=== PATIENT | female | born 1990 | race Caucasian/White ===

== ENCOUNTER 2022-10-28 09:29 | Outpatient (CLI) | payer MEDICAID, SELFPAY ==
[2022-10-28 13:49] LABS: Hepatitis B Surface Antigen* Negative (Negative)
[2022-10-28 13:59] LABS: HIV 1/2/P24 Combo Screen* Negative (Negative)
[2022-10-28 14:07] LABS: Hepatitis C Virus Antibody* Negative (Negative)
[2022-10-28 14:08] LABS: TSH With Reflex to FT4* < 0.015 uIU/mL (0.270-4.200)
[2022-10-28 14:46] LABS: Free T4 Free Thyroxine* 1.21 ng/dL (0.70-1.85)
[2022-10-28 14:52] LABS: Chlamydia DNA Amplified* NOT DETECTED (No Detected); GC DNA Amplified* NOT DETECTED (No Detected)
[2022-10-30 13:26] LABS: Rubella Antibody IgG 32.8 IU/mL; Varicella-Zoster Virus Ab, IgG 549.3 IV
[2022-10-30 17:21] LABS: Rapid Plasma Reagin (RPR) Non Reactive (Non Reactive)
== END 2022-10-28 09:30 | disposition home or self-care (01) ==
PROVIDERS: PCP Registered Nurse; Visit Provider Physician Assistant
DX: Z34.91 Encounter for supervision of normal pregnancy, unspecified, first trimester (principal); Z86.39 Personal history of other endocrine, nutritional and metabolic disease
CPT/HCPCS: 84439; 84443; 86592; 86703; 86762; 86787; 86803; 86850; 86900; 86901; 87086; 87340; 87491; 87591

== ENCOUNTER 2022-10-28 09:59 | Outpatient (CLI) | payer MEDICAID, SELFPAY ==
--- NOTE | 2022-10-28 10:15 | CRLHL7_ITS ---
For Patients: As a result of the Century Cures Act, medical imaging exams and procedure reports are released immediately into your electronic medical record. You may view this report before your referring provider. If you have questions, please contact your health care provider. INDICATION: First trimester scan, establish dates. COMPARISON: None. TECHNIQUE: Real-time sun-scale imaging of the pelvis was performed. FINDINGS: Sonographic imaging demonstrates a single living intrauterine gestation. The embryo demonstrates a regular cardiac rate measuring 174 beats per minute. The embryo`s crown-rump length measurement of 1.8 cm corresponds to a gestational age of 8 weeks 2 days with a sonographic due date of 06/07/2023. There is a normal-appearing yolk sac. There are no gross abnormalities noted within the embryo at this early state of development. The gestational sac has a normal appearance. There is a 3.8 x 0.6 x 0.6 cm right-sided perigestational hemorrhage. The amount of fluid within the sac appears appropriate for gestational age. The cervix is closed. The myometrium appears normal. The ovaries are of normal size. Corpus luteal cyst right ovary. There are no suspicious fluid collections noted in the cul-de-sac. IMPRESSION: Sonographic gestational age 8 weeks 2 days and sonographic due date 06/07/2023. Subchorionic hemorrhage measuring 3.8 x 0.6 x 0.6 cm. Dictated by Wili Fernandez MD @ 10/28/2022 2:27:57 PM (Electronically Signed)
== END 2022-10-28 10:00 | disposition home or self-care (01) ==
LOC: US 10:00
PROVIDERS: PCP Registered Nurse; Visit Provider Registered Nurse
DX: Z34.91 Encounter for supervision of normal pregnancy, unspecified, first trimester (principal); Z3A.08 8 weeks gestation of pregnancy
CPT/HCPCS: 76817

== ENCOUNTER 2022-11-30 09:15 | Outpatient (CLI) | payer MEDICAID, SELFPAY ==
[2022-11-30 10:49] LABS: TSH With Reflex to FT4* 0.223 uIU/mL (0.270-4.200)
[2022-11-30 11:47] LABS: Free T4 Free Thyroxine* 0.95 ng/dL (0.70-1.85)
== END 2022-11-30 09:16 | disposition home or self-care (01) ==
LOC: NFLDREF 09:15
PROVIDERS: PCP Registered Nurse; Visit Provider Obstetrics & Gynecology
DX: Z86.39 Personal history of other endocrine, nutritional and metabolic disease (principal)
CPT/HCPCS: 84439; 84443

== ENCOUNTER 2023-01-18 07:14 | Outpatient (CLI) | payer MEDICAID, SELFPAY ==
--- NOTE | 2023-01-18 07:15 | CRLHL7_ITS ---
For Patients: As a result of the Century Cures Act, medical imaging exams and procedure reports are released immediately into your electronic medical record. You may view this report before your referring provider. If you have questions, please contact your health care provider. INDICATION: Evaluate anatomy. COMPARISON: 10/28/2022 TECHNIQUE: Real time sun scale imaging of the fetus was performed as well as color Doppler analysis of the umbilical vessels. FINDINGS: Sonographic imaging demonstrates a single living intrauterine gestation. Fetus demonstrates a regular cardiac rate of 146 beats per minute. Fetus has a variable position. The placenta lies posteriorly without evidence of placenta previa. The edges of the placenta is located 4.4 cm from the internal cervical os. Amniotic fluid volume appears normal. Single deepest vertical pocket: 4.9 cm. The cervix is closed and measures 4.2 cm in length. The composite ultrasound gestational age is calculated at 20 weeks 2 days with an estimated sonographic due date of 06/05/2023. The estimated weight is 350 grams which lies at the 68th %. The following biometric measurements were obtained: Biparietal diameter: 4.6 cm/20 weeks 0 days 49th% Head circumference: 17.7 cm/20 weeks 1 day 50th% Abdominal circumference: 15.4 cm/20 weeks 4 days 64th% Femur length: 3.3 cm/20 weeks 2 days 51st% The HC/AC ratio measures: 1.15 range (1.07-1.25) On anatomic survey, there is a normal appearance of the cerebral ventricles, cavum septi pellucidi, cisterna magna and cerebellum. The nose, lips, and facial profile appear normal. The cervical, thoracic and lumbar spine are well visualized and appear normal. There is a normal four-chamber heart view and the left and right ventricular outflow tracts appear normal. The diaphragm and stomach appear normal. The kidneys and bladder also appear normal. There is a normal three-vessel cord and cord insertion site. The four extremities appear normal. IMPRESSION: Normal OB ultrasound exam with concordance of clinical and sonographic dating. No intrinsic abnormalities noted on anatomic survey. Dictated by Wili Fernandez MD @ 01/18/2023 9:13:13 AM (Electronically Signed)
== END 2023-01-18 07:15 | disposition home or self-care (01) ==
LOC: US 07:16
PROVIDERS: Visit Provider Obstetrics & Gynecology
DX: Z34.92 Encounter for supervision of normal pregnancy, unspecified, second trimester (principal); Z3A.20 20 weeks gestation of pregnancy
CPT/HCPCS: 76805

== ENCOUNTER 2023-04-26 09:41 | Outpatient (CLI) | payer MEDICAID, SELFPAY | END 2023-04-26 09:42 | disposition home or self-care (01) | PROVIDERS: Visit Provider Obstetrics & Gynecology | DX: R39.15 Urgency of urination (principal) | CPT/HCPCS: 87086 ==

== ENCOUNTER 2023-05-10 10:08 | Outpatient (CLI) | payer MEDICAID, SELFPAY ==
[2023-05-11 11:02] LABS: Strep B DNA Probe POSITIVE (Negative); Strep B Pen/Amox Allergy No
== END 2023-05-10 10:09 | disposition home or self-care (01) ==
PROVIDERS: Visit Provider Obstetrics & Gynecology
DX: Z34.93 Encounter for supervision of normal pregnancy, unspecified, third trimester (principal); Z3A.36 36 weeks gestation of pregnancy
CPT/HCPCS: 87081; 87653

== ENCOUNTER 2023-05-11 15:45 | Outpatient (CLI) | payer MEDICAID, SELFPAY ==
[2023-05-11 15:51] VITALS: PULSE 92; O2SAT 100
[2023-05-11 15:56] VITALS: PULSE 100; O2SAT 99
[2023-05-11 15:58] VITALS: BP 130/84; PULSE 97
[2023-05-11 15:59] VITALS: TEMP 36.8
--- NOTE | 2023-05-11 17:45 | PC.OBNST ---
NST Note NST Note Start: 05/11/23 15:57 Freq: ONCE Status: Active Protocol: Document 05/11/23 17:44 HOLINESS (Rec: 05/11/23 17:45 HOLINESS [id number]) NST Note 8 Para (# of births) 4 EDC 06/07/23 Gestational Age In Weeks & Days 36 Weeks & 1 Days Patient Presented with Complaint(s) of Decreased movement Reactive Yes Appropriate for Gestational Age Yes MILLICENT Ashby Date 05/11/23 Reactive Yes Appropriate for Gestational Age Yes MILLICENT Singh Date 05/11/23 OB NST charge Yes Complete NST Note via Write Note Yes The provider's electronic signature indicates the NST is reactive/appropriate for gestational age. *Note to provider: If an addendum is required, open the patient's chart and click on the note under the Nurse/Allied Health tab.
== END 2023-05-11 16:40 | disposition home or self-care (01) ==
LOC: OB OUT 15:45 → OB 15:46
PROVIDERS: Visit Provider Obstetrics & Gynecology
DX: O36.8130 Decreased fetal movements, third trimester, not applicable or unspecified (principal); Z3A.36 36 weeks gestation of pregnancy
CPT/HCPCS: 59025; 99213

== ENCOUNTER 2023-05-31 18:59 | Inpatient (IN) | payer MEDICAID, SELFPAY ==
[2023-05-31 16:39] VITALS: BP 138/88; PULSE 106; PULSE 96; O2SAT 100
[2023-05-31 16:48] VITALS: TEMP 37.2
[2023-05-31 19:14] VITALS: BMI 35.4
[2023-05-31] MEDS: AMPICILLIN 2 GM in 0.9 % SODIUM CHLORIDE Mini-bag 100 ML IVPB (19:36)
[2023-05-31 19:38] VITALS: BP 137/84; PULSE 79; RESP 16; TEMP 37.1
--- NOTE | 2023-05-31 20:29 | P.LDBA_ITS ---
Subjective History of Present Illness Time Seen by Provider: 20:20 Date Seen: 05/31/23 Narrative: Patient is being admitted to Labor and Delivery for spontaneous onset of labor. She is a 32 year old at 39 0/7 weeks gestation. Her full history and physical was dictated by Dr. Aponte on 05/17/2023. Please see this for details. Specific Issues/Plans 1. Nephrolithiasis. ED visit September 2022. 4 mm nonobstructing stone 2. History of recurrent loss, 3 miscarriages * Declined [id number] or any other genetic screening 3. History of LEEP in 2009, paps have been normal since * Pap 10/28/2022 NILM, neg HrHPV 4. Asthma: was noted in records, but pt denies 5. At 1st visit: TSH<0.015 (L), FT4 1.21 (normal) * TSH w/ reflex FT4 at 2nd visit: TSH 0.223 (slightly low), fT4 0.95 (normal) * Recheck TSH at 28 weeks: 0.432 (normal) Flu shot: Declines COVID vaccine: Not vaccinated, discussed recommendation and risks Tdap: Declined OB - Problem Based A/P Additional Plan (1) Spontaneous onset of labor: Status: Acute Plan Begin GBS prophylaxis. Delivery/Labor/Induction Plan Plan: expectant management OB Result Labs Blood Type: O (+) positive Rubella: immune RPR/VDLR: nonreactive GBS Status: positive HBsAG: negative OB Exam Physical Exam Vital signs: Temp Pulse Resp BP Pulse Ox 98.7 F 79 16 137/84 100 05/31/23 19:38 05/31/23 19:38 05/31/23 19:38 05/31/23 19:38 05/31/23 16:39 Detailed Labor and Delivery Exam Patient Gravid: Yes Dilation (cm): 3 Effacement (%): 70 Cervix position: mid Consistency: soft Contraction Frequency: 1-5 minutes Contraction duration (sec): 60 Tachysystole: No Contraction intensity: Moderate Fetus (Single) Station: -2 Amniotic Membrane Status: intact Heart Rate Baseline: 140 Monitor Accelerations: Absent Monitor Decelerations: None Halfway Variability: Moderate (6-25)
[2023-05-31 22:04] VITALS: TEMP 36.9
[2023-05-31 23:05] LABS: Basophils Percent Auto 0.4 % (0.0-3.0); Eosinophils Percent Auto 0.6 % (0.0-7.0); Hematocrit 36.8 % (33.0-51.0); Hemoglobin* 12.1 gm/dL (12.0-16.0); Immature Granulocytes Pct Auto 0.5 %; Lymphocytes Percent Auto 22.6 % (20-44); Mean Corpuscular HGB Conc 33 gm/dL (32-36); Mean Corpuscular Hemoglobin 28 pg (26-34); Mean Corpuscular Volume 85 fL (80-100); Monocytes Percent Auto 6.3 % (0.0-11.0); Neutrophils Percent Auto 69.6 % (42.0-72.0); Platelet Count* 236 K/uL (140-440); RDW Coefficient of Variation % 13.1 % (11.5-15.5); Red Blood Count 4.35 m/uL (4.00-5.20); White Blood Count* 11.04 K/uL (4.50-11.00)
[2023-05-31 23:08] LABS: Slide Review Reflex No
[2023-05-31 23:15] VITALS: BP 147/95; PULSE 84
[2023-05-31] MEDS: AMPICILLIN 1 GM in 0.9 % SODIUM CHLORIDE Mini-bag 100 ML IVPB (23:16)
[2023-05-31 23:19] VITALS: BP 137/80; PULSE 94; RESP 18; TEMP 36.8
--- NOTE | 2023-05-31 23:58 | PM.OBPNL ---
Subjective Time Seen by Provider: 23:58 Date Seen: 05/31/23 Narrative: Patient has done labor circuit. Sri regularly now. Objective Vital Signs: Last Vital Signs Temp 98.2 F 05/31/23 23:19 Pulse 94 05/31/23 23:19 Resp 18 05/31/23 23:19 BP 137/80 05/31/23 23:19 Pulse Ox 100 05/31/23 16:39 Pelvic Exam Dilation (cm): 5 Effacement (%): 50 Station: -2 Contractions Monitor mode: External Contraction Frequency: 2 minutes Contraction pattern: Regular Contraction intensity: Moderate Assessment Assessment: active labor Station: -2 Amniotic Membrane Status: AROM Status: Category l Heart Rate Baseline: 140 Skilled Nursing Variability: Moderate (6-25) Monitor Accelerations: Absent Monitor Decelerations: None Plan Plan: AROM performed. Continue current management.
[2023-06-01] VITALS (15 sets, daily range): BP systolic 110–175; BP diastolic 63–89; PULSE 69–101; RESP 16–18; TEMP 36.5–37
[2023-06-01] MEDS: AMPICILLIN 1 GM in 0.9 % SODIUM CHLORIDE Mini-bag 100 ML IVPB (03:18)
--- NOTE | 2023-06-01 03:35 | PM.OBPNL ---
Subjective Time Seen by Provider: 03:35 Date Seen: 06/01/23 Narrative: Patient comfortable. Was able to get about 90 minutes of sleep. Objective Exam: Vertex presentation confirmed by bedside ultrasound. Vital Signs: Last Vital Signs Temp 98.6 F 06/01/23 03:19 Pulse 71 06/01/23 03:19 Resp 16 06/01/23 03:19 BP 135/76 06/01/23 03:19 Pulse Ox 100 05/31/23 16:39 Pelvic Exam Dilation (cm): 7 Effacement (%): 100 Station: -2 Contractions Monitor mode: External Contraction Frequency: 1-5 minutes Contraction pattern: Regular Contraction intensity: Moderate Assessment Station: -2 Amniotic Membrane Status: AROM Status: Category l Heart Rate Baseline: 140 Monitor Accelerations: Absent Monitor Decelerations: None Plan Plan: Begin pitocin augmentation of labor per protocol.
[2023-06-01] MEDS: LACTATED RINGERS 1000 ML 1,000 ML 125 ML IV (03:56)
[2023-06-01] MEDS: OXYTOCIN 30 unit/500 ML in NS 30 UNIT/500 ML BAG IVPB (03:56)
[2023-06-01] MEDS: fentaNYL 100 MCG/2 ML inj IVP (06:47)
--- NOTE | 2023-06-01 06:56 | PM.OBPNL ---
Subjective Date Seen: 06/01/23 Narrative: Patient is in 10/10 pain with contractions. Had thought about using nitrous, but didn't. Objective Vital Signs: Last Vital Signs Temp 98.6 F 06/01/23 05:50 Pulse 87 06/01/23 05:50 Resp 18 06/01/23 05:50 BP 134/87 06/01/23 05:50 Pulse Ox 100 05/31/23 16:39 Pelvic Exam Dilation (cm): 6 Effacement (%): 100 Station: -1 Comments: LOP position Contractions Monitor mode: External Contraction pattern: Regular Contraction intensity: Moderate Assessment Station: -2 Amniotic Membrane Status: AROM Status: Category l Heart Rate Baseline: 140 Activity Assistant Variability: Minimal (3-5) Monitor Accelerations: Present Monitor Decelerations: Variable Plan Plan: Fentanyl now for pain. Signing out to Dr. Hsu.
[2023-06-01] MEDS: LIDOCAINE 1 % PF 30 ML INJECTION (07:30)
--- NOTE | 2023-06-01 07:49 | W.PM.OBVAGDE ---
OB Procedure Vag Delivery Mother Details Mother Details: The patient is a 32 year-old, 8, Para 4034, admitted on 05/31/23 at 39 0/7 gestation. : 8 Para: 4 Weeks Gestation: 39.1 Admission Date: 05/31/23 Additional Details Amniotic Membrane Status: AROM Amniotic Membrane Rupture Date: 05/31/23 Amniotic Membrane Rupture Time: 23:53 Amniotic Membrane Fluid Description: Clear and Bloody Analgesia/Anesthesia Type: Fentanyl (just prior to delivery) Waterbirth: No Pitcoin: Yes (beginning at 0400) Intrapartal Events: Labor Augmentation Delivery augmentation: rupture of membranes and pitocin (to max of 7 mu/min) Labor Onset: 23:53 Complete: 07:18 Pushin:18 Heart: heart tones during second stage were category 2. Delivery Details Delivery Time: 07:23 Route of delivery: Infant Gender: Male Infant Viability: Alive; Heart Rate Present Position at Delivery: OA Delivery Details: Delivered over 2nd degree perineal laceration via spontaneous vaginal delivery. was placed on maternal abdomen.? Cord was clamped and cut after a 30-60 second delay. Nose and mouth were bulb suctioned.? Infant weight pending. Additional Details Shoulder Dystocia: No Placenta Delivery Time: 07:27 Placental Delivery Description: Spontaneous Delivery repair: Chromic Procedure Done: Global Blood Loss: 100 Laceration: Perineal - 2nd Degree Blood Loss Measurement Type: QBL Bakri Used: No Sponge/Need Count Correct: Yes Cord Vessel Description: 3 Vessels Event Summary Status: Mother and infant were stable after delivery. Disposition: floor
[2023-06-01] MEDS: DOCUSATE SODIUM 100 MG CAPSULE PO (08:36)
[2023-06-01] MEDS: IBUPROFEN 600 MG TABLET PO ×3 (08:36→22:12)
[2023-06-01] MEDS: ACETAMINOPHEN 500 MG TABLET 1000 MG PO ×2 (11:54→18:31)
[2023-06-02 01:53] VITALS: BP 118/82; PULSE 86; RESP 18; TEMP 36.6; O2SAT 98
[2023-06-02 05:22] VITALS: BP 98/66; PULSE 77; RESP 18; TEMP 36.6; O2SAT 99
[2023-06-02 06:48] LABS: Hemoglobin* 11.1 gm/dL (12.0-16.0)
[2023-06-02 09:00] VITALS: BP 127/83; PULSE 74; RESP 18; TEMP 36.7; O2SAT 97
--- NOTE | 2023-06-02 09:05 | P.DS_ITS ---
DS: Providers Provider Time Seen by Provider: 09:06 Date Seen: 06/02/23 Date of admission: 05/31/23 18:59 Primary care physician: Not a Local Provider Admitting Clinician: Gail Aponte MD Attending Physician on discharge: Gail Aponte MD Date of Discharge: 06/02/23 DS: Diagnosis Discharge Diagnosis (1) NVD (normal vaginal delivery): Status: Acute (2) Lactating mother: Status: Acute Exam Narrative: Exam Narrative: VSS, afebrile GENERAL APPEARANCE: ?normal affect, alert, no distress MOOD: ?appropriate HEENT: normocephalic, neck supple, full ROM CHEST: ?Symmetrical chest wall movement. ?Normal respiratory effort. ?Clear to auscultation HEART: ?regular rate and rhythm ABDOMEN: ?soft, non-tender. Uterine fundus is firm, at Umbilicus, Midline and is appropriate for the stage of recovery. ?Bowel sounds present. PERINEUM: ?mild edema of the perineum, there is a 2nd degree laceration that is healing well. EXTREMITIES: ?normal and none edema Const: Vital Signs, click to edit/add: Vital Signs - 24 hr 06/01/23 09:13 06/01/23 11:43 06/01/23 15:53 Temperature 98.3 F 98.0 F Pulse Rate 71 Pulse Rate [Bilate ral] 101 H 80 Respiratory Rate 16 16 Blood Pressure 115/68 Blood Pressure [Le ft Arm] 110/71 116/78 Pulse Oximetry Oxygen Delivery Me thod Room Air Room Air 06/01/23 22:00 06/02/23 01:53 06/02/23 05:22 Temperature 97.7 F 97.8 F 97.9 F Pulse Rate Pulse Rate [Bilate ral] 74 86 77 Respiratory Rate 16 18 18 Blood Pressure Blood Pressure [Le ft Arm] 145/88 H 118/82 98/66 Pulse Oximetry 98 99 Oxygen Delivery Me thod Room Air Room Air Room Air Documenting provider has reviewed patient's vital signs: yes OB - DS: Summary Hospital Course Hospital Course: Shantelle is a 32 y.o. G 8 P 5 who was admitted to [facility] & [facility] for labor. ?She had an uncomplicated NVD The patient feels well. ?The pain is well controlled with current medications. ?She has no new complaints. ?She is breast feeding and reports things are going well.? the patient has done well.? Vitals have been stable.? She has remained afebrile.? Has a good appetite, is tolerating a general diet. ?She is voiding without difficulty.? She is passing gas and has not had a bowel movement.? She is ambulating and denies any dizziness.? Has Small amount of rubra lochia. She is planning NFP for prevention. Problems: none plan: Discharge home with baby. Follow up in 2 weeks and 6 weeks. , may follow up with if needed Peripartum Data Infant delivery method: Vaginal Laceration description: Perineal - 2nd Degree complications: none [place] Infant Gender: Male Infant Discharge Plan: Home Status at Discharge Functional status at discharge: independent ambulation Overall status at discharge: patient is progressing back to baseline Time Spent with Patient Time attestation: Total time spent providing and/or coordinating discharge services: Time spent: Less than 30 minutes Discharge Plan Discharge Disposition: Home, Self-Care Date of Admission: 05/31/23 18:59 Attending Provider on Discharge: Deepa Gil Primary Care Provider: Provider,Not a Local Condition: Stable Anticipated Discharge Date/Time: 06/02/23 10:00 Discharge Medications: New docusate sodium 100 mg Capsule 100 mg PO BID PRNQty: 100 0RF Rx Instructions: Take 1 cap 1-2 times a day as needed for constipation ibuprofen 600 mg Tablet 600 mg PO Q6H PRNQty: 60 0RF Continued PNV-DHA 27 mg iron-1 mg -300 mg capsule 1 cap PO PRN loratadine [Claritin] 10 mg tablet 10 mg PO QDAY Discharge Orders: Discharge Order (Routine); Ordered 06/02/23 Ordered By: Deepa Gil Patient Education: OB Over the Counter Medication Information, OB Vaginal/Breast Feeding Additional Instructions: Follow up in 2 weeks and 6 weeks Activity Level: Activity as Tolerated Discharge Diet: Regular Follow Up Appointments: Provider,Not a Local [Primary Care Provider] - Forms: [facility], [place] Info Instructions
== END 2023-06-02 12:50 | disposition home or self-care (01) | DRG 807 ==
LOC: OB OUT 06-01 11:32
PROVIDERS: Admitting Provider Obstetrics & Gynecology; Visit Provider Obstetrics & Gynecology
DX: O99.824 Streptococcus B carrier state complicating childbirth (principal); Z37.0 Single live birth; O70.1 Second degree perineal laceration during delivery; Z3A.39 39 weeks gestation of pregnancy
CPT/HCPCS: 36415; 85018; 85025; 86850; 86900; 86901; 99213; A9270; J0290; J2001; J3010; J7120

== ENCOUNTER 2023-07-10 13:46 | Outpatient (CLI) | payer MEDICAID, SELFPAY | END 2023-07-10 13:47 | disposition home or self-care (01) | LOC: NFLDREF 13:46 | PROVIDERS: Visit Provider Obstetrics & Gynecology | DX: Z39.2 Encounter for routine postpartum follow-up (principal) | CPT/HCPCS: 84439; 84443 ==

== ENCOUNTER 2023-08-07 14:15 | Outpatient (CLI) | payer MEDICAID, SELFPAY | END 2023-08-07 14:16 | disposition home or self-care (01) | LOC: NFLDREF 08-10 15:27 | PROVIDERS: Visit Provider Obstetrics & Gynecology | DX: O90.5 Postpartum thyroiditis (principal) | CPT/HCPCS: 84439; 84443 ==

== ENCOUNTER 2024-05-08 07:58 | Outpatient (CLI) | payer MEDICAID, SELFPAY ==
--- NOTE | 2024-05-08 08:15 | CRLHL7_ITS ---
For Patients: As a result of the Cures Act, medical imaging exams and procedure reports are released immediately into your electronic medical record. You may view this report before your referring provider. If you have questions, please contact your health care provider. INDICATION: First trimester scan, establish dates. COMPARISON: None. TECHNIQUE: Real-time sun-scale imaging of the pelvis was performed. FINDINGS: Sonographic imaging demonstrates a single living intrauterine gestation. The embryo demonstrates a regular cardiac rate measuring 159 beats per minute. The embryo`s crown-rump length measurement of 1.3 cm corresponds to a gestational age of 7 weeks 3 days with a sonographic due date of 12/22/2024. There is a normal-appearing yolk sac. There are no gross abnormalities noted within the embryo at this early state of development. The gestational sac has a normal appearance. There is a 2.0 x 1.1 x 2.0 cm perigestational hemorrhage. The amount of fluid within the sac appears appropriate for gestational age. The cervix is closed. The myometrium appears normal. The ovaries are not visualized. There are no suspicious fluid collections noted in the cul-de-sac. IMPRESSION: Single living intrauterine with sonographic gestational age 7 weeks 3 days and sonographic due date of 12/22/2024. Subchorionic hemorrhage measuring 2.0 x 1.1 x 2.0 cm. Dictated by Wili Fernandez MD @ 05/09/2024 8:56:49 AM (Electronically Signed)
== END 2024-05-08 07:59 | disposition home or self-care (01) ==
LOC: US 07:59
PROVIDERS: Visit Provider Registered Nurse
DX: Z34.91 Encounter for supervision of normal pregnancy, unspecified, first trimester (principal); O20.9 Hemorrhage in early pregnancy, unspecified; Z3A.01 Less than 8 weeks gestation of pregnancy
CPT/HCPCS: 76817; 84439; 84443; 86592; 86703; 86706; 86762; 86787; 86803; 86850; 86900; 86901; 87086; 87340

== ENCOUNTER 2024-05-08 09:25 | Outpatient (CLI) | payer MEDICAID, SELFPAY ==
--- OUTSIDE RECORDS SUMMARY | 2024-05-08 09:31 | XMS_ITS | Clinical Summary ---
Author Organization [facility] Address [address] [place] [address] Care Team Providers Care Sueding Machine Tender Name Role Phone No Ref-Primary, Physician Primary Care Provider Allergies Active Allergy Reactions Criticality Noted Date Comments Sulfa Antibiotics Hives 12/20/2011 LW Reaction: Rash, Generalized Medications Medication Sig Dispensed Refills Start Date End Date Status Multiple Vitamins-Minerals (MULTIVITAMIN WOMEN PO) A ctive Active Problems Problem Noted Date Diagnosed Date Graves disease 10/05/2017 Hyperthyroidism 09/08/2017 (normal spontaneous vaginal delivery) 01/03 CARDIOVASCULAR SCREENING; LDL GOAL LESS THAN 160 11/09/2015 Resolved Problems Problem Noted Date Diagnosed Date Resolved Date Indication for care in labor or delivery 01/03/2017 01/04/2017 Encounter for triage in patient 11/08/2016 01/04/2017 Labor and delivery, indication for care 06/09/2014 01/04/2017 Indication for care in labor or delivery 11/16/2012 11/16/2012 Vaginal delivery 11/16/2012 01/04/2017 Right flank pain 09/11/2012 11/16/2012 Encounter for supervision of other normal 05/27/2012 11/16/2012 Overview: Diagnosis updated by automated process. Provider to review and confirm. Immunizations Name Administration Dates Next Due DTAP (<7y) 12/22/1993, 0,01/07/1989, 989,1988 Flu, Unspecified 07/20/2010, 9,10/01/2007, 006 HEPATITIS A (PEDS 12M-18Y) 05/24/2007 HIB (PRP-T) 05/07/1990 HIB, Unspecified 05/07/1990 Hepatitis A (ADULT 19+) 05/24/2007 Hepatitis B, Adult 07/01/1998,01/01/1998, 998 Hepatitis B, Peds 07/01/1998,12/04/1997,01/01/19 89 Hpv, Unspecified 05/02/2007,12/29/2006, 7 Influenza (H1N1) 06/30/2010 Influenza, seasonal, injectable, PF 11/0 06/2012,07/20/2010,07/27/2009, 007,07/26/2006 MMR 07/12/2000,12/14/1989 Mantoux Tuberculin Skin Test 05/19/2010 Meningococcal ACWY (Menactra??) 10/30/2006 OPV, trivalent, live 12/22/1993,05/07/19 90,1988, 988 Polio, Unspecified 12/22/1993, 0,1988, 988 TDAP (Adacel,Boostrix) 04/03/2014,07/07/2011, TDAP Vaccine (Boostrix) 10/25/2016 Td (Adult), Adsorbed 07/12/2000 Family History Medical History Relation Comments Cancer Brother testicular Hypertension Father Diabetes Maternal Grandfather Diabetes Maternal Grandmother kidney dise ase Family History Negative Mother Cancer Paternal Grandmother ovarian Relation Status Comments Brother Father Alive Maternal Grandfather Maternal Grandmother Mother Alive Paternal Grandmother Social History Tobacco Use Types Packs/Day Years Used Date Smoking Tobacco: Former Cigarettes Q uit: 10/06/2008 Smokeless Tobacco: Never Tobacco Cessation:Counseling Given: No Alcohol Use Standard Drinks/Week Comments No 0 (1 standard drink = 0.6 oz pur e alcohol) PHQ-2 Answer Date Recorded PHQ-2 Score 0 12/03/2019 Adolescent Education Answer Date Record ed Getting School Help Needed Not on file 07/15 Sex and Gender Information Value Date Recorded Sex Assigned at Not on file Gender Identity Female 09/24/2021 9:00 AM COMPUTING SERVICES DIRECTOR Sexual Orientation Not on file Last Filed Vital Signs Vital Sign Reading Time Taken Comments Blood Pressure 124/78 10/07/2022 12:08 PM COMPUTING SERVICES DIRECTOR Pulse 95 10/07/2022 1:49 PM COMPUTING SERVICES DIRECTOR Temperature 36.5 ??C (97.7 ??F) 10/07/2022 9:21 AM CS T Respiratory Rate 16 10/07/2022 1:49 PM COMPUTING SERVICES DIRECTOR Oxygen Saturation 100% 10/07/2022 12:08 PM COMPUTING SERVICES DIRECTOR Inhaled Oxygen Concentration - - Weight 79.9 kg (176 lb 1.6 oz) 12/03/2019 1:20 P M COMPUTING SERVICES DIRECTOR Height 162.6 cm (5' 4) 12/03/2019 1:20 PM COMPUTING SERVICES DIRECTOR Body Mass Index 30.23 12/03/2019 1:20 PM COMPUTING SERVICES DIRECTOR Plan of Treatment Health Maintenance Due Date Last Done Comments ADVANCE CARE PLANNING 1988 ANNUAL REVIEW OF HM ORDERS 1988 HEPATITIS C SCREENING 2006 YEARLY PREVENTIVE VISIT 12/03/2020 12/03/2019, 09/05 COVID-19 Vaccine ( season) 2023 PHQ-2 (once per calendar year) 2023 12/03/2019, 09/05/2017, 06/17/2015 INFLUENZA VACCINE (#1) 2024 0 (Declined), 10/03/2018 (Declined), 08/24/2012, Additional history exists HPV TEST 12/03/2024 12/03/2019 PAP 12/03/2024 12/03/2019, 10/06/2015 GLUCOSE 10/07/2025 10/07/2022, 05/30/2016 DTAP/TDAP/TD IMMUNIZATION (10 - Td or Tdap) 10/25/2026 10/25/2016, 04/03/2014, 07/07/2011, Additional history exists IPV IMMUNIZATION Completed 12/22/1993, 06/1994, 05/07/1990, Additional history exists HEPATITIS B IMMUNIZATION Completed 998, 07/01/1998, 01/01/1998, Additional history exists MENINGITIS IMMUNIZATION Completed 10/30/2006 HPV IMMUNIZATION Completed 05/02/2007, , 11/01/2006 HIV SCREENING Completed 06/23/2016, 10/17, 05/16/2012 Pneumococcal Vaccine: Pediatrics (0 to 5 Years) and At-Risk Patients (6 to 64 Years) Aged Out No longer eligible based on patient's age to complete this topic RSV MONOCLONAL ANTIBODY Aged Out No l onger eligible based on patient's age to complete this topic Procedures Procedure Name Priority Date/Time Associated Diagnosis Comments BASIC METABOLIC PANEL STAT 10/07/2022 9:30 AM COMPUTING SERVICES DIRECTOR HPV HIGH RISK TYPES DNA CERVICAL Routine 12/03/2019 1:30 PM COMPUTING SERVICES DIRECTOR Screening for malignant neoplasm of cervix PAP IMAGED THIN LAYER SCREEN Routine 12/03/2019 1:29 PM COMPUTING SERVICES DIRECTOR Screening for malignant neoplasm of cervix HIV ANTIGEN ANTIBODY COMBO Routine 06/23/2016 from Last 3 Months or Most Recently Relevant to Health Maintenance Results * (ABNORMAL) Basic metabolic panel (10/07/2022 9:30 AM COMPUTING SERVICES DIRECTOR) Sodium 137 136 - 145 mmol/L 10/07/2022 11:03 AM [facility] Potassium 4.2 3.4 - 5.3 mmol/L 10/07/2022 11:03 AM [facility] Chloride 102 98 - 107 mmol/L 10/07/2022 11:03 AM [facility] Carbon Dioxide (CO2) 22 22 - 29 mmol/L 10/07/2022 11:03 AM [facility] Anion Gap 13 7 - 15 mmol/L 10/07/2022 11:03 AM [facility] Urea Nitrogen 10.9 6.0 - 20.0 mg/dL 10/07/2022 11:03 AM [facility] Creatinine 0.72 0.51 - 0.95 mg/dL 10/07/2022 11:03 AM [facility] Calcium 9.6 8.6 - 10.0 mg/dL 10/07/2022 11:03 AM [facility] Glucose 105(H) 70 - 99 mg/dL 10/07/2022 11:03 AM [facility] GFR Estimate >90 >60 mL/min/1.7 3m2 10/07/2022 11:03 AM [facility] Comment:Effective September 162020 eGFRcr in adults is calculated using the 2020 CKD-EPI creatinine equation which includes age and gender (Csr et al., NEJM, DOI: 10.1056/VKXIgr1123244) Blood STRUCTURE OF RIGHT UPPER LIMB / Unknown Venipuncture / Unknown 10/07/2022 9:30 AM COMPUTING SERVICES DIRECTOR 10/07/2022 9:35 AM COMPUTING SERVICES DIRECTOR Adams Washington MD LAB - BLOOD [facility] [address] (1st floor, no room number) [place] [address], [facility] [phone] * HPV High Risk Types DNA Cervical (12/03/2019 1:30 PM COMPUTING SERVICES DIRECTOR) HPV Source SurePath 12/03/2019 1:29 PM COMPUTING SERVICES DIRECTOR [facility] HPV 16 DNA Negative NEG^Nega tive 12/09/2019 3:31 PM COMPUTING SERVICES DIRECTOR [facility] HPV 18 DNA Negative NEG^Nega tive 12/09/2019 3:31 PM COMPUTING SERVICES DIRECTOR [facility] Other HR HPV Negative NEG^Nega tive 12/09/2019 3:31 PM COMPUTING SERVICES DIRECTOR [facility] Final Diagnosis This patient's sample is negative for HPV DNA. 12/09/2019 3:31 PM COMPUTING SERVICES DIRECTOR [facility] Comment: This test was developed and its performance characteristics determined by the [facility], Molecular Diagnostics Laboratory. It has not been cleared or approved by the FDA. The laboratory is regulated under CLIA as qualified to perform high-complexity testing. This test is used for clinical purposes. It should not be regarded as investigational or for research. (Note) METHODOLOGY: ??The Sj sergio 4800 system uses automated extraction, simultaneous amplification of HPV (L1 region) and beta-globin, ?? followed by ??real time detection of fluorescent labeled HPV and beta globin using specific oligonucleotide probes . The test specifically identifies types HPV 16 DNA and HPV 18 DNA while concurrently detecting the rest of the high risk types (31, 33, 35, 39, 45, 51, 52, 56, 58, 59, 66 or 68). COMMENTS: ??This test is not intended for use as a screening device for women under age 30 with normal cervical cytology. ??Results should be correlated with cytologic and histologic findings. Close clinical followup is recommended. Specimen Description Cervical Cells 12/03/2019 1:29 PM COMPUTING SERVICES DIRECTOR [facility] Comment:[id number] Cervical Cells 12/03/2019 1: 30 PM COMPUTING SERVICES DIRECTOR 12/03/2019 2:05 PM COMPUTING SERVICES DIRECTOR Adams Baron MD LAB - BLOOD OR DERABLES [facility] [address] [place] [address] [facility] [address] [facility] [address] [place] [address] * Pap imaged thin layer screen with HPV - recommended age 30 - 65 years (select HPV order below) (12/03/2019 1:29 PM COMPUTING SERVICES DIRECTOR) PAP YULIET Sanchez Report Patient Name: SHANTELLE RICHARDSON MR#: [id number] Specimen #: [id number] Collected: 12/03/2019 Received: 12/04/2019 Reported: 12/06/2019 07:36 Ordering Phy(s): ADAMS BARON For improved result formatting, select 'View Enhanced Report Format' under Linked Documents section. SPECIMEN/STAIN PROCESS: Pap imaged thin layer prep screening (Surepath, FocalPoint with guided screening) ? Pap-Cyto x 1, HPV ordered x 1 SOURCE: Cervical, endocervical Pap imaged thin layer prep screening (Surepath, FocalPoint with guided screening) SPECIMEN ADEQUACY: Satisfactory for evaluation. -Transformation zone component present. CYTOLOGIC INTERPRETATION: Negative for intraepithelial lesion or malignancy Electronically signed out by: SAV Ortez (ASCP) CLINICAL HISTORY: LMP: 11/11/2019 A previous normal pap Date of Last Pap: 10/06/2015, Papanicolaou Test Limitations: ??Cervical cytology is a screening test with limited sensitivity; regular screening is critical for cancer prevention; Pap tests are primarily effective for the diagnosis/preventi on of squamous cell carcinoma, not adenocarcinomas or other cancers. COLLECTION SITE: Client: ??[facility] Location: [place] (R) The technical component of this testing [facility], with the professional component performed at the [facility], [address] [place] [phone] ([phone]) COPATH Cytologic material (specimen) 12/03/2019 1:29 PM COMPUTING SERVICES DIRECTOR 12/04/2019 10:46 AM COMPUTING SERVICES DIRECTOR Adams Baron MD LAB - OPTIME C LINICAL SPECIMEN COPATH * HIV Antigen Antibody Combo (06/23/2016) HIV Antigen Antibody Combo nonreactive Blood specimen (specimen) Patient Reported LAB - BLOOD ORDERABL ES from Last 3 Months or Most Recently Relevant to Health Maintenance Advance Directives For more information, please contact: [phone] * Full Code (Latest Code Status on File) Date Activated Date Inactivated Comments 09/11/2012 8:22 AM 10/07/2022 9:04 AM Care Teams Sueding Machine Tender Relationship Specialty Start Date End Date No Ref-Primary, Physician PCP - General 10/07/22
--- OUTSIDE RECORDS SUMMARY | 2024-05-08 09:31 | XMS_ITS | Referral Summary ---
Author Organization [facility] Address [address] [place] [address] Care Team Providers Care Fluorescent Solution Mixer Name Role Phone No Ref-Primary, Physician Primary [...] Vaccine (Boostrix) 10/25/2016 Td (Adult), Adsorbed 07/12/2000 Social History Tobacco Use Types Packs/Day Years [...] file Gender Identity Female 09/24/2021 9:00 AM GUN STOCKER Sexual Orientation Not on file Last Filed Vital Signs Vital Sign Reading Time Taken Comments Blood Pressure 124/78 10/07/2022 12:08 PM GUN STOCKER Pulse 95 10/07/2022 1:49 PM GUN STOCKER Temperature 36.5 ??C (97.7 ??F) 10/07/2022 9:21 AM CS T Respiratory Rate 16 10/07/2022 1:49 PM GUN STOCKER Oxygen Saturation 100% 10/07/2022 12:08 PM GUN STOCKER Inhaled Oxygen Concentration - - Weight 79.9 kg (176 lb 1.6 oz) 12/03/2019 1:20 P M GUN STOCKER Height 162.6 cm (5' 4) 12/03/2019 1:20 PM GUN STOCKER Body Mass Index 30.23 12/03/2019 1:20 PM GUN STOCKER Plan of Treatment Not on file Procedures Procedure Name Priority Date/Time Associated Diagnosis Comments BASIC METABOLIC PANEL STAT 10/07/2022 9:30 AM GUN STOCKER HPV HIGH RISK TYPES DNA CERVICAL Routine 12/03/2019 1:30 PM GUN STOCKER Screening for malignant neoplasm of cervix PAP IMAGED THIN LAYER SCREEN Routine 12/03/2019 1:29 PM GUN STOCKER Screening for malignant neoplasm of cervix HIV ANTIGEN ANTIBODY COMBO Routine 06/23/2016 from Last 3 Months or Most Recently Relevant to Health Maintenance Results * (ABNORMAL) Basic metabolic panel (10/07/2022 9:30 AM GUN STOCKER) Sodium 137 136 - 145 mmol/L 10/07/2022 11:[address] [facility] Potassium 4.2 3.4 - 5.3 mmol/L 10/07/2022 11:[address] [facility] Chloride 102 98 - 107 mmol/L 10/07/2022 11:[address] [facility] Carbon Dioxide (CO2) 22 22 - 29 mmol/L 10/07/2022 11:[address] [facility] Anion Gap 13 7 - 15 mmol/L 10/07/2022 11:[address] [facility] Urea Nitrogen 10.9 6.0 - 20.0 mg/dL 10/07/2022 11:[address] [facility] Creatinine 0.72 0.51 - 0.95 mg/dL 10/07/2022 11:[address] [facility] Calcium 9.6 8.6 - 10.0 mg/dL 10/07/2022 11:[address] [facility] Glucose 105(H) 70 - 99 mg/dL 10/07/2022 11:[address] [facility] GFR Estimate >90 >60 mL/min/1.7 3m2 10/07/2022 11:03 AM [facility] Comment:Effective September 162020 eGFRcr in adults is calculated using the 2020 CKD-EPI creatinine equation which includes age and gender (Arianna et al., [facility], DOI: 10.1056/LLAAsn8403727) Blood STRUCTURE OF RIGHT UPPER LIMB / Unknown Venipuncture / Unknown 10/07/2022 9:30 AM GUN STOCKER 10/07/2022 9:35 AM GUN STOCKER Adams Washington MD LAB - BLOOD [facility] Acute [facility] Lab [address] [facility] Lab (1st floor, no room number) [place] [address], [facility] [phone] * HPV High Risk Types DNA Cervical (12/03/2019 1:30 PM GUN STOCKER) HPV Source SurePath 12/03/2019 1:29 PM GUN STOCKER [facility] HPV 16 DNA Negative NEG^Nega tive 12/09/2019 3:31 PM GUN STOCKER [facility] HPV 18 DNA Negative NEG^Nega tive 12/09/2019 3:31 PM GUN STOCKER [facility] Other HR HPV Negative NEG^Nega tive 12/09/2019 3:31 PM GUN STOCKER [facility] Final Diagnosis This patient's sample is negative for HPV DNA. 12/09/2019 3:31 PM GUN STOCKER [facility] Comment: This test was developed and its performance characteristics determined by the [facility], Molecular Diagnostics Laboratory. It has not [...] Specimen Description Cervical Cells 12/03/2019 1:29 PM GUN STOCKER [facility] Comment:[id number] Cervical Cells 12/03/2019 1: 30 PM GUN STOCKER 12/03/2019 2:05 PM GUN STOCKER Adams Baron MD LAB - BLOOD OR DERABLES [facility] [address] [place] [address] [facility] [address] [facility] [address] [place] [address] * Pap imaged thin layer screen with HPV - recommended age 30 - 65 years (select HPV order below) (12/03/2019 1:29 PM GUN STOCKER) PAP YULIET Sanchez Report Patient Name: SHANTELLE RICHARDSON MR#: [id number] Specimen #: [id number] Collected: 12/03/2019 Received: 12/04/2019 Reported: 12/06/2019 07:36 [...] adenocarcinomas or other cancers. COLLECTION SITE: Client: ??[facility] Location: [facility] () The technical component of this testing [facility], with the professional component performed at the [facility], [address] [place] [phone] ([phone]) COPATH Cytologic material (specimen) 12/03/2019 1:29 PM GUN STOCKER 12/04/2019 10:46 AM GUN STOCKER Adams Baron MD LAB - OPTIME C LINICAL SPECIMEN COPATH * HIV Antigen Antibody Combo (06/23/2016) HIV Antigen Antibody Combo nonreactive Blood specimen (specimen) Patient Reported LAB - BLOOD ORDERABL ES from Last 3 Months or Most Recently Relevant to Health Maintenance Advance Directives For more information, please contact: [phone] * Full Code (Latest Code Status on File) Date Activated Date Inactivated Comments 09/11/2012 8:22 AM 10/07/2022 9:04 AM Care Teams Fluorescent Solution Mixer Relationship Specialty Start Date End Date No Ref-Primary, Physician PCP - General 10/07/22
--- OUTSIDE RECORDS SUMMARY | 2024-05-08 09:31 | XMS_ITS | Encounter Summary ---
Author Organization [facility] Address [address] [place] [address] Care Team Providers Care Thermometer Maker Name Role Phone No Ref-Primary, Physician Primary Care Provider Reason for Visit * Reason Onset Date Comments Results 10/08/2022 Urine culture Encounter Details Date Type Department Care Team (Late st Contact Info) Description 10/08/2022 Telephone [facility] Emergency Dept [address] [place] [phone] Jovita Stack RN Results (Urine culture) Social History Tobacco Use Types Packs/Day Years Used Date Smoking Tobacco: Former Cigarettes Q uit: 10/06/2008 Smokeless Tobacco: Never Alcohol Use Standard Drinks/Week Comments No 0 (1 standard drink = 0.6 oz pur e alcohol) PHQ-2 Answer Date Recorded PHQ-2 Score 0 12/03/2019 Comments Yes Sex and Gender Information Value Date Recorded Sex Assigned at Not on file Gender Identity Female 09/24/2021 9:00 AM PORCELAIN ENAMEL REPAIRER Sexual Orientation Not on file COVID-19 Exposure Response Date Recorded In the last 10 days, have yo u been in contact with someone who was confirmed or suspected to have Coronavirus/COVID-19? No / Unsure 10/09/2022 9:23 AM PORCELAIN ENAMEL REPAIRER documented as of this encounter Miscellaneous Notes * Telephone Encounter - Jovita Stack RN - 10/08/2022 5:[address] [facility] () Emergency Department Lab result notification [facility] ED lab result protocol used Urine culture Reason for call Notify of lab results, assess symptoms, review ED providers recommendations/discharge instructions (if necessary) and advise per ED lab result f/u protocol Lab Result (including Rx patient on, if applicable) Final urine culture report shows NO GROWTH and is NEGATIVE. [facility] Emergency Dept discharge antibiotic: Nitrofurantoin Macrocrystal- Monohydrate (Macrobid) 100 mg PO capsule, 1 capsule (100 mg) by mouth 2 times daily for 7 days Recommendations in treatment per [facility] ED Lab result Urine culture protocol. alignment technician (Patient???s current Symptoms), include time called. 5:16 PM - overall patient feels improved Antibiotic 3 days prior to sample: No Genitourinary symptoms: No pain, burning, frequency, urgency Fever: No RN Recommendations/Instructions per [facility] ED lab result protocol Patient notified of lab results urine culture & HCG quant and treatment recommendations. OK to stop antibiotic at this time - follow up with PCP for any new presenting symptoms or welcome to return to ED for worsening - patient agrees with plan. Please Contact your PCP clinic or return to the Emergency department if your: ??? Symptoms return. ??? Symptoms worsen or other concerning symptom's. PCP follow-up Questions asked: YES Jovita Stack RN [facility] Emergency Dept Lab Result RN Copy of Lab result Urine Culture Order: [id number] - Reflex for Order [id number] Status: Final result ?? Visible to patient: Yes (seen) ?? Specimen Information: Urine, Midstream 1 Result Note Culture No Growth Resulting Agency: [facility] Specimen Collected: 10/07/22 ??9:59 AM Last Resulted: 10/08/22 ??1:17 PM ELAIN ENAMEL REPAIRER documented in this encounter Plan of Treatment Not on file documented as of this encounter Visit Diagnoses Not on filedocumented in this encounter Care Teams Thermometer Maker Relationship Specialty Start Date End Date No Ref-Primary, Physician PCP - General 10/07/22 documented as of this encounter
--- OUTSIDE RECORDS SUMMARY | 2024-05-08 09:32 | XMS_ITS | Encounter Summary ---
Author Organization [facility] Address [address] [place] [address]. [place] [address] Care Team Providers Care Nurse Practitioner Hospitalist Name Role Phone Sujata Payne MD Primary Care Provider [phone] Sujata Payne MD Unavailable [phone] Adams Rose MD Unavailable + [phone] No Ref-Primary, Physician Primary Care Provider Encounter Details Date Type Department Care Team (Late st Contact Info) Description 12/09/2019 [facility] Medical Advice [facility] Women's [address] [place] [address] Adams Rose MD [address] [place] [address] Social History Tobacco Use Types Packs/Day Years Used Date Smoking Tobacco: Former Cigarettes Q uit: 10/06/2008 Smokeless Tobacco: Never Alcohol Use Standard Drinks/Week Comments No 0 (1 standard drink = 0.6 oz pur e alcohol) PHQ-2 Answer Date Recorded PHQ-2 Score 0 12/03/2019 Sex and Gender Information Value Date Recorded Sex Assigned at Not on file Gender Identity Female 09/24/2021 9:00 AM TRANSIT MIX OPERATOR Sexual Orientation Not on file documented as of this encounter Plan of Treatment Not on file documented as of this encounter Visit Diagnoses Not on filedocumented in this encounter Care Teams Nurse Practitioner Hospitalist Relationship Specialty Start [place] [address] [place] [address] PCP - General Family Practice 08/21/17 10/06/22 No Ref-Primary, Physician PCP - General 10/07/22 [place] [address] [place] [address] Assigned PCP 09/17/17 09/05/20 Adams Rose MD [address] [place] [address] Assigned OBGYN Provider 08/07/20 documented as of this encounter
--- OUTSIDE RECORDS SUMMARY | 2024-05-08 09:32 | XMS_ITS | Clinical Summary ---
Author Organization [facility] Address [place], [place] [address] Care Team Providers Care Field Mechanic/Site Lead Name Role Phone Sherin Medina MD Primary Care Prov ider Allergies Active Allergy Reactions Criticality Noted Date Comments Sulfa (Sulfonamide Antibiotics) Rash 12/2005 Medications Medication Sig Dispensed Refills Start Date End Date Status vitamin-folic acid 1 mg ( VITAMIN) tablet/capsuleInd ications:pregnanc y Take 1 tablet by mouth once daily. Indications: Active PHENAZOPYRIDINE HCL (PYRIDIUM ORAL) Take by mouth. Active ibuprofen (MOTRIN IB) 200 mg tablet Take 1-3 tablets by mouth every 6 hours if needed for Other (Specify) (for uterine cramping). 100 tablet 0 07/02/2011 Active docusate (COLACE) 100 mg capsule Take 1 capsule by mouth once daily. 100 capsule 0 07/02/2011 Active oxyCODONE-acetami nophen, 5-325 mg, (PERCOCET) 5-325 mg per tablet Take 1-2 tablets by mouth every 4 hours if needed for Other (Specify) (severe pain). Max acetaminophen dose: 4000mg in 24 hrs. 20 tablet 0 07/02/2011 Active oxyCODONE-acetami nophen, 5-325 mg, (PERCOCET) 5-325 mg per tablet Take 1-2 tablets by mouth every 4 hours if needed for Pain (For moderate to severe pain not relieved with ibuprofen or acetaminophen). 20 tablet 0 07/02/2011 Active Breast Pump - Purchase As directed. For home use. Gestation age at delivery: 40 weeks. Reason for need: engorgement. Length of need: lifetime 1 unit 0 07/02/2011 Active Active Problems Problem Noted Date Diagnosed Date Forceps delivery 06/30/2011 Cervical dysplasia 05/05/2010 Pelvic pain 03/22/2010 Dysmenorrhea 03/22/2010 Dyspareunia 03/22/2010 Resolved Problems Problem Noted Date Diagnosed Date Resolved Date Supervision of normal first 06/30/2011 06/30/2011 Immunizations Name Administration Dates Next Due Influenza A (H1N1), Inactivated 06/30/2010 Family History Medical History Relation Name Comments Hypertension Other Relation Name Status Comments Other Social History Tobacco Use Types Packs/Day Years Used Date Smoking Tobacco: Every Day Comments:quit one week ago Alcohol Use Standard Drinks/Week Comments Not Asked 0 (1 standard drink = 0.6 oz pur e alcohol) Sex and Gender Information Value Date Recorded Sex Assigned at Not on file Gender Identity Not on file Sexual Orientation Not on file Obstetrics History Para Term AB IAB SAB Ectopic Multiple Livin g Live Births 2 1 1 0 1 0 1 0 0 1 1 Date Outcome GA Total Labor Labor/2nd/3rd Weight Sex Type Anes PTL Shirley A1 A5 Name Clin 05/2010 SAB 011 Term 40w 0d 3.3 kg (7 lb 4.4 oz) F VAGINA L FORC Livin g 7 9 WILLI AMS,[place] GIRL Delivery Location:[facility] Last Filed Vital Signs Vital Sign Reading Time Taken Comments Blood Pressure 116/69 07/02/2011 7:00 AM CDT Pulse 72 07/02/2011 7:00 AM CDT Temperature 36.8 ??C (98.2 ??F) 07/02/2011 7:00 AM CD T Respiratory Rate 18 07/01/2011 4:05 PM CDT Oxygen Saturation 96% 06/30/2011 10:22 AM CDT Inhaled Oxygen Concentration - - Weight 91 kg (200 lb 11.2 oz) 06/28/2011 2:27 AM CDT Height 165.1 cm (5' 5) 06/30/2011 1:00 AM CDT Body Mass Index 33.4 06/28/2011 2:27 AM CDT Plan of Treatment Health Maintenance Due Date Last Done Comments Tdap 1999 Depression screening for age 12+ 2000 HIV for age 15-65 2003 BMI (ht and wt on same day) for age 18+ 2006 Hepatitis C screening for ag e 18-79 2006 Tetanus booster 2008 COVID-19 vaccine series (2022- season) 2023 Influenza for age 9-49 06/16/2024 06/30/2010 Pap test for age 21-65 10/28/2025 3, 10/28/2022 Pneumococcal series for age 6-64 Aged Out No longer eligible b ased on patient's age to complete this topic Procedures Procedure Name Priority Date/Time Associated Diagnosis Comments HPV THIN PREP Routine 10/28/2022 11:50 AM OB SCRUB TECH from Last 3 Months or Most Recently Relevant to Health Maintenance Results * HPV HIGH RISK (10/28/2022 11:50 AM OB SCRUB TECH) TYPE 16 Negative Negative 11/03/2022 2:05 PM OB SCRUB TECH [facility] TYPE 18 Negative Negative 11/03/2022 2:05 PM OB SCRUB TECH [facility] OTHER HIGH RISK TYPES Negative Negative 11/03/2022 2:05 PM OB SCRUB TECH [facility] Other (Cervical) 10/28/2022 11:50 AM OB SCRUB TECH 11/01/2022 4:35 PM OB SCRUB TECH Narrative [facility] - 11/03/2022 2:05 PM OB SCRUB TECH HPV types 16, 18, 31, 33, 35, 39, 45, 51, 52, 56, 58, 59, 66 and 68 DNA were undetectable or below the pre-set threshold. Methodology: Sj Jovon 4800 HPV Test January Sh[facility] [address] [place] [address], [place] from Last 3 Months or Most Recently Relevant to Health Maintenance Advance Directives * Full Code (Latest Code Status on File) Date Activated Date Inactivated Comments 06/30/2011 6:14 PM 07/02/2011 1:05 PM * Full Code Date Activated Date Inactivated Comments 06/30/2011 1:44 AM 06/30/2011 6:14 PM * Full Code Date Activated Date Inactivated Comments 06/28/2011 2:36 AM 06/28/2011 8:27 AM * Full Code Date Activated Date Inactivated Comments 03/20/2011 8:36 PM 03/20/2011 11:39 PM * Full Code Date Activated Date Inactivated Comments 08/09/2010 6:16 AM 08/09/2010 12:05 PM Care Teams Field Mechanic/Site Lead Relationship Specialty Start Date End Date Sherin Medina MD [address] [place] [address] PCP - General 09/17/06
--- OUTSIDE RECORDS SUMMARY | 2024-05-08 09:32 | XMS_ITS | Encounter Summary ---
Author Organization [facility] Address [address] [place] [address]. [place] [address] Care Team Providers Care Head Of Strategy Name Role Phone Sujata Payne MD Primary Care Provider [phone] Sujata Payne MD Unavailable [phone] Adams Rose MD Unavailable + [phone] No Ref-Primary, Physician Primary Care Provider Encounter Details Date Type Department Care Team (Late st Contact Info) Description 05/09/2020 MyC Medical Advice [facility] Women's [address] [place] [address] Adams Rose MD [address] [place] [address] Social History Tobacco Use Types [...] file Gender Identity Female 09/24/2021 9:00 AM BOILER ERECTOR Sexual Orientation Not on file documented as of this encounter Plan of Treatment Not on file documented as of this encounter Visit Diagnoses Not on filedocumented in this encounter Care Teams Head Of Strategy Relationship Specialty [place] [address] [place] [address] PCP - General Family Practice 08/21/17 10/06/22 No Ref-Primary, Physician PCP - General 10/07/22 [place] [address] [place] [address] Assigned PCP 09/17/17 09/05/20 Adams Rose MD [address] [place] [address] Assigned OBGYN Provider 08/07/20 documented as of this encounter
--- OUTSIDE RECORDS SUMMARY | 2024-05-08 09:32 | XMS_ITS | Encounter Summary ---
Author Organization [facility] Address [address] [place] [address] Care Team Providers Care Contracts Administrator Name Role Phone Sujata Payne MD Primary Care Provider [phone] Sujata Payne MD Unavailable [phone] Sujata Payne MD Unavailable [phone] Adams Rose MD Unavailable [phone] No Ref-Primary, Physician Primary Care Provider Encounter Details Date Type Department Care Team (Late st Contact Info) Description 10/08/2018 MyC Medical Advice [facility] Women's [address] [place] [phone] Adams Rose MD [address] [place] [address] Social History Tobacco Use Types Packs/Day Years Used Date Smoking Tobacco: Former Cigarettes Q uit: 10/06/2008 Smokeless Tobacco: Never Alcohol Use Standard Drinks/Week Comments No 0 (1 standard drink = 0.6 oz pur e alcohol) Comments Yes Sex and Gender Information Value Date Recorded Sex Assigned at Not on file Gender Identity Female 09/24/2021 9:00 AM HELMET COVERER Sexual Orientation Not on file documented as of this encounter Miscellaneous Notes * Telephone Encounter - Adams Rose MD - 10/10/2018 9:50 AM HELMET COVERER Spoke with patient. I am much better now. ET COVERER * Telephone Encounter - Alisha Costa, RN - 10/10/2018 8:07 AM HELMET COVERER Please see the [employer] message and advise. Pt had miscarriage last week. Alisha Costa RN ET COVERER documented in this encounter Plan of Treatment Not on file documented as of this encounter Visit Diagnoses Not on filedocumented in this encounter Care Teams Contracts Administrator Relationship Specialty [place] [address] [place] [address] PCP - General Family Practice 08/21/17 10/06/22 [place] [address] [place] [address] PCP - Assigned PCP 09/17/17 12/18/18 No Ref-Primary, Physician PCP - General 10/07/22 [place] [address] [place] [address] Assigned PCP 09/17/17 09/05/20 Adams Rose MD [address] [place] [address] Assigned OBGYN Provider 08/07/20 documented as of this encounter
--- OUTSIDE RECORDS SUMMARY | 2024-05-08 09:32 | XMS_ITS | Encounter Summary ---
Author Organization [facility] Address [address] [place] [address] Care Team Providers Care Knee Bolter Name Role Phone Sujata Payne MD Primary Care Provider [phone] Sujata Payne MD Unavailable [phone] Sujata Payne MD Unavailable [phone] Adams Rose MD Unavailable + [phone] No Ref-Primary, Physician Primary Care Provider Encounter Details Date Type Department Care Team (Late st Contact Info) Description 10/04/2018 MyC Medical Advice [facility] Women's [address] [place] [address] Adams Rose MD [address] [place] [address] Social History Tobacco Use Types Packs/Day Years Used Date Smoking Tobacco: Former Cigarettes Q uit: 10/06/2008 Smokeless Tobacco: Never Alcohol Use Standard Drinks/Week Comments No 0 (1 standard drink = 0.6 oz pur e alcohol) Comments Yes Sex and Gender Information Value Date Recorded Sex Assigned at Not on file Gender Identity Female 09/24/2021 9:00 AM LEATHER CASE FINISHER Sexual Orientation Not on file documented as of this encounter Miscellaneous Notes * Telephone Encounter - Adams Rose MD - 10/05/2018 1:44 PM LEATHER CASE FINISHER Spoke with patient. Advised of falling HCG levels. Patient has previously experienced a first trimester loss. Given early timing of loss D&C not likely to be necessary HER CASE FINISHER * Telephone Encounter - Alisha Costa, RN - 10/05/2018 1:05 PM LEATHER CASE FINISHER Please see the results of the pt's hcg level, and discuss with her. Alisha Costa RN HER CASE FINISHER documented in this encounter Plan of Treatment Not on file documented as of this encounter Visit Diagnoses Not on filedocumented in this encounter Care Teams Knee Bolter Relationship Specialty [place] [address] [place] [address] PCP - General Family Practice 08/21/17 10/06/22 [place] [address] [place] [address] PCP - Assigned PCP 09/17/17 12/18/18 No Ref-Primary, Physician PCP - General 10/07/22 [place] [address] [place] [address] Assigned PCP 09/17/17 09/05/20 Adams Rose MD [address] [place] [address] Assigned OBGYN Provider 08/07/20 documented as of this encounter
--- OUTSIDE RECORDS SUMMARY | 2024-05-08 09:32 | XMS_ITS | Encounter Summary ---
Author Organization [place] Address [address] [place] [address]. [place] [address] Care Team Providers Care Drilling Foreman Name Role Phone Sujata Payne MD Primary Care Provider [phone] Sujata Payne MD Unavailable [phone] Sujata Payne MD Unavailable [phone] Adams Rose MD Unavailable [phone] No Ref-Primary, Physician Primary Care Provider Reason for Visit * Reason Onset Date Comments MyChart Communication 05/30/2018 Encounter Details Date Type Department Care Team (Late st Contact Info) Description 05/30/2018 [facility] [address] [address] Sujata Payne MD [address] [place] [address] MyChart Communication Social History Tobacco Use Types Packs/Day Years Used Date Smoking Tobacco: Former Cigarettes Q uit: 10/06/2008 Smokeless Tobacco: Never Alcohol Use Standard Drinks/Week Comments No 0 (1 standard drink = 0.6 oz pur e alcohol) Sex and Gender Information Value Date Recorded Sex Assigned at Not on file Gender Identity Female 09/24/2021 9:00 AM GREENHOUSE OR NURSERY TRANSPLANTER Sexual Orientation Not on file documented as of this encounter Miscellaneous Notes * Telephone Encounter - Sujata Payne MD - 05/30/2018 4:14 PM CDT Can give Timothy's info if she feels comfortable seeing a man. If not, [facility] * Telephone Encounter - Roxanna Aguilera, RN - 05/30/2018 3:43 PM CDT PCP: Please see below. BRODIE was 09/05/17. Roxanna Aguilera, RN -- TRUE [employer] [facility] [employer] documented in this encounter Plan of Treatment Not on file documented as of this encounter Visit Diagnoses Not on filedocumented in this encounter Care Teams Drilling Foreman Relationship Specialty [place] [address] [place] [address] PCP - General Family Practice 08/21/17 10/06/22 [place] [address] [place] [address] PCP - Assigned PCP 09/17/17 12/18/18 No Ref-Primary, Physician PCP - General 10/07/22 [place] [address] [place] [address] Assigned PCP 09/17/17 09/05/20 Adams Rose MD [address] [place] [address] Assigned OBGYN Provider 08/07/20 documented as of this encounter
== END 2024-05-08 09:26 | disposition home or self-care (01) ==
PROVIDERS: Visit Provider Registered Nurse
DX: Z34.91 Encounter for supervision of normal pregnancy, unspecified, first trimester (principal); Z3A.08 8 weeks gestation of pregnancy
CPT/HCPCS: 84439; 84443; 86592; 86703; 86704; 86706; 86762; 86787; 86803; 86850; 86900; 86901; 87086; 87340

== ENCOUNTER 2024-06-03 10:34 | Outpatient (CLI) | payer MEDICAID, SELFPAY ==
--- OUTSIDE RECORDS SUMMARY | 2024-06-04 08:34 | XMS_ITS | Encounter Summary ---
Author Organization [place] Address [address] [place] [address] Care Team Providers Care Hydroelectric Plant Mechanical Engineer Name Role Phone No Ref-Primary, Physician Primary Care Provider Mandeep Guadarrama MD Unavailable [phone] Tate Salazar MD Unavailable [phone] Encounter Details Date Type Department Care Team (Latest Contact Info) Description 05/21/[address] [facility]ology Clinic [address] [phone] Tate Salazar MD [address] [place] [address] Graves disease (Primary Dx) Social History Tobacco Use Types Packs/Day Years Used Date Smoking Tobacco: Former Cigarettes Q uit: 10/06/2008 Smokeless Tobacco: Never Alcohol Use Standard Drinks/Week Comments No 0 (1 standard drink = 0.6 oz pur e alcohol) PHQ-2 Answer Date Recorded PHQ-2 Score 0 05/16/2024 Adolescent Education Answer Date Record ed Getting School Help Needed Not on file 07/15 Sex and Gender Information Value Date Recorded Sex Assigned at Not on file Gender Identity Female 09/24/2021 9:[address] APPRAISER Sexual Orientation Not on file documented as of this encounter Plan of Treatment Upcoming Encounters Date Type Department Care Team (Late st Contact Info) Description 06/24/2024 11:00 AM CDT Lab [facility] [address] [place] [address] Scheduled Orders Name Type Priority Associated Diagnoses Orde r Schedule TSH Lab Routine Graves disease 1m for 8 Occurrences starting 05/27/2024 until 05/27/2025 Thyroxine total Lab Routine Graves disease 1m for 8 Occurrences starting 05/27/2024 until 05/27/2025 T3 total Lab Routine Graves disease 1 m for 8 Occurrences starting 05/27/2024 until 05/27/2025 documented as of this encounter Visit Diagnoses Diagnosis Graves disease- Primary Toxic diffuse goiter without mention of thyrotoxic crisis or storm documented in this encounter Care Teams Hydroelectric Plant Mechanical Engineer Relationship Specialty Start Date End Date No Ref-Primary, Physician PCP - General 10/07/22 Mandeep Guadarrama MD [address] [place] [address] Fellow Endocrinology, Diabetes, and Metabolism 05/09/24 Tate Salazar MD [address] [place] [place] [address] Endocrinology, Diabetes, and Metabolism 05/13/24 documented as of this encounter
--- OUTSIDE RECORDS SUMMARY | 2024-06-04 08:34 | XMS_ITS | Encounter Summary ---
Author Organization [place] Address [address] [place] [address] Care Team Providers Care Cisco Administrator Name Role Phone No Ref-Primary, Physician Primary Care Provider Mandeep Guadarrama MD Unavailable [phone] Tate Salazar MD Unavailable [phone] Encounter Details Date Type Department Care Team (Late Contact Info) Description 05/20/2024 11:00 AM CDT [facility] [address] [place] [phone] Graves disease; First trimester Social History Tobacco Use Types Packs/Day Years [...] file Gender Identity Female 09/24/2021 9:00 AM ASP NET DEVELOPER Sexual Orientation Not on file documented as of this encounter Plan of Treatment Upcoming Encounters Date Type Department Care Team (Late Contact Info) Description 06/24/2024 11:00 AM CDT [facility] [address] [place] [phone] documented as of this encounter Procedures Procedure Name Priority Date/Time Associated Diagnosis Comments THYROTROPIN RECEPTOR ANTIBODY Routine 05/20/2024 10:54 AM CDT Graves disease First trimester TSH Routine 05/20/2024 10:54 AM CDT Graves disease First trimester THYROXINE TOTAL Routine 05/20/2024 10:54 AM CDT Graves disease First trimester THYROID STIMULATING IMMUNOGLOBULIN Routine 05/20/2024 10:54 AM CDT Graves disease First trimester T3 TOTAL Routine 05/20/2024 10:54 AM CDT Graves disease First trimester documented in this encounter Results * (ABNORMAL) Thyrotropin Receptor Antibody (05/20/2024 10:54 AM CDT) Pathologist [facility] Thyrotropin Receptor Antibody 3.99(H) 0.00 - 1.75 IU/L 05/21/2024 9:10 AM CDT [facility] Comment: ADDITIONAL INFORMATION At a decision limit of 1.75 IU/L, this assay has 97% sensitivity and 99% specificity for detection of Graves' disease. In healthy individuals and in patients with thyroid disease without diagnosis of Graves' disease, the upper limit of anti-TSHR values are 1.22 IU/L and 1.58 IU/L, respectively (97.5th percentiles). Test Performed by: [facility] [address] [place] [address] [place] Operator: Barrington Douglas Ph.D.; CLIA# [id number] Blood STRUCTURE OF RIGHT UPPER LIMB / Unknown Venipuncture / Unknown 05/20/2024 10:54 AM CDT 05/20/2024 10:54 AM CDT Tate Salazar MD LAB - IMMUNOLOGY ORD ERABLES [facility] [address] [place] [address], [facility] [phone] * (ABNORMAL) Thyroid stimulating immunoglobulin (05/20/2024 10:54 AM CDT) Thyroid Stim Immunog 2.5(H) <=1.3 TSI index 05/27/2024 6:23 PM CDT [facility] Comment: Test Performed by: [facility] [address] [place] [id number] [place] Operator: Barrington Douglas Ph.D.; CLIA# [id number] Blood STRUCTURE OF RIGHT UPPER LIMB / Unknown Venipuncture / Unknown 05/20/2024 10:54 AM CDT 05/20/2024 10:54 AM CDT Tate Salazar MD LAB - BLOOD ORDERABL ES [facility] [address] [phone] * T3 total (05/20/2024 10:54 AM CDT) T3 Total 159 85 - 202 ng/dL 05/20/2024 7:06 PM CDT [facility] Blood STRUCTURE OF RIGHT UPPER LIMB / Unknown Venipuncture / Unknown 05/20/2024 10:54 AM CDT 05/20/2024 10:54 AM CDT Tate Salazar MD LAB - BLOOD ORDERABL ES [facility] [place] [facility] [address] [facility], [address] [place] [address] * (ABNORMAL) Thyroxine total (05/20/2024 10:54 AM CDT) T4 Total 11.8(H) 4.5 - 11.7 ug/dL 05/20/2024 7:06 PM CDT [facility] Blood STRUCTURE OF RIGHT UPPER LIMB / Unknown Venipuncture / Unknown 05/20/2024 10:54 AM CDT 05/20/2024 10:54 AM CDT Tate Salazar MD LAB - BLOOD ORDERABL ES [facility] [place] [facility] [address] [facility], [address] [address] * (ABNORMAL) TSH (05/20/2024 10:54 AM CDT) TSH 0.02(L) 0.30 - 4.20 uIU/mL 05/20/2024 7:06 PM CDT [facility] Blood STRUCTURE OF RIGHT UPPER LIMB / Unknown Venipuncture / Unknown 05/20/2024 10:54 AM CDT 05/20/2024 10:54 AM CDT Tate Salazar MD LAB - BLOOD ORDERABL ES Performing Organization Address City/[facility]/ZIP Co de Phone Number [facility] [place] [facility] [address] [facility], [address] [address] documented in this encounter Visit Diagnoses Diagnosis Graves disease Toxic diffuse goiter without mention of thyrotoxic crisis or storm First trimester documented in this encounter Care Teams Cisco Administrator Relationship Specialty Start Date End Date No Ref-Primary, Physician PCP - General 10/07/22 Mandeep Guadarrama MD [address] [place] [address] Fellow Endocrinology, Diabetes, and Metabolism 05/09/24 Tate Salazar MD [address] [place] [address] Endocrinology, Diabetes, and Metabolism 05/13/24 documented as of this encounter
--- OUTSIDE RECORDS SUMMARY | 2024-06-04 08:34 | XMS_ITS | Encounter Summary ---
Author Organization [place] Address [address] [place] [address] Care Team Providers Care Rn Lab Name Role Phone No Ref-Primary, Physician Primary Care Provider Mandeep Guadarrama MD Unavailable [phone] Tate Salazar MD Unavailable [phone] Reason for Visit * Reason Comments Lab Only Encounter Details Date Type Department Care Team (Late Contact Info) Description 05/26/2024 Documentation Only [facility] [address] [address] Tate Salazar MD [address] [place] [address] Lab Only Social History Tobacco Use Types Packs/Day Years [...] file Gender Identity Female 09/24/2021 9:00 AM ONION TIER Sexual Orientation Not on file documented as of this encounter Plan of Treatment Upcoming Encounters Date Type Department Care Team (Late Contact Info) Description 06/24/2024 11:00 AM CDT Lab [facility] [address] [place] [address] documented as of this encounter Visit Diagnoses Not on filedocumented in this encounter Care Teams Rn Lab Relationship Specialty Start Date End Date No Ref-Primary, Physician PCP - General 10/07/22 Mandeep Guadarrama MD [address] [place] [address] Fellow Endocrinology, Diabetes, and Metabolism 05/09/24 Tate Salazar MD [address] [place] [address] Endocrinology, Diabetes, and Metabolism 05/13/24 documented as of this encounter
--- OUTSIDE RECORDS SUMMARY | 2024-06-04 08:34 | XMS_ITS | Encounter Summary ---
Author Organization [place] Address [address] [place] [address] Care Team Providers Care Assembler Metal Furniture Name Role Phone No Ref-Primary, Physician Primary Care Provider Mandeep Guadarrama MD Unavailable [phone] Tate Salazar MD Unavailable [phone] Encounter Details Date Type Department Care Team (Late Contact Info) Description 06/03/[address] [facility] Endocrinology Clinic [address] [phone] Tate Salazar MD [address] [place] [address] Social History Tobacco Use Types Packs/Day Years [...] file Gender Identity Female 09/24/2021 9:00 AM AMMUNITION ASSEMBLY II LABORER Sexual Orientation Not on file documented as of this encounter Plan of Treatment Upcoming Encounters Date Type Department Care Team (Late st Contact Info) Description 06/24/2024 11:00 AM CDT Lab [facility] [address] [place] [address] documented as of this encounter Visit Diagnoses Not on filedocumented in this encounter Care Teams Assembler Metal Furniture Relationship Specialty Start Date End Date No Ref-Primary, Physician PCP - General 10/07/22 Mandeep Guadarrama MD [address] [place] [address] Fellow Endocrinology, Diabetes, and Metabolism 05/09/24 Tate Salazar MD [address] [place] [address] Endocrinology, Diabetes, and Metabolism 05/13/24 documented as of this encounter
--- OUTSIDE RECORDS SUMMARY | 2024-06-04 08:34 | XMS_ITS | Encounter Summary ---
Author Organization [place] Address [address] [place] [address] Care Team Providers Care Needle Loom Tender Name Role Phone No Ref-Primary, Physician Primary Care Provider Mandeep Guadarrama MD Unavailable [phone] Tate Salazar MD Unavailable [phone] Encounter Details Date Type Department Care Team (Latest Contact Info) Description 05/20/2024 Travel Social History Tobacco Use Types Packs/Day Years [...] file Gender Identity Female 09/24/2021 9:00 AM RETAIL SALES CONSULTANT Sexual Orientation Not on file documented as of this encounter Plan of Treatment Upcoming Encounters Date Type Department Care Team (Late st Contact Info) Description 06/24/2024 11:00 AM CDT Lab [facility] [address] [place] [phone] documented as of this encounter Visit Diagnoses Not on filedocumented in this encounter Care Teams Needle Loom Tender Relationship Specialty Start Date End Date No Ref-Primary, Physician PCP - General 10/07/22 Mandeep Guadarrama MD [address] [place] [address] Fellow Endocrinology, Diabetes, and Metabolism 05/09/24 Tate Salazar MD [address] [place] [address] Endocrinology, Diabetes, and Metabolism 05/13/24 documented as of this encounter
--- OUTSIDE RECORDS SUMMARY | 2024-06-04 08:34 | XMS_ITS | Referral Summary ---
Author Organization [place] Address [address] [place] [address] Care Team Providers Care Perinatal Educator Name Role Phone No Ref-Primary, Physician Primary Care Provider Mandeep Guadarrama MD Unavailable [phone] Tate Salazar MD Unavailable [phone] Encounters Date Type Department Care Team Description 06/03/2024 MyC Medical Advice [facility] Endocrinology [address] [phone] Tate Salazar MD 05/26/2024 Documentation Only [facility] Endocrinology [address] [phone] Tate Salazar MD Lab Only 05/21/2024 MyC Medical Advice [facility] Endocrinology [address] [phone] Tate Salazar MD Graves disease (Primary Dx) 05/20/2024 Travel 05/20/2024 11:[address] [facility] [address] [place] [phone] Graves disease; First trimester 05/16/2024 PRE VISIT [facility] Endocrinology [address] [phone] Tate Salazar MD *-*INCOMING RECORDS*-* 05/16/2024 9:30 AM CDT Virtual Visit [facility] Clinic [address] [phone] Gail Aponte MD [place], Hind, MD Graves disease (Primary Dx); thyroiditis; Personal history of other endocrine, nutritional and metabolic disease; First trimester 05/13/2024 MyC Medical Advice [facility] Endocrinology [address] [phone] Lana Novak 05/10/2024 Telephone [facility] Endocrinology [address] [phone] Mariela Bautista MD 05/08/2024 Transcribe Orders GENERIC EXTERNAL DATA DEPARTMENT Provider, Generic External Data Personal history of other endocrine, nutritional and metabolic disease (Primary Dx) from Last 3 Months Allergies Active Allergy Reactions Criticality Noted Date [...] file Gender Identity Female 09/24/2021 9:00 AM TELEHEALTH CASE MANAGER Sexual Orientation Not on file Last Filed Vital Signs Vital Sign Reading Time Taken Comments Blood Pressure 124/78 10/07/2022 12:08 PM TELEHEALTH CASE MANAGER Pulse 95 10/07/2022 1:49 PM TELEHEALTH CASE MANAGER Temperature 36.5 ??C (97.7 ??F) 10/07/2022 9:21 AM CS T Respiratory Rate 16 10/07/2022 1:49 PM TELEHEALTH CASE MANAGER Oxygen Saturation 100% 10/07/2022 12:08 PM TELEHEALTH CASE MANAGER Inhaled Oxygen Concentration - - Weight 82.6 kg (182 lb) 05/16/2024 9:20 AM CDT Height 162.6 cm (5' 4) 12/03/2019 1:20 PM TELEHEALTH CASE MANAGER Body Mass Index 31.24 12/03/2019 1:20 PM TELEHEALTH CASE MANAGER Plan of Treatment Upcoming Encounters Date Type Department Care Team (Late st Contact Info) Description 06/24/2024 11:00 AM CDT [facility] [address] [place] [phone] Procedures Procedure Name Priority Date/Time Associated Diagnosis [...] 10:54 AM CDT Graves disease First trimester LAB RESULT - HIM SCAN 05/08/2024 12:00 AM CDT BASIC METABOLIC PANEL STAT 10/07/2022 9:30 AM TELEHEALTH CASE MANAGER HPV HIGH RISK TYPES DNA CERVICAL Routine 12/03/2019 1:30 PM TELEHEALTH CASE MANAGER Screening for malignant neoplasm of cervix PAP IMAGED THIN LAYER SCREEN Routine 12/03/2019 1:29 PM TELEHEALTH CASE MANAGER Screening for malignant neoplasm of cervix HIV ANTIGEN ANTIBODY COMBO Routine 06/23/2016 from Last 3 Months or Most Recently Relevant to Health Maintenance Results * (ABNORMAL) Thyrotropin Receptor Antibody (05/20/2024 10:54 AM CDT) Thyrotropin Receptor Antibody 3.99(H) 0.00 - 1.75 IU/L 05/21/2024 9:10 AM CDT [facility] Comment: ADDITIONAL INFORMATION At a decision limit of 1.75 IU/L, this assay has 97% sensitivity and 99% specificity for detection of Graves' disease. In healthy individuals and in patients with thyroid disease without diagnosis of Graves' disease, the upper limit of anti-TSHR values are 1.22 IU/L and 1.58 IU/L, respectively (97.5th percentiles). Test Performed by: [facility] [place] [address] Sleeping Bag Filler: Barrington Douglas Ph.D.; CLIA# [id number] Blood STRUCTURE OF RIGHT UPPER LIMB / Unknown Venipuncture / Unknown 05/20/2024 10:54 AM CDT 05/20/2024 10:54 AM CDT Tate Salazar MD LAB - IMMUNOLOGY ORD ERABLES [facility] [address] [phone] * (ABNORMAL) TSH (05/20/2024 10:54 AM CDT) TSH 0.02(L) 0.30 - 4.20 uIU/mL 05/20/2024 7:06 PM CDT [facility] Blood STRUCTURE OF RIGHT UPPER LIMB / Unknown Venipuncture / Unknown 05/20/2024 10:54 AM CDT 05/20/2024 10:54 AM CDT Tate Salazar MD LAB - BLOOD ORDERABL ES [facility] [address] [facility], [address], [place] [address] [place] [address] * (ABNORMAL) Thyroxine total (05/20/2024 10:54 AM CDT) T4 Total 11.8(H) 4.5 - 11.7 ug/dL 05/20/2024 7:06 PM CDT [facility] Blood STRUCTURE OF RIGHT UPPER LIMB / Unknown Venipuncture / Unknown 05/20/2024 10:54 AM CDT 05/20/2024 10:54 AM CDT Tate Salazar MD LAB - BLOOD ORDERABL ES LABORATORY [facility] [address] [facility], [address] * (ABNORMAL) Thyroid stimulating immunoglobulin (05/20/2024 10:54 AM CDT) [facility] Thyroid Stim Immunog 2.5(H) <=1.3 TSI index 05/27/2024 6:23 PM CDT [facility] Comment: Test Performed by: [facility] [address] [place] [address] Sleeping Bag Filler: Barrington Douglas Ph.D.; CLIA# [id number] Blood STRUCTURE OF RIGHT UPPER LIMB / Unknown Venipuncture / Unknown 05/20/2024 10:54 AM CDT 05/20/2024 10:54 AM CDT Tate Salazar MD LAB - BLOOD ORDERABL ES [facility] [address] [place] [address] * T3 total (05/20/2024 10:54 AM CDT) Pathologist [facility] [place] T3 Total 159 85 - 202 ng/dL 05/20/2024 7:06 PM CDT [facility] Blood STRUCTURE OF RIGHT UPPER LIMB / Unknown Venipuncture / Unknown 05/20/2024 10:54 AM CDT 05/20/2024 10:54 AM CDT Tate Salazar MD LAB - BLOOD ORDERABL ES [facility] [address] [facility] [address], [address] [place] [address], [facility] * Lab Result - HIM Scan (05/08/2024 12:00 AM CDT) 05/08/2024 Provider Outside NON-BEAKER LAB TE STING * (ABNORMAL) Basic metabolic panel (10/07/2022 9:30 AM TELEHEALTH CASE MANAGER) Sodium 137 136 - 145 mmol/L 10/07/2022 11:03 AM [facility] Potassium 4.2 3.4 - 5.3 mmol/L 10/07/2022 11:03 AM [facility] Chloride 102 98 - 107 mmol/L 10/07/2022 11:03 AM [facility] Carbon Dioxide (CO2) 22 22 - 29 mmol/L 10/07/2022 11:03 AM [facility] Anion Gap 13 7 - 15 mmol/L 10/07/2022 11:03 AM [facility] Urea Nitrogen 10.9 6.0 - 20.0 mg/dL 10/07/2022 11:03 AM [facility] Creatinine 0.72 0.51 - 0.95 mg/dL 10/07/2022 11:03 AM [facility] Calcium 9.6 8.6 - 10.0 mg/dL 10/07/2022 11:03 AM [facility] Glucose 105(H) 70 - 99 mg/dL 10/07/2022 11:03 AM [facility] GFR Estimate >90 >60 mL/min/1.7 3m2 10/07/2022 11:03 AM [facility] Comment:Effective September 162020 eGFRcr in adults is calculated using the 2020 CKD-EPI creatinine equation which includes age and gender (Arianna mckee al., NEJM, DOI: 10.1056/EPFGfj8638383) Blood STRUCTURE OF RIGHT UPPER LIMB / Unknown Venipuncture / Unknown 10/07/2022 9:30 AM TELEHEALTH CASE MANAGER 10/07/2022 9:35 AM TELEHEALTH CASE MANAGER Medardo Washington MD LAB - BLOOD [facility] [address] Lab (1st floor, no room number) [place] [address], [facility] [phone] * HPV High Risk Types DNA Cervical (12/03/2019 1:30 PM TELEHEALTH CASE MANAGER) HPV Source [facility] 12/03/2019 1:29 PM TELEHEALTH CASE MANAGER [facility] HPV 16 DNA Negative NEG^Nega tive 12/09/2019 3:31 PM TELEHEALTH CASE MANAGER [facility] HPV 18 DNA Negative NEG^Nega tive 12/09/2019 3:31 PM TELEHEALTH CASE MANAGER [facility] Other HR HPV Negative NEG^Nega tive 12/09/2019 3:31 PM TELEHEALTH CASE MANAGER [facility] Final Diagnosis This patient's sample is negative for HPV DNA. 12/09/2019 3:31 PM TELEHEALTH CASE MANAGER [facility] Comment: This test was developed and its performance characteristics determined by the [facility], [facility]. It has not been [...] Specimen Description Cervical Cells 12/03/2019 1:29 PM TELEHEALTH CASE MANAGER [facility] Comment:[id number] Cervical Cells 12/03/2019 1: 30 PM TELEHEALTH CASE MANAGER 12/03/2019 2:05 PM TELEHEALTH CASE MANAGER Medardo Baron MD LAB - BLOOD OR DERABLES [facility] [address] [place] [address] [facility] [address] [facility] [address] [place] [address] * Pap imaged thin layer screen with HPV - recommended age 30 - 65 years (select HPV order below) (12/03/2019 1:29 PM TELEHEALTH CASE MANAGER) PAP YULIET Sancehz Report Patient Name: TELLY RICHARDSON MR#: [id number] Specimen #: [id number] Collected: 12/03/2019 Received: 12/04/2019 Reported: 12/06/2019 07:36 Ordering Phy(s): MEDARDO BARON For improved result formatting, select 'View [...] adenocarcinomas or other cancers. COLLECTION SITE: Client: ??[facility] Location: RIOB (R) [facility] with the professional component performed at the [facility], [address] [place] [phone] ([phone]) COPATH Cytologic material (specimen) 12/03/2019 1:29 PM TELEHEALTH CASE MANAGER 12/04/2019 10:46 AM TELEHEALTH CASE MANAGER Medardo Baron MD LAB - OPTIME C LINICAL SPECIMEN COPATH * HIV Antigen Antibody Combo (06/23/2016) HIV Antigen Antibody Combo nonreactive Blood specimen (specimen) Patient Reported LAB - BLOOD ORDERABL ES from Last 3 Months or Most Recently Relevant to Health Maintenance Advance Directives For more information, please contact: [phone] * Full Code (Latest Code Status on File) Date Activated Date Inactivated Comments 09/11/2012 8:22 AM 10/07/2022 9:04 AM Care Teams Perinatal Educator Relationship Specialty Start Date End Date No Ref-Primary, Physician PCP - General 10/07/22 Mandeep Guadarrama MD [address] [place] [address] Fellow Endocrinology, Diabetes, and Metabolism 05/09/24 Tate Salazar MD [address] [place] [address] Endocrinology, Diabetes, and Metabolism 05/13/24
--- OUTSIDE RECORDS SUMMARY | 2024-06-04 08:34 | XMS_ITS | Encounter Summary ---
Author Organization [place] Address [address] [place] [address] Care Team Providers Care Hand Wrapper Operator Name Role Phone No Ref-Primary, Physician Primary Care Provider Mandeep Guadarrama MD Unavailable [phone] Tate Salazar MD Unavailable [phone] Reason for Visit * Reason Onset Date Comments *-*INCOMING RECORDS*-* 05/16/2024 Encounter Details Date Type Department Care Team (Late st Contact Info) Description 05/16/2024 PRE VISIT [facility] Endocrinology Clinic [address] [phone] Tate Salazar MD [address] [place] [address] *-*INCOMING RECORDS*-* Social History Tobacco Use Types Packs/Day Years [...] file Gender Identity Female 09/24/2021 9:00 AM REPAIR ARMATURE WINDER Sexual Orientation Not on file documented as of this encounter Plan of Treatment Upcoming Encounters Date Type Department Care Team (Late st Contact Info) Description [facility] [address] [place] [phone] documented as of this encounter Visit Diagnoses Not on filedocumented in this encounter Care Teams Hand Wrapper Operator Relationship Specialty Start Date End Date No Ref-Primary, Physician PCP - General 10/07/22 Mandeep Guadarrama MD [address] [place] [address] Fellow Endocrinology, Diabetes, and Metabolism 05/09/24 Tate Salazar MD [address] [place] [phone] Endocrinology, Diabetes, and Metabolism 05/13/24 documented as of this encounter
--- OUTSIDE RECORDS SUMMARY | 2024-06-04 08:34 | XMS_ITS | Clinical Summary ---
Author Organization [place] Address [address] [place] [address] Care Team Providers Care Pe Manager Name Role Phone No Ref-Primary, Physician Primary Care Provider Mandeep Guadarrama MD Unavailable [phone] Tate Salazar MD Unavailable [phone] Allergies Active Allergy Reactions Criticality Noted Date [...] automated process. Provider to review and confirm. Encounters Date Type Department Care Team Description 06/03/2024 [facility] [place] [facility] [address] 3rd [place] [address] Tate Salazar MD 05/26/2024 Documentation Only [facility] Endocrinology [address] [phone] Tate Salazar MD Lab Only 05/21/2024 [facility] Medical Advice [address] [address] Tate Salazar MD Graves disease (Primary Dx) 05/20/2024 11:00 AM CDT Lab [facility] [address] [place] [address] Graves disease; First trimester 05/20/2024 Travel 05/16/2024 9:30 AM CDT Virtual Visit [address] [phone] Gail Aponte MD [place], Hind, MD Graves disease (Primary Dx); thyroiditis; Personal history of other endocrine, nutritional and metabolic disease; First trimester 05/16/2024 PRE VISIT [address] [phone] Tate Salazar MD *-*INCOMING RECORDS*-* 05/13/2024 MyC Medical Advice [address] [address] Lana Novak 05/10/[address] [address] Mariela Bautista MD 05/08/2024 Transcribe Orders GENERIC EXTERNAL DATA DEPARTMENT Provider, Generic External Data Personal history of other endocrine, nutritional and metabolic disease (Primary Dx) from Last 3 Months Immunizations Name Administration Dates Next Due DTAP [...] file Gender Identity Female 09/24/2021 9:00 AM BATCH OR CONTINUOUS STILL OPERATOR Sexual Orientation Not on file Last Filed Vital Signs Vital Sign Reading Time Taken Comments Blood Pressure 124/78 10/07/2022 12:08 PM BATCH OR CONTINUOUS STILL OPERATOR Pulse 95 10/07/2022 1:49 PM BATCH OR CONTINUOUS STILL OPERATOR Temperature 36.5 ??C (97.7 ??F) 10/07/2022 9:21 AM CS T Respiratory Rate 16 10/07/2022 1:49 PM BATCH OR CONTINUOUS STILL OPERATOR Oxygen Saturation 100% 10/07/2022 12:08 PM BATCH OR CONTINUOUS STILL OPERATOR Inhaled Oxygen Concentration - - Weight 82.6 kg (182 lb) 05/16/2024 9:20 AM CDT Height 162.6 cm (5' 4) 12/03/2019 1:20 PM BATCH OR CONTINUOUS STILL OPERATOR Body Mass Index 31.24 12/03/2019 1:20 PM BATCH OR CONTINUOUS STILL OPERATOR Plan of Treatment Upcoming Encounters Date Type Department Care Team (Late st Contact Info) Description 06/24/2024 11:00 AM CDT [facility] [address] [place] [address] Health Maintenance Due Date Last Done Comments ADVANCE CARE PLANNING 1988 ANNUAL REVIEW OF HM ORDERS 1988 HEPATITIS C SCREENING 2006 YEARLY PREVENTIVE VISIT 12/03/2020 12/03/2019, 09/05 COVID-19 Vaccine ( season) 2023 INFLUENZA VACCINE (#1) 2024 0 (Declined), 10/03/2018 (Declined), 08/24/2012, Additional history exists GLUCOSE 10/07/2025 10/07/2022, 05/30/2016 DTAP/TDAP/TD IMMUNIZATION (10 - Td or Tdap) 10/25/2026 10/25/2016, 04/03/2014, 07/07/2011, Additional history exists HPV TEST 10/28/2027 10/28/2022, 12/03/2019 PAP 10/28/2027 10/28/2022, 10/16, 12/03/2019, Additional history exists IPV IMMUNIZATION Completed 12/22/1993, 06/1994, 05/07/1990, Additional history exists HEPATITIS B IMMUNIZATION Completed 998, 07/01/1998, 01/01/1998, Additional history exists MENINGITIS IMMUNIZATION Completed 10/30/2006 HPV IMMUNIZATION Completed 05/02/2007, , 11/01/2006 HIV SCREENING Completed 06/23/2016, 10/17, 05/16/2012 PHQ-2 (once per calendar year) Completed 05/16/2024, 12/03/2019, 09/05/2017, Additional history exists Pneumococcal Vaccine: Pediatrics (0 to 5 Years) [...] BASIC METABOLIC PANEL STAT 10/07/2022 9:30 AM BATCH OR CONTINUOUS STILL OPERATOR HPV HIGH RISK TYPES DNA CERVICAL Routine 12/03/2019 1:30 PM BATCH OR CONTINUOUS STILL OPERATOR Screening for malignant neoplasm of cervix PAP IMAGED THIN LAYER SCREEN Routine 12/03/2019 1:29 PM BATCH OR CONTINUOUS STILL OPERATOR Screening for malignant neoplasm of cervix HIV ANTIGEN ANTIBODY COMBO Routine 06/23/2016 from Last 3 Months or Most Recently Relevant to Health Maintenance Results * (ABNORMAL) Thyrotropin Receptor Antibody (05/20/2024 10:54 AM CDT) Thyrotropin Receptor Antibody 3.99(H) 0.00 - 1.75 IU/L 05/21/2024 9:10 AM CDT [facility] Comment: ADDITIONAL INFORMATION At a decision limit of 1.75 IU/L, this assay has 97% sensitivity and 99% specificity for detection of Graves' disease. In healthy individuals and in patients with thyroid disease without diagnosis of Graves' disease, the upper limit of anti-TSHR values are 1.22 IU/L and 1.58 IU/L, respectively (97.5th percentiles). Test Performed by: [facility] [address] [place] [address] Java Swing Developer: Barrington Douglas Ph.D.; CLIA# [id number] Blood STRUCTURE OF RIGHT UPPER LIMB / Unknown Venipuncture / Unknown 05/20/2024 10:54 AM CDT 05/20/2024 10:54 AM CDT Tate Salazar MD LAB - IMMUNOLOGY ORD ERABLES [facility] [address] [phone] * (ABNORMAL) TSH (05/20/2024 10:54 AM CDT) TSH 0.02(L) 0.30 - 4.20 uIU/mL 05/20/2024 7:06 PM CDT [facility] Blood STRUCTURE OF RIGHT UPPER LIMB / Unknown Venipuncture / Unknown 05/20/2024 10:54 AM CDT 05/20/2024 10:54 AM CDT Tate Salazar MD LAB - BLOOD ORDERABL ES LABORATORY [facility] [address] [place] [address] * (ABNORMAL) Thyroxine total (05/20/2024 10:54 AM CDT) T4 Total 11.8(H) 4.5 - 11.7 ug/dL 05/20/2024 7:06 PM CDT [facility] Blood STRUCTURE OF RIGHT UPPER LIMB / Unknown Venipuncture / Unknown 05/20/2024 10:54 AM CDT 05/20/2024 10:54 AM CDT Tate Salazar MD LAB - BLOOD ORDERABL ES [facility] [address] [place] [address] * (ABNORMAL) Thyroid stimulating immunoglobulin (05/20/2024 10:54 AM CDT) Pathologist [facility] Thyroid Stim Immunog 2.5(H) <=1.3 TSI index 05/27/2024 6:23 PM CDT [facility] Comment: Test Performed by: [facility] [address] [place] [address] Java Swing Developer: Barrington Douglas Ph.D.; CLIA# [id number] Blood STRUCTURE OF RIGHT UPPER LIMB / Unknown Venipuncture / Unknown 05/20/2024 10:54 AM CDT 05/20/2024 10:54 AM CDT Tate Salazar MD LAB - BLOOD ORDERABL ES [facility] [address] [phone] * T3 total (05/20/2024 10:54 AM CDT) T3 Total 159 85 - 202 ng/dL 05/20/2024 7:06 PM CDT [facility] Blood STRUCTURE OF RIGHT UPPER LIMB / Unknown Venipuncture / Unknown 05/20/2024 10:54 AM CDT 05/20/2024 10:54 AM CDT Tate Salazar MD LAB - BLOOD ORDERABL ES [facility] [address] [place] [address], [facility] * Lab Result - HIM Scan (05/08/2024 12:00 AM CDT) 05/08/2024 Provider Outside NON-BEAKER LAB TE STING * (ABNORMAL) Basic metabolic panel (10/07/2022 9:30 AM BATCH OR CONTINUOUS STILL OPERATOR) Sodium 137 136 - 145 mmol/L 10/07/2022 11:03 AM [facility] Potassium 4.2 3.4 - 5.3 mmol/L 10/07/2022 11:03 AM [facility] Chloride 102 98 - 107 mmol/L 10/07/2022 11:03 AM [facility] Carbon Dioxide (CO2) 22 22 - 29 mmol/L 10/07/2022 11:03 AM [facility] Anion Gap 13 7 - 15 mmol/L 10/07/2022 11:03 AM [facility] Urea Nitrogen 10.9 6.0 - 20.0 mg/dL 10/07/2022 11:03 AM [facility] Creatinine 0.72 0.51 - 0.95 mg/dL 10/07/2022 11:03 AM [facility] Calcium 9.6 8.6 - 10.0 mg/dL 10/07/2022 11:03 AM [facility] Glucose 105(H) 70 - 99 mg/dL 10/07/2022 11:03 AM [facility] GFR Estimate >90 >60 mL/min/1.7 3m2 10/07/2022 11:03 AM [facility] Comment:Effective September 162020 eGFRcr in adults is calculated using the 2020 CKD-EPI creatinine equation which includes age and gender (Arianna et al., NEJM, DOI: 10.1056/AZTLms6718057) Blood STRUCTURE OF RIGHT UPPER LIMB / Unknown Venipuncture / Unknown 10/07/2022 9:30 AM BATCH OR CONTINUOUS STILL OPERATOR 10/07/2022 9:35 AM BATCH OR CONTINUOUS STILL OPERATOR Medardo Washington MD LAB - BLOOD [facility] [address] [facility] (1st floor, no room number) [place] [address], [facility] [phone] * HPV High Risk Types DNA Cervical (12/03/2019 1:30 PM BATCH OR CONTINUOUS STILL OPERATOR) HPV Source [facility] 12/03/2019 1:29 PM BATCH OR CONTINUOUS STILL OPERATOR [facility] HPV 16 DNA Negative NEG^Nega tive 12/09/2019 3:31 PM BATCH OR CONTINUOUS STILL OPERATOR [facility] HPV 18 DNA Negative NEG^Nega tive 12/09/2019 3:31 PM BATCH OR CONTINUOUS STILL OPERATOR [facility] Other HR HPV Negative NEG^Nega tive 12/09/2019 3:31 PM BATCH OR CONTINUOUS STILL OPERATOR [facility] Final Diagnosis This patient's sample is negative for HPV DNA. 12/09/2019 3:31 PM BATCH OR CONTINUOUS STILL OPERATOR [facility] Comment: This test was developed and its performance characteristics determined by the [facility], Molecular Diagnostics Laboratory. It has not been [...] Specimen Description Cervical Cells 12/03/2019 1:29 PM BATCH OR CONTINUOUS STILL OPERATOR [facility] Comment:[id number] Cervical Cells 12/03/2019 1: 30 PM BATCH OR CONTINUOUS STILL OPERATOR 12/03/2019 2:05 PM BATCH OR CONTINUOUS STILL OPERATOR Medardo Baron MD LAB - BLOOD OR DERABLES [address] [address] [facility] [address] [facility] [address] [place] [address] * Pap imaged thin layer screen with HPV - recommended age 30 - 65 years (select HPV order below) (12/03/2019 1:29 PM BATCH OR CONTINUOUS STILL OPERATOR) PAP NIL SARATH Sanchez Report Patient Name: TELLY RICHARDSON MR#: [id number] Specimen #: [id number] Collected: 12/03/2019 Received: 12/04/2019 Reported: 12/06/2019 07:36 [...] adenocarcinomas or other cancers. COLLECTION SITE: Client: ??[facility] Location: [facility] () The technical component of this testing was completed at [facility], with the professional component performed at the [facility], [address], [place] [address] ([phone]) COPATH Cytologic material (specimen) 12/03/2019 1:29 PM BATCH OR CONTINUOUS STILL OPERATOR 12/04/2019 10:46 AM BATCH OR CONTINUOUS STILL OPERATOR Medardo Baron MD LAB - OPTIME C LINICAL SPECIMEN COPATH * HIV Antigen Antibody Combo (06/23/2016) HIV Antigen Antibody Combo nonreactive Blood specimen (specimen) Patient Reported LAB - BLOOD ORDERABL ES from Last 3 Months or Most Recently Relevant to Health Maintenance Advance Directives For more information, please contact: [phone] * Full Code (Latest Code Status on File) Date Activated Date Inactivated Comments 09/11/2012 8:22 AM 10/07/2022 9:04 AM Care Teams Pe Manager Relationship Specialty Start Date End Date No Ref-Primary, Physician PCP - General 10/07/22 Mandeep Guadarrama MD [address] [place] [address] Fellow Endocrinology, Diabetes, and Metabolism 05/09/24 Tate Salazar MD [address] [place] [address] Endocrinology, Diabetes, and Metabolism 05/13/24
--- OUTSIDE RECORDS SUMMARY | 2024-06-04 08:35 | XMS_ITS | Encounter Summary ---
Author Organization [facility] Address [address] [place] [address] Care Team Providers Care Occupational Therapy Professor Name Role Phone No Ref-Primary, Physician Primary Care Provider Mandeep Guadarrama MD Unavailable [phone] Tate Salazar MD Unavailable [phone] Reason for Visit * Reason Onset Date Comments Results 10/08/2022 Urine culture Encounter Details Date Type Department Care Team (Late st Contact Info) Description 10/08/2022 Telephone [facility] Emergency Dept [address] [place] [address] Jovita Stack RN Results (Urine culture) Social [...] file Gender Identity Female 09/24/2021 9:00 AM ADDRESSOGRAPH OPERATOR Sexual Orientation Not on file COVID-19 Exposure Response Date Recorded In the last 10 days, have yo u been in contact with someone who was confirmed or suspected to have Coronavirus/COVID-19? No / Unsure 10/09/2022 9:23 AM ADDRESSOGRAPH OPERATOR documented as of this encounter Miscellaneous Notes * Telephone Encounter - Jovita Stack RN - 10/08/2022 5:16 PM CST [facility] () Emergency Department Lab result notification [facility] ED lab result protocol used Urine culture Reason for call Notify of lab results, assess symptoms, review ED providers recommendations/discharge instructions (if necessary) and advise per ED lab result f/u protocol Lab Result (including Rx patient on, if applicable) Final urine culture report shows NO GROWTH and is NEGATIVE. [facility] Emergency Dept discharge antibiotic: Nitrofurantoin Macrocrystal- Monohydrate (Macrobid) 100 mg PO capsule, 1 capsule (100 mg) by mouth 2 times daily for 7 days Recommendations in treatment per [facility] ED Lab result Urine culture protocol. compound finisher (Patient???s current Symptoms), include time called. 5:16 PM - overall patient feels improved Antibiotic 3 days prior to sample: No Genitourinary symptoms: No pain, burning, frequency, urgency Fever: No RN Recommendations/Instructions per [facility] ED lab result protocol Patient notified of [...] follow-up Questions asked: YES Jovita Stack RN [facility] Emergency Dept Lab Result RN Copy of Lab result Urine Culture Order: [id number] - Reflex for Order [id number] Status: Final result ?? Visible to patient: Yes (seen) ?? Specimen Information: Urine, Midstream 1 Result Note Culture No Growth Resulting Agency: [facility] Specimen Collected: 10/07/22 ??9:59 AM Last Resulted: 10/08/22 ??1:17 PM ESSOGRAPH OPERATOR documented in this encounter Plan of Treatment Upcoming Encounters Date Type Department Care Team (Late st Contact Info) Description 06/24/2024 11:00 AM CDT Lab [facility] [address] [place] [address] documented as of this encounter Visit Diagnoses Not on filedocumented in this encounter Care Teams Occupational Therapy Professor Relationship Specialty Start Date End Date No Ref-Primary, Physician PCP - General 10/07/22 Mandeep Guadarrama MD [address] [place] [address] Fellow Endocrinology, Diabetes, and Metabolism 05/09/24 Tate Salazar MD [address] [place] [address] Endocrinology, Diabetes, and Metabolism 05/13/24 documented as of this encounter
--- OUTSIDE RECORDS SUMMARY | 2024-06-04 08:35 | XMS_ITS | Encounter Summary ---
Author Organization [facility] Address [address] [place] [address] Care Team Providers Care Manager Application Development Name Role Phone Sujata Payne MD Primary Care Provider [phone] Sujata Payne MD Unavailable [phone] Sujata Payne MD Unavailable [phone] Adams Rose MD Unavailable [phone] No Ref-Primary, Physician Primary Care Provider Mandeep Guadarrama MD Unavailable [phone] Tate Salazar MD Unavailable [phone] Encounter Details Date Type Department Care Team (Late st Contact Info) Description 10/08/2018 MyC Medical Advice [facility] Women's [address] [place] [phone] Adams Rose MD [address] [place] [address] Social History Tobacco Use Types Packs/Day Years Used Date Smoking Tobacco: Former Cigarettes Q uit: 10/06/2008 Smokeless Tobacco: Never Alcohol Use Standard Drinks/Week Comments No 0 (1 standard drink = 0.6 oz pur e alcohol) Comments Yes Sex and Gender Information Value Date Recorded Sex Assigned at Not on file Gender Identity Female 09/24/2021 9:00 AM LEASING ASSOCIATE Sexual Orientation Not on file documented as of this encounter Miscellaneous Notes * Telephone Encounter - Adams Rose MD - 10/10/2018 9:50 AM LEASING ASSOCIATE Spoke with patient. I am much better now. ING ASSOCIATE * Telephone Encounter - Alisha Costa, RN - 10/10/2018 8:07 AM LEASING ASSOCIATE Please see the [employer] message and advise. Pt had miscarriage last week. Alisha Cosat, RN ING ASSOCIATE documented in this encounter Plan of Treatment Upcoming Encounters Date Type Department Care Team (Late st Contact Info) Description 06/24/2024 11:00 AM CDT [facility] [address] [place] [address] documented as of this encounter Visit Diagnoses Not on filedocumented in this encounter Care Teams Manager Application Development Relationship Specialty [place] [address] [place] [address] PCP - General Family Practice 08/21/17 10/06/22 [place] [address] [place] [address] PCP - Assigned PCP 09/17/17 12/18/18 No Ref-Primary, Physician PCP - General 10/07/22 [place] [address] [place] [address] Assigned PCP 09/17/17 09/05/20 Adams Rose MD [facility] [place] [address] Assigned OBGYN Provider 08/07/20 Mandeep Guadarrama MD [address] [place] [address] Fellow Endocrinology, Diabetes, and Metabolism 05/09/24 Tate Salazar MD [address] [place] [address] Endocrinology, Diabetes, and Metabolism 05/13/24 documented as of this encounter
--- OUTSIDE RECORDS SUMMARY | 2024-06-04 08:35 | XMS_ITS | Encounter Summary ---
Author Organization [facility] Address [address] [place] [address] Care Team Providers Care Laboratory Clerk Name Role Phone Sujata Payne MD Primary Care Provider [phone] Sujata Payne MD Unavailable [phone] Adams Rose MD Unavailable [phone] No Ref-Primary, Physician Primary Care Provider Mandeep Guadarrama MD Unavailable [phone] Tate Salazar MD Unavailable [phone] Encounter Details Date Type Department Care Team (Late st Contact Info) Description 05/09/2020 MyC Medical Advice [facility] Women's [address] [place] [address] Adams Rose MD [address] [place], [place] [id number] Social History Tobacco Use Types Packs/Day Years Used Date Smoking Tobacco: Former Cigarettes Q uit: 10/06/2008 Smokeless Tobacco: Never Alcohol Use Standard Drinks/Week Comments No 0 (1 standard drink = 0.6 oz pur e alcohol) PHQ-2 Answer Date Recorded PHQ-2 Score 0 12/03/2019 Sex and Gender Information Value Date Recorded Sex Assigned at Not on file Gender Identity Female 09/24/2021 9:00 AM MOTOR SETTER Sexual Orientation Not on file documented as of this encounter Plan of Treatment Upcoming Encounters Date Type Department Care Team (Late st Contact Info) Description 06/24/2024 11:00 AM CDT [facility] [address] [place] [address] documented as of this encounter Visit Diagnoses Not on filedocumented in this encounter Care Teams Laboratory Clerk Relationship Specialty Start [place] [address] [place] [address] PCP - General Family Practice 08/21/17 10/06/22 No Ref-Primary, Physician PCP - General 10/07/22 [place] [address] [place] [address] Assigned PCP 09/17/17 09/05/20 Adams Rose MD [address] [place] [address] Assigned OBGYN Provider 08/07/20 Mandeep Guadarrama MD [address] [place] [address] Fellow Endocrinology, Diabetes, and Metabolism 05/09/24 Tate Salazar MD [address] [place] [address] Endocrinology, Diabetes, and Metabolism 05/13/24 documented as of this encounter
--- OUTSIDE RECORDS SUMMARY | 2024-06-04 08:35 | XMS_ITS | Encounter Summary ---
Author Organization [facility] Address [address] [place] [address]. [place] [address] Care Team Providers Care Materials Supervisor Name Role Phone Sujata Payne MD Primary Care Provider [phone] Sujata Payne MD Unavailable [phone] Sujata Payne MD Unavailable [phone] Adams Rose MD Unavailable [phone] No Ref-Primary, Physician Primary Care Provider Mandeep Guadarrama MD Unavailable [phone] Tate Salazar MD Unavailable [phone] Reason for Visit * Reason Onset Date Comments MyChart Communication 05/30/2018 Encounter Details Date Type Department Care Team (Late st Contact Info) Description 05/30/2018 [facility] [address] [place] [address] [place] [address] [place], [place] [phone] MyChart Communication Social History Tobacco Use Types Packs/Day Years Used Date Smoking Tobacco: Former Cigarettes Q uit: 10/06/2008 Smokeless Tobacco: Never Alcohol Use Standard Drinks/Week Comments No 0 (1 standard drink = 0.6 oz pur e alcohol) Sex and Gender Information Value Date Recorded Sex Assigned at Not on file Gender Identity Female 09/24/2021 9:00 AM IRON CARRIER Sexual Orientation Not on file documented as of this encounter Miscellaneous Notes * Telephone Encounter - Sujata Payne MD - 05/30/2018 4:14 PM CDT Can give Timothy's info if she feels comfortable seeing a man. If not, [facility] * Telephone Encounter - Roxanna Aguilera RN - 05/30/2018 3:43 PM CDT PCP: Please see below. BRODIE was 09/05/17. Roxanna Aguilera RN -- [facility] documented in this encounter Plan of Treatment Upcoming Encounters Date Type Department Care Team (Late st Contact Info) Description 06/24/2024 11:[address] [facility] [address] [place] [address] documented as of this encounter Visit Diagnoses Not on filedocumented in this encounter Care Teams Materials Supervisor Relationship Specialty Start [place] [address] [place] [address] PCP - General Family Practice 08/21/17 10/06/22 [place] [address] [place] [address] PCP - Assigned PCP 09/17/17 12/18/18 No Ref-Primary, Physician PCP - General 10/07/22 [place] [address] [place] [address] Assigned PCP 09/17/17 09/05/20 Adams Rose MD [address] [place] [address] Assigned OBGYN Provider 08/07/20 Mandeep Guadarrama MD [address] [place] [address] Fellow Endocrinology, Diabetes, and Metabolism 05/09/24 Tate Salazar MD [address] [place] [address] Endocrinology, Diabetes, and Metabolism 05/13/24 documented as of this encounter
--- OUTSIDE RECORDS SUMMARY | 2024-06-04 08:35 | XMS_ITS | Encounter Summary ---
Author Organization [facility] Address [address] [place] [address] Care Team Providers Care Steward/Stewardess Banquet Name Role Phone No Ref-Primary, Physician Primary Care Provider Mandeep Guadarrama MD Unavailable [phone] Tate Salazar MD Unavailable [phone] Encounter Details Date Type Department Care Team (Late Contact Info) Description 05/13/2024 [facility] Medical Advice [facility] End[facility]ology Clinic [address] [phone] [facility] Social History Tobacco Use Types Packs/Day Years [...] file Gender Identity Female 09/24/2021 9:00 AM PROCESS TANK TENDER Sexual Orientation Not on file documented as of this encounter Plan of Treatment Upcoming Encounters Date Type Department Care Team (Late Contact Info) Description 06/24/2024 11:00 AM CDT Lab [facility] [address] [place] [address] documented as of this encounter Visit Diagnoses Not on filedocumented in this encounter Care Teams Steward/Stewardess Banquet Relationship Specialty Start Date End Date No Ref-Primary, Physician PCP - General 10/07/22 Mandeep Guadarrama MD [address] [place] [address] Fellow Endocrinology, Diabetes, and Metabolism 05/09/24 Tate Salazar MD [address] [place] [address] Endocrinology, Diabetes, and Metabolism 05/13/24 documented as of this encounter
--- OUTSIDE RECORDS SUMMARY | 2024-06-04 08:35 | XMS_ITS | Encounter Summary ---
Author Organization [facility] Address [address] [place] [address] Care Team Providers Care Hr Recruiter Name Role Phone No Ref-Primary, Physician Primary Care Provider Mandeep Guadarrama MD Unavailable [phone] Tate Salazar MD Unavailable [phone] Reason for Visit * Reason Comments Video Visit RECHECK * Consultation (Routine) - Pending Review Specialty Diagnoses / Procedures Referred By Lauren owens Referred To Contact Endocrinology, Diabetes, and Metabolism Diagnoses Personal history of other endocrine, nutritional and metabolic disease Nirav Mendez APRN [facility] [address] [place] [address] Referral ID Status Reason Start Date Expiration Date V isits Requested Visits Authorized [id number] Pending Review 05/08/2024 05/08/2025 1 1 Encounter Details Date Type Department Care Team (Latest Contact Info) Description 05/16/2024 9:30 AM CDT Virtual Visit [facility]inology [facility] [place] [address] [place] [address] 3rd [place] [address] Gail Aponte MD [facility] [address] [place] [address] Tate Salazar MD [address] [place], [place] [id number] Graves disease (Primary Dx); thyroiditis; Personal history of other endocrine, nutritional and metabolic disease; First trimester Social History Tobacco Use [...] file Gender Identity Female 09/24/2021 9:00 AM ACADEMIC ASSISTANT Sexual Orientation Not on file documented as of this encounter Last Filed Vital Signs Vital Sign Reading Time Taken Comments Blood Pressure - - Pulse - - Temperature - - Respiratory Rate - - Oxygen Saturation - - Inhaled Oxygen Concentration - - Weight 82.6 kg (182 lb) 05/16/2024 9:20 AM CDT Height - - Body Mass Index 31.24 12/03/2019 1:20 PM ACADEMIC ASSISTANT documented in this encounter Patient Instructions * Patient Instructions* Tate Salazar MD - 05/16/2024 9:30 AM CDT It was nice meeting you Schedule a lab appointment documented in this encounter Progress Notes * Tate Salazar MD - 05/16/2024 9:30 AM CDT error * Tate Salazar MD - 05/16/2024 9:30 AM CDT Endocrinology Clinic Visit 05/16/2024 Video-Visit Details Type of service: Video Visit Joined the call at 05/16/2024, 9:34:11 am. Left the call at 05/16/2024, 10:01:40 am. Originating Location (pt. Location): Home Distant Location (provider location): On-site Mode of Communication: Video Conference via [facility] Physician has received verbal consent for a Video Visit from the patient? Yes I spent a total of 60 minutes on the date of encounter reviewing medical records, evaluating the patient, coordinating care and documenting in the EHR, as detailed above. NAME: Shantelle Gomez PCP: No Ref-Primary, Physician Reason for Consult: graves disease Requesting Provider: Nirav Mendez Chief Complaint Chief Complaint Patient presents with Video Visit RECHECK History of Present Illness Shantelle Gomez is a 33 year old female who is seen in video visit for graves disease in . She was diagnosed with Graves disease in 2017, one month after delivery of her fourth child. Labs at that time showed suppressed TSH, ft4 of 3.45 , tt3 443, TSI 7.4. She was started on methimazole, took it for 6 month. Since then she stopped it and reported normal TFT. TFT from bode remained normal 12/2017-09/2019. She delivered her 5th child 05/2023. She was feeling fatigue and random racing heart. Had regular menses after her until now but reported shorter interval between menses. She is currently , 8 weeks gestation. She reported some nausea , no vomiting. Stable weight. No change in bowel habits. No heat intolerance. 05/08/25 TSH 0.015 ( 0.27-4.2) at 7 weeks gestation. FT 4 1.27 ( 0.7-1.85) She read the following labs to me, done during and in the period of her 5th . 10/2022: TSH 0.015, ft4 1.21 11/2022 TSH 0.223 ft4 0.94 02/2023 TSH 0.422 06/2023 TSH 0.098 ft4 1.43 08/07/23 TSH 0.015, FT4 4.05 She denied feeling any anterior neck sx, no goiter. No eye symptoms. She is currently on vitamins only. Family hx: no thyroid disease. No autoimmune disease. Social: she does not work. She has 5 children 12,11,9,7 y.o and 11 month. Problem List Patient Active Problem List Diagnosis CARDIOVASCULAR SCREENING; LDL GOAL LESS THAN 160 (normal spontaneous vaginal delivery) Hyperthyroidism Graves disease Medications Current Outpatient Medications Medication Sig Dispense Refill Multiple Vitamins-Minerals (MULTIVITAMIN WOMEN PO) No current facility-administered medications for this visit. Allergies Allergies Allergen Reactions Sulfa Antibiotics Hives LW Reaction: Rash, Generalized Medical / Surgical History Past Medical History: Diagnosis Date No active medical problems Vaginal delivery 11/16/2012 Varicosities Past Surgical History: Procedure Laterality Date APPENDECTOMY DILATION AND CURETTAGE SUCTION N/A 10/07/2015 Procedure: DILATION AND CURETTAGE SUCTION; Surgeon: Chelsie Storm DO; Location: [facility] LAPAROSCOPY DIAGNOSTIC (TITLE CLERK) LEEP TX, CERVICAL 02/2010 Social History Social History Socioeconomic History Marital status: Single Spouse name: Not on file Number of children: Not on file Years of education: Not on file Highest education level: Not on file Occupational History Not on file Tobacco Use Smoking status: Former Current packs/day: 0.00 Types: Cigarettes Quit date: 10/06/2008 Years since quittin.6 Smokeless tobacco: Never Substance and Sexual Activity Alcohol use: No Drug use: No Sexual activity: Yes Partners: Male control/protection: Natural Family Planning Other Topics Concern Parent/sibling w/ CABG, HI or angioplasty before 65F 55M? No Social History Narrative Not on file Social Determinants of Health Financial Resource Strain: Not on file Food Insecurity: Not on file Transportation Needs: Not on file Physical Activity: Not on file Stress: Not on file Social Connections: Not on file Interpersonal Safety: Not on file Housing Stability: Not on file Family History Family History Problem Relation Age of Onset Hypertension Father Diabetes Maternal Grandmother kidney disease Diabetes Maternal Grandfather Cancer Brother testicular Cancer Paternal Grandmother ovarian Family History Negative Mother ROS 12 ROS completed, pertinent positive and negative in HPI Physical Exam Wt 82.6 kg (182 lb) BMI 31.24 kg/m?? GENERAL: alert and no distress EYES: Eyes grossly normal to inspection. No discharge or erythema, or obvious scleral/conjunctival abnormalities. RESP: No audible wheeze, cough, or visible cyanosis. SKIN: Visible skin clear. No significant rash, abnormal pigmentation or lesions. NEURO: Cranial nerves grossly intact. Mentation and speech appropriate for age. PSYCH: Appropriate affect, tone, and pace of words Labs/Imaging Pertinent Labs were reviewed and updated in [facility] and discussed briefly. Radiology Results were reviewed and updated in [facility] and reviewed. Summary of recent findings: No results found for: A1C TSH Date Value Ref Range Status 10/01/2019 0.75 0.40 - 4.00 mU/L Final 10/03/2018 0.88 0.40 - 4.00 mU/L Final 02/22/2018 3.96 0.40 - 4.00 mU/L Final 12/21/2017 2.43 0.40 - 4.00 mU/L Final 11/14/2017 <0.01 (L) 0.40 - 4.00 mU/L Final T4 Free Date Value Ref Range Status 10/01/2019 1.22 0.76 - 1.46 ng/dL Final 02/22/2018 0.98 0.76 - 1.46 ng/dL Final 12/21/2017 0.89 0.76 - 1.46 ng/dL Final 11/14/2017 1.08 0.76 - 1.46 ng/dL Final 10/05/2017 2.31 (H) 0.76 - 1.46 ng/dL Final Creatinine Date Value Ref Range Status 10/07/2022 0.72 0.51 - 0.95 mg/dL Final 05/30/2016 0.67 0.52 - 1.04 mg/dL Final No results for input(s): CHOL, HDL, LDL, TRIG, CHOLHDLRATIO in the last 67949 hours. No results found for: [id number], [id number], [id number] I personally reviewed the patient's outside records from [employer] EMR , faxed records and Care Everywhere. Summary of pertinent findings in HPI. Impression / Plan 1. Graves disease 2. First trimester Today we reviewed her diagnosis of graves and discussed the approach to treatment during .It seems her graves disease was in remission until June 2023 when she was 1-2 month . Most recent labs at 7 weeks gestation include only TSH and ft4. She had mildly low TSH which couldbe related to transient changes during . We do not have trimester specific lab range for ft4, we will get TT4 and TT3 checked. We reviewed the need for frequent lab monitoring during especially during the first trimester, we discussed the indication for PTU use during the first trimester of . Test and/or medications prescribed today: Orders Placed This Encounter Procedures TSH Thyroxine total T3 total Thyroid stimulating immunoglobulin Thyrotropin Receptor Antibody Follow up: 2-3 month The longitudinal plan of care for the diagnosis(es)/condition(s) as documented were addressed during this visit. Due to the added complexity in care, I will continue to support Shantelle in the subsequent management and with ongoing continuity of care. Tate Salazar MD Endocrinology, Diabetes and Metabolism [facility] documented in this encounter Nursing Notes * Henna Amado - 05/16/2024 9:30 AM CDT Current patient location: [place] Is the patient currently in the state of [place]? YES Visit mode:VIDEO If the visit is dropped, the patient can be reconnected by: VIDEO VISIT: Text to cell phone: Telephone Information: Will anyone else be joining the visit? NO (If patient encounters technical issues they should call [phone] :[phone]) How would you like to obtain your AVS? MyChart Are changes needed to the allergy or medication list? No Are refills needed on medications prescribed by this physician? NO Rooming Documentation: Assigned questionnaire(s) completed Reason for visit: Video Visit and RECHECK Henna Amado VVF Pt is , 8 weeks, 4 days. documented in this encounter Plan of Treatment Upcoming Encounters Date Type Department Care Team (Late st Contact Info) Description 06/24/2024 11:00 AM CDT [facility] [address] [place] [phone] documented as of this encounter Results * (ABNORMAL) Thyrotropin Receptor Antibody (05/20/2024 10:54 AM CDT) Pathologist [facility] Thyrotropin Receptor Antibody 3.99(H) 0.00 - 1.75 IU/L 05/21/2024 9:10 AM CDT [facility] Comment: ADDITIONAL INFORMATION At a decision limit of 1.75 IU/L, this assay has 97% sensitivity and 99% specificity for detection of Graves' disease. In healthy individuals and in patients with thyroid disease without diagnosis of Graves' disease, the upper limit of anti-TSHR values are 1.22 IU/L and 1.58 IU/L, respectively (97.5th percentiles). Test Performed by: [place] [address] Screen Writer: Barrington Douglas Ph.D.; CLIA# [id number] Blood STRUCTURE OF RIGHT UPPER LIMB / Unknown Venipuncture / Unknown 05/20/2024 10:54 AM CDT 05/20/2024 10:54 AM CDT Tate Salazar MD LAB - IMMUNOLOGY ORD ERABLES Performing Organization Address [facility]/ZIP Co de Phone Number [facility] [address] [place] [address] * (ABNORMAL) Thyroid stimulating immunoglobulin (05/20/2024 10:54 AM CDT) Thyroid Stim Immunog 2.5(H) <=1.3 TSI index 05/27/2024 6:23 PM CDT [facility] Comment: Test Performed by: [place] [address] Screen Writer: Barrington Douglas Ph.D.; CLIA# [id number] Blood STRUCTURE OF RIGHT UPPER LIMB / Unknown Venipuncture / Unknown 05/20/2024 10:54 AM CDT 05/20/2024 10:54 AM CDT Tate Salazar MD LAB - BLOOD ORDERABL ES Performing Organization Address City/[facility]/ZIP Co de Phone Number [facility] [address] [place] [address] * T3 total (05/20/2024 10:54 AM CDT) T3 Total 159 85 - 202 ng/dL 05/20/2024 7:06 PM CDT [facility] Blood STRUCTURE OF RIGHT UPPER LIMB / Unknown Venipuncture / Unknown 05/20/2024 10:54 AM CDT 05/20/2024 10:54 AM CDT Tate Salazar MD LAB - BLOOD ORDERABL ES Performing Organization Address [facility] Co de Phone Number [facility] [address] [facility], [address] [phone] * (ABNORMAL) Thyroxine total (05/20/2024 10:54 AM CDT) T4 Total 11.8(H) 4.5 - 11.7 ug/dL 05/20/2024 7:06 PM CDT [facility] Blood STRUCTURE OF RIGHT UPPER LIMB / Unknown Venipuncture / Unknown 05/20/2024 10:54 AM CDT 05/20/2024 10:54 AM CDT Tate Salazar MD LAB - BLOOD ORDERABL ES Performing Organization Address [facility] Co de Phone Number [facility] [address] [facility], [address] [phone] * (ABNORMAL) TSH (05/20/2024 10:54 AM CDT) TSH 0.02(L) 0.30 - 4.20 uIU/mL 05/20/2024 7:06 PM CDT [facility] Blood STRUCTURE OF RIGHT UPPER LIMB / Unknown Venipuncture / Unknown 05/20/2024 10:54 AM CDT 05/20/2024 10:54 AM CDT Tate Salazar MD LAB - BLOOD ORDERABL ES Performing Organization Address City/[facility]/ZIP Co de Phone Number [facility] [address] [facility], [address] [phone] documented in this encounter Visit Diagnoses Diagnosis Graves disease- Primary Toxic diffuse goiter without mention of thyrotoxic crisis or storm thyroiditis Thyroid dysfunction, Personal history of other endocrine, nutritional and metabolic disease First trimester documented in this encounter Care Teams Hr Recruiter Relationship Specialty Start Date End Date No Ref-Primary, Physician PCP - General 10/07/22 Mandeep Guadarrama MD [address] [place] [address] Fellow Endocrinology, Diabetes, and Metabolism 05/09/24 Tate Salazar MD [address] [place] [address] Endocrinology, Diabetes, and Metabolism 05/13/24 documented as of this encounter
--- OUTSIDE RECORDS SUMMARY | 2024-06-04 08:35 | XMS_ITS | Encounter Summary ---
Author Organization [facility] Address [address] [place] [address] Care Team Providers Care Rail Engineer Name Role Phone Sujata Payne MD Primary Care Provider [phone] Sujata Payne MD Unavailable [phone] Sujata Payne MD Unavailable [phone] Adams Rose MD Unavailable [phone] No Ref-Primary, Physician Primary Care Provider Mandeep Guadarrama MD Unavailable [phone] Tate Salazar MD Unavailable [phone] Encounter Details Date Type Department Care Team (Late st Contact Info) Description 10/04/2018 MyC Medical Advice [facility] [address] [place] [phone] Adams Rose MD [address] [place] [address] Social History Tobacco Use Types Packs/Day Years Used Date Smoking Tobacco: Former Cigarettes Q uit: 10/06/2008 Smokeless Tobacco: Never Alcohol Use Standard Drinks/Week Comments No 0 (1 standard drink = 0.6 oz pur e alcohol) Comments Yes Sex and Gender Information Value Date Recorded Sex Assigned at Not on file Gender Identity Female 09/24/2021 9:00 AM FLIGHT TEST SHOP MECHANIC Sexual Orientation Not on file documented as of this encounter Miscellaneous Notes * Telephone Encounter - Adams Rose MD - 10/05/2018 1:44 PM FLIGHT TEST SHOP MECHANIC Spoke with patient. Advised of falling HCG levels. Patient has previously experienced a first trimester loss. Given early timing of loss D&C not likely to be necessary HT TEST SHOP MECHANIC * Telephone Encounter - Alisha Costa, RN - 10/05/2018 1:05 PM FLIGHT TEST SHOP MECHANIC Please see the results of the pt's hcg level, and discuss with her. Alisha Costa RN HT TEST SHOP MECHANIC documented in this encounter Plan of Treatment Upcoming Encounters Date Type Department Care Team (Late st Contact Info) Description 06/24/2024 11:00 AM [facility] [address] [place] [address] documented as of this encounter Visit Diagnoses Not on filedocumented in this encounter Care Teams Rail Engineer Relationship Specialty [place] [address] [place] [address] PCP - General Family Practice 08/21/17 10/06/22 [place] [address] [place] [address] PCP - Assigned PCP 09/17/17 12/18/18 No Ref-Primary, Physician PCP - General 10/07/22 [place] [address] [place] [address] Assigned PCP 09/17/17 09/05/20 Adams Rose MD [address] [place] [address] Assigned OBGYN Provider 08/07/20 Mandeep Guadarrama MD [address] [place] [id number] Fellow Endocrinology, Diabetes, and Metabolism 05/09/24 Tate Salazar MD [address] [place] [phone] Endocrinology, Diabetes, and Metabolism 05/13/24 documented as of this encounter
--- OUTSIDE RECORDS SUMMARY | 2024-06-04 08:35 | XMS_ITS | Encounter Summary ---
Author Organization [facility] Address [address] [place] [address]. [place] [address] Care Team Providers Care Field Supervisor Name Role Phone No Ref-Primary, Physician Primary Care Provider Madneep Guadarrama MD Unavailable [phone] Tate Salazar MD Unavailable [phone] Encounter Details Date Type Department Care Team (Late st Contact Info) Description 05/10/[address] [facility] Endocrinology Clinic [address] 3rd [place] [address] Mariela Bautista MD [address] [facility] [address] [place] [address] Social History Tobacco Use Types Packs/Day [...] file Gender Identity Female 09/24/2021 9:00 AM SECURITY SCREENER Sexual Orientation Not on file documented as of this encounter Miscellaneous Notes * Telephone Encounter - Marge Arambulabeth Eduin - 05/13/2024 10:38 AM CDT Images from the original note were not included. Left Voicemail (1st Attempt) for the patient to call back and schedule the following: Appointment type: New endocrine Provider: Any that see Graves disease/ Abnormal Thyroid Test Return date: sooner than visit on 05/29 Specialty phone number: [phone] Additional appointment(s) needed: NA Additonal Notes: LVM, MyC x1 Mckenzie Barrera, RN P Clinic [id number] Endocrine Clinic staff confirmed that patient is . Records will be scanned urgently. Per Endocrine roading engineer Scheduling Protocol, patient is to be scheduled within 1 week in this order: 1-Dr. [facility] clinic 2-Open OLYA with in 2 weeks 3-Urgent corporate bond trader Examples: 05/16 Alameddine virtual csc (2 back to back return slots) 05/17 Bantle virtual csc 05/21 Radulescu virtual mg Please note that the above appointment(s) will require manual scheduling as they are marked as OLYA and will not appear using auto search. Do not schedule the patient if another patient has already been scheduled in the requested appointment slot. Yaa Arambula on 05/13/2024 at 10:38 AM * Telephone Encounter - Yaa Arambula - 05/10/2024 3:24 PM CDT Images from the original note were not included. Patient confirmed scheduled appointment: Date: 05/29 Time: 10 am Visit type: New Endocrine Provider: [facility] Location: csc Testing/imaging: NA Additional notes: Spoke to pt and offered soonest avail appt per triage below, added pt to high priority wait list. Sent message back in case add on will be needed due to time frame Mckenzie Barrera, RN P Clinic [id number] Endocrine Clinic staff confirmed that patient is . Records will be scanned urgently. Per Endocrine roading engineer Scheduling Protocol, patient is to be scheduled within 1 week in this order: 1-Dr. Whaley clinic 2-Open OLYA with in 2 weeks 3-Urgent corporate bond trader Yaa Arambula on 05/10/2024 at 3:26 PM documented in this encounter Plan of Treatment Upcoming Encounters Date Type Department Care Team (Late st Contact Info) Description 06/24/2024 11:00 AM CDT [facility] [address] [place] [address] documented as of this encounter Visit Diagnoses Not on filedocumented in this encounter Care Teams Field Supervisor Relationship Specialty Start Date End Date No Ref-Primary, Physician PCP - General 10/07/22 aMndeep Guadarrama MD [address] [place] [address] Fellow Endocrinology, Diabetes, and Metabolism 05/09/24 Tate Salazar MD [address] [place] [address] Endocrinology, Diabetes, and Metabolism 05/13/24 documented as of this encounter
--- OUTSIDE RECORDS SUMMARY | 2024-06-04 08:35 | XMS_ITS | Clinical Summary ---
Author Organization [facility] Address [place], [place] [address] Care Team Providers Care Secretary Of Police Name Role Phone Sherin Medina MD Primary [...] 7 9 WILLI AMS,[place] GIRL Delivery Location:[facility] Last Filed Vital Signs Vital Sign Reading [...] HPV THIN PREP Routine 10/28/2022 11:50 AM ACTIVE DIRECTORY ARCHITECT from Last 3 Months or Most Recently Relevant to Health Maintenance Results * HPV HIGH RISK (10/28/2022 11:50 AM ACTIVE DIRECTORY ARCHITECT) TYPE 16 Negative Negative 11/03/2022 2:05 PM ACTIVE DIRECTORY ARCHITECT [facility] TYPE 18 Negative Negative 11/03/2022 2:05 PM ACTIVE DIRECTORY ARCHITECT [facility] OTHER HIGH RISK TYPES Negative Negative 11/03/2022 2:05 PM ACTIVE DIRECTORY ARCHITECT [facility] Other (Cervical) 10/28/2022 11:50 AM ACTIVE DIRECTORY ARCHITECT 11/01/2022 4:35 PM ACTIVE DIRECTORY ARCHITECT Narrative [facility] - 11/03/2022 2:05 PM ACTIVE DIRECTORY ARCHITECT HPV types 16, 18, 31, 33, 35, 39, 45, 51, 52, 56, 58, 59, 66 and 68 DNA were undetectable or below the pre-set threshold. Methodology: Sj Jovon 4800 HPV Test January Shasta [facility]JICA MICROBIOLOGY [facility] [address] [place] [address], [place] from Last 3 Months or Most [...] 6:16 AM 08/09/2010 12:05 PM Care Teams Secretary Of Police Relationship Specialty Start Date End Date Sherin Meidna MD [address] [place] [address] PCP - General 09/17/06
--- OUTSIDE RECORDS SUMMARY | 2024-06-04 08:35 | XMS_ITS | Encounter Summary ---
Author Organization [place] Address [address] [place] [address] Care Team Providers Care Gas Plant Operator Name Role Phone Sujata Payne MD Primary Care Provider [phone] Sujata Payne MD Unavailable [phone] Adams Rose MD Unavailable [phone] No Ref-Primary, Physician Primary Care Provider Mandeep Guadarrama MD Unavailable [phone] Tate Salazar MD Unavailable [phone] Encounter Details Date Type Department Care Team (Late st Contact Info) Description 12/09/[address] [facility] Women's [address] [place] [address] Adams Rose MD [address] [place], [place] [phone] Social History Tobacco Use Types Packs/Day Years Used Date Smoking Tobacco: Former Cigarettes Q uit: 10/06/2008 Smokeless Tobacco: Never Alcohol Use Standard Drinks/Week Comments No 0 (1 standard drink = 0.6 oz pur e alcohol) PHQ-2 Answer Date Recorded PHQ-2 Score 0 12/03/2019 Sex and Gender Information Value Date Recorded Sex Assigned at Not on file Gender Identity Female 09/24/2021 9:00 AM MUFFLER HAND Sexual Orientation Not on file documented as of this encounter Plan of Treatment Upcoming Encounters Date Type Department Care Team (Late st Contact Info) Description 06/24/2024 11:00 AM CDT [facility] [address] [place] [address] documented as of this encounter Visit Diagnoses Not on filedocumented in this encounter Care Teams Gas Plant Operator Relationship Specialty [place] [address] [place] [address] PCP - General Family Practice 08/21/17 10/06/22 No Ref-Primary, Physician PCP - General 10/07/22 [place] [address] [place] [address] Assigned PCP 09/17/17 09/05/20 Adams Rose MD [address] [place] [address] Assigned OBGYN Provider 08/07/20 Mandeep Guadarrama MD [address] [place] [address] Fellow Endocrinology, Diabetes, and Metabolism 05/09/24 Tate Salazar MD [address] [place] [phone] Endocrinology, Diabetes, and Metabolism 05/13/24 documented as of this encounter
--- OUTSIDE RECORDS SUMMARY | 2024-06-04 08:35 | XMS_ITS | Encounter Summary ---
Author Organization [place] Address [address] [place] [address] Care Team Providers Care Home Advisor Name Role Phone No Ref-Primary, Physician Primary Care Provider Reason for Referral * Consultation (Routine) - Pending Review Specialty Diagnoses / Procedures Referred By Contac t Referred To Contact Endocrinology, Diabetes, and Metabolism Diagnoses Personal history of other endocrine, nutritional and metabolic disease Nirav Mendez APRN [facility] [address] [id number] Referral ID Status Reason Start Date Expiration Date V isits Requested Visits Authorized [id number] Pending Review 05/08/2024 05/08/2025 1 1 Question Answer Reason for Referral: Thyroid Thyroid: Abnormal Thyroid Test Scheduling Instructions: Cashback [facility]ai will call you to coordinate your care as prescribed by the provider. If you don? t hear from a special service representative within 2 business days, please call [phone]. Additional Information: History of Graves disease Comments Referral Transcribed by external fax Provider: Nirav Mendez affiliated with [facility] [address] [place] [address]. [place]: No If yes was is the [place] Authorization Number: Phone number: [phone] Please be aware that coverage of these services is subject to the terms and limitations of your health insurance plan. Call member services at your health plan with any benefit or coverage questions. [employer] [facility] will call you to coordinate your care as prescribed by the provider. If you don? t hear from a special service representative within 2 business days, please call [phone]. 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 Sexual Orientation Not on file documented as of this encounter Plan of Treatment Upcoming Encounters Date Type Department Care Team (Late st Contact Info) Description 06/24/2024 11:00 AM CDT [facility] [address] [place] [address] Scheduled Referrals Name Type Priority Associated Diagnoses Orde r Schedule Adult Endocrinology Control Technician Referral Referral Routine Personal history of other endocrine, nutritional and metabolic disease Expected: 05/08/2024 (Approximate), Expires: 05/08/2025 documented as of this encounter Visit Diagnoses Diagnosis Personal history of other endocrine, nutritional and metabolic disease- Primary documented in this encounter Care Teams Home Advisor Relationship Specialty Start Date End Date No Ref-Primary, Physician PCP - General 10/07/22 documented as of this encounter
== END 2024-06-03 10:35 | disposition home or self-care (01) ==
LOC: NFLDREF 06-04 08:31
PROVIDERS: Visit Provider Obstetrics & Gynecology
DX: Z86.39 Personal history of other endocrine, nutritional and metabolic disease (principal)
CPT/HCPCS: 84439; 84443

== ENCOUNTER 2024-07-24 13:44 | Outpatient (CLI) | payer MEDICAID, SELFPAY ==
--- OUTSIDE RECORDS SUMMARY | 2024-07-24 13:47 | XMS_ITS | Encounter Summary ---
Author Organization [place] Address [address] [place] [address] Care Team Providers Care Grader Operator Name Role Phone No Ref-Primary, Physician Primary Care Provider Mandeep Guadarrama MD Unavailable [phone] Tate Salazar MD Unavailable [phone] Tate Salazar MD Unavailable [phone] Encounter Details Date Type Department Care Team (Late st Contact Info) Description 06/03/2024 MyC Medical Advice [facility] [address] [address] Tate Salazar MD [address] [place] [address] Social History Tobacco Use Types Packs/Day Years [...] file Gender Identity Female 09/24/2021 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 Sexual Orientation Not on file documented as of this encounter Plan of Treatment Upcoming Encounters Date Type Department Care Team (Late st Contact Info) Description 09/09/2024 11:30 AM MANUFACTURER REPRESENTATIVE Virtual Visit [address] [place] [phone] Tate Salazar MD [address] [place] [phone] documented as of this encounter Visit Diagnoses Not on filedocumented in this encounter Care Teams Grader Operator Relationship Specialty Start Date End Date No Ref-Primary, Physician PCP - General 10/07/22 Mandeep Guadarrama MD [address] [place] [address] Fellow Endocrinology, Diabetes, and Metabolism 05/09/24 Tate Salazar MD [address] [place] [address] Endocrinology, Diabetes, and Metabolism 05/13/24 Tate Salazar MD [address] [place] [address] Assigned Endocrinology Provider 06/07/24 documented as of this encounter
--- OUTSIDE RECORDS SUMMARY | 2024-07-24 13:47 | XMS_ITS | Encounter Summary ---
Author Organization [place] Address [address] [place] [address] Care Team Providers Care Sewing Machine Operator Zipper Name Role Phone No Ref-Primary, Physician Primary Care Provider Mandeep Guadarrama MD Unavailable [phone] Tate Salazar MD Unavailable [phone] Tate Salazar MD Unavailable [phone] Encounter Details Date Type Department Care Team (Late st Contact Info) Description 06/11/2024 11:00 AM CDT Lab [address] [address] Graves disease Social History Tobacco Use Types Packs/Day Years [...] file Gender Identity Female 09/24/2021 9:00 AM BURNISHER Sexual Orientation Not on file documented as of this encounter Plan of Treatment Upcoming Encounters Date Type Department Care Team (Late st Contact Info) Description 09/09/2024 11:30 AM BURNISHER Virtual Visit [address] [address] Tate Salazar MD [address] [place] [address] documented as of this encounter Procedures Procedure Name Priority Date/Time Associated Diagnosis Comments TSH Routine 06/11/2024 10:49 AM CDT Graves disease THYROXINE TOTAL Routine 06/11/2024 10:49 AM CDT Graves disease T3 TOTAL Routine 06/11/2024 10:49 AM CDT Graves disease documented in this encounter Results * T3 total (06/11/2024 10:49 AM CDT) T3 Total 146 85 - 202 ng/dL 06/11/2024 7:17 PM CDT [facility] Blood BLOOD SPECIMEN / Unknown Venipuncture / Unknown 06/11/2024 10:49 AM CDT 06/11/2024 10:49 AM CDT Tate Salazar MD LAB - BLOOD ORDERABL ES Performing Organization Address City/[facility]/ZIP Co de Phone Number LABORATORY [facility] [address] [facility], [address] * Thyroxine total (06/11/2024 10:49 AM CDT) T4 Total 9.9 4.5 - 11.7 ug/dL 06/11/2024 7:17 PM CDT [facility] Blood BLOOD SPECIMEN / Unknown Venipuncture / Unknown 06/11/2024 10:49 AM CDT 06/11/2024 10:49 AM CDT Tate Salazar MD LAB - BLOOD ORDERABL ES LABORATORY [facility] [address] [facility], [address] * (ABNORMAL) TSH (06/11/2024 10:49 AM CDT) TSH 0.18(L) 0.30 - 4.20 uIU/mL 06/11/2024 7:17 PM CDT [facility] Blood BLOOD SPECIMEN / Unknown Venipuncture / Unknown 06/11/2024 10:49 AM CDT 06/11/2024 10:49 AM CDT Tate Salazar MD LAB - BLOOD ORDERABL ES [facility] [address] [facility] [address], Room [address] [place] [address] documented in this encounter Visit Diagnoses Diagnosis Graves disease 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
--- OUTSIDE RECORDS SUMMARY | 2024-07-24 13:47 | XMS_ITS | Clinical Summary ---
Author Organization [place] Address [address] [place] [address] Care Team Providers Care Abalone Diver Name Role Phone No Ref-Primary, Physician Primary Care Provider Mandeep Guadarrama MD Unavailable [phone] AlashawnadineTate MD Unavailable [phone] AlashawnadineTate MD Unavailable [phone] Allergies Active Allergy Reactions Criticality Noted [...] Encounters Date Type Department Care Team Description 07/17/2024 [facility] [address] [place] [address] Tate Salazar MD 07/16/2024 10:15 AM CDT Lab [facility] [address] [place] [address] Graves disease 06/14/2024 MyC Medical Advice [facility] [address] [address] Tate Salazar MD 06/11/2024 11:00 AM CDT Lab [facility] [address] [place] [address] Graves disease 06/11/2024 Travel 06/03/2024 MyC Medical Advice [address] [address] Tate Salazar MD 05/26/2024 Documentation Only [facility] [address] [address] Tate Salazar MD Lab Only 05/21/2024 MyC Medical Advice [address] [address] Tate Salazar MD Graves disease (Primary Dx) 05/20/2024 11:00 AM CDT Lab [facility] [address] [place] [address] Graves disease; First trimester 05/20/2024 Travel 05/16/2024 9:30 AM CDT Virtual Visit [facility] [address] [phone] Gail Aponte MD Alameddine, Hind, MD Graves disease (Primary Dx); thyroiditis; Personal history of other endocrine, nutritional and metabolic disease; First trimester 05/16/2024 PRE VISIT [facility] [address] [address] Tate Salazar MD *-*INCOMING RECORDS*-* 05/13/2024 MyC Medical Advice [facility] [address] [place] [address] Virgiehargraciela [place] 05/10/2024 Telephone [facility] [address] [place] [address] Mariela Bautista MD 05/08/2024 Transcribe Orders GENERIC [...] file Gender Identity Female 09/24/2021 9: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 JOB PRINTER 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 Sexual Orientation Not on file Last Filed Vital Signs Vital Sign Reading Time Taken Comments Blood Pressure 124/78 10/07/2022 12:08 PM JOB PRINTER APPRENTICE Pulse 95 10/07/2022 1:49 PM JOB PRINTER APPRENTICE Temperature 36.5 ??C (97.7 ??F) 10/07/2022 9:21 AM CS T Respiratory Rate 16 10/07/2022 1:49 PM JOB PRINTER APPRENTICE Oxygen Saturation 100% 10/07/2022 12:08 PM JOB PRINTER APPRENTICE Inhaled Oxygen Concentration - - Weight 82.6 kg (182 lb) 05/16/2024 9:20 AM CDT Height 162.6 cm (5' 4) 12/03/2019 1:20 PM JOB PRINTER APPRENTICE Body Mass Index 31.24 12/03/2019 1:20 PM JOB PRINTER APPRENTICE Plan of Treatment Upcoming Encounters Date Type Department Care Team (Late st Contact Info) Description 09/09/2024 11:30 AM JOB PRINTER APPRENTICE Virtual Visit [address] [address] Tate Salazar MD [address] [place] [address] Health Maintenance Due Date Last Done Comments ADVANCE CARE PLANNING 1988 ANNUAL REVIEW OF HM ORDERS 1988 HEPATITIS C SCREENING 2006 YEARLY PREVENTIVE VISIT 12/03/2020 12/03/2019, 09/05 COVID-19 Vaccine ( season) 2024 INFLUENZA VACCINE (#1) 2024 0 (Declined), 10/03/2018 (Declined), 08/24/2012, Additional history exists GLUCOSE 10/07/2025 10/07/2022, 05/30/2016 DTAP/TDAP/TD IMMUNIZATION (10 - Td or Tdap) 10/25/2026 10/25/2016, 04/03/2014, 07/07/2011, Additional history exists HPV TEST 10/28/2027 10/28/2022, 12/03/2019 PAP 10/28/2027 10/28/2022, 10/16, 12/03/2019, Additional history exists RSV VACCINE (1 - 1-dose 75+ series) 2063 HEPATITIS B IMMUNIZATION Completed 998, 07/01/1998, 01/01/1998, [...] Procedure Name Priority Date/Time Associated Diagnosis Comments T3 TOTAL Routine 07/16/2024 9:55 AM CDT Graves disease THYROXINE TOTAL Routine 07/16/2024 9:55 AM CDT Graves disease TSH Routine 07/16/2024 9:55 AM CDT Graves disease T3 TOTAL Routine 06/11/2024 10:49 AM CDT Graves disease THYROXINE TOTAL Routine 06/11/2024 10:49 AM CDT Graves disease TSH Routine 06/11/2024 10:49 AM CDT Graves disease THYROTROPIN RECEPTOR ANTIBODY Routine 05/20/2024 10:54 AM [...] BASIC METABOLIC PANEL STAT 10/07/2022 9:30 AM JOB PRINTER APPRENTICE HPV HIGH RISK TYPES DNA CERVICAL Routine 12/03/2019 1:30 PM JOB PRINTER APPRENTICE Screening for malignant neoplasm of cervix PAP IMAGED THIN LAYER SCREEN Routine 12/03/2019 1:29 PM JOB PRINTER APPRENTICE Screening for malignant neoplasm of cervix HIV ANTIGEN ANTIBODY COMBO Routine 06/23/2016 from Last 3 Months or Most Recently Relevant to Health Maintenance Results * TSH (07/16/2024 9:55 AM CDT) Only the most recent of3 resultswithin the time period is included. TSH 0.40 0.30 - 4.20 uIU/mL 07/16/2024 7:01 PM CDT [facility] Blood BLOOD SPECIMEN / Unknown Venipuncture / Unknown 07/16/2024 9:55 AM CDT 07/16/2024 9:55 AM CDT Tate Salazar MD LAB - BLOOD ORDERABL ES Performing Organization Address City/[facility]/ZIP Co de Phone Number LABORATORY [facility] [address] [facility], [address] [phone] * (ABNORMAL) Thyroxine total (07/16/2024 9:55 AM CDT) Only the most recent of3 resultswithin the time period is included. T4 Total 13.4(H) 4.5 - 11.7 ug/dL 07/16/2024 7:01 PM CDT [facility] Blood BLOOD SPECIMEN / Unknown Venipuncture / Unknown 07/16/2024 9:55 AM CDT 07/16/2024 9:55 AM CDT Tate Salazar MD LAB - BLOOD ORDERABL ES Performing Organization Address City/[facility] Co de Phone Number U LABORATORY [facility] [address] [facility], [address] [address] * T3 total (07/16/2024 9:55 AM CDT) Only the most recent of3 resultswithin the time period is included. T3 Total 191 85 - 202 ng/dL 07/16/2024 7:01 PM CDT [facility] Blood BLOOD SPECIMEN / Unknown Venipuncture / Unknown 07/16/2024 9:55 AM CDT 07/16/2024 9:55 AM CDT Tate Salazar MD LAB - BLOOD ORDERABL ES LABORATORY [facility] [address] [facility], [address] [phone] * (ABNORMAL) Thyrotropin Receptor Antibody (05/20/2024 10:54 AM CDT) Thyrotropin Receptor Antibody 3.99(H) 0.00 - 1.75 IU/L 05/21/2024 9:10 AM CDT [facility] Comment: ADDITIONAL INFORMATION At a decision limit of 1.75 IU/L, this assay has 97% sensitivity and 99% specificity for detection of Graves' disease. In healthy individuals and in patients with thyroid disease without diagnosis of Graves' disease, the upper limit of anti-TSHR values are 1.22 IU/L and 1.58 IU/L, respectively (97.5th percentiles). Test Performed by: [place] [address] Shot Bagger: Barrington Douglas Ph.D.; CLIA# [id number] Blood STRUCTURE OF RIGHT UPPER LIMB / Unknown Venipuncture / Unknown 05/20/2024 10:54 AM CDT 05/20/2024 10:54 AM CDT Tate Salazar MD LAB - IMMUNOLOGY ORD ERABLES Performing Organization Address City/[facility] Co de Phone Number [facility] [address] [place] [address] * (ABNORMAL) Thyroid stimulating immunoglobulin (05/20/2024 10:54 AM CDT) Thyroid Stim Immunog 2.5(H) <=1.3 TSI index 05/27/2024 6:23 PM CDT [facility] Comment: Test Performed by: [facility] [place] [address] Shot Bagger: Barrington Douglas Ph.D.; CLIA# [id number] Blood STRUCTURE OF RIGHT UPPER LIMB / Unknown Venipuncture / Unknown 05/20/2024 10:54 AM CDT 05/20/2024 10:54 AM CDT Tate Salazar MD LAB - BLOOD ORDERABL ES Performing Organization Address [facility]/ZIP Co de Phone Number [facility] [address] [phone] * Lab Result - HIM Scan (05/08/2024 12:00 AM CDT) 05/08/2024 Provider Outside NON-BEAKER LAB TE [facility] * (ABNORMAL) Basic metabolic panel (10/07/2022 9:30 AM JOB PRINTER APPRENTICE) Sodium 137 136 - 145 mmol/L 10/07/2022 11:03 AM [facility] Potassium 4.2 3.4 - 5.3 mmol/L 10/07/2022 11:03 AM [facility] Chloride 102 98 - 107 mmol/L 10/07/2022 11:03 AM [facility] Carbon Dioxide (CO2) 22 22 - 29 mmol/L 10/07/2022 11:03 AM [facility] Anion Gap 13 7 - 15 mmol/L 10/07/2022 11:03 AM [facility] Urea Nitrogen 10.9 6.0 - 20.0 mg/dL 10/07/2022 11:03 AM [facility] Creatinine 0.72 0.51 - 0.95 mg/dL 10/07/2022 11:03 AM [facility] Calcium 9.6 8.6 - 10.0 mg/dL 10/07/2022 11:03 AM [facility] Glucose 105(H) 70 - 99 mg/dL 10/07/2022 11:03 AM [facility] GFR Estimate >90 >60 mL/min/1.7 3m2 10/07/2022 11:03 AM [facility] Comment:Effective September 162020 eGFRcr in adults is calculated using the 2020 CKD-EPI creatinine equation which includes age and gender (Arianna et al., NEJM, DOI: 10.1056/WPYXmi3509413) Blood STRUCTURE OF RIGHT UPPER LIMB / Unknown Venipuncture / Unknown 10/07/2022 9:30 AM JOB PRINTER APPRENTICE 10/07/2022 9:35 AM JOB PRINTER APPRENTICE Medardo Washingtno MD LAB - BLOOD [facility] Organization Address City/State/ZIP Co de Phone Number LABORATORY [facility] [address] Lab (1st floor, no room number) [place] [address], [facility] [phone] * HPV High Risk Types DNA Cervical (12/03/2019 1:30 PM JOB PRINTER APPRENTICE) HPV Source [facility] 12/03/2019 1:29 PM JOB PRINTER APPRENTICE [facility] HPV 16 DNA Negative NEG^Nega tive 12/09/2019 3:31 PM JOB PRINTER APPRENTICE [facility] HPV 18 DNA Negative NEG^Nega tive 12/09/2019 3:31 PM JOB PRINTER APPRENTICE [facility] Other HR HPV Negative NEG^Nega tive 12/09/2019 3:31 PM JOB PRINTER APPRENTICE [facility] Final Diagnosis This patient's sample is negative for HPV DNA. 12/09/2019 3:31 PM JOB PRINTER APPRENTICE [facility] Comment: This test was developed and its performance characteristics determined by the [facility], Molecular Diagnostics Laboratory. It has not [...] Specimen Description Cervical Cells 12/03/2019 1:29 PM JOB PRINTER APPRENTICE [facility] Comment:[id number] Cervical Cells 12/03/2019 1: 30 PM JOB PRINTER APPRENTICE 12/03/2019 2:05 PM JOB PRINTER APPRENTICE Medardo Baron MD LAB - BLOOD OR DERABLES [facility] [address] [place] [address] [facility] [address] [facility] [address] [place] [address] * Pap imaged thin layer screen with HPV - recommended age 30 - 65 years (select HPV order below) (12/03/2019 1:29 PM JOB PRINTER APPRENTICE) PAP NIL SARATH Sanchez Report Patient Name: TELLY RICHARDSON MR#: [id number] Specimen #: [id number] Collected: 12/03/2019 Received: 12/04/2019 Reported: 12/06/2019 07:36 [...] adenocarcinomas or other cancers. COLLECTION SITE: Client: ??[facility] Location: [facility] (R) The [facility] component of this [facility], with the professional component performed at the [facility], [address] [place] [address], [place] [address] ([phone]) COPATH Cytologic material (specimen) 12/03/2019 1:29 PM JOB PRINTER APPRENTICE 12/04/2019 10:46 AM JOB PRINTER APPRENTICE Medardo Baron MD LAB - OPTIME C LINICAL SPECIMEN COPATH * HIV Antigen Antibody Combo (06/23/2016) HIV Antigen Antibody Combo nonreactive Blood specimen (specimen) Patient Reported LAB - BLOOD ORDERABL ES from Last 3 Months or Most Recently Relevant to Health Maintenance Advance Directives For more information, please contact: [phone] * Full Code (Latest Code Status on File) Date Activated Date Inactivated Comments 09/11/2012 8:22 AM 10/07/2022 9:04 AM Care Teams Abalone Diver Relationship Specialty Start Date End Date No Ref-Primary, Physician PCP - General 10/07/22 Mandeep Guadarrama MD [address] [place] [address] Fellow Endocrinology, Diabetes, and Metabolism 05/09/24 Tate Salazar MD [address] [place] [address] Endocrinology, Diabetes, and Metabolism 05/13/24 Tate Salazar MD [address] [place] [address] Assigned Endocrinology Provider 06/07/24
--- OUTSIDE RECORDS SUMMARY | 2024-07-24 13:47 | XMS_ITS | Referral Summary ---
Author Organization [place] Address [address] [place] [address] Care Team Providers Care Efficiency Miner Blasting Name Role Phone No Ref-Primary, Physician Primary Care Provider Mandeep Guadarrama MD Unavailable [phone] Tate Salazar MD Unavailable [phone] Tate Salazar MD Unavailable [phone] Encounters Date Type Department Care Team Description 07/17/2024 Louann Medical Advice [facility] [address] [place] [address] Tate Salazar MD 07/16/2024 10:15 AM CDT Lab [facility] [address] [place] [address] Graves disease 06/14/2024 MyC Medical Advice [facility] [address] [address] Tate Salazar MD 06/11/2024 Travel 06/11/2024 11:00 AM CDT Lab [facility] [address] [place] [address] Graves disease 06/03/2024 MyC Medical Advice [facility] Endocrinology [address] [address] Tate Salazar MD 05/26/2024 Documentation Only [facility] Endocrinology [address] [place] [address] Tate Salazar MD Lab Only 05/21/2024 MyC Medical Advice [facility] Endocrinology [address] [address] Tate Salazar MD Graves disease (Primary Dx) 05/20/2024 Travel 05/20/2024 11:00 AM CDT Lab [facility] [address] [place] [address] Graves disease; First trimester 05/16/2024 PRE VISIT [facility] Endocrinology [address] [phone] Tate Salazar MD *-*INCOMING RECORDS*-* 05/16/2024 9:30 AM CDT Virtual Visit [facility] Endocrinology [address] [phone] Gail Aponte MD Alameddine, Hind, MD Graves disease (Primary Dx); thyroiditis; Personal history of other endocrine, nutritional and metabolic disease; First trimester 05/13/2024 Louann Medical Advice [facility] Endocrinology [address] [phone] Lana Novak 05/10/2024 Telephone [facility] Endocrinology [address] [phone] Mariela Bautista MD 05/08/2024 Transcribe Orders GENERIC [...] file Gender Identity Female 09/24/2021 9:00 AM SKEIN TIER Sexual Orientation Not on file Last Filed Vital Signs Vital Sign Reading Time Taken Comments Blood Pressure 124/78 10/07/2022 12:08 PM SKEIN TIER Pulse 95 10/07/2022 1:49 PM SKEIN TIER Temperature 36.5 ??C (97.7 ??F) 10/07/2022 9:21 AM CS T Respiratory Rate 16 10/07/2022 1:49 PM SKEIN TIER Oxygen Saturation 100% 10/07/2022 12:08 PM SKEIN TIER Inhaled Oxygen Concentration - - Weight 82.6 kg (182 lb) 05/16/2024 9:20 AM CDT Height 162.6 cm (5' 4) 12/03/2019 1:20 PM SKEIN TIER Body Mass Index 31.24 12/03/2019 1:20 PM SKEIN TIER Plan of Treatment Upcoming Encounters Date Type Department Care Team (Late st Contact Info) Description 09/09/2024 11:30 AM SKEIN TIER Virtual Visit [address] [address] Tate Salazar MD [address] [place] [address] Procedures Procedure Name Priority Date/Time Associated Diagnosis [...] BASIC METABOLIC PANEL STAT 10/07/2022 9:30 AM SKEIN TIER HPV HIGH RISK TYPES DNA CERVICAL Routine 12/03/2019 1:30 PM SKEIN TIER Screening for malignant neoplasm of cervix PAP IMAGED THIN LAYER SCREEN Routine 12/03/2019 1:29 PM SKEIN TIER Screening for malignant neoplasm of cervix HIV [...] - BLOOD ORDERABL ES Performing Organization Address City/[facility]/ZIP Co de Phone Number U LABORATORY [facility] [place] [facility] [address] [facility], [address] [address] * (ABNORMAL) Thyroxine total (07/16/2024 9:55 AM CDT) Only the most recent of3 resultswithin the time period is included. T4 Total 13.4(H) 4.5 - 11.7 ug/dL 07/16/2024 7:01 PM CDT U LABORATORY Blood BLOOD SPECIMEN / Unknown Venipuncture / Unknown 07/16/2024 9:55 AM CDT 07/16/2024 9:55 AM CDT Tate Salazar MD LAB - BLOOD ORDERABL ES Performing Organization Address City/[facility] Co de Phone Number LABORATORY [facility] [place] [facility] [address] [facility], Room [address] [phone] * T3 total (07/16/2024 9:55 AM CDT) Only the most recent of3 resultswithin the time period is included. T3 Total 191 85 - 202 ng/dL 07/16/2024 7:01 PM CDT [facility]ORY Blood BLOOD SPECIMEN / Unknown Venipuncture / Unknown 07/16/2024 9:55 AM CDT 07/16/2024 9:55 AM CDT Tate Salazar MD LAB - BLOOD ORDERABL ES U [facility]ORY [facility] [place] [facility] [address] [facility], [address] [address] * (ABNORMAL) Thyrotropin Receptor Antibody (05/20/2024 10:54 AM CDT) Pathologist [facility] Thyrotropin Receptor Antibody 3.99(H) 0.00 - 1.75 IU/L 05/21/2024 9:10 AM CDT [facility] Comment: ADDITIONAL INFORMATION At a decision limit of 1.75 IU/L, this assay has 97% sensitivity and 99% specificity for detection of Graves' disease. In healthy individuals and in patients with thyroid disease without diagnosis of Graves' disease, the upper limit of anti-TSHR values are 1.22 IU/L and 1.58 IU/L, respectively (97.5th percentiles). Test Performed by: [place] [address] Supervisor Cereal: Barrington Douglas Ph.D.; CLIA# [id number] Blood STRUCTURE OF RIGHT UPPER LIMB / Unknown Venipuncture / Unknown 05/20/2024 10:54 AM CDT 05/20/2024 10:54 AM CDT Tate Salazar MD LAB - IMMUNOLOGY ORD ERABLES [facility] [address] [phone] * (ABNORMAL) Thyroid stimulating immunoglobulin (05/20/2024 10:54 AM CDT) Pathologist [facility] Thyroid Stim Immunog 2.5(H) <=1.3 TSI index 05/27/2024 6:23 PM CDT [facility] Comment: Test Performed by: [place] [address] Supervisor Cereal: Brarington Douglas Ph.D.; CLIA# [id number] Blood STRUCTURE OF RIGHT UPPER LIMB / Unknown Venipuncture / Unknown 05/20/2024 10:54 AM CDT 05/20/2024 10:54 AM CDT Tate Salazar MD LAB - BLOOD ORDERABL ES [facility] [address] [place] [address], [facility] [phone] * Lab Result - HIM Scan (05/08/2024 12:00 AM CDT) 05/08/2024 Provider Outside NON-BEAKER LAB [facility] * (ABNORMAL) Basic metabolic panel (10/07/2022 9:30 AM SKEIN TIER) Sodium 137 136 - 145 mmol/L 10/07/2022 11:[address] [facility] Potassium 4.2 3.4 - 5.3 mmol/L 10/07/2022 11:[address] [facility] Chloride 102 98 - 107 mmol/L 10/07/2022 11:[address] [facility] Carbon Dioxide (CO2) 22 22 - 29 mmol/L 10/07/2022 11:[address] [facility] Anion Gap 13 7 - 15 mmol/L 10/07/2022 11:[address] [facility] Urea Nitrogen 10.9 6.0 - 20.0 mg/dL 10/07/2022 11:[address] [facility] Creatinine 0.72 0.51 - 0.95 mg/dL 10/07/2022 11:[address] [facility] Calcium 9.6 8.6 - 10.0 mg/dL 10/07/2022 11:[address] [facility] Glucose 105(H) 70 - 99 mg/dL 10/07/2022 11:[address] [facility] GFR Estimate >90 >60 mL/min/1.7 3m2 10/07/2022 11:[address] [facility] Comment:Effective September 162020 eGFRcr in adults is calculated using the 2020 CKD-EPI creatinine equation which includes age and gender (Arianna et al., NEJM, DOI: 10.1056/YVAVzs2478394) Blood STRUCTURE OF RIGHT UPPER LIMB / Unknown Venipuncture / Unknown 10/07/2022 9:30 AM SKEIN TIER 10/07/2022 9:35 AM SKEIN TIER Medardo Washington MD LAB - BLOOD BENNETT BOSS [facility] [address] [facility] Lab (1st floor, no room number) [place] [address], [facility] [phone] * HPV High Risk Types DNA Cervical (12/03/2019 1:30 PM SKEIN TIER) HPV Source [facility] 12/03/2019 1:29 PM SKEIN TIER [facility] HPV 16 DNA Negative NEG^Nega tive 12/09/2019 3:31 PM SKEIN TIER [facility] HPV 18 DNA Negative NEG^Nega tive 12/09/2019 3:31 PM SKEIN TIER [facility] Other HR HPV Negative NEG^Nega tive 12/09/2019 3:31 PM SKEIN TIER [facility] Final Diagnosis This patient's sample is negative for HPV DNA. 12/09/2019 3:31 PM SKEIN TIER [facility] Comment: This test was developed and its performance characteristics determined by the [facility], Molecular Diagnostics Laboratory. It has not [...] Specimen Description Cervical Cells 12/03/2019 1:29 PM SKEIN TIER [facility] Comment:C20 13000 Cervical Cells 12/03/2019 1: 30 PM SKEIN TIER 12/03/2019 2:05 PM SKEIN TIER Medardo Baron MD LAB - BLOOD OR DERABLES [facility] [address] [place] [address] [facility] [address] [facility] [address] [place] [address] * Pap imaged thin layer screen with HPV - recommended age 30 - 65 years (select HPV order below) (12/03/2019 1:29 PM SKEIN TIER) PAP NIL SARATH Sanchez Report Patient Name: TELLY RICHARDSON MR#: [id number] Specimen #: [id number] Collected: 12/03/2019 Received: 12/04/2019 Reported: 12/06/2019 07:36 [...] or malignancy Electronically signed out by: SAV rOtez (ASCP) CLINICAL HISTORY: LMP: 11/11/2019 A previous normal pap Date of Last Pap: 10/06/2015, Papanicolaou Test Limitations: ??Cervical cytology is a screening test with limited sensitivity; regular screening is critical for cancer prevention; Pap tests are primarily effective for the diagnosis/preventi on of squamous cell carcinoma, not adenocarcinomas or other cancers. COLLECTION SITE: Client: ??[facility] Location: [facility] () The technical component of this testing was completed at the [facility] with the professional component performed at the [facility], [address] [place] [address] ([phone]) COPATH Cytologic material (specimen) 12/03/2019 1:29 PM SKEIN TIER 12/04/2019 10:46 AM SKEIN TIER Medardo Baron MD LAB - OPTIME C LINICAL SPECIMEN COPATH * HIV Antigen Antibody Combo (06/23/2016) HIV Antigen Antibody Combo nonreactive Blood specimen (specimen) Patient Reported LAB - BLOOD ORDERABL ES from Last 3 Months or Most Recently Relevant to Health Maintenance Advance Directives For more information, please contact: [phone] * Full Code (Latest Code Status on File) Date Activated Date Inactivated Comments 09/11/2012 8:22 AM 10/07/2022 9:04 AM Care Teams Efficiency Miner Blasting Relationship Specialty Start Date End Date No Ref-Primary, Physician PCP - General 10/07/22 Mandeep Guadarrama MD [address] [place] [address] Fellow Endocrinology, Diabetes, and Metabolism 05/09/24 Tate Salazar MD [address] [place] [address] [phone] Endocrinology, Diabetes, and Metabolism 05/13/24 Tate Salazar MD [address] [place] [address] Assigned Endocrinology Provider 06/07/24
--- OUTSIDE RECORDS SUMMARY | 2024-07-24 13:47 | XMS_ITS | Encounter Summary ---
Author Organization [place] Address [address] [place] [address] Care Team Providers Care Cold Roll Packer Sheet Iron Name Role Phone No Ref-Primary, Physician Primary Care Provider Mandeep Guadarrama MD Unavailable [phone] Tate Salazar MD Unavailable [phone] Tate Salazar MD Unavailable [phone] Encounter Details Date Type Department Care Team (Late st Contact Info) Description 07/17/2024 MyC Medical Advice [address] [address] Tate Salazar MD [address] [place], [place] 547[address] Social History Tobacco Use Types Packs/Day Years [...] file Gender Identity Female 09/24/2021 9:00 AM MIXING MACHINE TENDER CORK ROD Sexual Orientation Not on file documented as of this encounter Plan of Treatment Upcoming Encounters Date Type Department Care Team (Late st Contact Info) Description 09/09/2024 11:30 AM MIXING MACHINE TENDER CORK ROD Virtual Visit [address] [place] [phone] Tate Salazar MD [address] [place] [phone] documented as of this encounter Visit Diagnoses Not on filedocumented in this encounter Care Teams Cold Roll Packer Sheet Iron Relationship Specialty Start Date End Date No Ref-Primary, Physician PCP - General 10/07/22 Mandeep Guadarrama MD [address] [place] [address] Fellow Endocrinology, Diabetes, and Metabolism 05/09/24 Tate Salazar MD [address] [place] [address] Endocrinology, Diabetes, and Metabolism 05/13/24 Tate Salazar MD [address] [place] [address] Assigned Endocrinology Provider 06/07/24 documented as of this encounter
--- OUTSIDE RECORDS SUMMARY | 2024-07-24 13:47 | XMS_ITS | Encounter Summary ---
Author Organization [facility] Address [address] [place] [address] Care Team Providers Care Horse Racing Manager Name Role Phone No Ref-Primary, Physician Primary Care Provider Mandeep Guadarrama MD Unavailable [phone] Tate Salazar MD Unavailable [phone] Tate Salazar MD Unavailable [phone] Encounter Details Date Type Department Care Team (Late st Contact Info) Description 06/14/2024 MyC Medical Advice [facility] Endocr[facility]ology Clinic [address] [address] Tate Salazar MD [address] [place] [address] Social History Tobacco Use Types Packs/Day Years [...] file Gender Identity Female 09/24/2021 9:00 AM MANAGER GRAPHIC Sexual Orientation Not on file documented as of this encounter Plan of Treatment Upcoming Encounters Date Type Department Care Team (Late st Contact Info) Description 09/09/2024 11:30 AM MANAGER GRAPHIC Virtual Visit [address] [place] [phone] Tate Salazar MD [address] [place] [address] [phone] documented as of this encounter Visit Diagnoses Not on filedocumented in this encounter Care Teams Horse Racing Manager Relationship Specialty Start Date End Date No Ref-Primary, Physician PCP - General 10/07/22 Mandeep Guadarrama MD [address] [place] [address] Fellow Endocrinology, Diabetes, and Metabolism 05/09/24 Tate Salazar MD [address] [place] [address] Endocrinology, Diabetes, and Metabolism 05/13/24 Tate Salazar MD [address] [place] [address] Assigned Endocrinology Provider 06/07/24 documented as of this encounter
--- OUTSIDE RECORDS SUMMARY | 2024-07-24 13:47 | XMS_ITS | Encounter Summary ---
Author Organization [place] Address [address] [place] [address] Care Team Providers Care Enroute Controller Name Role Phone No Ref-Primary, Physician Primary Care Provider Mandeep Guadarrama MD Unavailable [phone] Tate Salazar MD Unavailable [phone] Tate Salazar MD Unavailable [phone] Encounter Details Date Type Department Care Team (Latest Contact Info) Description 06/11/2024 Travel Social History Tobacco Use Types Packs/Day [...] file Gender Identity Female 09/24/2021 9:00 AM SPACE CONTROLLER Sexual Orientation Not on file documented as of this encounter Plan of Treatment Upcoming Encounters Date Type Department Care Team (Late st Contact Info) Description 09/09/2024 11:30 AM SPACE CONTROLLER Virtual Visit [address] [address] Tate Salazar MD [address] [place], [place] [phone] documented as of this encounter Visit Diagnoses Not on filedocumented in this encounter Care Teams Enroute Controller Relationship Specialty Start Date End Date No Ref-Primary, Physician PCP - General 10/07/22 Mandeep Guadarrama MD [address] [place] [address] Fellow Endocrinology, Diabetes, and Metabolism 05/09/24 Tate Salazar MD [address] [place] [address] Endocrinology, Diabetes, and Metabolism 05/13/24 Tate Salazar MD [address] [place] [address] Assigned Endocrinology Provider 06/07/24 documented as of this encounter
--- OUTSIDE RECORDS SUMMARY | 2024-07-24 13:47 | XMS_ITS | Encounter Summary ---
Author Organization [place] Address [address] [place] [address] Care Team Providers Care 8Th Grade Mathematics Teacher Name Role Phone No Ref-Primary, Physician Primary Care Provider Mandeep Guadarrama MD Unavailable [phone] Tate Salazar MD Unavailable [phone] Tate Salazar MD Unavailable [phone] Reason for Visit * Reason Comments Lab Only Encounter Details Date Type Department Care Team (Late st Contact Info) Description 05/26/2024 Documentation Only [facility] [address] [address] Tate Salazar MD [address] [place] [phone] Lab Only Social History Tobacco Use Types [...] file Gender Identity Female 09/24/2021 9:00 AM SHRIMP BOAT CAPTAIN Sexual Orientation Not on file documented as of this encounter Plan of Treatment Upcoming Encounters Date Type Department Care Team (Late st Contact Info) Description 09/09/2024 11:30 AM SHRIMP BOAT CAPTAIN Virtual Visit M [address] [phone] Tate Salazar MD [address] [place] [phone] documented as of this encounter Visit Diagnoses Not on filedocumented in this encounter Care Teams 8Th Grade Mathematics Teacher Relationship Specialty Start Date End Date No Ref-Primary, Physician PCP - General 10/07/22 Mandeep Guadarrama MD [address] [place] [address] 923115 Fellow Endocrinology, Diabetes, and Metabolism 05/09/24 Tate Salazar MD [address] [place] [address] 753105 Endocrinology, Diabetes, and Metabolism 05/13/24 Tate Salazar MD [address] [place] [address] [phone] Assigned Endocrinology Provider 06/07/24 documented as of this encounter
--- OUTSIDE RECORDS SUMMARY | 2024-07-24 13:47 | XMS_ITS | Encounter Summary ---
Author Organization [place] Address [address] [place] [address] Care Team Providers Care Card Clothier Name Role Phone No Ref-Primary, Physician Primary Care Provider Mandeep Guadarrama MD Unavailable [phone] Tate Salazar MD Unavailable [phone] Tate Salazar MD Unavailable [phone] Encounter Details Date Type Department Care Team (Late st Contact Info) Description 07/16/2024 10:15 AM CDT Lab [address] [address] Graves disease Social History Tobacco [...] file Gender Identity Female 09/24/2021 9:00 AM INTERIOR DESIGN CONSULTANT Sexual Orientation Not on file documented as of this encounter Plan of Treatment Upcoming Encounters Date Type Department Care Team (Late st Contact Info) Description 09/09/2024 11:30 AM INTERIOR DESIGN CONSULTANT Virtual Visit [address] [address] Tate Salazar MD [address] [place] [address] documented as of this encounter Procedures Procedure Name Priority Date/Time Associated Diagnosis Comments TSH Routine 07/16/2024 9:55 AM CDT Graves disease THYROXINE TOTAL Routine 07/16/2024 9:55 AM CDT Graves disease T3 TOTAL Routine 07/16/2024 9:55 AM CDT Graves disease documented in this encounter Results * T3 total (07/16/2024 9:55 AM CDT) T3 Total 191 85 - 202 ng/dL 07/16/2024 7:01 PM CDT [facility] Blood BLOOD SPECIMEN / Unknown Venipuncture / Unknown 07/16/2024 9:55 AM CDT 07/16/2024 9:55 AM CDT Tate Salazar MD LAB - BLOOD ORDERABL ES [facility] [place] [facility] [address] [facility], [address] [phone] * (ABNORMAL) Thyroxine total (07/16/2024 9:55 AM CDT) T4 Total 13.4(H) 4.5 - 11.7 ug/dL 07/16/2024 7:01 PM CDT [facility] Blood BLOOD SPECIMEN / Unknown Venipuncture / Unknown 07/16/2024 9:55 AM CDT 07/16/2024 9:55 AM CDT Tate Salazar MD LAB - BLOOD ORDERABL ES [facility] [facility] [address] [facility], [address] [address] * TSH (07/16/2024 9:55 AM CDT) TSH 0.40 0.30 - 4.20 uIU/mL 07/16/2024 7:01 PM CDT [facility] Blood BLOOD SPECIMEN / Unknown Venipuncture / Unknown 07/16/2024 9:55 AM CDT 07/16/2024 9:55 AM CDT Tate Salazar MD LAB - BLOOD ORDERABL ES [facility] [facility] [address] [facility] [address] [place] [address] documented in this encounter Visit Diagnoses Diagnosis Graves disease Toxic diffuse goiter without mention of thyrotoxic crisis or storm documented in this encounter Care Teams Card Clothier Relationship Specialty Start Date End Date No Ref-Primary, Physician PCP - General 10/07/22 Mandeep Guadarrama MD [address] [place] [address] [phone] Fellow Endocrinology, Diabetes, and Metabolism 05/09/24 Tate Salazar MD [address] [place] [phone] Endocrinology, Diabetes, and Metabolism 05/13/24 Tate Salazar MD [address] [place] [address] [phone] Assigned Endocrinology Provider 06/07/24 documented as of this encounter
--- OUTSIDE RECORDS SUMMARY | 2024-07-24 13:48 | XMS_ITS | Encounter Summary ---
Author Organization [place] Address [address] [place] [address] Care Team Providers Care Tractor Mechanic Apprentice Name Role Phone No Ref-Primary, Physician Primary Care Provider Mandeep Guadarrama MD Unavailable [phone] Tate Salazar MD Unavailable [phone] Tate Salazar MD Unavailable [phone] Encounter Details Date Type Department Care Team (Late Contact Info) Description 05/13/[address] [facility] Endocrinology [address] [address] [facility] Social History Tobacco Use Types Packs/Day [...] file Gender Identity Female 09/24/2021 9:00 AM DEMOLITION ENGINEER Sexual Orientation Not on file documented as of this encounter Plan of Treatment Upcoming Encounters Date Type Department Care Team (Late Contact Info) Description 09/09/2024 11:30 AM DEMOLITION ENGINEER Virtual Visit [address] [phone] Tate Salazar MD [address] [place] [address] documented as of this encounter Visit Diagnoses Not on filedocumented in this encounter Care Teams Tractor Mechanic Apprentice Relationship Specialty Start Date End Date No Ref-Primary, Physician PCP - General 10/07/22 Mandeep Guadarrama MD [address] [place] [address] Fellow Endocrinology, Diabetes, and Metabolism 05/09/24 Tate Salazar MD [address] [place] [address] Endocrinology, Diabetes, and Metabolism 05/13/24 Tate Salazar MD [address] [place] [address] Assigned Endocrinology Provider 06/07/24 documented as of this encounter
--- OUTSIDE RECORDS SUMMARY | 2024-07-24 13:48 | XMS_ITS | Encounter Summary ---
Author Organization [facility] Address [address] [place] [address] Care Team Providers Care Business Resiliency Manager Name Role Phone No Ref-Primary, Physician Primary Care Provider Mandeep Guadarrama MD Unavailable [phone] Tate Salazar MD Unavailable [phone] Reason for Visit * Reason Comments Video Visit RECHECK * Consultation (Routine) - Pending Review Specialty Diagnoses / Procedures Referred By Lauren owens Referred To Contact Endocrinology, Diabetes, and Metabolism Diagnoses Personal history of other endocrine, nutritional and metabolic disease Nirav Mendez APRN [facility] [address] [place] [address] Referral ID Status Reason Start Date Expiration Date V isits Requested Visits Authorized [id number] Pending Review 05/08/2024 05/08/2025 1 1 Encounter Details Date Type Department Care Team (Latest Contact Info) Description 05/16/2024 9:30 AM CDT Virtual Visit [facility] [place] [address] [place] [address] 3rd [place] [address] Gail Aponte MD [facility] [address] [place] [address] Tate Salazar MD [address] [place], [place] [id number] Graves disease (Primary Dx); thyroiditis; Personal history [...] file Gender Identity Female 09/24/2021 9:00 AM CLINICAL AUDITOR Sexual Orientation Not on file documented as of this encounter Last Filed Vital Signs Vital Sign Reading Time Taken Comments Blood Pressure - - Pulse - - Temperature - - Respiratory Rate - - Oxygen Saturation - - Inhaled Oxygen Concentration - - Weight 82.6 kg (182 lb) 05/16/2024 9:20 AM CDT Height - - Body Mass Index 31.24 12/03/2019 1:20 PM CLINICAL AUDITOR documented in this encounter Patient Instructions * [...] On-site Mode of Communication: Video Conference via [facility] Physician has received verbal consent for a [...] it and reported normal TFT. TFT from [facility] remained normal 12/2017-09/2019. She delivered her 5th [...] Location: [facility] LAPAROSCOPY DIAGNOSTIC ([facility]) LEEP [place], CERVICAL 02/2010 Social History Social [...] Planning Other Topics Concern Parent/sibling w/ CABG, CT or angioplasty before 65F 55M? No Social [...] Pertinent Labs were reviewed and updated in [facility] and discussed briefly. Radiology Results were reviewed and updated in [facility] and reviewed. Summary of recent findings: [...] HDL, LDL, TRIG, CHOLHDLRATIO in the last 68354 hours. No results found for: [id number], [id number], [id number] I personally reviewed the patient's outside records from [employer] EMR , faxed records and Care Everywhere. [...] Tate Salazar MD Endocrinology, Diabetes and Metabolism [facility] documented in this encounter Nursing Notes * Henna Amado - 05/16/2024 9:30 AM CDT Current patient location: [place] Is the patient currently in the state of [place]? YES Visit mode:VIDEO If the visit is dropped, the patient can be reconnected by: VIDEO VISIT: Text to cell phone: Telephone Information: Will anyone else be joining the visit? NO (If patient encounters technical issues they should call [phone] :[phone]) How would you like to obtain your [...] st Contact Info) Description 09/09/2024 11:30 AM CLINICAL AUDITOR Virtual Visit [address] [address] Tate Salazar MD [address] [place] [address] documented as of this encounter Results * (ABNORMAL) Thyrotropin Receptor Antibody (05/20/2024 10:54 AM CDT) Thyrotropin Receptor Antibody 3.99(H) 0.00 - 1.75 IU/L 05/21/2024 9:10 AM CDT [facility] Comment: ADDITIONAL INFORMATION At a decision limit of 1.75 IU/L, this assay has 97% sensitivity and 99% specificity for detection of Graves' disease. In healthy individuals and in patients with thyroid disease without diagnosis of Graves' disease, the upper limit of anti-TSHR values are 1.22 IU/L and 1.58 IU/L, respectively (97.5th percentiles). Test Performed by: [place] [address] Pulmonology Technician: Barrington Douglas Ph.D.; CLIA# [id number] Blood STRUCTURE OF RIGHT UPPER LIMB / Unknown Venipuncture / Unknown 05/20/2024 10:54 AM CDT 05/20/2024 10:54 AM CDT Tate Salazar MD LAB - IMMUNOLOGY ORD ERABLES Performing Organization Address City/[facility]/ZIP Co de Phone Number [facility] [address] [place] [address] * (ABNORMAL) Thyroid stimulating immunoglobulin (05/20/2024 10:54 AM CDT) Thyroid Stim Immunog 2.5(H) <=1.3 TSI index 05/27/2024 6:23 PM CDT [facility] Comment: Test Performed by: [place] [address] Pulmonology Technician: Barrington Douglas Ph.D.; CLIA# [id number] Blood STRUCTURE OF RIGHT UPPER LIMB / Unknown Venipuncture / Unknown 05/20/2024 10:54 AM CDT 05/20/2024 10:54 AM CDT Tate Salazar MD LAB - BLOOD ORDERABL ES [facility] [address] [place] [address] * T3 total (05/20/2024 10:54 AM CDT) T3 Total 159 85 - 202 ng/dL 05/20/2024 7:06 PM CDT [facility] Blood STRUCTURE OF RIGHT UPPER LIMB / Unknown Venipuncture / Unknown 05/20/2024 10:54 AM CDT 05/20/2024 10:54 AM CDT Tate Salazar MD LAB - BLOOD ORDERABL ES Performing Organization Address City/[facility]/ZIP Co de Phone Number [facility] [place] [facility] [address] [facility], [address] [address] * (ABNORMAL) Thyroxine total (05/20/2024 10:54 AM CDT) T4 Total 11.8(H) 4.5 - 11.7 ug/dL 05/20/2024 7:06 PM CDT [facility] Blood STRUCTURE OF RIGHT UPPER LIMB / Unknown Venipuncture / Unknown 05/20/2024 10:54 AM CDT 05/20/2024 10:54 AM CDT Tate Salazar MD LAB - BLOOD ORDERABL ES Performing Organization Address [facility]/ZIP Co de Phone Number [facility] [place] [facility] [address] [facility], [address] [address] * (ABNORMAL) TSH (05/20/2024 10:54 AM CDT) TSH 0.02(L) 0.30 - 4.20 uIU/mL 05/20/2024 7:06 PM CDT [facility] Blood STRUCTURE OF RIGHT UPPER LIMB / Unknown Venipuncture / Unknown 05/20/2024 10:54 AM CDT 05/20/2024 10:54 AM CDT Tate Saalzar MD LAB - BLOOD ORDERABL ES [facility] [place] [facility] [address] [facility], [address] [address] documented in this encounter Visit Diagnoses Diagnosis Graves disease- Primary Toxic diffuse goiter without mention of thyrotoxic crisis or storm thyroiditis Thyroid dysfunction, Personal history of other endocrine, nutritional and metabolic disease First trimester documented in this encounter Care Teams Business Resiliency Manager Relationship Specialty Start Date End Date No Ref-Primary, Physician PCP - General 10/07/22 Mandeep Guadarrama MD [address] [place] [address] Fellow Endocrinology, Diabetes, and Metabolism 05/09/24 Tate Salazar MD [address] [place] [address] Endocrinology, Diabetes, and Metabolism 05/13/24 documented as of this encounter
--- OUTSIDE RECORDS SUMMARY | 2024-07-24 13:48 | XMS_ITS | Encounter Summary ---
Author Organization [facility] Address [address] [place] [address] Care Team Providers Care Furnace Operator Name Role Phone No Ref-Primary, Physician Primary Care Provider Mandeep Guadarrama MD Unavailable [phone] Tate Salazar MD Unavailable [phone] Tate Salazar MD Unavailable [phone] Reason for Visit * Reason Onset Date Comments Results 10/08/2022 Urine culture Encounter Details Date Type Department Care Team (Late st Contact Info) Description 10/08/2022 Telephone [facility] Emergency [facility] [address] [place] [address] Jovita Stack RN Results (Urine culture) Social [...] file Gender Identity Female 09/24/2021 9:00 AM EPIC BEACON ANALYST Sexual Orientation Not on file COVID-19 Exposure Response Date Recorded In the last 10 days, have yo u been in contact with someone who was confirmed or suspected to have Coronavirus/COVID-19? No / Unsure 10/09/2022 9:23 AM EPIC BEACON ANALYST documented as of this encounter Miscellaneous Notes * Telephone Encounter - Jovita Stack RN - 10/08/2022 5:16 PM CST [facility] () Emergency Department Lab result notification [facility] ED lab result protocol used Urine culture Reason for call Notify of lab results, assess symptoms, review ED providers recommendations/discharge instructions (if necessary) and advise per ED lab result f/u protocol Lab Result (including Rx patient on, if applicable) Final urine culture report shows NO GROWTH and is NEGATIVE. [facility] Emergency Dept discharge antibiotic: Nitrofurantoin Macrocrystal- Monohydrate (Macrobid) 100 mg PO capsule, 1 capsule (100 mg) by mouth 2 times daily for 7 days Recommendations in treatment per [facility] ED Lab result Urine culture protocol. cargo handler (Patient???s current Symptoms), include time called. 5:16 PM - overall patient feels improved Antibiotic 3 days prior to sample: No Genitourinary symptoms: No pain, burning, frequency, urgency Fever: No RN Recommendations/Instructions per [place] [facility] ED lab result protocol Patient notified of [...] follow-up Questions asked: YES Jovita Stack RN [facility] Emergency Dept Lab Result RN Copy of Lab result Urine Culture Order: [id number] - Reflex for Order [id number] Status: Final result ?? Visible to patient: Yes (seen) ?? Specimen Information: Urine, Midstream 1 Result Note Culture No Growth Resulting Agency: [facility] Specimen Collected: 10/07/22 ??9:59 AM Last Resulted: 10/08/22 ??1:17 PM BEACON ANALYST documented in this encounter Plan of Treatment Upcoming Encounters Date Type Department Care Team (Late st Contact Info) Description 09/09/2024 11:30 AM EPIC BEACON ANALYST Virtual Visit [place] [phone] Tate Salazar MD [address] [place] [address] documented as of this encounter Visit Diagnoses Not on filedocumented in this encounter Care Teams Furnace Operator Relationship Specialty Start Date End Date No Ref-Primary, Physician PCP - General 10/07/22 Mandeep Guadarrama MD [address] [place] [address] Fellow Endocrinology, Diabetes, and Metabolism 05/09/24 Tate Salazar MD [address] [place] [address] Endocrinology, Diabetes, and Metabolism 05/13/24 Tate Salazar MD [address] [place] [address] Assigned Endocrinology Provider 06/07/24 documented as of this encounter
--- OUTSIDE RECORDS SUMMARY | 2024-07-24 13:48 | XMS_ITS | Encounter Summary ---
Author Organization [facility] Address [address] [place] [address] Care Team Providers Care Cobol Developer Name Role Phone Sujtaa Payne MD Primary Care Provider [phone] Sujata Payne MD Unavailable [phone] Sujata Payne MD Unavailable [phone] Adams Rose MD Unavailable [phone] No Ref-Primary, Physician Primary Care Provider Mandeep Guadarrama MD Unavailable [phone] Tate Salazar MD Unavailable [phone] Tate Salazar MD Unavailable [phone] Encounter Details Date Type Department Care Team (Late st Contact Info) Description 10/08/2018 MyC Medical Advice [facility] [address] [place] [phone] Adams Rose MD [address] [place] [address] Social History Tobacco Use Types Packs/Day Years Used Date Smoking Tobacco: Former Cigarettes Q uit: 10/06/2008 Smokeless Tobacco: Never Alcohol Use Standard Drinks/Week Comments No 0 (1 standard drink = 0.6 oz pur e alcohol) Comments Yes Sex and Gender Information Value Date Recorded Sex Assigned at Not on file Gender Identity Female 09/24/2021 9:00 AM HOME ECONOMICS EXPERT Sexual Orientation Not on file documented as of this encounter Miscellaneous Notes * Telephone Encounter - Adams Rose MD - 10/10/2018 9:50 AM HOME ECONOMICS EXPERT Spoke with patient. I am much better now. ECONOMICS EXPERT * Telephone Encounter - Alisha Costa RN - 10/10/2018 8:07 AM HOME ECONOMICS EXPERT Please see the [employer] message and advise. Pt had miscarriage last week. Alisha Costa RN ECONOMICS EXPERT documented in this encounter Plan of Treatment Upcoming Encounters Date Type Department Care Team (Late st Contact Info) Description 09/09/2024 11:30 AM HOME ECONOMICS EXPERT Virtual Visit [address] [address] Tate Salazar MD [address] [place] [address] documented as of this encounter Visit Diagnoses Not on filedocumented in this encounter Care Teams Cobol Developer Relationship Specialty [place] [address] [place] [address] PCP - General Family Practice 08/21/17 10/06/22 [place] [address] [place] [address] PCP - Assigned PCP 09/17/17 12/18/18 No Ref-Primary, Physician PCP - General 10/07/22 [place] [address] [place] [address] Assigned PCP 09/17/17 09/05/20 Adams Rose MD [address] [place] [address] Assigned OBGYN Provider 08/07/20 Mandeep Guadarrama MD [address] [place] [address] Fellow Endocrinology, Diabetes, and Metabolism 05/09/24 Tate Salazar MD [address] [place] [address] Endocrinology, Diabetes, and Metabolism 05/13/24 Tate Salazar MD [address] [place] [address] Assigned Endocrinology Provider 06/07/24 documented as of this encounter
--- OUTSIDE RECORDS SUMMARY | 2024-07-24 13:48 | XMS_ITS | Encounter Summary ---
Author Organization [facility] Address [address] [place] [address] Care Team Providers Care Automotive Manufacturer Name Role Phone No Ref-Primary, Physician Primary Care Provider Mandeep Guadarrama MD Unavailable [phone] Tate Salazar MD Unavailable [phone] Encounter Details Date Type Department Care Team [...] file Gender Identity Female 09/24/2021 9:00 AM INSTRUMENT AND CONTROLS TECHNICIAN Sexual Orientation Not on file documented as of this encounter Plan of Treatment Upcoming Encounters Date Type Department Care Team (Late st Contact Info) Description 09/09/2024 11:30 AM INSTRUMENT AND CONTROLS TECHNICIAN Virtual Visit [address] [address] Tate Salazar MD [address] [place], [place] [address] documented as of this encounter Visit Diagnoses Not on filedocumented in this encounter Care Teams Automotive Manufacturer Relationship Specialty Start Date End Date No Ref-Primary, Physician PCP - General 10/07/22 Mandeep Guadarrama MD [address] [place] [address] Fellow Endocrinology, Diabetes, and Metabolism 05/09/24 Tate Salazar MD [address] [place] [address] Endocrinology, Diabetes, and Metabolism 05/13/24 documented as of this encounter
--- OUTSIDE RECORDS SUMMARY | 2024-07-24 13:48 | XMS_ITS | Encounter Summary ---
Author Organization [facility] Address [address] [place] [address] Care Team Providers Care Airplane Rental Clerk Name Role Phone Sujata Payne MD Primary Care Provider [phone] Sujata Payne MD Unavailable [phone] Adams Rose MD Unavailable [phone] No Ref-Primary, Physician Primary Care Provider Mandeep Guadarrama MD Unavailable [phone] Tate Salazar MD Unavailable [phone] Tate Salazar MD Unavailable [phone] Encounter Details Date Type Department Care Team (Late st Contact Info) Description 12/09/[address] [facility] [address] [place] [phone] Adams Rose MD [address] [place] [address] Social History Tobacco Use Types Packs/Day Years Used Date Smoking Tobacco: Former Cigarettes Q uit: 10/06/2008 Smokeless Tobacco: Never Alcohol Use Standard Drinks/Week Comments No 0 (1 standard drink = 0.6 oz pur e alcohol) PHQ-2 Answer Date Recorded PHQ-2 Score 0 12/03/2019 Sex and Gender Information Value Date Recorded Sex Assigned at Not on file Gender Identity Female 09/24/2021 9:00 AM INSURANCE AGENCY OWNER Sexual Orientation Not on file documented as of this encounter Plan of Treatment Upcoming Encounters Date Type Department Care Team (Late st Contact Info) Description 09/09/2024 11:30 AM INSURANCE AGENCY OWNER Virtual Visit [address] [phone] Tate Salazar MD [address] [place], [place] [address] documented as of this encounter Visit Diagnoses Not on filedocumented in this encounter Care Teams Airplane Rental Clerk Relationship Specialty [place] [address] [place] [address] PCP - General Family Practice 08/21/17 10/06/22 No Ref-Primary, Physician PCP - General 10/07/22 [place] [address] [place] [address] Assigned PCP 09/17/17 09/05/20 Adams Rose MD [address] [place] [address] Assigned OBGYN Provider 08/07/20 Mandeep Guadarrama MD [address] [place] [address] Fellow Endocrinology, Diabetes, and Metabolism 05/09/24 Tate Salazar MD [address] [place] [address] Endocrinology, Diabetes, and Metabolism 05/13/24 Tate Salazar MD [address] [place] [address] Assigned Endocrinology Provider 06/07/24 documented as of this encounter
--- OUTSIDE RECORDS SUMMARY | 2024-07-24 13:48 | XMS_ITS | Encounter Summary ---
Author Organization [facility] Address [address] [place] [address]. [place] [address] Care Team Providers Care Traveling Construction Superintendent Name Role Phone Sujata Payne MD Primary Care Provider [phone] Sujata Payne MD Unavailable [phone] Sujata Payne MD Unavailable [phone] Adams Rose MD Unavailable [phone] No Ref-Primary, Physician Primary Care Provider Mandeep Guadarrama MD Unavailable [phone] Tate Salazar MD Unavailable [phone] Tate Salazar MD Unavailable [phone] Reason for Visit * Reason Onset Date Comments MyChart Communication 05/30/2018 Encounter Details Date Type Department Care Team (Late st Contact Info) Description 05/30/2018 [facility] Medical Advice [facility] [address] [place] [address] [place] [address] [place] [address] MyChart Communication Social History Tobacco Use Types Packs/Day Years Used Date Smoking Tobacco: Former Cigarettes Q uit: 10/06/2008 Smokeless Tobacco: Never Alcohol Use Standard Drinks/Week Comments No 0 (1 standard drink = 0.6 oz pur e alcohol) Sex and Gender Information Value Date Recorded Sex Assigned at Not on file Gender Identity Female 09/24/2021 9:00 AM LAUNDRY AIDE Sexual Orientation Not on file documented as of this encounter Miscellaneous Notes * Telephone Encounter - Sujata Payne MD - 05/30/2018 4:14 PM CDT Can give Timothy's info if she feels comfortable seeing a man. If not, can check into [facility] * Telephone Encounter - Roxanna Aguilera RN - 05/30/2018 3:43 PM CDT PCP: Please see below. BRODIE was 09/05/17. Roxanna Aguilera, RN -- [facility] documented in this encounter Plan of Treatment Upcoming Encounters Date Type Department Care Team (Late st Contact Info) Description 09/09/2024 11:30 AM LAUNDRY AIDE Virtual Visit [address] [address] Tate Salazar MD [address] [place] [address] documented as of this encounter Visit Diagnoses Not on filedocumented in this encounter Care Teams Traveling Construction Superintendent Relationship Specialty Start [place] [address] [place] [address] PCP - General Family Practice 08/21/17 10/06/22 [place] [address] [place] [address] PCP - Assigned PCP 09/17/17 12/18/18 No Ref-Primary, Physician PCP - General 10/07/22 [place] [address] [place] [address] Assigned PCP 09/17/17 09/05/20 Adams Rose MD [address] [place] [address] Assigned OBGYN Provider 08/07/20 Mandeep Guadarrama MD [address] [place] [address] Fellow Endocrinology, Diabetes, and Metabolism 05/09/24 Tate Salazar MD [address] [place] [address] Endocrinology, Diabetes, and Metabolism 05/13/24 Tate Salazar MD [address] [place] [address] Assigned Endocrinology Provider 06/07/24 documented as of this encounter
--- OUTSIDE RECORDS SUMMARY | 2024-07-24 13:48 | XMS_ITS | Encounter Summary ---
Author Organization [facility] Address [address] [place] [address] Care Team Providers Care Insurance Verification Rep Name Role Phone No Ref-Primary, Physician Primary Care Provider Mandeep Guadarrama MD Unavailable [phone] Tate Salazar MD Unavailable [phone] Tate Salazar MD Unavailable [phone] Encounter Details Date Type Department Care Team (Latest Contact Info) Description 05/21/2024 MyC Medical Advice [facility] Endocrinology Clinic [address] [address] Tate Salazar MD [address] [place] [phone] Graves disease (Primary Dx) Social History Tobacco [...] file Gender Identity Female 09/24/2021 9:00 AM FORENSIC AUDIT EXPERT Sexual Orientation Not on file documented as of this encounter Plan of Treatment Upcoming Encounters Date Type Department Care Team (Late st Contact Info) Description 09/09/2024 11:30 AM FORENSIC AUDIT EXPERT [facility] Visit [facility] [address] Tate Salazar MD [address] [place], [place] [phone] Scheduled Orders Name Type Priority Associated Diagnoses Orde r Schedule TSH Lab Routine Graves disease 1m for 8 Occurrences starting 05/27/2024 until 05/27/2025, 2 completed Thyroxine total Lab Routine Graves disease 1m for 8 Occurrences starting 05/27/2024 until 05/27/2025, 2 completed T3 total Lab Routine Graves disease 1 m for 8 Occurrences starting 05/27/2024 until 05/27/2025, 2 completed documented as of this encounter Results * T3 total (07/16/2024 9:55 AM CDT) T3 Total 191 85 - 202 ng/dL 07/16/2024 7:01 PM CDT [facility] Blood BLOOD SPECIMEN / Unknown Venipuncture / Unknown 07/16/2024 9:55 AM CDT 07/16/2024 9:55 AM CDT Tate Salazar MD LAB - BLOOD ORDERABL ES [facility] [place] [facility] Lab [address] [facility], Room [address] [address] * (ABNORMAL) Thyroxine total (07/16/2024 9:55 AM CDT) T4 Total 13.4(H) 4.5 - 11.7 ug/dL 07/16/2024 7:01 PM CDT [facility] Blood BLOOD SPECIMEN / Unknown Venipuncture / Unknown 07/16/2024 9:55 AM CDT 07/16/2024 9:55 AM CDT Tate Salazar MD LAB - BLOOD ORDERABL ES [facility] [place] [facility] [address] [facility], Room [address] * TSH (07/16/2024 9:55 AM CDT) TSH 0.40 0.30 - 4.20 uIU/mL 07/16/2024 7:01 PM CDT [facility] Blood BLOOD SPECIMEN / Unknown Venipuncture / Unknown 07/16/2024 9:55 AM CDT 07/16/2024 9:55 AM CDT Tate Salazar MD LAB - BLOOD ORDERABL ES Performing Organization Address City/[facility]/ZIP Co de Phone Number [facility] [place] [facility] Lab [address] [facility], Room [address] * T3 total (06/11/2024 10:49 AM CDT) T3 Total 146 85 - 202 ng/dL 06/11/2024 7:17 PM CDT [facility] Blood BLOOD SPECIMEN / Unknown Venipuncture / Unknown 06/11/2024 10:49 AM CDT 06/11/2024 10:49 AM CDT Tate Salazar MD LAB - BLOOD ORDERABL ES Performing Organization Address City/[facility] Co de Phone Number [facility] [place] [facility] Lab [address] [facility], Room [address] * Thyroxine total (06/11/2024 10:49 AM CDT) T4 Total 9.9 4.5 - 11.7 ug/dL 06/11/2024 7:17 PM CDT [facility] Blood BLOOD SPECIMEN / Unknown Venipuncture / Unknown 06/11/2024 10:49 AM CDT 06/11/2024 10:49 AM CDT Tate Salazar MD LAB - BLOOD ORDERABL ES Performing Organization Address City/[facility]/ZIP Co de Phone Number [facility] [place] [facility] [address] [facility], Room [address] [place] [phone] * (ABNORMAL) TSH (06/11/2024 10:49 AM CDT) TSH 0.18(L) 0.30 - 4.20 uIU/mL 06/11/2024 7:17 PM CDT [facility] Blood BLOOD SPECIMEN / Unknown Venipuncture / Unknown 06/11/2024 10:49 AM CDT 06/11/2024 10:49 AM CDT Tate Salazar MD LAB - BLOOD ORDERABL ES [facility] Lab [address] [facility], Room [address] [place] [phone] documented in this encounter Visit Diagnoses Diagnosis Graves disease- Primary Toxic diffuse goiter without mention of thyrotoxic crisis or storm documented in this encounter Care Teams Insurance Verification Rep Relationship Specialty Start Date End Date No Ref-Primary, Physician PCP - General 10/07/22 Mandeep Guadarrama MD [address] [place] [address] Fellow Endocrinology, Diabetes, and Metabolism 05/09/24 Tate Salazar MD [address] [place] [address] Endocrinology, Diabetes, and Metabolism 05/13/24 Tate Salazar MD [address] [place] [address] Assigned Endocrinology Provider 06/07/24 documented as of this encounter
--- OUTSIDE RECORDS SUMMARY | 2024-07-24 13:48 | XMS_ITS | Encounter Summary ---
Author Organization [facility] Address [address] [place] [address]. [place] [address] Care Team Providers Care Ply Splicer Name Role Phone No Ref-Primary, Physician Primary Care Provider Mandeep Guadarrama MD Unavailable [phone] Tate Salazar MD Unavailable [phone] Encounter Details Date Type Department Care Team (Late st Contact Info) Description 05/10/2024 Telephone [facility] Endocrinology Clinic [address] 3[address] [place] [address] Mariela Bautista MD [address] [facility] [address] [place] [address] Social History Tobacco Use Types [...] file Gender Identity Female 09/24/2021 9:00 AM COREMAKER FLOOR Sexual Orientation Not on file documented as [...] than visit on 05/29 Specialty phone number: [phone] Additional appointment(s) needed: NA Additonal Notes: LVM, MyC x1 Mckenzie Barrera, RN P Clinic [id number] Endocrine Clinic staff confirmed that patient is . Records will be scanned urgently. Per Endocrine quality cloth tester Scheduling Protocol, patient is to be scheduled within 1 week in this order: 1-Dr. Whaley clinic 2-Open OLYA with in 2 weeks 3-Urgent on site nurse Examples: 05/16 [place] virtual csc (2 back [...] 10 am Visit type: New Endocrine Provider: [facility] Location: csc Testing/imaging: NA Additional notes: Spoke to pt and offered soonest avail appt per triage below, added pt to high priority wait list. Sent message back in case add on will be needed due to time frame Mckenzie Barrera, RN P Clinic [id number] Endocrine Clinic staff confirmed that patient is . Records will be scanned urgently. Per Endocrine quality cloth tester Scheduling Protocol, patient is to be scheduled within 1 week in this order: 1-Dr. Whaley clinic 2-Open OLYA with in 2 weeks 3-Urgent on site nurse Yaa Arambula on 05/10/2024 at 3:26 PM documented in this encounter Plan of Treatment Upcoming Encounters Date Type Department Care Team (Late st Contact Info) Description 09/09/2024 11:30 AM COREMAKER FLOOR Virtual Visit [address] [address] Tate Salazar MD [address] [place] [address] documented as of this encounter Visit Diagnoses Not on filedocumented in this encounter Care Teams Ply Splicer Relationship Specialty Start Date End Date No Ref-Primary, Physician PCP - General 10/07/22 Mandeep Guadarrama MD [address] [place] [address] Fellow Endocrinology, Diabetes, and Metabolism 05/09/24 Tate Salazar MD [address] [place] [address] Endocrinology, Diabetes, and Metabolism 05/13/24 documented as of this encounter
--- OUTSIDE RECORDS SUMMARY | 2024-07-24 13:48 | XMS_ITS | Encounter Summary ---
Author Organization [facility] Address [address] [place] [address] Care Team Providers Care Deputy Director Name Role Phone No Ref-Primary, Physician Primary Care Provider Mandeep Guadarrama MD Unavailable [phone] Tate Salazar MD Unavailable [phone] Encounter Details Date Type Department Care Team (Late Contact Info) Description 05/20/2024 11:00 AM CDT Lab [place] [id number] [place] [phone] Graves disease; First trimester Social History Tobacco [...] file Gender Identity Female 09/24/2021 9:00 AM GLOBAL ACCOUNT DIRECTOR Sexual Orientation Not on file documented as of this encounter Plan of Treatment Upcoming Encounters Date Type Department Care Team (Late Contact Info) Description 09/09/2024 11:30 AM GLOBAL ACCOUNT DIRECTOR Virtual Visit [address] [phone] Tate Salazar MD [address] [place] [address] [phone] (work) documented as of this encounter Procedures Procedure [...] - 1.75 IU/L 05/21/2024 9:10 AM CDT [facility] Comment: ADDITIONAL INFORMATION At a decision limit of 1.75 IU/L, this assay has 97% sensitivity and 99% specificity for detection of Graves' disease. In healthy individuals and in patients with thyroid disease without diagnosis of Graves' disease, the upper limit of anti-TSHR values are 1.22 IU/L and 1.58 IU/L, respectively (97.5th percentiles). Test Performed by: [facility] [address] [place] [address] Cytology Teacher: Barrington Douglas Ph.D.; CLIA# [id number] Blood STRUCTURE OF RIGHT UPPER LIMB / Unknown Venipuncture / Unknown 05/20/2024 10:54 AM CDT 05/20/2024 10:54 AM CDT Tate Salazar MD LAB - IMMUNOLOGY ORD ERABLES [facility] [address] [phone] * (ABNORMAL) Thyroid stimulating immunoglobulin (05/20/2024 10:54 AM CDT) Thyroid Stim Immunog 2.5(H) <=1.3 TSI index 05/27/2024 6:23 PM CDT [facility] Comment: Test Performed by: [facility] [address] [place] [address] Cytology Teacher: Barrington Douglas Ph.D.; CLIA# [id number] Blood STRUCTURE OF RIGHT UPPER LIMB / Unknown Venipuncture / Unknown 05/20/2024 10:54 AM CDT 05/20/2024 10:54 AM CDT Tate Salazar MD LAB - BLOOD ORDERABL ES Performing Organization Address [facility] Co de Phone Number [facility] [address] [phone] * T3 total (05/20/2024 10:54 AM CDT) T3 Total 159 85 - 202 ng/dL 05/20/2024 7:06 PM CDT [facility] Blood STRUCTURE OF RIGHT UPPER LIMB / Unknown Venipuncture / Unknown 05/20/2024 10:54 AM CDT 05/20/2024 10:54 AM CDT Tate Salazar MD LAB - BLOOD ORDERABL ES [facility] [place] [facility] Lab [address] [facility], [address] [place] [address] * (ABNORMAL) Thyroxine total (05/20/2024 10:54 AM CDT) T4 Total 11.8(H) 4.5 - 11.7 ug/dL 05/20/2024 7:06 PM CDT [facility] Blood STRUCTURE OF RIGHT UPPER LIMB / Unknown Venipuncture / Unknown 05/20/2024 10:54 AM CDT 05/20/2024 10:54 AM CDT Tate Salazar MD LAB - BLOOD ORDERABL ES [facility] [place] [facility] [address] [facility], [address] [address] * (ABNORMAL) TSH (05/20/2024 10:54 AM CDT) TSH 0.02(L) 0.30 - 4.20 uIU/mL 05/20/2024 7:06 PM CDT [facility] Blood STRUCTURE OF RIGHT UPPER LIMB / Unknown Venipuncture / Unknown 05/20/2024 10:54 AM CDT 05/20/2024 10:54 AM CDT Tate Salazar MD LAB - BLOOD ORDERABL ES Performing Organization Address City/[facility]/ZIP Co de Phone Number [facility] [place] [facility] [address] [facility], [address] [phone] documented in this encounter Visit Diagnoses Diagnosis Graves disease Toxic diffuse goiter without mention of thyrotoxic crisis or storm First trimester documented in this encounter Care Teams Deputy Director Relationship Specialty Start Date End Date No Ref-Primary, Physician PCP - General 10/07/22 Mandeep Guadarrama MD [address] [place] [address] Fellow Endocrinology, Diabetes, and Metabolism 05/09/24 Tate Salazar MD [address] [place] [address] 024845 Endocrinology, Diabetes, and Metabolism 05/13/24 documented as of this encounter
--- OUTSIDE RECORDS SUMMARY | 2024-07-24 13:48 | XMS_ITS | Encounter Summary ---
Author Organization [facility] Address [address] [place] [address] Care Team Providers Care Greenhouse Manager Name Role Phone Sujata Payne MD Primary Care Provider [phone] Sujata Payne MD Unavailable [phone] Sujata Payne MD Unavailable [phone] Adams Rose MD Unavailable [phone] No Ref-Primary, Physician Primary Care Provider Mandeep Guadarrama MD Unavailable [phone] Tate Salazar MD Unavailable [phone] Tate Salazar MD Unavailable [phone] Encounter Details Date Type Department Care Team (Late st Contact Info) Description 10/04/2018 MyC Medical Advice [facility] Women[facility] [address] [place] [phone] Adams Rose MD [address] [place] [address] Social History Tobacco Use Types Packs/Day Years Used Date Smoking Tobacco: Former Cigarettes Q uit: 10/06/2008 Smokeless Tobacco: Never Alcohol Use Standard Drinks/Week Comments No 0 (1 standard drink = 0.6 oz pur e alcohol) Comments Yes Sex and Gender Information Value Date Recorded Sex Assigned at Not on file Gender Identity Female 09/24/2021 9:00 AM PLUNGER SCOOP OPERATOR Sexual Orientation Not on file documented as of this encounter Miscellaneous Notes * Telephone Encounter - Adams Rose MD - 10/05/2018 1:44 PM PLUNGER SCOOP OPERATOR Spoke with patient. Advised of falling HCG levels. Patient has previously experienced a first trimester loss. Given early timing of loss D&C not likely to be necessary GER SCOOP OPERATOR * Telephone Encounter - Alisha Costa RN - 10/05/2018 1:05 PM PLUNGER SCOOP OPERATOR Please see the results of the pt's hcg level, and discuss with her. Alisha Costa RN GER SCOOP OPERATOR documented in this encounter Plan of Treatment Upcoming Encounters Date Type Department Care Team (Late st Contact Info) Description 09/09/2024 11:30 AM PLUNGER SCOOP OPERATOR Virtual Visit [address] [address] Tate Salazar MD [address] [place] [address] documented as of this encounter Visit Diagnoses Not on filedocumented in this encounter Care Teams Greenhouse Manager Relationship Specialty [place] [address] [place] [address] PCP - General Family Practice 08/21/17 10/06/22 [place] [address] [place] [address] PCP - Assigned PCP 09/17/17 12/18/18 No Ref-Primary, Physician PCP - General 10/07/22 [place] [address] [place] [address] Assigned PCP 09/17/17 09/05/20 Adams Rose MD [address] [place] [address] Assigned OBGYN Provider 08/07/20 Mandeep Guadarrama MD [address] [place] [address] Fellow Endocrinology, Diabetes, and Metabolism 05/09/24 Tate Salazar MD [address] [place] [address] Endocrinology, Diabetes, and Metabolism 05/13/24 Tate Salazar MD [address] [place] [address] 033545 Assigned Endocrinology Provider 06/07/24 documented as of this encounter
--- OUTSIDE RECORDS SUMMARY | 2024-07-24 13:48 | XMS_ITS | Encounter Summary ---
Author Organization [facility] Address [address] [place] [address] Care Team Providers Care Mathematics Improvement Teacher Name Role Phone Sujata Payne MD Primary Care Provider [phone] Sujata Payne MD Unavailable [phone] Adams Rose MD Unavailable [phone] No Ref-Primary, Physician Primary Care Provider Mandeep Guadarrama MD Unavailable [phone] Tate Salazar MD Unavailable [phone] Tate Salazar MD Unavailable [phone] Encounter Details Date Type Department Care Team (Late st Contact Info) Description 05/09/2020 MyC Medical Advice [facility] Women's [address] [place] [phone] Adams Rose MD [address] [place] [address] Social History Tobacco Use Types Packs/Day Years Used Date Smoking Tobacco: Former Cigarettes Q uit: 10/06/2008 Smokeless Tobacco: Never Alcohol Use Standard Drinks/Week Comments No 0 (1 standard drink = 0.6 oz pur e alcohol) PHQ-2 Answer Date Recorded PHQ-2 Score 0 12/03/2019 Sex and Gender Information Value Date Recorded Sex Assigned at Not on file Gender Identity Female 09/24/2021 9:00 AM RUBBER WASHER Sexual Orientation Not on file documented as of this encounter Plan of Treatment Upcoming Encounters Date Type Department Care Team (Late st Contact Info) Description 09/09/2024 11:30 AM RUBBER WASHER Virtual Visit [address] [phone] Tate Salazar MD [address] [place], [place] [address] documented as of this encounter Visit Diagnoses Not on filedocumented in this encounter Care Teams Mathematics Improvement Teacher Relationship Specialty [place] [address] [place] [address] PCP - General Family Practice 08/21/17 10/06/22 No Ref-Primary, Physician PCP - General 10/07/22 [place] [address] [place] [address] Assigned PCP 09/17/17 09/05/20 Adams Rose MD [address] [place] [address] Assigned OBGYN Provider 08/07/20 Mandeep Guadarrama MD [address] [place] [address] Fellow Endocrinology, Diabetes, and Metabolism 05/09/24 Tate Salazar MD [address] [place] [address] Endocrinology, Diabetes, and Metabolism 05/13/24 Tate Salazar MD [address] [place] [address] Assigned Endocrinology Provider 06/07/24 documented as of this encounter
--- OUTSIDE RECORDS SUMMARY | 2024-07-24 13:48 | XMS_ITS | Encounter Summary ---
Author Organization [facility] Address [address] [place] [address] Care Team Providers Care Cherry Dipper Name Role Phone No Ref-Primary, Physician Primary Care Provider Mandeep Guadarrama MD Unavailable [phone] Tate Salazar MD Unavailable [phone] Reason for Visit * Reason Onset Date Comments *-*INCOMING RECORDS*-* 05/16/2024 Encounter Details Date Type Department Care Team (Late st Contact Info) Description 05/16/2024 PRE VISIT [facility] Endocrinology Clinic [address] [address] Tate Salazar MD [address] [place] [address] *-*INCOMING RECORDS*-* Social History Tobacco Use Types [...] file Gender Identity Female 09/24/2021 9:00 AM CORPORATE COUNSELOR Sexual Orientation Not on file documented as of this encounter Plan of Treatment Upcoming Encounters Date Type Department Care Team (Late st Contact Info) Description 09/09/2024 11:30 AM CORPORATE COUNSELOR Virtual Visit [address] [place] [phone] Tate Salazar MD [address] [place] [address] documented as of this encounter Visit Diagnoses Not on filedocumented in this encounter Care Teams Cherry Dipper Relationship Specialty Start Date End Date No Ref-Primary, Physician PCP - General 10/07/22 Mandeep Guadarrama MD [address] [place] [address] [id number] Fellow Endocrinology, Diabetes, and Metabolism 05/09/24 Tate Salazar MD [address] [place] [address] Endocrinology, Diabetes, and Metabolism 05/13/24 documented as of this encounter
--- OUTSIDE RECORDS SUMMARY | 2024-07-24 13:48 | XMS_ITS | Encounter Summary ---
Author Organization [facility] Address [address] [place] [address] Care Team Providers Care Liquor Maker Name Role Phone No Ref-Primary, Physician Primary Care Provider Reason for Referral * Consultation (Routine) - Pending Review Specialty Diagnoses / Procedures Referred By Contac t Referred To Contact Endocrinology, Diabetes, and Metabolism Diagnoses Personal history of other endocrine, nutritional and metabolic disease Nirav Mendez APRN [facility] [address] [place] [address] Referral ID Status Reason Start Date Expiration Date V isits Requested Visits Authorized [id number] Pending Review 05/08/2024 05/08/2025 1 1 Question Answer Reason for Referral: Thyroid Thyroid: Abnormal Thyroid Test Scheduling Instructions: [facility] will call you to coordinate your care as prescribed by the provider. If you don? t hear from a compliance representative dealer within 2 business days, please call [phone]. Additional Information: History of Graves disease Comments Referral Transcribed by external fax Provider: Nirav Mendez affiliated with [facility] at [address] [place] [address]. [place]: No If yes was is the [facility] Authorization Number: Phone number: [phone] Please be aware that coverage of these services is subject to the terms and limitations of your health insurance plan. Call member services at your health plan with any benefit or coverage questions. [facility] will call you to coordinate your care as prescribed by the provider. If you don? t hear from a compliance representative dealer within 2 business days, please call [phone]. Encounter Details Date Type Department Care Team [...] file Gender Identity Female 09/24/2021 9:00 AM SUPERVISOR TYPE BAR AND SEGMENT Sexual Orientation Not on file documented as of this encounter Plan of Treatment Upcoming Encounters Date Type Department Care Team (Late Contact Info) Description 09/09/2024 11:30 AM SUPERVISOR TYPE BAR AND SEGMENT Virtual Visit [address] [address] Tate Salazar MD [address] [place] [address] Scheduled Referrals Name Type Priority Associated Diagnoses Orde r Schedule Adult Endocrinology Acid Recovery Operator Referral Referral Routine Personal history of other endocrine, nutritional and metabolic disease Expected: 05/08/2024 (Approximate), Expires: 05/08/2025 documented as of this encounter Visit Diagnoses Diagnosis Personal history of other endocrine, nutritional and metabolic disease- Primary documented in this encounter Care Teams Liquor Maker Relationship Specialty Start Date End Date No Ref-Primary, Physician PCP - General 10/07/22 documented as of this encounter
== END 2024-07-24 13:45 | disposition home or self-care (01) ==
LOC: US 13:46
PROVIDERS: Visit Provider Obstetrics & Gynecology
DX: O09.522 Supervision of elderly multigravida, second trimester (principal); O99.612 Diseases of the digestive system complicating pregnancy, second trimester; K50.90 Crohn's disease, unspecified, without complications; Z3A.18 18 weeks gestation of pregnancy
CPT/HCPCS: 76811

== ENCOUNTER 2024-09-04 14:18 | Outpatient (CLI) | payer MEDICAID, SELFPAY ==
--- OUTSIDE RECORDS SUMMARY | 2024-08-26 12:50 | XMS_ITS | Encounter Summary ---
Author Organization [place] Address [address] [place] [address] Care Team Providers Care Supervising Editor News Reel Name Role Phone No Ref-Primary, Physician Primary Care Provider Mandeep Guadarrama MD Unavailable [phone] Tate Salazar MD Unavailable [phone] Tate Salazar MD Unavailable [phone] Encounter Details Date Type Department Care Team (Latest Contact Info) Description 05/21/2024 [facility] [place] [facility] [address] [address] Tate Salazar MD [address] [place] [address] Graves disease (Primary Dx) Social History Tobacco Use Types Packs/Day Years Used Date Smoking Tobacco: Former Cigarettes Q uit: 10/06/2008 Smokeless Tobacco: Never Alcohol Use Standard Drinks/Week Comments No 0 (1 standard drink = 0.6 oz pur e alcohol) PHQ-2 Answer Date Recorded PHQ-2 Score 0 05/16/2024 Adolescent Education Answer Date Record ed Getting School Help Needed Not on file 07/15 Comments Unknown Sex and Gender Information Value Date Recorded Sex Assigned at Not on file Legal Sex Female 3:16 AM DIE GRINDER Gender Identity Female 09/24/2021 9:00 AM DIE GRINDER Sexual Orientation Not on file documented as of this encounter Plan of Treatment Upcoming Encounters Date Type Department Care Team (Late st Contact Info) Description 08/28/2024 10:15 AM DIE GRINDER Lab M [facility] Laboratory [address] [place] [address] 09/09/2024 11:30 AM DIE GRINDER Virtual Visit M [facility] [address] [place] [address] Tate Salazar MD [address] [place] [address] [phone] Scheduled Orders Name Type Priority Associated Diagnoses [...] CDT Tate Salazar MD LAB - BLOOD ORDERABLES Final Result [facility] [place] Core Lab [address] [facility], Room [address] [place] [address] * (ABNORMAL) Thyroxine total (07/16/2024 9:55 AM CDT) T4 Total 13.4(H) 4.5 - 11.7 ug/dL 07/16/2024 7:01 PM CDT [facility] LAB[facility]ATORY Blood BLOOD SPECIMEN / Unknown Venipuncture / Unknown 07/16/2024 9:55 AM CDT 07/16/2024 9:55 AM CDT Tate Salazar MD LAB - BLOOD ORDERABLES Final Result [facility] LABORATORY [facility] [place] [facility] Lab [address] [facility], [address] [id number] * TSH (07/16/2024 9:55 AM CDT) TSH 0.40 0.30 - 4.20 uIU/mL 07/16/2024 7:01 PM CDT [facility] LAB[facility] Blood BLOOD SPECIMEN / Unknown Venipuncture / Unknown 07/16/2024 9:55 AM CDT 07/16/2024 9:55 AM CDT Tate Salazar MD LAB - BLOOD ORDERABLES Final Result [facility]ATORY [facility] [place] [facility] Lab [address] [facility], [address] [phone] * T3 total (06/11/2024 10:49 AM CDT) T3 Total 146 85 - 202 ng/dL 06/11/2024 7:17 PM CDT [facility] LAB[facility]ATORY Blood BLOOD SPECIMEN / Unknown Venipuncture / Unknown 06/11/2024 10:49 AM CDT 06/11/2024 10:49 AM CDT Tate Salazar MD LAB - BLOOD ORDERABLES Final Result [facility] [place] [facility] Lab [address] [facility], [address] [address] * Thyroxine total (06/11/2024 10:49 AM CDT) T4 Total 9.9 4.5 - 11.7 ug/dL 06/11/2024 7:17 PM CDT [facility] LAB[facility]ATORY Blood BLOOD SPECIMEN / Unknown Venipuncture / Unknown 06/11/2024 10:49 AM CDT 06/11/2024 10:49 AM CDT Tate Salazar MD LAB - BLOOD ORDERABLES Final Result [facility] [place] [facility] Lab [address] [facility], Room [address] [place] [phone] * (ABNORMAL) TSH (06/11/2024 10:49 AM CDT) TSH 0.18(L) 0.30 - 4.20 uIU/mL 06/11/2024 7:17 PM CDT [facility] LAB[facility]ATORY Blood BLOOD SPECIMEN / Unknown Venipuncture / Unknown 06/11/2024 10:49 AM CDT 06/11/2024 10:49 AM CDT Tate Salazar MD LAB - BLOOD ORDERABLES Final Result [facility] [place] [facility] [address] [facility], [address] [place] [phone], [facility] documented in this encounter Visit Diagnoses Diagnosis Graves disease- Primary Toxic diffuse goiter without mention of thyrotoxic crisis or storm documented in this encounter Care Teams Supervising Editor News Reel Relationship Specialty Start Date End Date No Ref-Primary, Physician PCP - General 10/07/22 Mandeep Guadarrama MD [address] [place] [address] Fellow Endocrinology, Diabetes, and Metabolism 05/09/24 Tate Salazar MD [address] [place] [address] Endocrinology, Diabetes, and Metabolism 05/13/24 Tate Salazar MD [address] [place] [address] Assigned Endocrinology Provider 06/07/24 documented as of this encounter
--- OUTSIDE RECORDS SUMMARY | 2024-08-26 12:50 | XMS_ITS | Encounter Summary ---
Author Organization [place] Address [address] [place] [address] Care Team Providers Care J2Ee Java Developer Name Role Phone No Ref-Primary, Physician Primary Care Provider Mandeep Guadarrama MD Unavailable [phone] Tate Salazar MD Unavailable [phone] Tate Salazar MD Unavailable [phone] Encounter Details Date Type Department Care Team (Late st Contact Info) Description 06/11/2024 11:00 AM CDT Lab [facility] [address] [place] [address] Graves disease Social History Tobacco Use Types [...] on file Legal Sex Female 3:16 AM PRIVATE DUTY AIDE Gender Identity Female 09/24/2021 9:00 AM PRIVATE DUTY AIDE Sexual Orientation Not on file documented as of this encounter Plan of Treatment Upcoming Encounters Date Type Department Care Team (Late st Contact Info) Description 08/28/2024 10:15 AM PRIVATE DUTY AIDE Lab [facility] [address] [place] [address] 09/09/2024 11:30 AM PRIVATE DUTY AIDE Virtual Visit [address] [address] Tate Salazar MD [address] [place] [address] documented as of this encounter Procedures Procedure [...] 10:49 AM CDT 06/11/2024 10:49 AM CDT us Tate Salazar MD LAB - BLOOD ORDERABLES Final Result Performing Organization Address City/State/[facility] Co de Phone Number [facility] LABORATORY [facility] [place] Core Lab [address] [facility], Room [address] [place] [phone] * Thyroxine total (06/11/2024 10:49 AM CDT) T4 Total 9.9 4.5 - 11.7 ug/dL 06/11/2024 7:17 PM CDT [facility] LAB[facility]ATORY Blood BLOOD SPECIMEN / Unknown Venipuncture / Unknown 06/11/2024 10:49 AM CDT 06/11/2024 10:49 AM CDT Tate Salazar MD LAB - BLOOD ORDERABLES Final Result [facility] [place] [facility] [address] [facility], Room [address] [phone] * (ABNORMAL) TSH (06/11/2024 10:49 AM CDT) TSH 0.18(L) 0.30 - 4.20 uIU/mL 06/11/2024 7:17 PM CDT [facility] LABORATORY Blood BLOOD SPECIMEN / Unknown Venipuncture / Unknown 06/11/2024 10:49 AM CDT 06/11/2024 10:49 AM CDT Tate Salazar MD LAB - BLOOD ORDERABLES Final Result [facility] [place] [facility] Lab [address] [facility], [address] [phone] documented in this encounter Visit Diagnoses Diagnosis Graves disease Toxic diffuse goiter without mention of thyrotoxic crisis or storm documented in this encounter Care Teams J2Ee Java Developer Relationship Specialty Start Date End Date No Ref-Primary, Physician PCP - General 10/07/22 Mandeep Guadarrama MD [address] [place] [address] Fellow Endocrinology, Diabetes, and Metabolism 05/09/24 Tate Salazar MD [address] [place] [address] Endocrinology, Diabetes, and Metabolism 05/13/24 Tate Salazar MD [address] [place] [address] Assigned Endocrinology Provider 06/07/24 documented as of this encounter
--- OUTSIDE RECORDS SUMMARY | 2024-08-26 12:50 | XMS_ITS | Referral Summary ---
Author Organization [place] Address [address] [place] [address] Care Team Providers Care Senior Developer Name Role Phone No Ref-Primary, Physician Primary Care Provider Mandeep Guadarrama MD Unavailable [phone] Tate Salazar MD Unavailable [phone] Tate Salazar MD Unavailable [phone] Encounters Date Type Department Care Team Description 07/17/2024 [facility] [address] [place] [address] Tate Salazar MD 07/16/2024 10:15 AM CDT Lab [facility] Laboratory [address] [place] [address] Graves disease 06/14/2024 [facility] Medical Advice [facility] Endocrinology Clinic [address] [address] Tate Salazar MD 06/11/2024 Travel 06/11/2024 11:00 AM CDT Lab [facility] Laboratory [address] [place] [address] Graves disease 06/03/2024 [facility] Medical Advice [facility] Endocrinology [address] [address] Tate Salazar MD 05/26/2024 Documentation Only [facility] Endocrinology [address] [place] [address] Tate Salazar MD Lab Only from Last 3 Months Allergies Active Allergy Reactions Criticality Noted Date Comments Sulfa Antibiotics Hives 12/20/2011 LW Reaction: Rash, Generalized Medications Multiple Vitamins-Minerals (MULTIVITAMIN WOMEN PO) Active Active Problems Problem Noted Date Diagnosed [...] for supervision of other normal 05/27/2012 11/16/2012 Overview (08/17/2015): Diagnosis updated by automated process. Provider to [...] on file Legal Sex Female 3:16 AM LABORER CONCRETE PAVING Gender Identity Female 09/24/2021 9:00 AM LABORER CONCRETE PAVING Sexual Orientation Not on file Last Filed Vital Signs Vital Sign Reading Time Taken Comments Blood Pressure 124/78 10/07/2022 12:08 PM LABORER CONCRETE PAVING Pulse 95 10/07/2022 1:49 PM LABORER CONCRETE PAVING Temperature 36.5 ??C (97.7 ??F) 10/07/2022 9:21 AM CS T Respiratory Rate 16 10/07/2022 1:49 PM LABORER CONCRETE PAVING Oxygen Saturation 100% 10/07/2022 12:08 PM LABORER CONCRETE PAVING Inhaled Oxygen Concentration - - Weight 82.6 kg (182 lb) 05/16/2024 9:20 AM CDT Height 162.6 cm (5' 4) 12/03/2019 1:20 PM LABORER CONCRETE PAVING Body Mass Index 31.24 12/03/2019 1:20 PM LABORER CONCRETE PAVING Plan of Treatment Upcoming Encounters Date Type Department Care Team (Late st Contact Info) Description 08/28/2024 10:15 AM LABORER CONCRETE PAVING Lab M [facility] Laboratory [address] [place] [phone] 09/09/2024 11:30 AM LABORER CONCRETE PAVING Virtual Visit M [facility] [address] [place] [phone] Tate Salazar MD [address] [place] [address] Procedures Procedure Name Priority Date/Time Associated Diagnosis Comments T3 TOTAL Routine 07/16/2024 9:55 AM CDT Graves disease THYROXINE TOTAL Routine 07/16/2024 9:55 AM CDT Graves disease TSH Routine 07/16/2024 9:55 AM CDT Graves disease T3 TOTAL Routine 06/11/2024 10:49 AM CDT Graves disease THYROXINE TOTAL Routine 06/11/2024 10:49 AM CDT Graves disease TSH Routine 06/11/2024 10:49 AM CDT Graves disease BASIC METABOLIC PANEL STAT 10/07/2022 9:30 AM LABORER CONCRETE PAVING HPV HIGH RISK TYPES DNA CERVICAL Routine 12/03/2019 1:30 PM LABORER CONCRETE PAVING Screening for malignant neoplasm of cervix PAP IMAGED THIN LAYER SCREEN Routine 12/03/2019 1:29 PM LABORER CONCRETE PAVING Screening for malignant neoplasm of cervix HIV ANTIGEN ANTIBODY COMBO Routine 06/23/2016 from Last 3 Months or Most Recently Relevant to Health Maintenance Results * TSH (07/16/2024 9:55 AM CDT) Only the most recent of2 resultswithin the time period is included. TSH 0.40 0.30 - 4.20 uIU/mL 07/16/2024 7:01 PM CDT U LABORATORY Blood BLOOD SPECIMEN / Unknown Venipuncture / Unknown 07/16/2024 9:55 AM CDT 07/16/2024 9:55 AM CDT Tate Salazar MD LAB - BLOOD ORDERABLES Final Result LABORATORY [facility] [place] Core [facility] [address] [facility], [address] * (ABNORMAL) Thyroxine total (07/16/2024 9:55 AM CDT) Only the most recent of2 resultswithin the time period is included. T4 Total 13.4(H) 4.5 - 11.7 ug/dL 07/16/2024 7:01 PM CDT U LABORATORY Blood BLOOD SPECIMEN / Unknown Venipuncture / Unknown 07/16/2024 9:55 AM CDT 07/16/2024 9:55 AM CDT Tate Salazar MD LAB - BLOOD ORDERABLES Final Result Performing Organization Address City/[facility]/ZIP Co de Phone Number LABORATORY [facility] Lab [address] [place] [address], [address] * T3 total (07/16/2024 9:55 AM CDT) Only the most recent of2 resultswithin the time period is included. T3 Total 191 85 - 202 ng/dL 07/16/2024 7:01 PM CDT U LABORATORY Blood BLOOD SPECIMEN / Unknown Venipuncture / Unknown 07/16/2024 9:55 AM CDT 07/16/2024 9:55 AM CDT Tate Salazar MD LAB - BLOOD ORDERABLES Final Result LABORATORY [facility] [place] [facility] [address] [facility], [address], [facility] * (ABNORMAL) Basic metabolic panel (10/07/2022 9:30 AM LABORER CONCRETE PAVING) Sodium 137 136 - 145 mmol/L 10/07/2022 11:03 AM [facility] Potassium 4.2 3.4 - 5.3 mmol/L 10/07/2022 11:03 AM [facility] Chloride 102 98 - 107 mmol/L 10/07/2022 11:03 AM [facility] Carbon Dioxide (CO2) 22 22 - 29 mmol/L 10/07/2022 11:03 AM [facility] Anion Gap 13 7 - 15 mmol/L 10/07/2022 11:03 AM [facility] Urea Nitrogen 10.9 6.0 - 20.0 mg/dL 10/07/2022 11:03 AM [facility] Creatinine 0.72 0.51 - 0.95 mg/dL 10/07/2022 11:03 AM [facility] Calcium 9.6 8.6 - 10.0 mg/dL 10/07/2022 11:03 AM [facility] Glucose 105(H) 70 - 99 mg/dL 10/07/2022 11:03 AM [facility] GFR Estimate >90 >60 mL/min/1.7 3m2 10/07/2022 11:03 AM [facility] Comment:Effective September 162020 eGFRcr in adults is calculated using the 2020 CKD-EPI creatinine equation which includes age and gender (Arianna et al., NEJ, DOI: 10.1056/TFJJtq0837598) Blood STRUCTURE OF RIGHT UPPER LIMB / Unknown Venipuncture / Unknown 10/07/2022 9:30 AM LABORER CONCRETE PAVING 10/07/2022 9:35 AM LABORER CONCRETE PAVING us Adams Washington MD LAB - BLOOD ORDERABLES F inal Result LABORATORY [facility] [address] Lab (1st floor, no room number) [place] [address], [facility] [phone] * HPV High Risk Types DNA Cervical (12/03/2019 1:30 PM LABORER CONCRETE PAVING) HPV Source [employer] 12/03/2019 1:29 PM LABORER CONCRETE PAVING [facility] HPV 16 DNA Negative NEG^Nega tive 12/09/2019 3:31 PM LABORER CONCRETE PAVING [facility] HPV 18 DNA Negative NEG^Nega tive 12/09/2019 3:31 PM LABORER CONCRETE PAVING [facility] Other HR HPV Negative NEG^Nega tive 12/09/2019 3:31 PM LABORER CONCRETE PAVING [facility] Final Diagnosis This patient's sample is negative for HPV DNA. 12/09/2019 3:31 PM LABORER CONCRETE PAVING [facility] Comment: This test was developed and its performance characteristics determined by the [facility], Molecular Diagnostics Laboratory. It has not [...] Specimen Description Cervical Cells 12/03/2019 1:29 PM LABORER CONCRETE PAVING [facility] Comment:[id number] Cervical Cells 12/03/2019 1: 30 PM LABORER CONCRETE PAVING 12/03/2019 2:05 PM LABORER CONCRETE PAVING us Adams Baron MD LAB - BLOOD ORDERABLES Final Result [facility] [address] [place] [address] [facility] [address] [facility] [address] [place], [place] [phone] * Pap imaged thin layer screen with HPV - recommended age 30 - 65 years (select HPV order below) (12/03/2019 1:29 PM LABORER CONCRETE PAVING) PAP YULIET Sanchez Report Patient Name: SHANTELLE RICHARDSON MR#: [id number] Specimen #: [id number] Collected: 12/03/2019 Received: 12/04/2019 Reported: 12/06/2019 07:36 [...] adenocarcinomas or other cancers. COLLECTION SITE: Client: ??[facility] Location: [place] (R) The technical component of this testing was completed at the [facility] [employer] [facility], with the professional component performed at the [facility], [address] [place] [phone] ([phone]) SARATH Cytologic material (specimen) 12/03/2019 1:29 PM LABORER CONCRETE PAVING 12/04/2019 10:46 AM LABORER CONCRETE PAVING us Adams Baron MD LAB - OPTIME CLINICAL SPECIMEN Final Result [facility] * HIV Antigen Antibody Combo (06/23/2016) HIV Antigen Antibody Combo nonreactive Blood specimen (specimen) Patient Reported LAB - BLOOD ORDERABLES Final Re sult from Last 3 Months or Most Recently Relevant to Health Maintenance Insurance [facility] Advance Directives For more information, please contact: [phone] * Full Code (Latest Code Status on File) Date Activated Date Inactivated Comments 09/11/2012 8:22 AM 10/07/2022 9:04 AM Care Teams Senior Developer Relationship Specialty Start Date End Date No Ref-Primary, Physician PCP - General 10/07/22 Mandeep Guadarrama MD [address] [place] [address] Fellow Endocrinology, Diabetes, and Metabolism 05/09/24 Tate Salazar MD [address] [place] [address] Endocrinology, Diabetes, and Metabolism 05/13/24 Tate Salazar MD [address] [place] [address] Assigned Endocrinology Provider 06/07/24
--- OUTSIDE RECORDS SUMMARY | 2024-08-26 12:50 | XMS_ITS | Encounter Summary ---
Author Organization [place] Address [address] [place] [address] Care Team Providers Care Book Salesman Name Role Phone No Ref-Primary, Physician Primary Care Provider Mandeep Guadarrama MD Unavailable [phone] Tate Salazar MD Unavailable [phone] Encounter Details Date Type Department Care [...] on file Legal Sex Female 3:16 AM CEREAL MAKER Gender Identity Female 09/24/2021 9:00 AM CEREAL MAKER Sexual Orientation Not on file documented as of this encounter Plan of Treatment Upcoming Encounters Date Type Department Care Team (Late st Contact Info) Description 08/28/2024 10:15 AM CEREAL MAKER Lab [facility] Laboratory [address] [place] [address] 09/09/2024 11:30 AM CEREAL MAKER Virtual Visit [facility] [address] [place] [phone] Tate Salazar MD [address] [place] [address] documented as of this encounter Visit Diagnoses Not on filedocumented in this encounter Care Teams Book Salesman Relationship Specialty Start Date End Date No Ref-Primary, Physician PCP - General 10/07/22 Mandeep Guadarrama MD [address] [place] [address] Fellow Endocrinology, Diabetes, and Metabolism 05/09/24 Tate Salazar MD [address] [place] [address] Endocrinology, Diabetes, and Metabolism 05/13/24 documented as of this encounter
--- OUTSIDE RECORDS SUMMARY | 2024-08-26 12:50 | XMS_ITS | Clinical Summary ---
Author Organization [place] Address [address] [place] [address] Care Team Providers Care Dock Boss Name Role Phone No Ref-Primary, Physician Primary Care Provider Mandeep Guadarrama MD Unavailable [phone] AlashawnadineTate MD Unavailable [phone] AlashawnadineTate MD Unavailable [phone] Allergies Active Allergy Reactions Criticality Noted [...] Date Type Department Care Team Description 07/17/2024 [facility] [address] [place] [phone] Tate Salazar MD 07/16/2024 10:15 AM CDT Lab [facility] Laboratory [address] [place] [address] Graves disease 06/14/2024 MyC Medical Advice [facility] Endocrinology [address] [address] Tate Salazar MD 06/11/2024 11:00 AM CDT Lab [facility] Laboratory [address] [place] [address] Graves disease 06/11/2024 Travel 06/03/2024 MyC Medical Advice [facility] Endocrinology [address] [address] Tate Salazar MD 05/26/2024 Documentation Only [facility] Endocrinology [address] [address] Tate Salazar MD Lab Only from Last 3 Months Immunizations Name Administration [...] on file Legal Sex Female 3:16 AM ABSTRACTOR Gender Identity Female 09/24/2021 9:00 AM ABSTRACTOR Sexual Orientation Not on file Last Filed Vital Signs Vital Sign Reading Time Taken Comments Blood Pressure 124/78 10/07/2022 12:08 PM ABSTRACTOR Pulse 95 10/07/2022 1:49 PM ABSTRACTOR Temperature 36.5 ??C (97.7 ??F) 10/07/2022 9:21 AM CS T Respiratory Rate 16 10/07/2022 1:49 PM ABSTRACTOR Oxygen Saturation 100% 10/07/2022 12:08 PM ABSTRACTOR Inhaled Oxygen Concentration - - Weight 82.6 kg (182 lb) 05/16/2024 9:20 AM CDT Height 162.6 cm (5' 4) 12/03/2019 1:20 PM ABSTRACTOR Body Mass Index 31.24 12/03/2019 1:20 PM ABSTRACTOR Plan of Treatment Upcoming Encounters Date Type Department Care Team (Late st Contact Info) Description 08/28/2024 10:15 AM ABSTRACTOR Lab [facility] Laboratory [address] [place] [address] 09/09/2024 11:30 AM ABSTRACTOR Virtual Visit [facility] [address] [place] [address] Tate Salazar MD [address] [place] [address] Health Maintenance Due Date Last Done [...] BASIC METABOLIC PANEL STAT 10/07/2022 9:30 AM ABSTRACTOR HPV HIGH RISK TYPES DNA CERVICAL Routine 12/03/2019 1:30 PM ABSTRACTOR Screening for malignant neoplasm of cervix PAP IMAGED THIN LAYER SCREEN Routine 12/03/2019 1:29 PM ABSTRACTOR Screening for malignant neoplasm of cervix HIV [...] LAB - BLOOD ORDERABLES Final Result LABORATORY [facility] [place] [facility] [address] [facility], Room [address] [id number] * (ABNORMAL) Thyroxine total (07/16/2024 9:55 AM CDT) Only the most recent of2 resultswithin the time period is included. Pathologist [facility] T4 Total 13.4(H) 4.5 - 11.7 ug/dL 07/16/2024 7:01 PM CDT LABORATORY Blood BLOOD SPECIMEN / Unknown Venipuncture / Unknown 07/16/2024 9:55 AM CDT 07/16/2024 9:55 AM CDT Tate Salazar MD LAB - BLOOD ORDERABLES Final Result Performing Organization Address City/[facility] Co de Phone Number LABORATORY [facility] [place] Core Lab [address] [facility], Room [address] * T3 total (07/16/2024 9:55 AM CDT) Only the most recent of2 resultswithin the time period is included. [facility] T3 Total 191 85 - 202 ng/dL 07/16/2024 7:01 PM CDT LABORATORY Blood BLOOD SPECIMEN / Unknown Venipuncture / Unknown 07/16/2024 9:55 AM CDT 07/16/2024 9:55 AM CDT us Tate Salazar MD LAB - BLOOD ORDERABLES Final Result LABORATORY [facility] [place] [facility] [address] [facility], Room [address] [phone] [[email or web address]] * (ABNORMAL) Basic metabolic panel (10/07/2022 9:30 AM ABSTRACTOR) Sodium 137 136 - 145 mmol/L 10/07/2022 11:03 AM [facility] Potassium 4.2 3.4 - 5.3 mmol/L 10/07/2022 11:03 AM [facility] Chloride 102 98 - 107 mmol/L 10/07/2022 11:03 AM [facility] Carbon Dioxide (CO2) 22 22 - 29 mmol/L 10/07/2022 11:03 AM [facility] Anion Gap 13 7 - 15 mmol/L 10/07/2022 11:03 AM [facility] Urea Nitrogen 10.9 6.0 - 20.0 mg/dL 10/07/2022 11:03 AM [facility] Creatinine 0.72 0.51 - 0.95 mg/dL 10/07/2022 11:03 AM [facility] Calcium 9.6 8.6 - 10.0 mg/dL 10/07/2022 11:03 AM [facility] Glucose 105(H) 70 - 99 mg/dL 10/07/2022 11:03 AM [facility] GFR Estimate >90 >60 mL/min/1.7 3m2 10/07/2022 11:03 AM [facility] Comment:Effective September 162020 eGFRcr in adults is calculated using the 2020 CKD-EPI creatinine equation which includes age and gender (Arianna et al., NEJ, DOI: 10.1056/KMRUxb6639938) Blood STRUCTURE OF RIGHT UPPER LIMB / Unknown Venipuncture / Unknown 10/07/2022 9:30 AM ABSTRACTOR 10/07/2022 9:35 AM ABSTRACTOR us Adams Washington MD LAB - BLOOD ORDERABLES F inal Result LABORATORY [facility] Acute Care Lab [address] Lab (1st floor, no room number) [place] [address], [facility] [phone] * HPV High Risk Types DNA Cervical (12/03/2019 1:30 PM ABSTRACTOR) HPV Source [facility] 12/03/2019 1:29 PM [facility] HPV 16 DNA Negative NEG^Nega tive 12/09/2019 3:31 PM ABSTRACTOR [facility] HPV 18 DNA Negative NEG^Nega tive 12/09/2019 3:31 PM ABSTRACTOR [facility] Other HR HPV Negative NEG^Nega tive 12/09/2019 3:31 PM ABSTRACTOR [facility] Final Diagnosis This patient's sample is negative for HPV DNA. 12/09/2019 3:31 PM ABSTRACTOR [facility] Comment: This test was developed and its performance characteristics determined by the [facility]. It has not been [...] Specimen Description Cervical Cells 12/03/2019 1:29 PM ABSTRACTOR [facility] Comment:[id number] Cervical Cells 12/03/2019 1: 30 PM ABSTRACTOR 12/03/2019 2:05 PM ABSTRACTOR us Adams Baron MD LAB - BLOOD ORDERABLES Final Result [facility] [address] [place] [address] [facility] [address] [facility] [address] [place] [address] * Pap imaged thin layer screen with HPV - recommended age 30 - 65 years (select HPV order below) (12/03/2019 1:29 PM ABSTRACTOR) PAP NIL COPATH Copath Report Patient Name: SHANTELLE RICHARDSON MR#: [id number] Specimen #: [id number] Collected: 12/03/2019 Received: 12/04/2019 Reported: 12/06/2019 07:36 [...] adenocarcinomas or other cancers. COLLECTION SITE: Client: ??[facility] Location: [facility]) The technical component of this testing was completed at the [facility] [employer] [facility], with [facility], [address] [place] [phone] ([phone]) SARATH Cytologic material (specimen) 12/03/2019 1:29 PM ABSTRACTOR 12/04/2019 10:46 AM ABSTRACTOR us Adams Baron MD LAB - OPTIME CLINICAL SPECIMEN Final Result COPATH * HIV Antigen Antibody Combo (06/23/2016) HIV Antigen Antibody Combo nonreactive Blood specimen (specimen) Patient Reported LAB - BLOOD ORDERABLES Final Re sult from Last 3 Months or Most Recently Relevant to Health Maintenance Insurance [facility] Advance Directives For more information, please contact: [phone] * Full Code (Latest Code Status on File) Date Activated Date Inactivated Comments 09/11/2012 8:22 AM 10/07/2022 9:04 AM Care Teams Dock Boss Relationship Specialty Start Date End Date No Ref-Primary, Physician PCP - General 10/07/22 Mandeep Guadarrama MD [address] [place] [address] Fellow Endocrinology, Diabetes, and Metabolism 05/09/24 Tate Salazar MD [address] [place], [place] 735375 Endocrinology, Diabetes, and Metabolism 05/13/24 Tate Salazar MD [address] [place], [place] [phone] Assigned Endocrinology Provider 06/07/24
--- OUTSIDE RECORDS SUMMARY | 2024-08-26 12:50 | XMS_ITS | Encounter Summary ---
Author Organization [place] Address [address] [place] [address] Care Team Providers Care Records Supervisor Name Role Phone No Ref-Primary, Physician Primary Care Provider Mandeep Guadarrama MD Unavailable [phone] Tate Salazar MD Unavailable [phone] Tate Salazar MD Unavailable [phone] Encounter Details Date Type Department Care Team (Late st Contact Info) Description 07/16/2024 10:15 AM CDT [facility] [address] [place] [address] Graves disease Social History Tobacco Use Types [...] on file Legal Sex Female 3:16 AM SAFEKEEPING CLERK Gender Identity Female 09/24/2021 9:00 AM SAFEKEEPING CLERK Sexual Orientation Not on file documented as of this encounter Plan of Treatment Upcoming Encounters Date Type Department Care Team (Late st Contact Info) Description 08/28/2024 10:15 AM SAFEKEEPING CLERK Lab [facility] Laboratory [address] [place] [address] 09/09/2024 11:30 AM SAFEKEEPING CLERK Virtual Visit [address] [address] Tate Salazar MD [address] [place] [address] documented as of this encounter Procedures Procedure [...] - BLOOD ORDERABLES Final Result [facility] LABORATORY [facility] [place] Core Lab [address] [facility], Room [address] [place] [phone] * (ABNORMAL) Thyroxine total (07/16/2024 9:55 AM CDT) T4 Total 13.4(H) 4.5 - 11.7 ug/dL 07/16/2024 7:01 PM CDT [facility] LABORATORY Blood BLOOD SPECIMEN / Unknown Venipuncture / Unknown 07/16/2024 9:55 AM CDT 07/16/2024 9:55 AM CDT Tate Salazar MD LAB - BLOOD ORDERABLES Final Result U LABORATORY [facility] Core Lab [address] [facility], Room [address] [place] [phone] * TSH (07/16/2024 9:55 AM CDT) TSH 0.40 0.30 - 4.20 uIU/mL 07/16/2024 7:01 PM CDT [facility] LABORATORY Blood BLOOD SPECIMEN / Unknown Venipuncture / Unknown 07/16/2024 9:55 AM CDT 07/16/2024 9:55 AM CDT Tate Salazar MD LAB - BLOOD ORDERABLES Final Result [facility] LABORATORY [facility] Core Lab [address] [facility], Room [address] [phone] documented in this encounter Visit Diagnoses Diagnosis Graves disease Toxic diffuse goiter without mention of thyrotoxic crisis or storm documented in this encounter Care Teams Records Supervisor Relationship Specialty Start Date End Date No Ref-Primary, Physician PCP - General 10/07/22 Mandeep Guadarrama MD [address] [place] [address] Fellow Endocrinology, Diabetes, and Metabolism 05/09/24 Tate Salazar MD [address] [place] [address] Endocrinology, Diabetes, and Metabolism 05/13/24 Tate Salazar MD [address] [place] [address] Assigned Endocrinology Provider 06/07/24 documented as of this encounter
--- OUTSIDE RECORDS SUMMARY | 2024-08-26 12:50 | XMS_ITS | Encounter Summary ---
Author Organization [place] Address [address] [place] [address] Care Team Providers Care Key Punch Teacher Name Role Phone No Ref-Primary, Physician Primary Care Provider Mandeep Guadarrama MD Unavailable [phone] Tate Salazar MD Unavailable [phone] Tate Salazar MD Unavailable [phone] Encounter Details Date Type Department Care Team [...] on file Legal Sex Female 3:16 AM CANVASS MANAGER Gender Identity Female 09/24/2021 9:00 AM CANVASS MANAGER Sexual Orientation Not on file documented as of this encounter Plan of Treatment Upcoming Encounters Date Type Department Care Team (Late st Contact Info) Description 08/28/2024 10:15 AM CANVASS MANAGER Lab [facility] Laboratory [address] [place] [phone] 09/09/2024 11:30 AM CANVASS MANAGER Virtual Visit [address] [address] Tate Salazar MD [address] [place] [address] documented as of this encounter Visit Diagnoses Not on filedocumented in this encounter Care Teams Key Punch Teacher Relationship Specialty Start Date End Date No Ref-Primary, Physician PCP - General 10/07/22 Mandeep Guadarrama MD [address] [place] [address] Fellow Endocrinology, Diabetes, and Metabolism 05/09/24 Tate Salazar MD [address] [place] [address] Endocrinology, Diabetes, and Metabolism 05/13/24 Tate Salazar MD [address] [place] [address] Assigned Endocrinology Provider 06/07/24 documented as of this encounter
--- OUTSIDE RECORDS SUMMARY | 2024-08-26 12:50 | XMS_ITS | Encounter Summary ---
Author Organization [place] Address [address] [place] [address] Care Team Providers Care Early Childhood Educator Aide Name Role Phone No Ref-Primary, Physician Primary Care Provider Mandeep Guadarrama MD Unavailable [phone] Tate Salazar MD Unavailable [phone] Tate Salazar MD Unavailable [phone] Encounter Details Date Type Department Care Team (Late st Contact Info) Description 07/17/2024 MyC Medical Advice [address] [address] Tate Salazar MD [address] [place] [phone] Social History Tobacco Use Types Packs/Day Years [...] on file Legal Sex Female 3:16 AM RN MEDICAL INPATIENT SERVICES Gender Identity Female 09/24/2021 9:00 AM RN MEDICAL INPATIENT SERVICES Sexual Orientation Not on file documented as of this encounter Plan of Treatment Upcoming Encounters Date Type Department Care Team (Late st Contact Info) Description 08/28/2024 10:15 AM RN MEDICAL INPATIENT SERVICES Lab [facility] Laboratory [address] [place] [address] 09/09/2024 11:30 AM RN MEDICAL INPATIENT SERVICES Virtual Visit [facility] [address] [place] [phone] Tate Salazar MD [address] [place] [address] documented as of this encounter Visit Diagnoses Not on filedocumented in this encounter Care Teams Early Childhood Educator Aide Relationship Specialty Start Date End Date No Ref-Primary, Physician PCP - General 10/07/22 Mandeep Guadarrama MD [address] [place] [address] Fellow Endocrinology, Diabetes, and Metabolism 05/09/24 Tate Salazar MD [address] [place] [address] Endocrinology, Diabetes, and Metabolism 05/13/24 Tate Salazar MD [address] [place] [address] Assigned Endocrinology Provider 06/07/24 documented as of this encounter
--- OUTSIDE RECORDS SUMMARY | 2024-08-26 12:50 | XMS_ITS | Encounter Summary ---
Author Organization [place] Address [address] [place] [address] Care Team Providers Care Prep Manager Name Role Phone No Ref-Primary, Physician Primary Care Provider Mandeep Guadarrama MD Unavailable [phone] Tate Salazar MD Unavailable [phone] Tate Salazar MD Unavailable [phone] Reason for Visit * Reason Comments Lab Only Encounter Details Date Type Department Care Team (Late st Contact Info) Description 05/26/2024 Documentation Only [facility] Endocrinology Clinic [address] [address] Tate Salazar MD [address] [place] [address] [phone] Lab Only Social History Tobacco Use Types [...] on file Legal Sex Female 3:16 AM SECURITY INFRASTRUCTURE ENGINEER Gender Identity Female 09/24/2021 9:00 AM SECURITY INFRASTRUCTURE ENGINEER Sexual Orientation Not on file documented as of this encounter Plan of Treatment Upcoming Encounters Date Type Department Care Team (Late st Contact Info) Description 08/28/2024 10:15 AM SECURITY INFRASTRUCTURE ENGINEER Lab [facility] Laboratory [address] [place] [address] 09/09/2024 11:30 AM SECURITY INFRASTRUCTURE ENGINEER Virtual Visit [facility] [address] [place] [phone] Tate Salazar MD [address] [place] [address] 958235 documented as of this encounter Visit Diagnoses Not on filedocumented in this encounter Care Teams Prep Manager Relationship Specialty Start Date End Date No Ref-Primary, Physician PCP - General 10/07/22 Mandeep Guadarrama MD [address] [place] [address] Fellow Endocrinology, Diabetes, and Metabolism 05/09/24 Tate Salazar MD [address] [place] [address] Endocrinology, Diabetes, and Metabolism 05/13/24 Tate Salazar MD [address] [place] [address] Assigned Endocrinology Provider 06/07/24 documented as of this encounter
--- OUTSIDE RECORDS SUMMARY | 2024-08-26 12:50 | XMS_ITS | Encounter Summary ---
Author Organization [place] Address [address] [place] [address] Care Team Providers Care Sharepoint Developer Name Role Phone No Ref-Primary, Physician Primary Care Provider Mandeep Guadarrama MD Unavailable [phone] Tate Salazar MD Unavailable [phone] Tate Salazar MD Unavailable [phone] Encounter Details Date Type Department Care Team (Late st Contact Info) Description 06/14/2024 MyC Medical Advice [facility] Endocrinology Clinic [address] [address] Tate Salazar MD [address] [place] [address] Social History Tobacco Use Types Packs/Day Years [...] on file Legal Sex Female 3:16 AM CODER OPERATOR Gender Identity Female 09/24/2021 9:00 AM CODER OPERATOR Sexual Orientation Not on file documented as of this encounter Plan of Treatment Upcoming Encounters Date Type Department Care Team (Late st Contact Info) Description 08/28/2024 10:15 AM CODER OPERATOR Lab [facility] Laboratory [address] [place] [address] 09/09/2024 11:30 AM CODER OPERATOR Virtual Visit [facility] [address] [place] [phone] Tate Salazar MD [address] [place] [address] documented as of this encounter Visit Diagnoses Not on filedocumented in this encounter Care Teams Sharepoint Developer Relationship Specialty Start Date End Date No Ref-Primary, Physician PCP - General 10/07/22 Mandeep Guadarrama MD [address] [place] [address] Fellow Endocrinology, Diabetes, and Metabolism 05/09/24 Tate Salazar MD [address] [place] [address] Endocrinology, Diabetes, and Metabolism 05/13/24 Tate Salazar MD [address] [place] [address] Assigned Endocrinology Provider 06/07/24 documented as of this encounter
--- OUTSIDE RECORDS SUMMARY | 2024-08-26 12:50 | XMS_ITS | Encounter Summary ---
Author Organization [place] Address [address] [place] [address] Care Team Providers Care Applications Support Engineer Name Role Phone No Ref-Primary, Physician Primary Care Provider Mandeep Guadarrama MD Unavailable [phone] Tate Salazar MD Unavailable [phone] Tate Salazar MD Unavailable [phone] Encounter Details Date Type Department Care Team (Late st Contact Info) Description 06/03/2024 MyC Medical Advice [facility] Endocrinology Clinic [address] [address] Tate Salazar MD [address] [place] [address] Social History Tobacco Use Types Packs/Day Years [...] on file Legal Sex Female 3:16 AM FREIGHT FORWARDER Gender Identity Female 09/24/2021 9:00 AM FREIGHT FORWARDER Sexual Orientation Not on file documented as of this encounter Plan of Treatment Upcoming Encounters Date Type Department Care Team (Late st Contact Info) Description 08/28/2024 10:15 AM FREIGHT FORWARDER Lab [facility] Laboratory [address] [place] [address] 09/09/2024 11:30 AM FREIGHT FORWARDER Virtual Visit [facility] [address] [place] [phone] Tate Salazar MD [address] [place] [address] documented as of this encounter Visit Diagnoses Not on filedocumented in this encounter Care Teams Applications Support Engineer Relationship Specialty Start Date End Date No Ref-Primary, Physician PCP - General 10/07/22 Mandeep Guadarrama MD [address] [place] [address] Fellow Endocrinology, Diabetes, and Metabolism 05/09/24 Tate Salazar MD [address] [place] [address] Endocrinology, Diabetes, and Metabolism 05/13/24 Tate Salazar MD [address] [place] [address] Assigned Endocrinology Provider 06/07/24 documented as of this encounter
--- OUTSIDE RECORDS SUMMARY | 2024-08-26 12:51 | XMS_ITS | Encounter Summary ---
Author Organization [place] Address [address] [place] [address] Care Team Providers Care Sofa Inspector Name Role Phone Sujata Payne MD Primary Care Provider [phone] Sujata Payne MD Unavailable [phone] Sujata Payne MD Unavailable [phone] Adams Rose MD Unavailable [phone] No Ref-Primary, Physician Primary Care Provider Mandeep Guadarrama MD Unavailable [phone] Tate Salazar MD Unavailable [phone] Tate Salazar MD Unavailable [phone] Encounter Details Date Type Department Care Team (Late st Contact Info) Description 10/04/2018 MyC Medical Advice [facility] [address] [place] [phone] Adams Rose MD [address] [place] [address] Social History Tobacco Use Types Packs/Day Years Used Date Smoking Tobacco: Former Cigarettes Q uit: 10/06/2008 Smokeless Tobacco: Never Alcohol Use Standard Drinks/Week Comments No 0 (1 standard drink = 0.6 oz pur e alcohol) Comments Yes Sex and Gender Information Value Date Recorded Sex Assigned at Not on file Legal Sex Female 3:16 AM ENVIRONMENTAL DEPARTMENT MANAGER Gender Identity Female 09/24/2021 9:00 AM ENVIRONMENTAL DEPARTMENT MANAGER Sexual Orientation Not on file documented as of this encounter Miscellaneous Notes * Telephone Encounter - Adams Rose MD - 10/05/2018 1:44 PM ENVIRONMENTAL DEPARTMENT MANAGER Spoke with patient. Advised of falling HCG levels. Patient has previously experienced a first trimester loss. Given early timing of loss D&C not likely to be necessary RONMENTAL DEPARTMENT MANAGER * Telephone Encounter - Alisha Costa RN - 10/05/2018 1:05 PM ENVIRONMENTAL DEPARTMENT MANAGER Please see the results of the pt's hcg level, and discuss with her. Alisha Costa RN RONMENTAL DEPARTMENT MANAGER documented in this encounter Plan of Treatment Upcoming Encounters Date Type Department Care Team (Late st Contact Info) Description 08/28/2024 10:15 AM ENVIRONMENTAL DEPARTMENT MANAGER Lab [facility] Laboratory [address] [place] [address] 09/09/2024 11:30 AM ENVIRONMENTAL DEPARTMENT MANAGER Virtual Visit [address] [phone] Tate Salazar MD [address] [place] [address] documented as of this encounter Visit Diagnoses Not on filedocumented in this encounter Care Teams Sofa Inspector Relationship Specialty [place] [address] [place] [address] PCP - General Family Practice 08/21/17 10/06/22 [place] [address] [place] [address] PCP - Assigned PCP 09/17/17 12/18/18 No Ref-Primary, Physician PCP - General 10/07/22 [place] [address] [place] [address] Assigned PCP 09/17/17 09/05/20 Adams Rose MD [address] [place] [address] Assigned OBGYN Provider 08/07/20 Mandeep Guadarrama MD [address] [place] [address] Fellow Endocrinology, Diabetes, and Metabolism 05/09/24 Tate Salazar MD [address] [place] [address] [phone] Endocrinology, Diabetes, and Metabolism 05/13/24 Tate Salazar MD [address] [place] [address] [phone] Assigned Endocrinology Provider 06/07/24 documented as of this encounter
--- OUTSIDE RECORDS SUMMARY | 2024-08-26 12:51 | XMS_ITS | Encounter Summary ---
Author Organization [facility] Address [address] [place] [address] Care Team Providers Care Sales Representative [employer] Name Role Phone Sujata Payne MD Primary Care Provider [phone] Sujata Payne MD Unavailable [phone] Sujata Payne MD Unavailable [phone] Adams Rose MD Unavailable [phone] No Ref-Primary, Physician Primary Care Provider Mandeep Guadarrama MD Unavailable [phone] Tate Salazar MD Unavailable [phone] Tate Salazar MD Unavailable [phone] Encounter Details Date Type Department Care Team (Late st Contact Info) Description 10/08/[address] [facility] Women[facility] [address] [place] [phone] Adams Rose MD [address] [place] [address] Social History Tobacco Use Types Packs/Day Years Used Date Smoking Tobacco: Former Cigarettes Q uit: 10/06/2008 Smokeless Tobacco: Never Alcohol Use Standard Drinks/Week Comments No 0 (1 standard drink = 0.6 oz pur e alcohol) Comments Yes Sex and Gender Information Value Date Recorded Sex Assigned at Not on file Legal Sex Female 3:16 AM SPECIAL EDUCATION AIDE Gender Identity Female 09/24/2021 9:00 AM SPECIAL EDUCATION AIDE Sexual Orientation Not on file documented as of this encounter Miscellaneous Notes * Telephone Encounter - Adams oRse MD - 10/10/2018 9:50 AM SPECIAL EDUCATION AIDE Spoke with patient. I am much better now. IAL EDUCATION AIDE * Telephone Encounter - Alisha Costa, MILLICENT - 10/10/2018 8:07 AM SPECIAL EDUCATION AIDE Please see the [employer] message and advise. Pt had miscarriage last week. Alisha Costa RN IAL EDUCATION AIDE documented in this encounter Plan of Treatment Upcoming Encounters Date Type Department Care Team (Late st Contact Info) Description 08/28/2024 10:15 AM SPECIAL EDUCATION AIDE Lab [facility] [address] [place] [address] 09/09/2024 11:30 AM SPECIAL EDUCATION AIDE Virtual Visit [address] [address] Tate Salazar MD [address] [place] [address] documented as of this encounter Visit Diagnoses Not on filedocumented in this encounter Care Teams Sales Representative Malt Liqu[employer] Relationship Specialty [place] [address] [place] [address] PCP - General Family Practice 08/21/17 10/06/22 [place] [address] [place] [address] PCP - Assigned PCP 09/17/17 12/18/18 No Ref-Primary, Physician PCP - General 10/07/22 [place] [address] [place] [address] Assigned PCP 09/17/17 09/05/20 Adams Rose MD [address] [place] [address] Assigned OBGYN Provider 08/07/20 Mandeep Guadarrama MD [address] [place] [address] Fellow Endocrinology, Diabetes, and Metabolism 05/09/24 Tate Salazar MD [address] [place] [address] Endocrinology, Diabetes, and Metabolism 05/13/24 Tate Salazar MD [address] [place] [address] Assigned Endocrinology Provider 06/07/24 documented as of this encounter
--- OUTSIDE RECORDS SUMMARY | 2024-08-26 12:51 | XMS_ITS | Encounter Summary ---
Author Organization [facility] Address [address] [place] [address] Care Team Providers Care Flotation Tender Helper Name Role Phone No Ref-Primary, Physician Primary Care Provider Mandeep Guadarrama MD Unavailable [phone] Tate Salazar MD Unavailable [phone] Tate Salazar MD Unavailable [phone] Encounter Details Date Type Department Care Team (Late st Contact Info) Description 05/13/2024 [facility] Medical Advice [facility] Clinic [address] [address] [facility] Social History Tobacco Use Types Packs/Day [...] on file Legal Sex Female 3:16 AM TRIMMER SAWYER Gender Identity Female 09/24/2021 9:00 AM TRIMMER SAWYER Sexual Orientation Not on file documented as of this encounter Plan of Treatment Upcoming Encounters Date Type Department Care Team (Late st Contact Info) Description 08/28/2024 10:15 AM TRIMMER SAWYER Lab [facility] [address] [place] [address] 09/09/2024 11:30 AM TRIMMER SAWYER Virtual Visit [address] [address] Tate Salazar MD [address] [place] [address] documented as of this encounter Visit Diagnoses Not on filedocumented in this encounter Care Teams Flotation Tender Helper Relationship Specialty Start Date End Date No Ref-Primary, Physician PCP - General 10/07/22 Mandeep Guadarrama MD [address] [place] [address] Fellow Endocrinology, Diabetes, and Metabolism 05/09/24 Tate Salazar MD [address] [place] [address] Endocrinology, Diabetes, and Metabolism 05/13/24 Tate Salazar MD [address] [place] [address] Assigned Endocrinology Provider 06/07/24 documented as of this encounter
--- OUTSIDE RECORDS SUMMARY | 2024-08-26 12:51 | XMS_ITS | Encounter Summary ---
Author Organization [facility] Address [address] [place] [address]. [place] [address] Care Team Providers Care Industrial Ecologist Name Role Phone Sujata Payne MD Primary Care Provider [phone] Sujata Payne MD Unavailable [phone] Sujata Payne MD Unavailable [phone] Adams Rose MD Unavailable [phone] No Ref-Primary, Physician Primary Care Provider Mandeep Guadarrama MD Unavailable [phone] Tate Salazar MD Unavailable [phone] Tate Salazar MD Unavailable [phone] Reason for Visit * Reason Onset Date Comments MyChart Communication 05/30/2018 Encounter Details Date Type Department Care Team (Late st Contact Info) Description 05/30/2018 [facility] Medical Advice [facility] [id number] [place] [address] [place] [address] [place] [address] MyChart Communication Social History Tobacco Use Types Packs/Day Years Used Date Smoking Tobacco: Former Cigarettes Q uit: 10/06/2008 Smokeless Tobacco: Never Alcohol Use Standard Drinks/Week Comments No 0 (1 standard drink = 0.6 oz pur e alcohol) Comments No Sex and Gender Information Value Date Recorded Sex Assigned at Not on file Legal Sex Female 3:16 AM PETROLEUM SUPPLY SPECIALIST Gender Identity Female 09/24/2021 9:00 AM PETROLEUM SUPPLY SPECIALIST Sexual Orientation Not on file documented as [...] BRODIE was 09/05/17. Roxanna Aguilera RN -- [facility] documented in this encounter Plan of Treatment Upcoming Encounters Date Type Department Care Team (Late st Contact Info) Description 08/28/2024 10:15 AM PETROLEUM SUPPLY SPECIALIST Lab [facility] [address] [place] [address] 09/09/2024 11:30 AM PETROLEUM SUPPLY SPECIALIST Virtual Visit M [address] [address] Tate Salazar MD [address] [place] [address] documented as of this encounter Visit Diagnoses Not on filedocumented in this encounter Care Teams Industrial Ecologist Relationship Specialty [place] [address] [facility] [place] [address] PCP - General Family Practice 08/21/17 10/06/22 [place] [address] [place] [address] PCP - Assigned PCP 09/17/17 12/18/18 No Ref-Primary, Physician PCP - General 10/07/22 [place] [address] [place] [address] Assigned PCP 09/17/17 09/05/20 Adams Rose MD [address] [place] [address] Assigned OBGYN Provider 08/07/20 Mandeep Guadarrama MD [address] [place] [address] Fellow Endocrinology, Diabetes, and Metabolism 05/09/24 Tate Salazar MD [address] [place] [address] Endocrinology, Diabetes, and Metabolism 05/13/24 Tate Salazar MD [address] [place] [address] Assigned Endocrinology Provider 06/07/24 documented as of this encounter
--- OUTSIDE RECORDS SUMMARY | 2024-08-26 12:51 | XMS_ITS | Encounter Summary ---
Author Organization [facility] Address [address] [place] [address] Care Team Providers Care Gaming Manager Name Role Phone Sujata Payne MD Primary Care Provider [phone] Sujata Payne MD Unavailable [phone] Adams Rose MD Unavailable [phone] No Ref-Primary, Physician Primary Care Provider Mandeep Guadarrama MD Unavailable [phone] Tate Salazar MD Unavailable [phone] Tate Salazar MD Unavailable [phone] Encounter Details Date Type Department Care Team (Late st Contact Info) Description 05/09/2020 MyC Medical Advice [facility] Women's [address] [place] [phone] Adams Rose MD [address] [place] [address] Social History Tobacco Use Types Packs/Day Years Used Date Smoking Tobacco: Former Cigarettes Q uit: 10/06/2008 Smokeless Tobacco: Never Alcohol Use Standard Drinks/Week Comments No 0 (1 standard drink = 0.6 oz pur e alcohol) PHQ-2 Answer Date Recorded PHQ-2 Score 0 12/03/2019 Comments No Sex and Gender Information Value Date Recorded Sex Assigned at Not on file Legal Sex Female 3:16 AM INVESTIGATOR NARCOTICS Gender Identity Female 09/24/2021 9:00 AM INVESTIGATOR NARCOTICS Sexual Orientation Not on file documented as of this encounter Plan of Treatment Upcoming Encounters Date Type Department Care Team (Late st Contact Info) Description 08/28/2024 10:15 AM INVESTIGATOR NARCOTICS Lab [facility] [address] [place] [address] 09/09/2024 11:30 AM INVESTIGATOR NARCOTICS Virtual Visit [facility] [address] [place] [phone] Tate Salazar MD [address] [place] [address] documented as of this encounter Visit Diagnoses Not on filedocumented in this encounter Care Teams Gaming Manager Relationship Specialty [place] [address] [place] [address] PCP - General Family Practice 08/21/17 10/06/22 No Ref-Primary, Physician PCP - General 10/07/22 [place] [address] [place] [address] Assigned PCP 09/17/17 09/05/20 Adams Rose MD [address] [place] [address] Assigned OBGYN Provider 08/07/20 Mandeep Guadarrama MD [address] [place] [address] Fellow Endocrinology, Diabetes, and Metabolism 05/09/24 Tate Salazar MD [facility] [place] [address] Endocrinology, Diabetes, and Metabolism 05/13/24 Tate Salazar MD [address] [place] [address] Assigned Endocrinology Provider 06/07/24 documented as of this encounter
--- OUTSIDE RECORDS SUMMARY | 2024-08-26 12:51 | XMS_ITS | Encounter Summary ---
Author Organization [facility] Address [address] [place] [address] Care Team Providers Care Manufacturing Teacher Name Role Phone Sujata Payne MD Primary Care Provider [phone] Sujata Payne MD Unavailable [phone] Adams Rose MD Unavailable [phone] Ref-Primary, Physician Primary Care Provider Mandeep Guadarrama MD Unavailable [phone] Tate Salazar MD Unavailable [phone] Tate Salazar MD Unavailable [phone] Encounter Details Date Type Department Care Team (Late st Contact Info) Description 12/09/2019 MyC Medical Advice [facility] Women's [address] [place] [phone] Adams Rose MD [address] [place] [address] Social History Tobacco Use Types Packs/Day Years Used Date Smoking Tobacco: Former Cigarettes Q uit: 10/06/2008 Smokeless Tobacco: Never Alcohol Use Standard Drinks/Week Comments No 0 (1 standard drink = 0.6 oz pur e alcohol) PHQ-2 Answer Date Recorded PHQ-2 Score 0 12/03/2019 Comments No Sex and Gender Information Value Date Recorded Sex Assigned at Not on file Legal Sex Female 3:16 AM PARTNER MANAGER Gender Identity Female 09/24/2021 9:00 AM PARTNER MANAGER Sexual Orientation Not on file documented as of this encounter Plan of Treatment Upcoming Encounters Date Type Department Care Team (Late st Contact Info) Description 08/28/2024 10:15 AM PARTNER MANAGER Lab [facility] [address] [place] [address] 09/09/2024 11:30 AM PARTNER MANAGER Virtual Visit [facility] [address] [place] [phone] Tate Salazar MD [address] [place] [address] documented as of this encounter Visit Diagnoses Not on filedocumented in this encounter Care Teams Manufacturing Teacher Relationship Specialty [place] [address] [place] [address] PCP - General Family Practice 08/21/17 10/06/22 No Ref-Primary, Physician PCP - General 10/07/22 [place] [address] [place] [address] Assigned PCP 09/17/17 09/05/20 Adams Rose MD [address] [place] [address] Assigned OBGYN Provider 08/07/20 Mandeep Guadarrama MD [address] [place] [address] Fellow Endocrinology, Diabetes, and Metabolism 05/09/24 Tate Salazar MD [facility] [place] [address] Endocrinology, Diabetes, and Metabolism 05/13/24 Tate Salazar MD [address] [place] [address] Assigned Endocrinology Provider 06/07/24 documented as of this encounter
--- OUTSIDE RECORDS SUMMARY | 2024-08-26 12:51 | XMS_ITS | Clinical Summary ---
Author Organization [facility] Address [place], [place] [address] Care Team Providers Care Bag Hanger Name Role Phone Sherin Medina MD Primary [...] 7 9 WILLI AMS,[place] GIR[place] Delivery Location:[facility] Last Filed Vital Signs Vital Sign Reading [...] 2006 Tetanus booster 2008 COVID-19 vaccine series (2023- season) 2024 Influenza for age 9-49 06/16/2024 06/30/2010 Pap test for age 21-65 10/28/2025 3, 10/28/2022 Pneumococcal series for age 6-64 Aged Out No longer eligible b ased on patient's age to complete this topic Procedures Procedure Name Priority Date/Time Associated Diagnosis Comments ENROLLMENT MANAGEMENT VICE PRESIDENT THIN PREP PAP SCREEN IMAGED Routine 10/28/2022 11:50 AM NEUROLOGICAL SURGERY TEACHER from Last 3 Months or Most Recently Relevant to Health Maintenance Results * ENROLLMENT MANAGEMENT VICE PRESIDENT THIN PREP PAP SCREEN IMAGED (10/28/2022 11:50 AM NEUROLOGICAL SURGERY TEACHER) Case Report Gynecologic Cytology Report ? Case: [id number] ? Authorizing Provider: ??Milagro Vegas PA-C ?Collected: ? 10/28/2022 1150 ? Ordering Location: ? [facility] ?Received: ?11/01/2022 1635 ? First Screen: ?Adams Ortiz ? Specimen: ?ENROLLMENT MANAGEMENT VICE PRESIDENT ThinPrep Vial Screening, Cervical ? 11/11/2022 8:04 AM [facility] INTERPRETATION/ RESULT NEGATIVE FOR INTRAEPITHELIAL LESION OR MALIGNANCY (NIL) (none) 11/11/2022 8:04 AM [facility] IMEN ADEQUACY Satisfactory for evaluation Endocervical component present 11/11/2022 8:04 AM [facility] HPV REQUEST HPV and PAP 11/11/2022 8:04 AM [facility] Date of LMP 08/31/2022 11/11/2022 8:04 AM [facility] Last Pap Date 09/13/2021 11/11/2022 8:04 AM [facility] Last Pap Result NIL 8:04 AM [facility] Abnormal Pap or Roby Bx in last 5 years No 11/11/2022 8:04 AM [facility] Menstrual Status 11/11/2022 8:04 AM [facility] Roby Bx Done Today No 11/11/2022 8:04 AM [facility] Additional Information 11/11/2022 8:04 AM [facility] Comment: Interpreted at [facility] - [address] [place] [address] Automated Review Successful 11/11/2022 8:04 AM [facility] Comment:Specimen processed s uccessfully by automated regional psychiatric director device, ThinPrep Imaging System, [employer] ANCILLARY TESTING ENROLLMENT MANAGEMENT VICE PRESIDENT HPV Ordered, Please see separate report 11/11/2022 8:04 AM [facility] Note The pap test is a screening technique, not a diagnostic procedure. It is used primarily to screen for squamous cancers and precursor lesions. Published studies have shown that it is subject to both false negative and false positive results. The pap test should not be used as the sole means to diagnose or exclude pre-malignant and malignant lesions. 11/11/2022 8:04 AM NEUROLOGICAL SURGERY TEACHER [facility] Other (Cervical) 10/28/2022 11:50 AM NEUROLOGICAL SURGERY TEACHER 11/01/2022 4:35 PM NEUROLOGICAL SURGERY TEACHER January Sh[facility] [address] [place] [address], [place] from Last 3 Months or Most [...] 6:16 AM 08/09/2010 12:05 PM Care Teams Bag Hanger Relationship Specialty Start Date End Date Sherin Medina MD PCP - General 09/17/06
--- OUTSIDE RECORDS SUMMARY | 2024-08-26 12:51 | XMS_ITS | Encounter Summary ---
Author Organization [facility] Address [address] [place] [address] Care Team Providers Care Injection Molding Process Technician Name Role Phone No Ref-Primary, Physician Primary Care Provider Mandeep Guadarrama MD Unavailable [phone] Tate Salazar MD Unavailable [phone] Encounter Details Date Type Department Care Team (Late Contact Info) Description 05/20/2024 11:00 AM CDT Lab [facility] [address] [place] [address] Graves disease; First trimester Social History Tobacco [...] on file Legal Sex Female 3:16 AM PURCHASING ADMINISTRATIVE ASSISTANT Gender Identity Female 09/24/2021 9:00 AM PURCHASING ADMINISTRATIVE ASSISTANT Sexual Orientation Not on file documented as of this encounter Plan of Treatment Upcoming Encounters Date Type Department Care Team (Late Contact Info) Description 08/28/2024 10:15 AM PURCHASING ADMINISTRATIVE ASSISTANT Lab [facility] [address] [place] [address] 09/09/2024 11:30 AM PURCHASING ADMINISTRATIVE ASSISTANT Virtual Visit [place] [address] [place] [address] Tate Salazar MD [address] [place] [address] documented as of this encounter Procedures Procedure [...] - 1.75 IU/L 05/21/2024 9:10 AM CDT [facility] Comment: ADDITIONAL INFORMATION At a decision limit of 1.75 IU/L, this assay has 97% sensitivity and 99% specificity for detection of Graves' disease. In healthy individuals and in patients with thyroid disease without diagnosis of Graves' disease, the upper limit of anti-TSHR values are 1.22 IU/L and 1.58 IU/L, respectively (97.5th percentiles). Test Performed by: [facility] [address] [place] [address] Billing Customer Service Representative: Barrington Douglas Ph.D.; CLIA# [id number] Blood STRUCTURE OF RIGHT UPPER LIMB / Unknown Venipuncture / Unknown 05/20/2024 10:54 AM CDT 05/20/2024 10:54 AM CDT Tate Salazar MD LAB - IMMUNOLOGY ORDERABLES F inal Result [facility] [address] [phone] * (ABNORMAL) Thyroid stimulating immunoglobulin (05/20/2024 10:54 AM CDT) Pathologist [facility] Thyroid Stim Immunog 2.5(H) <=1.3 TSI index 05/27/2024 6:23 PM CDT [facility] Comment: Test Performed by: [facility] [address] [place] [address] Billing Customer Service Representative: Barrington Douglas Ph.D.; CLIA# [id number] Blood STRUCTURE OF RIGHT UPPER LIMB / Unknown Venipuncture / Unknown 05/20/2024 10:54 AM CDT 05/20/2024 10:54 AM CDT Tate Salazar MD LAB - BLOOD ORDERABLES Final Result Performing Organization Address [facility]/ZIP Co de Phone Number [facility] [address] [phone] * T3 total (05/20/2024 10:54 AM CDT) Pathologist [facility] T3 Total 159 85 - 202 ng/dL 05/20/2024 7:06 PM CDT [facility] Blood STRUCTURE OF RIGHT UPPER LIMB / Unknown Venipuncture / Unknown 05/20/2024 10:54 AM CDT 05/20/2024 10:54 AM CDT Tate Salazar MD LAB - BLOOD ORDERABLES Final Result [facility] [place] [facility] [address] [facility], [address] [place] [address] * (ABNORMAL) Thyroxine total (05/20/2024 10:54 AM CDT) T4 Total 11.8(H) 4.5 - 11.7 ug/dL 05/20/2024 7:06 PM CDT [facility] Blood STRUCTURE OF RIGHT UPPER LIMB / Unknown Venipuncture / Unknown 05/20/2024 10:54 AM CDT 05/20/2024 10:54 AM CDT Tate Salazar MD LAB - BLOOD ORDERABLES Final Result [facility] [place] [facility] [address] [facility], [address] [phone] * (ABNORMAL) TSH (05/20/2024 10:54 AM CDT) TSH 0.02(L) 0.30 - 4.20 uIU/mL 05/20/2024 7:06 PM CDT [facility] Blood STRUCTURE OF RIGHT UPPER LIMB / Unknown Venipuncture / Unknown 05/20/2024 10:54 AM CDT 05/20/2024 10:54 AM CDT Tate Salazar MD LAB - BLOOD ORDERABLES Final Result [facility] [address] [facility], [address] [address], [place] documented in this encounter Visit Diagnoses Diagnosis Graves disease Toxic diffuse goiter without mention of thyrotoxic crisis or storm First trimester documented in this encounter Care Teams Injection Molding Process Technician Relationship Specialty Start Date End Date No Ref-Primary, Physician PCP - General 10/07/22 Mandeep Guadarrama MD [address] [place] [address] Fellow Endocrinology, Diabetes, and Metabolism 05/09/24 Tate Salazar MD [address] [place] [address] Endocrinology, Diabetes, and Metabolism 05/13/24 documented as of this encounter
--- OUTSIDE RECORDS SUMMARY | 2024-08-26 12:51 | XMS_ITS | Encounter Summary ---
Author Organization [facility] Address [address] [place] [address] Care Team Providers Care Rough And Truing Machine Operator Name Role Phone No Ref-Primary, Physician Primary Care Provider Mandeep Guadarrama MD Unavailable [phone] Tate Salazar MD Unavailable [phone] Tate Salazar MD Unavailable [phone] Reason for Visit * Reason Onset Date Comments Results 10/08/2022 Urine culture Encounter Details Date Type Department Care Team (Late st Contact Info) Description 10/08/2022 Telephone [facility] Emergency Dept [address] [place] [address] Jovita Stack RN Results (Urine culture) Social [...] on file Legal Sex Female 3:16 AM TRANSIT SURVEY WORKER Gender Identity Female 09/24/2021 9:00 AM TRANSIT SURVEY WORKER Sexual Orientation Not on file COVID-19 Exposure Response Date Recorded In the last 10 days, have yo u been in contact with someone who was confirmed or suspected to have Coronavirus/COVID-19? No / Unsure 10/09/2022 9:23 AM TRANSIT SURVEY WORKER documented as of this encounter Miscellaneous Notes * Telephone Encounter - Jovita Stack RN - 10/08/2022 5:16 PM CST [facility] () Emergency Department Lab result notification [facility] ED lab result protocol used Urine culture Reason for call Notify of lab results, assess symptoms, review ED providers recommendations/discharge instructions (if necessary) and advise per ED lab result f/u protocol Lab Result (including Rx patient on, if applicable) Final urine culture report shows NO GROWTH and is NEGATIVE. [facility] Emergency Dept discharge antibiotic: Nitrofurantoin Macrocrystal- Monohydrate (Macrobid) 100 mg PO capsule, 1 capsule (100 mg) by mouth 2 times daily for 7 days Recommendations in treatment per [facility] ED Lab result Urine culture protocol. director of securities and real estate (Patient???s current Symptoms), include time called. 5:16 PM - overall patient feels improved Antibiotic 3 days prior to sample: No Genitourinary symptoms: No pain, burning, frequency, urgency Fever: No RN Recommendations/Instructions per [facility] ED lab result protocol Patient notified of [...] follow-up Questions asked: YES Jovita Stack RN [facility] Emergency Dept Lab Result RN Copy of Lab result Urine Culture Order: [id number] - Reflex for Order [id number] Status: Final result ?? Visible to patient: Yes (seen) ?? Specimen Information: Urine, Midstream 1 Result Note Culture No Growth Resulting Agency: [facility] Specimen Collected: 10/07/22 ??9:59 AM Last Resulted: 10/08/22 ??1:17 PM SIT SURVEY WORKER documented in this encounter Plan of Treatment Upcoming Encounters Date Type Department Care Team (Late st Contact Info) Description 08/28/2024 10:15 AM TRANSIT SURVEY WORKER Lab [facility] [address] [place] [address] 09/09/2024 11:30 AM TRANSIT SURVEY WORKER Virtual Visit M [facility] [address] [place] [phone] Tate Salazar MD [address] [place] [address] [phone] documented as of this encounter Visit Diagnoses Not on filedocumented in this encounter Care Teams Rough And Truing Machine Operator Relationship Specialty Start Date End Date No Ref-Primary, Physician PCP - General 10/07/22 Mandeep Guadarrama MD [address] [place] [address] Fellow Endocrinology, Diabetes, and Metabolism 05/09/24 Tate Salazar MD [address] [place] [address] Endocrinology, Diabetes, and Metabolism 05/13/24 Tate Salazar MD [address] [place] [address] Assigned Endocrinology Provider 06/07/24 documented as of this encounter
--- OUTSIDE RECORDS SUMMARY | 2024-09-04 14:21 | XMS_ITS | Clinical Summary ---
Author Organization [facility] Address [address] [place] [address] Care Team Providers Care Manager Paper Name Role Phone No Ref-Primary, Physician Primary Care Provider Mandeep Guadarrama MD Unavailable [phone] AlashawnadineTate MD Unavailable [phone] AlashawnadineTate MD Unavailable [phone] Allergies Active Allergy Reactions Criticality Noted [...] Encounters Date Type Department Care Team Description 08/28/2024 10:15 AM DELIVERY ASSISTANT Lab [facility] [address] [place] [address] Graves disease 08/28/2024 Travel 08/26/2024 MyC Medical Advice [facility] [address] [address] Tate Salazar MD Graves disease (Primary Dx) 07/17/2024 MyC Medical Advice [facility] [address] [place] [phone] Tate Salazar MD 07/16/2024 10:15 AM CDT Lab [facility] [address] [place] [address] Graves disease 06/14/2024 MyC Medical Advice [facility] [address] [address] Tate Salazar MD 06/11/2024 11:00 AM CDT Lab [facility] [address] [place] [address] Graves disease 06/11/2024 Travel from Last 3 Months Immunizations Name Administration Dates Next Due DTAP (<7y) 12/22/1993, 0,01/07/1989,1988, 1988 Flu, Unspecified 07/20/2010,07/27/2009, 7,07/26/2006 HEPATITIS A (PEDS 12M-18Y) 05/24/2007 HIB (PRP-T) 05/07/1990 HIB, Unspecified 05/07/1990 Hepatitis A (ADULT 19+) 05/24/2007 Hepatitis B, Adult 07/01/1998,01/01/1998, 998 Hepatitis B, Peds 07/01/1998,12/04/1997,01/01/19 89 Hpv, Unspecified 05/02/2007,12/29/2006, 7 Influenza (H1N1) 06/30/2010 Influenza (prior to 2023) 08/24/2012,02/2010,07/27/2009,10/01/2007, 07/26/2006 MMR 07/12/2000,12/14/1989 Mantoux Tuberculin Skin Test 05/19/2010 Meningococcal ACWY (Menactra ) 10/30/2006 OPV, trivalent, live 12/22/1993,05/07/1990,11/05,1988 Polio, Unspecified 12/22/1993,05/07/1990, 989,1988 TDAP (Adacel,Boostrix) 04/03/2014,07/07/2011, TDAP Vaccine (Boostrix) 10/25/2016 [...] on file Legal Sex Female 3:16 AM DELIVERY ASSISTANT Gender Identity Female 09/24/2021 9:00 AM DELIVERY ASSISTANT Sexual Orientation Not on file Last Filed Vital Signs Vital Sign Reading Time Taken Comments Blood Pressure 124/78 10/07/2022 12:08 PM DELIVERY ASSISTANT Pulse 95 10/07/2022 1:49 PM DELIVERY ASSISTANT Temperature 36.5 C (97.7 F) 10/07/2022 9:21 AM DELIVERY ASSISTANT Respiratory Rate 16 10/07/2022 1:49 PM DELIVERY ASSISTANT Oxygen Saturation 100% 10/07/2022 12:08 PM DELIVERY ASSISTANT Inhaled Oxygen Concentration - - Weight 82.6 kg (182 lb) 05/16/2024 9:20 AM CDT Height 162.6 cm (5' 4) 12/03/2019 1:20 PM DELIVERY ASSISTANT Body Mass Index 31.24 12/03/2019 1:20 PM DELIVERY ASSISTANT Plan of Treatment Upcoming Encounters Date Type Department Care Team (Late st Contact Info) Description 09/09/2024 11:30 AM DELIVERY ASSISTANT Virtual Visit [address] [address] Tate Salazar MD [address] [place] [id number] Health Maintenance Due Date Last Done [...] Procedure Name Priority Date/Time Associated Diagnosis Comments JIMENEZ MISCELLANEOUS TEST Routine 08/28/2024 9:55 AM DELIVERY ASSISTANT Graves disease THYROTROPIN RECEPTOR ANTIBODY Routine 08/28/2024 9:55 AM DELIVERY ASSISTANT Graves disease LABORATORY MISCELLANEOUS ORDER Routine 08/28/2024 9:55 AM DELIVERY ASSISTANT Graves disease T3 TOTAL Routine 08/28/2024 9:55 AM DELIVERY ASSISTANT Graves disease THYROXINE TOTAL Routine 08/28/2024 9:55 AM DELIVERY ASSISTANT Graves disease TSH Routine 08/28/2024 9:55 AM DELIVERY ASSISTANT Graves disease T3 TOTAL Routine 07/16/2024 9:55 AM CDT Graves disease THYROXINE TOTAL Routine 07/16/2024 9:55 AM CDT Graves disease TSH Routine 07/16/2024 9:55 AM CDT Graves disease T3 TOTAL Routine 06/11/2024 10:49 AM CDT Graves disease THYROXINE TOTAL Routine 06/11/2024 10:49 AM CDT Graves disease TSH Routine 06/11/2024 10:49 AM CDT Graves disease BASIC METABOLIC PANEL STAT 10/07/2022 9:30 AM DELIVERY ASSISTANT HPV HIGH RISK TYPES DNA CERVICAL Routine 12/03/2019 1:30 PM DELIVERY ASSISTANT Screening for malignant neoplasm of cervix PAP IMAGED THIN LAYER SCREEN Routine 12/03/2019 1:29 PM DELIVERY ASSISTANT Screening for malignant neoplasm of cervix HIV ANTIGEN ANTIBODY COMBO Routine 06/23/2016 from Last 3 Months or Most Recently Relevant to Health Maintenance Results * [facility]; FFTSI; Thyroid-stimulating Immunoglobulin (TSI) (Laboratory Miscellaneous Order) (08/28/2024 9:55 AM DELIVERY ASSISTANT) Specimen Status Specimen received. Reordered and sent to performing laboratory. Report to follow upon completion. [facility] 08/28/2024 10:01 AM [facility] Performing Laboratory [facility] 08/28/2024 10:01 AM DELIVERY ASSISTANT LABORATORY Test Name Thyroid-stimulati ng Immunoglobulin (TSI) [facility] 08/28/2024 10:01 AM DELIVERY ASSISTANT LABORATORY Test Code FFTSI [facility] 08/28/2024 10:01 AM DELIVERY ASSISTANT LABORATORY Blood BLOOD SPECIMEN / Unknown Venipuncture / Unknown 08/28/2024 9:55 AM DELIVERY ASSISTANT 08/28/2024 9:59 AM DELIVERY ASSISTANT [facility] LAB - BLOOD ORDERABLES Final Result LABORATORY [facility] [address] [facility] (no room number, 1st floor of clinic) [place] [address] * (ABNORMAL) Thyrotropin Receptor Antibody (08/28/2024 9:55 AM DELIVERY ASSISTANT) Pathologist [facility] Thyrotropin Receptor Antibody 2.88(H) 0.00 - 1.75 IU/L 08/30/2024 11:05 AM DELIVERY ASSISTANT [facility] Comment: ADDITIONAL INFORMATION At a decision limit of 1.75 IU/L, this assay has 97% sensitivity and 99% specificity for detection of Graves' disease. In healthy individuals and in patients with thyroid disease without diagnosis of Graves' disease, the upper limit of anti-TSHR values are 1.22 IU/L and 1.58 IU/L, respectively (97.5th percentiles). Test Performed by: [facility] [address] [place] [address] Metal Fabrication Supervisor: Barrington Douglas Ph.D.; IA# [id number] Blood BLOOD SPECIMEN / Unknown Venipuncture / Unknown 08/28/2024 9:55 AM DELIVERY ASSISTANT 08/28/2024 9:59 AM DELIVERY ASSISTANT Tate Salazar MD LAB - IMMUNOLOGY ORDERABLES F inal Result Performing Organization Address [facility]/ZIP Co de Phone Number [facility] [address] [phone] * (ABNORMAL) FFTSI; Thyroid-stimulating Immunoglobulin (TSI) [place] Miscellaneous Test (08/28/2024 9:55AM DELIVERY ASSISTANT) Pathologist [facility] Jimenez Result SEE NOTE(A) 09/01/2024 4:06 PM DELIVERY ASSISTANT [facility] Comment: Test Result Flag Unit RefValue Thyroid Stim Immunoglobulin 1.57 H IU/L 0.00-0.55 Test Performed by: [facility] [address] Blood BLOOD SPECIMEN / Unknown Venipuncture / Unknown 08/28/2024 9:55 AM DELIVERY ASSISTANT 08/28/2024 9:59 AM DELIVERY ASSISTANT Tate Salazar MD LAB - BLOOD ORDERABLES Final Result Performing Organization Address [facility]/ZIP Co de Phone Number [facility] [address] [place], [place] [id number] [place] [address] * TSH (08/28/2024 9:55 AM DELIVERY ASSISTANT) Only the most recent of3 resultswithin the time period is included. [facility] TSH 0.56 0.30 - 4.20 uIU/mL 08/28/2024 6:05 PM DELIVERY ASSISTANT [facility] Blood BLOOD SPECIMEN / Unknown Venipuncture / Unknown 08/28/2024 9:55 AM DELIVERY ASSISTANT 08/28/2024 9:58 AM DELIVERY ASSISTANT Tate Salazar MD LAB - BLOOD ORDERABLES Final Result LABORATORY [facility] [address] [facility], [address] [phone] * (ABNORMAL) Thyroxine total (08/28/2024 9:55 AM DELIVERY ASSISTANT) Only the most recent of3 resultswithin the time period is included. T4 Total 13.9(H) 4.5 - 11.7 ug/dL 08/28/2024 6:05 PM DELIVERY ASSISTANT LABORATORY Blood BLOOD SPECIMEN / Unknown Venipuncture / Unknown 08/28/2024 9:55 AM DELIVERY ASSISTANT 08/28/2024 9:58 AM DELIVERY ASSISTANT Tate Salazar MD LAB - BLOOD ORDERABLES Final Result LABORATORY [facility] [address] [facility], [address] [phone] * (ABNORMAL) T3 total (08/28/2024 9:55 AM DELIVERY ASSISTANT) Only the most recent of3 resultswithin the time period is included. T3 Total 206(H) 85 - 202 ng/dL 08/28/2024 7:04 PM DELIVERY ASSISTANT LABORATORY Blood BLOOD SPECIMEN / Unknown Venipuncture / Unknown 08/28/2024 9:55 AM DELIVERY ASSISTANT 08/28/2024 9:58 AM DELIVERY ASSISTANT us Tate Salazar MD LAB - BLOOD ORDERABLES Final Result LABORATORY [facility] [address] [facility], [address] [phone] * (ABNORMAL) Basic metabolic panel (10/07/2022 9:30 AM DELIVERY ASSISTANT) Sodium 137 136 - 145 mmol/L 10/07/2022 11:03 AM [facility] Potassium 4.2 3.4 - 5.3 mmol/L 10/07/2022 11:03 AM [facility] Chloride 102 98 - 107 mmol/L 10/07/2022 11:03 AM [facility] Carbon Dioxide (CO2) 22 22 - 29 mmol/L 10/07/2022 11:03 AM [facility] Anion Gap 13 7 - 15 mmol/L 10/07/2022 11:03 AM [facility] Urea Nitrogen 10.9 6.0 - 20.0 mg/dL 10/07/2022 11:03 AM [facility] Creatinine 0.72 0.51 - 0.95 mg/dL 10/07/2022 11:03 AM [facility] Calcium 9.6 8.6 - 10.0 mg/dL 10/07/2022 11:03 AM [facility] Glucose 105(H) 70 - 99 mg/dL 10/07/2022 11:03 AM [facility] GFR Estimate >90 >60 mL/min/1.7 3m2 10/07/2022 11:03 AM [facility] Comment:Effective September 162020 eGFRcr in adults is calculated using the 2020 CKD-EPI creatinine equation which includes age and gender (Arianna et al., NEJM, DOI: 10.1056/MMSScp9494802) Blood STRUCTURE OF RIGHT UPPER LIMB / Unknown Venipuncture / Unknown 10/07/2022 9:30 AM DELIVERY ASSISTANT 10/07/2022 9:35 AM DELIVERY ASSISTANT us Adams Washington MD LAB - BLOOD ORDERABLES F inal Result LABORATORY [facility] [address] Lab (1st floor, no room number) [place] [address], [facility] [phone] * HPV High Risk Types DNA Cervical (12/03/2019 1:30 PM DELIVERY ASSISTANT) HPV Source SurePath 12/03/2019 1:29 PM [facility] HPV 16 DNA Negative NEG^Nega tive 12/09/2019 3:31 PM DELIVERY ASSISTANT [facility] HPV 18 DNA Negative NEG^Nega tive 12/09/2019 3:31 PM DELIVERY ASSISTANT [facility] Other HR HPV Negative NEG^Nega tive 12/09/2019 3:31 PM DELIVERY ASSISTANT [facility] Final Diagnosis This patient's sample is negative for HPV DNA. 12/09/2019 3:31 PM DELIVERY ASSISTANT [facility] Comment: This test was developed and its performance characteristics determined by the [facility], Molecular Diagnostics Laboratory. It has not been cleared or approved by the FDA. The laboratory is regulated under CLIA as qualified to perform high-complexity testing. This test is used for clinical purposes. It should not be regarded as investigational or for research. (Note) METHODOLOGY: The Sj sergio 4800 system uses automated extraction, simultaneous amplification of HPV (L1 region) and beta-globin, followed by real time detection of fluorescent labeled HPV and beta globin using specific oligonucleotide probes . The test specifically identifies types HPV 16 DNA and HPV 18 DNA while concurrently detecting the rest of the high risk types (31, 33, 35, 39, 45, 51, 52, 56, 58, 59, 66 or 68). COMMENTS: This test is not intended for use as a screening device for women under age 30 with normal cervical cytology. Results should be correlated with cytologic and histologic findings. Close clinical followup is recommended. Specimen Description Cervical Cells 12/03/2019 1:29 PM DELIVERY ASSISTANT [facility] Comment:[id number] Cervical Cells 12/03/2019 1: 30 PM DELIVERY ASSISTANT 12/03/2019 2:05 PM DELIVERY ASSISTANT us Adams Baron MD LAB - BLOOD ORDERABLES Final Result [facility] [address] [place] [address] [facility] [address] [facility] [address] [place] [address] * Pap imaged thin layer screen with HPV - recommended age 30 - 65 years (select HPV order below) (12/03/2019 1:29 PM DELIVERY ASSISTANT) PAP NIL COPATH Copath Report Patient Name: SHANTELLE RICHARDSON MR#: [id number] Specimen #: [id number] Collected: 12/03/2019 Received: 12/04/2019 Reported: 12/06/2019 07:36 Ordering Phy(s): ADAMS BARON For improved result formatting, select 'View Enhanced Report Format' under Linked Documents section. SPECIMEN/STAIN PROCESS: Pap imaged thin layer prep screening (Surepath, FocalPoint with guided screening) Pap-Cyto x 1, HPV ordered x 1 SOURCE: Cervical, endocervical Pap imaged thin layer prep screening (Surepath, FocalPoint with guided screening) SPECIMEN ADEQUACY: Satisfactory for evaluation. -Transformation zone component present. CYTOLOGIC INTERPRETATION: Negative for intraepithelial lesion or malignancy Electronically signed out by: SAV Ortez (ASCP) CLINICAL HISTORY: LMP: 11/11/2019 A previous normal pap Date of Last Pap: 10/06/2015, Papanicolaou Test Limitations: Cervical cytology is a screening test with limited sensitivity; regular screening is critical for cancer prevention; Pap tests are primarily effective for the diagnosis/preventi on of squamous cell carcinoma, not adenocarcinomas or other cancers. COLLECTION SITE: Client: [facility] Location: [facility]) The technical component of this testing was completed at the [facility], with the professional component performed at the [facility] [address] [place] [phone] ([phone]) COPATH Cytologic material (specimen) 12/03/2019 1:29 PM DELIVERY ASSISTANT 12/04/2019 10:46 AM DELIVERY ASSISTANT us Adams Baron MD LAB - OPTIME CLINICAL SPECIMEN Final Result [facility] * HIV Antigen Antibody Combo (06/23/2016) HIV Antigen Antibody Combo nonreactive Blood specimen (specimen) us Patient Reported LAB - BLOOD ORDERABLES Final Re sult from Last 3 Months or Most Recently Relevant to Health Maintenance Insurance [facility] Advance Directives For more information, please contact: [phone] * Full Code (Latest Code Status on File) Date Activated Date Inactivated Comments 09/11/2012 8:22 AM 10/07/2022 9:04 AM Care Teams Manager Paper Relationship Specialty Start Date End Date No Ref-Primary, Physician PCP - General 10/07/22 Mandeep Guadarrama MD [address] [place] [address] Fellow Endocrinology, Diabetes, and Metabolism 05/09/24 Tate Salazar MD [address] [place] [address] Endocrinology, Diabetes, and Metabolism 05/13/24 Tate Salazar MD [address] [place] [address] Assigned Endocrinology Provider 06/07/24
--- OUTSIDE RECORDS SUMMARY | 2024-09-04 14:21 | XMS_ITS | Encounter Summary ---
Author Organization [facility] Address [address] [place] [address] Care Team Providers Care Bulb Filler Name Role Phone No Ref-Primary, Physician Primary Care Provider Mandeep Guadarrama MD Unavailable [phone] Tate Salazar MD Unavailable [phone] Tate Salazar MD Unavailable [phone] Encounter Details Date Type Department Care Team (Late st Contact Info) Description 08/28/2024 10:15 AM MOTORCYCLE SERVICE TECHNICIAN Lab [address] [address] Graves disease Social History Tobacco [...] on file Legal Sex Female 3:16 AM MOTORCYCLE SERVICE TECHNICIAN Gender Identity Female 09/24/2021 9:00 AM MOTORCYCLE SERVICE TECHNICIAN Sexual Orientation Not on file documented as of this encounter Plan of Treatment Upcoming Encounters Date Type Department Care Team (Late st Contact Info) Description 09/09/2024 11:30 AM MOTORCYCLE SERVICE TECHNICIAN Virtual Visit [address] [phone] Tate Salazar MD [address] [place] [address] documented as of this encounter Procedures Procedure Name Priority Date/Time Associated Diagnosis Comments LABORATORY MISCELLANEOUS ORDER Routine 08/28/2024 9:55 AM MOTORCYCLE SERVICE TECHNICIAN Graves disease THYROTROPIN RECEPTOR ANTIBODY Routine 08/28/2024 9:55 AM MOTORCYCLE SERVICE TECHNICIAN Graves disease JIMENEZ MISCELLANEOUS TEST Routine 08/28/2024 9:55 AM MOTORCYCLE SERVICE TECHNICIAN Graves disease TSH Routine 08/28/2024 9:55 AM MOTORCYCLE SERVICE TECHNICIAN Graves disease THYROXINE TOTAL Routine 08/28/2024 9:55 AM MOTORCYCLE SERVICE TECHNICIAN Graves disease T3 TOTAL Routine 08/28/2024 9:55 AM MOTORCYCLE SERVICE TECHNICIAN Graves disease documented in this encounter Results * (ABNORMAL) FFTSI; Thyroid-stimulating Immunoglobulin (TSI) [facility] Miscellaneous Test (08/28/2024 9:55AM MOTORCYCLE SERVICE TECHNICIAN) [facility] Result SEE NOTE(A) 09/01/2024 4:06 PM MOTORCYCLE SERVICE TECHNICIAN [facility] Comment: Test Result Flag Unit RefValue Thyroid Stim Immunoglobulin 1.57 H IU/L 0.00-0.55 Test Performed by: [employer] [address] Blood BLOOD SPECIMEN / Unknown Venipuncture / Unknown 08/28/2024 9:55 AM MOTORCYCLE SERVICE TECHNICIAN 08/28/2024 9:59 AM MOTORCYCLE SERVICE TECHNICIAN Tate Salazar MD LAB - BLOOD ORDERABLES Final Result [facility] [address] [place] [id number], [facility] [phone] * (ABNORMAL) Thyrotropin Receptor Antibody (08/28/2024 9:55 AM MOTORCYCLE SERVICE TECHNICIAN) Thyrotropin Receptor Antibody 2.88(H) 0.00 - 1.75 IU/L 08/30/2024 11:05 AM MOTORCYCLE SERVICE TECHNICIAN [facility] Comment: ADDITIONAL INFORMATION At a decision limit of 1.75 IU/L, this assay has 97% sensitivity and 99% specificity for detection of Graves' disease. In healthy individuals and in patients with thyroid disease without diagnosis of Graves' disease, the upper limit of anti-TSHR values are 1.22 IU/L and 1.58 IU/L, respectively (97.5th percentiles). Test Performed by: [facility] [place] [address] [employer] Powerplant Supervisor: Barrington Douglas Ph.D.; CLIA# [id number] Blood BLOOD SPECIMEN / Unknown Venipuncture / Unknown 08/28/2024 9:55 AM MOTORCYCLE SERVICE TECHNICIAN 08/28/2024 9:59 AM MOTORCYCLE SERVICE TECHNICIAN [facility] Martin DAWSON LAB - IMMUNOLOGY ORDERABLES F inal Result [facility] [address] [place], [place] [id number] [place] [address] * [facility]; FFTSI; Thyroid-stimulating Immunoglobulin (TSI) (Laboratory Miscellaneous Order) (08/28/2024 9:55 AM MOTORCYCLE SERVICE TECHNICIAN) Specimen Status Specimen received. Reordered and sent to performing laboratory. Report to follow upon completion. [facility] 08/28/2024 10:01 AM MOTORCYCLE SERVICE TECHNICIAN LABORATORY Performing Laboratory [facility] 08/28/2024 10:01 AM MOTORCYCLE SERVICE TECHNICIAN LABORATORY Test Name Thyroid-stimulati ng Immunoglobulin (TSI) [facility] 08/28/2024 10:01 AM MOTORCYCLE SERVICE TECHNICIAN LABORATORY Test Code FFTSI [facility] 08/28/2024 10:01 AM MOTORCYCLE SERVICE TECHNICIAN LABORATORY Blood BLOOD SPECIMEN / Unknown Venipuncture / Unknown 08/28/2024 9:55 AM MOTORCYCLE SERVICE TECHNICIAN 08/28/2024 9:59 AM MOTORCYCLE SERVICE TECHNICIAN Tate Salazar MD LAB - BLOOD ORDERABLES Final Result LABORATORY [facility] [address] [facility] Lab (no room number, 1st floor of [facility] [place] [address] * (ABNORMAL) T3 total (08/28/2024 9:55 AM MOTORCYCLE SERVICE TECHNICIAN) T3 Total 206(H) 85 - 202 ng/dL 08/28/2024 7:04 PM MOTORCYCLE SERVICE TECHNICIAN [facility] Blood BLOOD SPECIMEN / Unknown Venipuncture / Unknown 08/28/2024 9:55 AM MOTORCYCLE SERVICE TECHNICIAN 08/28/2024 9:58 AM MOTORCYCLE SERVICE TECHNICIAN Tate Salazar MD LAB - BLOOD ORDERABLES Final Result [facility] [place] [facility] [address] [facility], [address] * (ABNORMAL) Thyroxine total (08/28/2024 9:55 AM MOTORCYCLE SERVICE TECHNICIAN) T4 Total 13.9(H) 4.5 - 11.7 ug/dL 08/28/2024 6:05 PM MOTORCYCLE SERVICE TECHNICIAN [facility] Blood BLOOD SPECIMEN / Unknown Venipuncture / Unknown 08/28/2024 9:55 AM MOTORCYCLE SERVICE TECHNICIAN 08/28/2024 9:58 AM MOTORCYCLE SERVICE TECHNICIAN Tate Salazar MD LAB - BLOOD ORDERABLES Final Result [facility] [place] [facility] [address] [facility], [address] [phone] * TSH (08/28/2024 9:55 AM MOTORCYCLE SERVICE TECHNICIAN) TSH 0.56 0.30 - 4.20 uIU/mL 08/28/2024 6:05 PM MOTORCYCLE SERVICE TECHNICIAN [facility] Blood BLOOD SPECIMEN / Unknown Venipuncture / Unknown 08/28/2024 9:55 AM MOTORCYCLE SERVICE TECHNICIAN 08/28/2024 9:58 AM MOTORCYCLE SERVICE TECHNICIAN Tate Salazar MD LAB - BLOOD ORDERABLES Final Result [facility] [place] [facility] [address] [facility] [address], [address] [place] [address] documented in this encounter Visit Diagnoses Diagnosis Graves disease Toxic diffuse goiter without mention of thyrotoxic crisis or storm documented in this encounter Care Teams Bulb Filler Relationship Specialty Start Date End Date No Ref-Primary, Physician PCP - General 10/07/22 Mandeep Guadarrama MD [address] [place] [address] Fellow Endocrinology, Diabetes, and Metabolism 05/09/24 Tate Salazar MD [address] [place] [phone] Endocrinology, Diabetes, and Metabolism 05/13/24 Tate Salazar MD [address] [place] [address] Assigned Endocrinology Provider 06/07/24 documented as of this encounter
--- OUTSIDE RECORDS SUMMARY | 2024-09-04 14:21 | XMS_ITS | Referral Summary ---
Author Organization [facility] Address [address] [place] [address] Care Team Providers Care Dairy Chemist Name Role Phone No Ref-Primary, Physician Primary Care Provider Mandeep Guadarrama MD Unavailable [phone] Tate Salazar MD Unavailable [phone] Tate Salazar MD Unavailable [phone] Encounters Date Type Department Care Team Description 08/28/2024 Travel 08/28/2024 10:15 AM BULLET MAKER Lab [facility] [address] [place] [phone] Graves disease 08/26/2024 MyC Medical Advice [facility] Endocrinology [address] [address] Tate Salazar MD Graves disease (Primary Dx) 07/17/2024 [facility] Medical Advice [address] [phone] Tate Salazar MD 07/16/2024 10:15 AM CDT Lab [facility] [address] [place] [address] Graves disease 06/14/2024 MyC Medical Advice [facility] Endocrinology [address] [phone] Tate Salazar MD 06/11/2024 Travel 06/11/2024 11:00 AM CDT Lab [facility] [address] [place] [address] Graves disease from Last 3 Months Allergies Active Allergy [...] on file Legal Sex Female 3:16 AM BULLET MAKER Gender Identity Female 09/24/2021 9:00 AM BULLET MAKER Sexual Orientation Not on file Last Filed Vital Signs Vital Sign Reading Time Taken Comments Blood Pressure 124/78 10/07/2022 12:08 PM BULLET MAKER Pulse 95 10/07/2022 1:49 PM BULLET MAKER Temperature 36.5 C (97.7 F) 10/07/2022 9:21 AM BULLET MAKER Respiratory Rate 16 10/07/2022 1:49 PM BULLET MAKER Oxygen Saturation 100% 10/07/2022 12:08 PM BULLET MAKER Inhaled Oxygen Concentration - - Weight 82.6 kg (182 lb) 05/16/2024 9:20 AM CDT Height 162.6 cm (5' 4) 12/03/2019 1:20 PM BULLET MAKER Body Mass Index 31.24 12/03/2019 1:20 PM BULLET MAKER Plan of Treatment Upcoming Encounters Date Type Department Care Team (Late st Contact Info) Description 09/09/2024 11:30 AM BULLET MAKER Virtual Visit [facility] [address] [place] [phone] Tate Salazar MD [address] [place] [address] Procedures Procedure Name Priority Date/Time Associated Diagnosis Comments [facility] MISCELLANEOUS TEST Routine 08/28/2024 9:55 AM BULLET MAKER Graves disease THYROTROPIN RECEPTOR ANTIBODY Routine 08/28/2024 9:55 AM BULLET MAKER Graves disease LABORATORY MISCELLANEOUS ORDER Routine 08/28/2024 9:55 AM BULLET MAKER Graves disease T3 TOTAL Routine 08/28/2024 9:55 AM BULLET MAKER Graves disease THYROXINE TOTAL Routine 08/28/2024 9:55 AM BULLET MAKER Graves disease TSH Routine 08/28/2024 9:55 AM BULLET MAKER Graves disease T3 TOTAL Routine 07/16/2024 9:55 AM CDT Graves disease THYROXINE TOTAL Routine 07/16/2024 9:55 AM CDT Graves disease TSH Routine 07/16/2024 9:55 AM CDT Graves disease T3 TOTAL Routine 06/11/2024 10:49 AM CDT Graves disease THYROXINE TOTAL Routine 06/11/2024 10:49 AM CDT Graves disease TSH Routine 06/11/2024 10:49 AM CDT Graves disease BASIC METABOLIC PANEL STAT 10/07/2022 9:30 AM BULLET MAKER HPV HIGH RISK TYPES DNA CERVICAL Routine 12/03/2019 1:30 PM BULLET MAKER Screening for malignant neoplasm of cervix PAP IMAGED THIN LAYER SCREEN Routine 12/03/2019 1:29 PM BULLET MAKER Screening for malignant neoplasm of cervix HIV ANTIGEN ANTIBODY COMBO Routine 06/23/2016 from Last 3 Months or Most Recently Relevant to Health Maintenance Results * [facility]; FFTSI; Thyroid-stimulating Immunoglobulin (TSI) (Laboratory Miscellaneous Order) (08/28/2024 9:55 AM BULLET MAKER) Pathologist [facility] Specimen Status Specimen received. Reordered and sent to performing laboratory. Report to follow upon completion. [facility] 08/28/2024 10:01 AM BULLET MAKER LABORATORY Performing Laboratory [facility] 08/28/2024 10:01 AM BULLET MAKER LABORATORY Test Name Thyroid-stimulati ng Immunoglobulin (TSI) [facility] 08/28/2024 10:01 AM BULLET MAKER LABORATORY Test Code FFTSI [facility] 08/28/2024 10:01 AM BULLET MAKER LABORATORY Blood BLOOD SPECIMEN / Unknown Venipuncture / Unknown 08/28/2024 9:55 AM BULLET MAKER 08/28/2024 9:59 AM BULLET MAKER [facility] Martin DAWSON LAB - BLOOD ORDERABLES Final Result LABORATORY [facility] [address] [facility] (no room number, 1st floor of clinic) [place] [address] * (ABNORMAL) Thyrotropin Receptor Antibody (08/28/2024 9:55 AM BULLET MAKER) Pathologist [facility] Thyrotropin Receptor Antibody 2.88(H) 0.00 - 1.75 IU/L 08/30/2024 11:05 AM BULLET MAKER [facility] Comment: ADDITIONAL INFORMATION At a decision limit of 1.75 IU/L, this assay has 97% sensitivity and 99% specificity for detection of Graves' disease. In healthy individuals and in patients with thyroid disease without diagnosis of Graves' disease, the upper limit of anti-TSHR values are 1.22 IU/L and 1.58 IU/L, respectively (97.5th percentiles). Test Performed by: [facility] [address] [place] [address] Cover Inspector: Barrington Douglas Ph.D.; CLIA# [id number] Blood BLOOD SPECIMEN / Unknown Venipuncture / Unknown 08/28/2024 9:55 AM BULLET MAKER 08/28/2024 9:59 AM BULLET MAKER Tate Salazar MD LAB - IMMUNOLOGY ORDERABLES F inal Result Performing Organization Address [facility]/ZIP Co de Phone Number [facility] [address] [phone] * (ABNORMAL) FFTSI; Thyroid-stimulating Immunoglobulin (TSI) [place] Miscellaneous Test (08/28/2024 9:55AM BULLET MAKER) [facility] Jimenez Result SEE NOTE(A) 09/01/2024 4:06 PM BULLET MAKER [facility] Comment: Test Result Flag Unit RefValue Thyroid Stim Immunoglobulin 1.57 H IU/L 0.00-0.55 Test Performed by: [address] [address] Blood BLOOD SPECIMEN / Unknown Venipuncture / Unknown 08/28/2024 9:55 AM BULLET MAKER 08/28/2024 9:59 AM BULLET MAKER Tate Salazar MD LAB - BLOOD ORDERABLES Final Result Performing Organization Address [facility]/ZIP Co de Phone Number [facility] [address] [place] [address], [facility] [phone] * TSH (08/28/2024 9:55 AM BULLET MAKER) Only the most recent of3 resultswithin the time period is included. [facility] TSH 0.56 0.30 - 4.20 uIU/mL 08/28/2024 6:05 PM BULLET MAKER U LABORATORY Blood BLOOD SPECIMEN / Unknown Venipuncture / Unknown 08/28/2024 9:55 AM BULLET MAKER 08/28/2024 9:58 AM BULLET MAKER Tate Salazar MD LAB - BLOOD ORDERABLES Final Result LABORATORY [facility] [place] Core Lab [address] [facility], [address] [phone] * (ABNORMAL) Thyroxine total (08/28/2024 9:55 AM BULLET MAKER) Only the most recent of3 resultswithin the time period is included. T4 Total 13.9(H) 4.5 - 11.7 ug/dL 08/28/2024 6:05 PM BULLET MAKER U LABORATORY Blood BLOOD SPECIMEN / Unknown Venipuncture / Unknown 08/28/2024 9:55 AM BULLET MAKER 08/28/2024 9:58 AM BULLET MAKER Tate Salazar MD LAB - BLOOD ORDERABLES Final Result Performing Organization Address City/[facility] Co de Phone Number LABORATORY [facility] Core Lab [address] [facility], [address] [phone] * (ABNORMAL) T3 total (08/28/2024 9:55 AM BULLET MAKER) Only the most recent of3 resultswithin the time period is included. T3 Total 206(H) 85 - 202 ng/dL 08/28/2024 7:04 PM BULLET MAKER U LABORATORY Blood BLOOD SPECIMEN / Unknown Venipuncture / Unknown 08/28/2024 9:55 AM BULLET MAKER 08/28/2024 9:58 AM BULLET MAKER Tate Salazar MD LAB - BLOOD ORDERABLES Final Result LABORATORY [facility] [place] Core Lab [address] [facility], [address] [place] [address], [facility] * (ABNORMAL) Basic metabolic panel (10/07/2022 9:30 AM BULLET MAKER) Sodium 137 136 - 145 mmol/L 10/07/2022 11:03 AM [facility] Potassium 4.2 3.4 - 5.3 mmol/L 10/07/2022 11:03 AM [facility] Chloride 102 98 - 107 mmol/L 10/07/2022 11:03 AM [facility] Carbon Dioxide (CO2) 22 22 - 29 mmol/L 10/07/2022 11:03 AM [facility] Anion Gap 13 7 - 15 mmol/L 10/07/2022 11:03 AM [facility] Urea Nitrogen 10.9 6.0 - 20.0 mg/dL 10/07/2022 11:03 AM [facility] Creatinine 0.72 0.51 - 0.95 mg/dL 10/07/2022 11:03 AM [facility] Calcium 9.6 8.6 - 10.0 mg/dL 10/07/2022 11:03 AM [facility] Glucose 105(H) 70 - 99 mg/dL 10/07/2022 11:03 AM [facility] GFR Estimate >90 >60 mL/min/1.7 3m2 10/07/2022 11:03 AM [facility] Comment:Effective September 162020 eGFRcr in adults is calculated using the 2020 CKD-EPI creatinine equation which includes age and gender (Arianna et al., NEJM, DOI: 10.1056/PXJEyk4567167) Blood STRUCTURE OF RIGHT UPPER LIMB / Unknown Venipuncture / Unknown 10/07/2022 9:30 AM BULLET MAKER 10/07/2022 9:35 AM BULLET MAKER us Medardo Washington MD LAB - BLOOD ORDERABLES F inal Result LABORATORY [facility] [address] Lab (1st floor, no room number) [place] [address], [facility] [phone] * HPV High Risk Types DNA Cervical (12/03/2019 1:30 PM BULLET MAKER) HPV Source [facility] 12/03/2019 1:29 PM BULLET MAKER [facility] HPV 16 DNA Negative NEG^Nega tive 12/09/2019 3:31 PM BULLET MAKER [facility] HPV 18 DNA Negative NEG^Nega tive 12/09/2019 3:31 PM BULLET MAKER [facility] Other HR HPV Negative NEG^Nega tive 12/09/2019 3:31 PM BULLET MAKER [facility] Final Diagnosis This patient's sample is negative for HPV DNA. 12/09/2019 3:31 PM BULLET MAKER [facility] Comment: This test was developed and its performance characteristics determined by the [facility], Molecular Diagnostics Laboratory. It has [...] Specimen Description Cervical Cells 12/03/2019 1:29 PM BULLET MAKER [facility] Comment:[id number] Cervical Cells 12/03/2019 1: 30 PM BULLET MAKER 12/03/2019 2:05 PM BULLET MAKER us Medardo Baron MD LAB - BLOOD ORDERABLES Final Result [facility] [address] [place] [address] [facility] [address] [facility] [address] [place] [address] * Pap imaged thin layer screen with HPV - recommended age 30 - 65 years (select HPV order below) (12/03/2019 1:29 PM BULLET MAKER) PAP YULIET Sanchez Report Patient Name: TELLY RICHARDSON MR#: [id number] Specimen #: [id number] Collected: 12/03/2019 Received: 12/04/2019 Reported: 12/06/2019 07:36 [...] adenocarcinomas or other cancers. COLLECTION SITE: Client: [facility] Location: HUM[place]ERTO (R) The technical component of this testing was completed at the [facility] [employer] [facility], with the professional component performed at the [facility], [address] [place] [phone] ([phone]) SARATH Cytologic material (specimen) 12/03/2019 1:29 PM BULLET MAKER 12/04/2019 10:46 AM BULLET MAKER us Medardo Baron MD LAB - OPTIME CLINICAL SPECIMEN Final Result [facility] * HIV Antigen Antibody Combo (06/23/2016) HIV Antigen Antibody Combo nonreactive Blood specimen (specimen) us Patient Reported LAB - BLOOD ORDERABLES Final Re sult from Last 3 Months or Most Recently Relevant to Health Maintenance Insurance [facility] Advance Directives For more information, please contact: [phone] * Full Code (Latest Code Status on File) Date Activated Date Inactivated Comments 09/11/2012 8:22 AM 10/07/2022 9:04 AM Care Teams Dairy Chemist Relationship Specialty Start Date End Date No Ref-Primary, Physician PCP - General 10/07/22 Mandeep Guadarrama MD [address] [place] [address] Fellow Endocrinology, Diabetes, and Metabolism 05/09/24 Tate Salazar MD [address] [place] [address] Endocrinology, Diabetes, and Metabolism 05/13/24 Tate Salazar MD [address] [place] [address] Assigned Endocrinology Provider 06/07/24
--- OUTSIDE RECORDS SUMMARY | 2024-09-04 14:21 | XMS_ITS | Encounter Summary ---
Author Organization [facility] Address [address] [place] [address] Care Team Providers Care Semiconductor Lab Technician Name Role Phone No Ref-Primary, Physician Primary Care Provider Mandeep Guadarrama MD Unavailable [phone] Tate Salazar MD Unavailable [phone] Tate Salazar MD Unavailable [phone] Encounter Details Date Type Department Care Team (Latest Contact Info) Description 08/26/2024 [facility] Medical Advice [facility] Endocrinology Clinic [address] [address] Tate Salazar MD [address] [place] [address] [phone] Graves disease (Primary Dx) Social History Tobacco [...] on file Legal Sex Female 3:16 AM INTERNAL GRINDING MACHINE OPERATOR Gender Identity Female 09/24/2021 9:00 AM INTERNAL GRINDING MACHINE OPERATOR Sexual Orientation Not on file documented as of this encounter Plan of Treatment Upcoming Encounters Date Type Department Care Team (Late st Contact Info) Description 09/09/2024 11:30 AM INTERNAL GRINDING MACHINE OPERATOR Virtual Visit [address] [address] Tate Salazar MD [address] [place] [address] documented as of this encounter Results * (ABNORMAL) Thyrotropin Receptor Antibody (08/28/2024 9:55 AM INTERNAL GRINDING MACHINE OPERATOR) Thyrotropin Receptor Antibody 2.88(H) 0.00 - 1.75 IU/L 08/30/2024 11:05 AM INTERNAL GRINDING MACHINE OPERATOR [facility] Comment: ADDITIONAL INFORMATION At a decision limit of 1.75 IU/L, this assay has 97% sensitivity and 99% specificity for detection of Graves' disease. In healthy individuals and in patients with thyroid disease without diagnosis of Graves' disease, the upper limit of anti-TSHR values are 1.22 IU/L and 1.58 IU/L, respectively (97.5th percentiles). Test Performed by: [facility] [place] [address] Business Development Sales Executive: Barrington Douglas Ph.D.; CLIA# [id number] Blood BLOOD SPECIMEN / Unknown Venipuncture / Unknown 08/28/2024 9:55 AM INTERNAL GRINDING MACHINE OPERATOR 08/28/2024 9:59 AM INTERNAL GRINDING MACHINE OPERATOR Tate Salazar MD LAB - IMMUNOLOGY ORDERABLES F inal Result [facility] [address] [place] [address], [facility] [phone] * [facility]; FFTSI; Thyroid-stimulating Immunoglobulin (TSI) (Laboratory Miscellaneous Order) (08/28/2024 9:55 AM INTERNAL GRINDING MACHINE OPERATOR) Specimen Status Specimen received. Reordered and sent to performing laboratory. Report to follow upon completion. [facility] 08/28/2024 10:01 AM INTERNAL GRINDING MACHINE OPERATOR [facility] LABORATORY Performing Laboratory [facility] 08/28/2024 10:01 AM INTERNAL GRINDING MACHINE OPERATOR [facility] Test Name Thyroid-stimulati ng Immunoglobulin (TSI) [facility] 08/28/2024 10:01 AM INTERNAL GRINDING MACHINE OPERATOR [facility] Test Code FFTSI [facility] 08/28/2024 10:01 AM INTERNAL GRINDING MACHINE OPERATOR [facility] Blood BLOOD SPECIMEN / Unknown Venipuncture / Unknown 08/28/2024 9:55 AM INTERNAL GRINDING MACHINE OPERATOR 08/28/2024 9:59 AM INTERNAL GRINDING MACHINE OPERATOR Tate Salazar MD LAB - BLOOD ORDERABLES Final Result LV LABORATORY [facility] [address] [facility] Lab (no room number, 1st floor of clinic) [place] [address], [facility] documented in this encounter Visit Diagnoses Diagnosis Graves disease- Primary Toxic diffuse goiter without mention of thyrotoxic crisis or storm documented in this encounter Care Teams Semiconductor Lab Technician Relationship Specialty Start Date End Date No Ref-Primary, Physician PCP - General 10/07/22 Mandeep Guadarrama MD [address] [place] [address] [phone] Fellow Endocrinology, Diabetes, and Metabolism 05/09/24 Tate Salazar MD [address] [place] [phone] Endocrinology, Diabetes, and Metabolism 05/13/24 Tate Salazar MD [address] [place] [address] [phone] Assigned Endocrinology Provider 06/07/24 documented as of this encounter
--- OUTSIDE RECORDS SUMMARY | 2024-09-04 14:21 | XMS_ITS | Encounter Summary ---
Author Organization [place] Address [address] [place] [address] Care Team Providers Care Resistance Machine Welder Setter Name Role Phone No Ref-Primary, Physician Primary Care Provider Mandeep Guadarrama MD Unavailable [phone] Tate Salazar MD Unavailable [phone] Tate Salazar MD Unavailable [phone] Encounter Details Date Type Department Care Team (Latest Contact Info) Description 08/28/2024 Travel Social History Tobacco Use Types Packs/Day [...] on file Legal Sex Female 3:16 AM COMMUNITY HEALTH CONSULTANT Gender Identity Female 09/24/2021 9:00 AM COMMUNITY HEALTH CONSULTANT Sexual Orientation Not on file documented as of this encounter Plan of Treatment Upcoming Encounters Date Type Department Care Team (Late st Contact Info) Description 09/09/2024 11:30 AM COMMUNITY HEALTH CONSULTANT Virtual Visit [address] [address] Tate Salazar MD [address] [place] [address] documented as of this encounter Visit Diagnoses Not on filedocumented in this encounter Care Teams Resistance Machine Welder Setter Relationship Specialty Start Date End Date No Ref-Primary, Physician PCP - General 10/07/22 Mandeep Guadarrama MD [address] [place] [address] Fellow Endocrinology, Diabetes, and Metabolism 05/09/24 Tate Salazar MD [address] [place] [address] [phone] Endocrinology, Diabetes, and Metabolism 05/13/24 Tate Salazar MD [address] [place], [place] 888115 Assigned Endocrinology Provider 06/07/24 documented as of this encounter
--- OUTSIDE RECORDS SUMMARY | 2024-09-04 14:22 | XMS_ITS | Encounter Summary ---
Author Organization [place] Address [address] [place] [address] Care Team Providers Care Bread Oven Operator Name Role Phone Sujata Payne MD Primary Care Provider [phone] Sujata Payne MD Unavailable [phone] Adams Rose MD Unavailable [phone] No Ref-Primary, Physician Primary Care Provider Mandeep Guadarrama MD Unavailable [phone] Tate Salazar MD Unavailable [phone] Tate Salazar MD Unavailable [phone] Encounter Details Date Type Department Care Team (Late st Contact Info) Description 12/09/2019 MyC Medical Advice [facility] Women[facility] [address] [place] [phone] Adams Rose MD [address] [place] [address] Social History Tobacco Use Types Packs/Day Years Used Date Smoking Tobacco: Former Cigarettes Q uit: 10/06/2008 Smokeless Tobacco: Never Alcohol Use Standard Drinks/Week Comments No 0 (1 standard drink = 0.6 oz pur e alcohol) PHQ-2 Answer Date Recorded PHQ-2 Score 0 12/03/2019 Comments No Sex and Gender Information Value Date Recorded Sex Assigned at Not on file Legal Sex Female 3:16 AM SPINDLE FRAME CARVER Gender Identity Female 09/24/2021 9:00 AM SPINDLE FRAME CARVER Sexual Orientation Not on file documented as of this encounter Plan of Treatment Upcoming Encounters Date Type Department Care Team (Late st Contact Info) Description 09/09/2024 11:30 AM SPINDLE FRAME CARVER Virtual Visit [address] [address] Tate Salazar MD [address] [place] [address] [phone] documented as of this encounter Visit Diagnoses Not on filedocumented in this encounter Care Teams Bread Oven Operator Relationship Specialty [place] [address] [place] [address] PCP - General Family Practice 08/21/17 10/06/22 No Ref-Primary, Physician PCP - General 10/07/22 [place] [address] [place] [address] Assigned PCP 09/17/17 09/05/20 Adams Rose MD [address] [place] [address] Assigned OBGYN Provider 08/07/20 Mandeep Guadarrama MD [address] [place] [address] [phone] Fellow Endocrinology, Diabetes, and Metabolism 05/09/24 Tate Salazar MD [address] [place] [address] Endocrinology, Diabetes, and Metabolism 05/13/24 Tate Salazar MD [address] [place] [address] Assigned Endocrinology Provider 06/07/24 documented as of this encounter
--- OUTSIDE RECORDS SUMMARY | 2024-09-04 14:22 | XMS_ITS | Encounter Summary ---
Author Organization [place] Address [address] [place] [address] Care Team Providers Care Tree Tapping Laborer Name Role Phone Sujata Payne MD Primary Care Provider [phone] Sujata Payne MD Unavailable [phone] Sujata Payne MD Unavailable [phone] Adams Rose MD Unavailable [phone] No Ref-Primary, Physician Primary Care Provider Mandeep Guadarrama MD Unavailable [phone] Tate Salazar MD Unavailable [phone] Tate Salazar MD Unavailable [phone] Encounter Details Date Type Department Care Team (Late st Contact Info) Description 10/04/[address] [facility] Women's [facility] [address] [place] [phone] Adams Rose MD [address] [place] [address] Social History Tobacco Use Types Packs/Day Years Used Date Smoking Tobacco: Former Cigarettes Q uit: 10/06/2008 Smokeless Tobacco: Never Alcohol Use Standard Drinks/Week Comments No 0 (1 standard drink = 0.6 oz pur e alcohol) Comments Yes Sex and Gender Information Value Date Recorded Sex Assigned at Not on file Legal Sex Female 3:16 AM BELT SANDER Gender Identity Female 09/24/2021 9:00 AM BELT SANDER Sexual Orientation Not on file documented as of this encounter Miscellaneous Notes * Telephone Encounter - Adams Rose MD - 10/05/2018 1:44 PM BELT SANDER Spoke with patient. Advised of falling HCG levels. Patient has previously experienced a first trimester loss. Given early timing of loss D&C not likely to be necessary SANDER * Telephone Encounter - Alisha Costa RN - 10/05/2018 1:05 PM BELT SANDER Please see the results of the pt's hcg level, and discuss with her. Alisha Costa RN SANDER documented in this encounter Plan of Treatment Upcoming Encounters Date Type Department Care Team (Late st Contact Info) Description 09/09/2024 11:30 AM BELT SANDER Virtual Visit [address] [address] Tate Salazar MD [address] [place] [address] [phone] documented as of this encounter Visit Diagnoses Not on filedocumented in this encounter Care Teams Tree Tapping Laborer Relationship Specialty [place] [address] [place] [address] PCP - General Family Practice 08/21/17 10/06/22 [place] [address] [place] [address] PCP - Assigned PCP 09/17/17 12/18/18 No Ref-Primary, Physician PCP - General 10/07/22 [place] [address] [place] [address] Assigned PCP 09/17/17 09/05/20 Adams Rose MD [address] [place] [address] Assigned OBGYN Provider 08/07/20 Mandeep Guadarrama MD [address] [place] [address] Fellow Endocrinology, Diabetes, and Metabolism 05/09/24 Tate Salazar MD [address] [place] [address] Endocrinology, Diabetes, and Metabolism 05/13/24 Tate Salazar MD [address] [place] [address] 517455 Assigned Endocrinology Provider 06/07/24 documented as of this encounter
--- OUTSIDE RECORDS SUMMARY | 2024-09-04 14:22 | XMS_ITS | Encounter Summary ---
Author Organization [place] Address [address] [place] [address] Care Team Providers Care Plastic Outfitter Name Role Phone No Ref-Primary, Physician Primary Care Provider Mandeep Guadarrama MD Unavailable [phone] Tate Salazar MD Unavailable [phone] Tate Salazar MD Unavailable [phone] Encounter Details Date Type Department Care Team (Late st Contact Info) Description 07/16/2024 10:15 AM CDT Lab [address] [address] Graves disease Social History Tobacco [...] on file Legal Sex Female 3:16 AM FUR DRUMMER Gender Identity Female 09/24/2021 9:00 AM FUR DRUMMER Sexual Orientation Not on file documented as of this encounter Plan of Treatment Upcoming Encounters Date Type Department Care Team (Late st Contact Info) Description 09/09/2024 11:30 AM FUR DRUMMER Virtual Visit [address] [phone] Tate Salaazr MD [address] [place] [address] documented as of this encounter Procedures Procedure [...] LAB - BLOOD ORDERABLES Final Result LABORATORY [facility] [address] [facility], Room [address] [address], [place] * (ABNORMAL) Thyroxine total (07/16/2024 9:55 AM CDT) T4 Total 13.4(H) 4.5 - 11.7 ug/dL 07/16/2024 7:01 PM CDT [facility] Blood BLOOD SPECIMEN / Unknown Venipuncture / Unknown 07/16/2024 9:55 AM CDT 07/16/2024 9:55 AM CDT Tate Salazar MD LAB - BLOOD ORDERABLES Final Result U LABORATORY [facility] [place] [facility] [address] [facility], Room [address] [place] [phone] * TSH (07/16/2024 9:55 AM CDT) TSH 0.40 0.30 - 4.20 uIU/mL 07/16/2024 7:01 PM CDT [facility] Blood BLOOD SPECIMEN / Unknown Venipuncture / Unknown 07/16/2024 9:55 AM CDT 07/16/2024 9:55 AM CDT Tate Salazar MD LAB - BLOOD ORDERABLES Final Result [facility] [address] [facility], Room [address] [place] [address] documented in this encounter Visit Diagnoses Diagnosis Graves disease Toxic diffuse goiter without mention of thyrotoxic crisis or storm documented in this encounter Care Teams Plastic Outfitter Relationship Specialty Start Date End Date No Ref-Primary, Physician PCP - General 10/07/22 Mandeep Guadarrama MD [address] [place] [address] Fellow Endocrinology, Diabetes, and Metabolism 05/09/24 Tate Salazar MD [address] [place] [address] Endocrinology, Diabetes, and Metabolism 05/13/24 Tate Salazar MD [address] [place] [address] Assigned Endocrinology Provider 06/07/24 documented as of this encounter
--- OUTSIDE RECORDS SUMMARY | 2024-09-04 14:22 | XMS_ITS | Encounter Summary ---
Author Organization [place] Address [address] [place] [address] Care Team Providers Care Auto Design Detailer Name Role Phone No Ref-Primary, Physician Primary Care Provider Mandeep Guadarrama MD Unavailable [phone] Tate Salazar MD Unavailable [phone] Tate Salazar MD Unavailable [phone] Encounter Details Date Type Department Care Team (Late st Contact Info) Description 06/03/2024 MyC Medical Advice [facility] [address] [address] Tate Salazar MD [address] [place] [address] Social History Tobacco Use Types Packs/Day Years [...] on file Legal Sex Female 3:16 AM MOLDED GRID AND PARTS INSPECTOR Gender Identity Female 09/24/2021 9:00 AM MOLDED GRID AND PARTS INSPECTOR Sexual Orientation Not on file documented as of this encounter Plan of Treatment Upcoming Encounters Date Type Department Care Team (Late st Contact Info) Description 09/09/2024 11:30 AM MOLDED GRID AND PARTS INSPECTOR Virtual Visit [address] [address] Tate Salazar MD [address] [place] [address] 119245 documented as of this encounter Visit Diagnoses Not on filedocumented in this encounter Care Teams Auto Design Detailer Relationship Specialty Start Date End Date No Ref-Primary, Physician PCP - General 10/07/22 Mandeep Guadarrama MD [address] [place] [address] Fellow Endocrinology, Diabetes, and Metabolism 05/09/24 Tate Salazar MD [address] [place] [address] Endocrinology, Diabetes, and Metabolism 05/13/24 Tate Salazar MD [address] [place] [address] Assigned Endocrinology Provider 06/07/24 documented as of this encounter
--- OUTSIDE RECORDS SUMMARY | 2024-09-04 14:22 | XMS_ITS | Encounter Summary ---
Author Organization [place] Address [address] [place] [address] Care Team Providers Care Baby Formula Mixer Name Role Phone No Ref-Primary, Physician Primary Care Provider Mandeep Guadarrama MD Unavailable [phone] Tate Salazar MD Unavailable [phone] Tate Salazar MD Unavailable [phone] Encounter Details Date Type Department Care Team (Late st Contact Info) Description 06/11/2024 11:00 AM CDT Lab [address] [address] Graves disease Social History Tobacco [...] on file Legal Sex Female 3:16 AM ASSISTANT REAL ESTATE MANAGER Gender Identity Female 09/24/2021 9:00 AM ASSISTANT REAL ESTATE MANAGER Sexual Orientation Not on file documented as of this encounter Plan of Treatment Upcoming Encounters Date Type Department Care Team (Late st Contact Info) Description 09/09/2024 11:30 AM ASSISTANT REAL ESTATE MANAGER Virtual Visit [address] [phone] Tate Salazar MD [address] [place] [address] documented as of this encounter Procedures Procedure [...] LAB - BLOOD ORDERABLES Final Result LABORATORY [facility] Lab [address] [facility], Room [address] * Thyroxine total (06/11/2024 10:49 AM CDT) T4 Total 9.9 4.5 - 11.7 ug/dL 06/11/2024 7:17 PM CDT [facility] Blood BLOOD SPECIMEN / Unknown Venipuncture / Unknown 06/11/2024 10:49 AM CDT 06/11/2024 10:49 AM CDT Tate Salazar MD LAB - BLOOD ORDERABLES Final Result LABORATORY [facility] [place] [facility] [address] [facility], [address] [phone] [place] [address] * (ABNORMAL) TSH (06/11/2024 10:49 AM CDT) TSH 0.18(L) 0.30 - 4.20 uIU/mL 06/11/2024 7:17 PM CDT [facility] Blood BLOOD SPECIMEN / Unknown Venipuncture / Unknown 06/11/2024 10:49 AM CDT 06/11/2024 10:49 AM CDT Tate Salazar MD LAB - BLOOD ORDERABLES Final Result [facility] [place] [facility] [address] [facility], Room [address]580 [place] [address], [facility] documented in this encounter Visit Diagnoses Diagnosis Graves disease Toxic diffuse goiter without mention of thyrotoxic crisis or storm documented in this encounter Care Teams Baby Formula Mixer Relationship Specialty Start Date End Date No Ref-Primary, Physician PCP - General 10/07/22 Mandeep Guadarrama MD [address] [place] [address] Fellow Endocrinology, Diabetes, and Metabolism 05/09/24 Tate Salazar MD [address] [place] [address] Endocrinology, Diabetes, and Metabolism 05/13/24 Tate Salazar MD [address] [place] [address] Assigned Endocrinology Provider 06/07/24 documented as of this encounter
--- OUTSIDE RECORDS SUMMARY | 2024-09-04 14:22 | XMS_ITS | Encounter Summary ---
Author Organization [place] Address [address] [place] [address] Care Team Providers Care Platform Consultant Name Role Phone No Ref-Primary, Physician Primary Care Provider Mandeep Guadarrama MD Unavailable [phone] Tate Salazar MD Unavailable [phone] Tate Salazar MD Unavailable [phone] Encounter Details Date Type Department Care Team (Late st Contact Info) Description 07/17/2024 MyC Medical Advice [address] [address] Tate Salazar MD [address] [place] [address] 442175 Social History Tobacco Use Types Packs/Day Years [...] on file Legal Sex Female 3:16 AM MACHINE STRIPPER Gender Identity Female 09/24/2021 9:00 AM MACHINE STRIPPER Sexual Orientation Not on file documented as of this encounter Plan of Treatment Upcoming Encounters Date Type Department Care Team (Late st Contact Info) Description 09/09/2024 11:30 AM MACHINE STRIPPER Virtual Visit [address] [address] Tate Salazar MD [address] [place] [address] 214655 documented as of this encounter Visit Diagnoses Not on filedocumented in this encounter Care Teams Platform Consultant Relationship Specialty Start Date End Date No Ref-Primary, Physician PCP - General 10/07/22 Mandeep Guadarrama MD [address] [place] [address]68 Fellow Endocrinology, Diabetes, and Metabolism 05/09/24 Tate Salazar MD [address] [place] [address] Endocrinology, Diabetes, and Metabolism 05/13/24 Tate Salazar MD [address] [place] [address] Assigned Endocrinology Provider 06/07/24 documented as of this encounter
--- OUTSIDE RECORDS SUMMARY | 2024-09-04 14:22 | XMS_ITS | Encounter Summary ---
Author Organization [place] Address [address] [place] [address]. [place] [address] Care Team Providers Care Tennis Desk Team Member Name Role Phone Sujata Payne MD Primary Care Provider [phone] Sujata Payne MD Unavailable [phone] Sujata Payne MD Unavailable [phone] Adams Rose MD Unavailable [phone] No Ref-Primary, Physician Primary Care Provider Mandeep Guadarrama MD Unavailable [phone] Tate Salazar MD Unavailable [phone] Tate Salazar MD Unavailable [phone] Reason for Visit * Reason Onset Date Comments MyChart Communication 05/30/2018 Encounter Details Date Type Department Care Team (Late st Contact Info) Description 05/30/2018 [facility] Medical Advice [facility] [address] [place] [address] [place] [address] [place] [address] MyChart Communication Social History Tobacco Use Types Packs/Day Years Used Date Smoking Tobacco: Former Cigarettes Q uit: 10/06/2008 Smokeless Tobacco: Never Alcohol Use Standard Drinks/Week Comments No 0 (1 standard drink = 0.6 oz pur e alcohol) Comments No Sex and Gender Information Value Date Recorded Sex Assigned at Not on file Legal Sex Female 3:16 AM LICENSED BONDSMAN Gender Identity Female 09/24/2021 9:00 AM LICENSED BONDSMAN Sexual Orientation Not on file documented as [...] was 09/05/17. Roxanna Aguilera RN -- [facility] documented in this encounter Plan of Treatment Upcoming Encounters Date Type Department Care Team (Late st Contact Info) Description 09/09/2024 11:30 AM LICENSED BONDSMAN Virtual Visit [address] [address] Tate Salazar MD [address] [place] [address] [phone] documented as of this encounter Visit Diagnoses Not on filedocumented in this encounter Care Teams Tennis Desk Team Member Relationship Specialty [place] [address] [place] [address] PCP - General Family Practice 08/21/17 10/06/22 [place] [address] [place] [address] PCP - Assigned PCP 09/17/17 12/18/18 No Ref-Primary, Physician PCP - General 10/07/22 [place] [address] [place] [address] Assigned PCP 09/17/17 09/05/20 Adams Rose MD [address] [place] [address] Assigned OBGYN Provider 08/07/20 Mandeep Guadarrama MD [address] [place] [address] Fellow Endocrinology, Diabetes, and Metabolism 05/09/24 Tate Salazar MD [address] [place] [address] Endocrinology, Diabetes, and Metabolism 05/13/24 Tate Salazar MD [address] [place] [address] Assigned Endocrinology Provider 06/07/24 documented as of this encounter
--- OUTSIDE RECORDS SUMMARY | 2024-09-04 14:22 | XMS_ITS | Encounter Summary ---
Author Organization [facility] Address [address] [place] [address] Care Team Providers Care Bill Distributor Name Role Phone No Ref-Primary, Physician Primary Care Provider Mandeep Guadarrama MD Unavailable [phone] Tate Salazar MD Unavailable [phone] Tate Salazar MD Unavailable [phone] Encounter Details Date Type Department Care Team (Latest Contact Info) Description 05/21/2024 [facility] Medical Advice [facility] [address] [address] Tate Salazar MD [address] [place] [address] [id number] Graves disease (Primary Dx) Social History Tobacco [...] on file Legal Sex Female 3:16 AM MINES INSPECTOR Gender Identity Female 09/24/2021 9:00 AM MINES INSPECTOR Sexual Orientation Not on file documented as of this encounter Plan of Treatment Upcoming Encounters Date Type Department Care Team (Late st Contact Info) Description 09/09/2024 11:30 AM MINES INSPECTOR Virtual Visit [address] [address] Tate Salazar MD [address] [place] [address] 26584 Scheduled Orders Name Type Priority Associated Diagnoses Orde r Schedule TSH Lab Routine Graves disease 1m for 8 Occurrences starting 05/27/2024 until 05/27/2025, 3 completed Thyroxine total Lab Routine Graves disease 1m for 8 Occurrences starting 05/27/2024 until 05/27/2025, 3 completed T3 total Lab Routine Graves disease 1 m for 8 Occurrences starting 05/27/2024 until 05/27/2025, 3 completed documented as of this encounter Results * (ABNORMAL) T3 total (08/28/2024 9:55 AM MINES INSPECTOR) T3 Total 206(H) 85 - 202 ng/dL 08/28/2024 7:04 PM MINES INSPECTOR [facility] Blood BLOOD SPECIMEN / Unknown Venipuncture / Unknown 08/28/2024 9:55 AM MINES INSPECTOR 08/28/2024 9:58 AM MINES INSPECTOR us Tate Salazar MD LAB - BLOOD ORDERABLES Final Result [facility] Core Lab [address] [facility], [address] [id number] * (ABNORMAL) Thyroxine total (08/28/2024 9:55 AM MINES INSPECTOR) T4 Total 13.9(H) 4.5 - 11.7 ug/dL 08/28/2024 6:05 PM MINES INSPECTOR [facility] Blood BLOOD SPECIMEN / Unknown Venipuncture / Unknown 08/28/2024 9:55 AM MINES INSPECTOR 08/28/2024 9:58 AM MINES INSPECTOR Tate Salazar MD LAB - BLOOD ORDERABLES Final Result U [facility] Core Lab [address] [facility], [address] * TSH (08/28/2024 9:55 AM MINES INSPECTOR) Pathologist [facility] TSH 0.56 0.30 - 4.20 uIU/mL 08/28/2024 6:05 PM MINES INSPECTOR [facility] Blood BLOOD SPECIMEN / Unknown Venipuncture / Unknown 08/28/2024 9:55 AM MINES INSPECTOR 08/28/2024 9:58 AM MINES INSPECTOR Tate Salazar MD LAB - BLOOD ORDERABLES Final Result LABORATORY [facility] Core Lab [address] [facility], [address] * T3 total (07/16/2024 9:55 AM CDT) Pathologist [facility] T3 Total 191 85 - 202 ng/dL 07/16/2024 7:01 PM CDT [facility] Blood BLOOD SPECIMEN / Unknown Venipuncture / Unknown 07/16/2024 9:55 AM CDT 07/16/2024 9:55 AM CDT Tate Salazar MD LAB - BLOOD ORDERABLES Final Result LABORATORY [facility] Core Lab [address] [facility], [address] * (ABNORMAL) Thyroxine total (07/16/2024 9:55 AM CDT) Pathologist [facility] T4 Total 13.4(H) 4.5 - 11.7 ug/dL 07/16/2024 7:01 PM CDT [facility] Blood BLOOD SPECIMEN / Unknown Venipuncture / Unknown 07/16/2024 9:55 AM CDT 07/16/2024 9:55 AM CDT us Tate Salazar MD LAB - BLOOD ORDERABLES Final Result [facility] Core Lab [address] [facility], [address] * TSH (07/16/2024 9:55 AM CDT) TSH 0.40 0.30 - 4.20 uIU/mL 07/16/2024 7:01 PM CDT [facility] Blood BLOOD SPECIMEN / Unknown Venipuncture / Unknown 07/16/2024 9:55 AM CDT 07/16/2024 9:55 AM CDT Tate Salazar MD LAB - BLOOD ORDERABLES Final Result Performing Organization Address City/[facility]/ZIP Co de Phone Number U LAB[facility] Core Lab [address] [facility], [address] [id number] * T3 total (06/11/2024 10:49 AM CDT) Pathologist [facility] T3 Total 146 85 - 202 ng/dL 06/11/2024 7:17 PM CDT [facility] Blood BLOOD SPECIMEN / Unknown Venipuncture / Unknown 06/11/2024 10:49 AM CDT 06/11/2024 10:49 AM CDT Tate Salazar MD LAB - BLOOD ORDERABLES Final Result [facility] Core Lab [address] [facility], [address] [id number] * Thyroxine total (06/11/2024 10:49 AM CDT) T4 Total 9.9 4.5 - 11.7 ug/dL 06/11/2024 7:17 PM CDT [facility] Blood BLOOD SPECIMEN / Unknown Venipuncture / Unknown 06/11/2024 10:49 AM CDT 06/11/2024 10:49 AM CDT Tate Salazar MD LAB - BLOOD ORDERABLES Final Result [facility] LAB[facility] Core Lab [address] [facility], [address] [address] * (ABNORMAL) TSH (06/11/2024 10:49 AM CDT) TSH 0.18(L) 0.30 - 4.20 uIU/mL 06/11/2024 7:17 PM CDT [facility] Blood BLOOD SPECIMEN / Unknown Venipuncture / Unknown 06/11/2024 10:49 AM CDT 06/11/2024 10:49 AM CDT Tate Salazar MD LAB - BLOOD ORDERABLES Final Result Performing Organization Address City/[facility]/ZIP Co de Phone Number LABORATORY [facility] Core Lab [address] [facility], [address] [address] documented in this encounter Visit Diagnoses Diagnosis Graves disease- Primary Toxic diffuse goiter without mention of thyrotoxic crisis or storm documented in this encounter Care Teams Bill Distributor Relationship Specialty Start Date End Date No Ref-Primary, Physician PCP - General 10/07/22 Mandeep Guadarrama MD [address] [place] [address] Fellow Endocrinology, Diabetes, and Metabolism 05/09/24 Tate Salazar MD [address] [place] [address] Endocrinology, Diabetes, and Metabolism 05/13/24 Tate Salazar MD [address] [place] [address] Assigned Endocrinology Provider 06/07/24 documented as of this encounter
--- OUTSIDE RECORDS SUMMARY | 2024-09-04 14:22 | XMS_ITS | Encounter Summary ---
Author Organization [facility] Address [address] [place] [address] 47[address] Care Team Providers Care Car Dumper Operator Helper Name Role Phone Sujata Payne MD Primary Care Provider [phone] Sujata Payne MD Unavailable [phone] Sujata Payne MD Unavailable [phone] Adams Rose MD Unavailable [phone] No Ref-Primary, Physician Primary Care Provider Mandeep Guadarrama MD Unavailable [phone] Tate Salazar MD Unavailable [phone] Tate Salazar MD Unavailable [phone] Encounter Details Date Type Department Care Team (Late st Contact Info) Description 10/08/2018 MyC Medical Advice [facility] [address] [place] [phone] Adams Rose MD [address] [place] [address] Social History Tobacco Use Types Packs/Day Years Used Date Smoking Tobacco: Former Cigarettes Q uit: 10/06/2008 Smokeless Tobacco: Never Alcohol Use Standard Drinks/Week Comments No 0 (1 standard drink = 0.6 oz pur e alcohol) Comments Yes Sex and Gender Information Value Date Recorded Sex Assigned at Not on file Legal Sex Female 3:16 AM FOREIGN COLLECTION CLERK Gender Identity Female 09/24/2021 9:00 AM FOREIGN COLLECTION CLERK Sexual Orientation Not on file documented as of this encounter Miscellaneous Notes * Telephone Encounter - Adams Rose MD - 10/10/2018 9:50 AM FOREIGN COLLECTION CLERK Spoke with patient. I am much better now. IGN COLLECTION CLERK * Telephone Encounter - Alisha Costa RN - 10/10/2018 8:07 AM FOREIGN COLLECTION CLERK Please see the [employer] message and advise. Pt had miscarriage last week. Alisha Costa RN IGN COLLECTION CLERK documented in this encounter Plan of Treatment Upcoming Encounters Date Type Department Care Team (Late st Contact Info) Description 09/09/2024 11:30 AM FOREIGN COLLECTION CLERK Virtual Visit [address] [address] Tate Salazar MD [address] [place] [address] documented as of this encounter Visit Diagnoses Not on filedocumented in this encounter Care Teams Car Dumper Operator Helper Relationship Specialty [place] [address] [place] [address] PCP - General Family Practice 08/21/17 10/06/22 [place] [address] [place] [address] PCP - Assigned PCP 09/17/17 12/18/18 No Ref-Primary, Physician PCP - General 10/07/22 [place] [address] [place] [address] Assigned PCP 09/17/17 09/05/20 Adams Rose MD [address] [place] [address] Assigned OBGYN Provider 08/07/20 Mandeep Guadarrama MD [address] [place] [address] Fellow Endocrinology, Diabetes, and Metabolism 05/09/24 Tate Salazar MD [address] [place] [address] Endocrinology, Diabetes, and Metabolism 05/13/24 Tate Salazar MD [address] [place] [address] Assigned Endocrinology Provider 06/07/24 documented as of this encounter
--- OUTSIDE RECORDS SUMMARY | 2024-09-04 14:22 | XMS_ITS | Encounter Summary ---
Author Organization [facility] Address [address] [place] [address] Care Team Providers Care Post Tensioning Ironworker Name Role Phone No Ref-Primary, Physician Primary Care Provider Mandeep Guadarrama MD Unavailable [phone] Tate Salazar MD Unavailable [phone] Tate Salazar MD Unavailable [phone] Encounter Details Date Type Department Care Team (Late st Contact Info) Description 05/13/2024 MyC Medical Advice [facility] Endocr[facility]ology Clinic [address] [address] Kishore Lana Social History Tobacco Use Types Packs/Day Years [...] on file Legal Sex Female 3:16 AM PHARMACY CASHIER Gender Identity Female 09/24/2021 9:00 AM PHARMACY CASHIER Sexual Orientation Not on file documented as of this encounter Plan of Treatment Upcoming Encounters Date Type Department Care Team (Late st Contact Info) Description 09/09/2024 11:30 AM PHARMACY CASHIER Virtual Visit [address] [address] Tate Salazar MD [address] [place] [address] documented as of this encounter Visit Diagnoses Not on filedocumented in this encounter Care Teams Post Tensioning Ironworker Relationship Specialty Start Date End Date No Ref-Primary, Physician PCP - General 10/07/22 Mandeep Guadarrama MD [address] [place] [address] Fellow Endocrinology, Diabetes, and Metabolism 05/09/24 Tate Salazar MD [address] [place] [address] Endocrinology, Diabetes, and Metabolism 05/13/24 Tate Salazar MD [address] [place] [address] Assigned Endocrinology Provider 06/07/24 documented as of this encounter
--- OUTSIDE RECORDS SUMMARY | 2024-09-04 14:22 | XMS_ITS | Encounter Summary ---
Author Organization [facility] Address [address] [place] [address] Care Team Providers Care Boom Operator Name Role Phone No Ref-Primary, Physician Primary Care Provider Mandeep Guadarrama MD Unavailable [phone] Tate Salazar MD Unavailable [phone] Tate Salazar MD Unavailable [phone] Reason for Visit * Reason Onset Date Comments Results 10/08/2022 Urine culture Encounter Details Date Type Department Care Team (Late st Contact Info) Description 10/08/2022 Telephone [facility] Emergency Dept [address] [place] [address] Jovita Stack RN Results (Urine culture) Social [...] on file Legal Sex Female 3:16 AM SILO PAINTER Gender Identity Female 09/24/2021 9:00 AM SILO PAINTER Sexual Orientation Not on file COVID-19 Exposure Response Date Recorded In the last 10 days, have yo u been in contact with someone who was confirmed or suspected to have Coronavirus/COVID-19? No / Unsure 10/09/2022 9:23 AM SILO PAINTER documented as of this encounter Miscellaneous Notes * Telephone Encounter - Jovita Stack RN - 10/08/2022 5:16 PM CST [facility] () Emergency Department Lab result notification [place] ED lab result protocol used Urine culture Reason for call Notify of lab results, assess symptoms, review ED providers recommendations/discharge instructions (if necessary) and advise per ED lab result f/u protocol Lab Result (including Rx patient on, if applicable) Final urine culture report shows NO GROWTH and is NEGATIVE. [facility] Emergency Dept discharge antibiotic: Nitrofurantoin Macrocrystal- Monohydrate (Macrobid) 100 mg PO capsule, 1 capsule (100 mg) by mouth 2 times daily for 7 days Recommendations in treatment per [facility] ED Lab result Urine culture protocol. delivery rep (Patient???s current Symptoms), include time called. 5:16 PM - overall patient feels improved Antibiotic 3 days prior to sample: No Genitourinary symptoms: No pain, burning, frequency, urgency Fever: No RN Recommendations/Instructions per [place] ED lab result protocol Patient notified of [...] follow-up Questions asked: YES Jovita Stack RN [facility] Hand[facility] Emergency Dept Lab Result RN Copy of Lab result Urine Culture Order: [id number] - Reflex for Order [id number] Status: Final result ?? Visible to patient: Yes (seen) ?? Specimen Information: Urine, Midstream 1 Result Note Culture No Growth Resulting Agency: [facility] Specimen Collected: 10/07/22 ??9:59 AM Last Resulted: 10/08/22 ??1:17 PM PAINTER documented in this encounter Plan of Treatment Upcoming Encounters Date Type Department Care Team (Late st Contact Info) Description 09/09/2024 11:30 AM SILO PAINTER Virtual Visit [address] [phone] Tate Salazar MD [address] [place] [address] documented as of this encounter Visit Diagnoses Not on filedocumented in this encounter Care Teams Boom Operator Relationship Specialty Start Date End Date No Ref-Primary, Physician PCP - General 10/07/22 Mandeep Guadarrama MD [address] [place] [address] [phone] Fellow Endocrinology, Diabetes, and Metabolism 05/09/24 Tate Salazar MD [address] [place] [address] 423155 Endocrinology, Diabetes, and Metabolism 05/13/24 Tate Salazar MD [address] [place] [address] [phone] Assigned Endocrinology Provider 06/07/24 documented as of this encounter
--- OUTSIDE RECORDS SUMMARY | 2024-09-04 14:22 | XMS_ITS | Encounter Summary ---
Author Organization [facility] Address [address] [place] [address] Care Team Providers Care Golf Stud Riveter Name Role Phone No Ref-Primary, Physician Primary Care Provider Mandeep Guadarrama MD Unavailable [phone] Tate Salazar MD Unavailable [phone] Tate Salazar MD Unavailable [phone] Reason for Visit * Reason Comments Lab Only Encounter Details Date Type Department Care Team (Late st Contact Info) Description 05/26/2024 Documentation Only [facility] Endocrinology Clinic [address] [address] Tate Salazar MD [address] [place] [address] [id number] Lab Only Social History Tobacco Use Types [...] on file Legal Sex Female 3:16 AM LOCKSMITH HELPER Gender Identity Female 09/24/2021 9:00 AM LOCKSMITH HELPER Sexual Orientation Not on file documented as of this encounter Plan of Treatment Upcoming Encounters Date Type Department Care Team (Late st Contact Info) Description 09/09/2024 11:30 AM LOCKSMITH HELPER Virtual Visit [address] [address] Tate Salazar MD [address] [place] [address] documented as of this encounter Visit Diagnoses Not on filedocumented in this encounter Care Teams Golf Stud Riveter Relationship Specialty Start Date End Date No Ref-Primary, Physician PCP - General 10/07/22 Mandeep Guadarrama MD [address] [place] [address] Fellow Endocrinology, Diabetes, and Metabolism 05/09/24 Tate Salazar MD [address] [place] [address] Endocrinology, Diabetes, and Metabolism 05/13/24 Tate Salazar MD [address] [place] [address] Assigned Endocrinology Provider 06/07/24 documented as of this encounter
--- OUTSIDE RECORDS SUMMARY | 2024-09-04 14:22 | XMS_ITS | Clinical Summary ---
Author Organization [facility] Address [place], [place] [address] Care Team Providers Care Automotive Glazier Name Role Phone Sherin Medina MD Primary [...] 7 9 WILLI AMS,[place] GIRL Delivery Location:[facility] Last Filed Vital Signs Vital Sign Reading Time Taken Comments Blood Pressure 116/69 07/02/2011 7:00 AM CDT Pulse 72 07/02/2011 7:00 AM CDT Temperature 36.8 C (98.2 F) 07/02/2011 7:00 AM CDT Respiratory Rate 18 07/01/2011 4:05 PM CDT [...] 2006 Tetanus booster 2008 COVID-19 vaccine series ( season) 2024 Influenza for age 9-49 06/16/2024 06/30/2010 Pap test for age 21-65 10/28/2025 , 10/28/2022 Pneumococcal series for age 6-64 Aged Out No longer eligible b ased on patient's age to complete this topic Procedures Procedure Name Priority Date/Time Associated Diagnosis Comments PANTOGRAPH MACHINE SET UP OPERATOR THIN PREP PAP SCREEN IMAGED Routine 10/28/2022 11:50 AM ASSEMBLY LEAD PERSON from Last 3 Months or Most Recently Relevant to Health Maintenance Results * PANTOGRAPH MACHINE SET UP OPERATOR THIN PREP PAP SCREEN IMAGED (10/28/2022 11:50 AM ASSEMBLY LEAD PERSON) Case Report Gynecologic Cytology Report Case: [id number] Authorizing Provider: Milagro Vegas PA-C Collected: 10/28/2022 1150 Ordering Location: [facility] Received: 11/01/2022 1635 First Screen: Adams Ortiz Specimen: PANTOGRAPH MACHINE SET UP OPERATOR ThinPrep Vial Screening, Cervical 11/11/2022 8:04 AM ASSEMBLY LEAD PERSON [facility] INTERPRETATION/ RESULT NEGATIVE FOR INTRAEPITHELIAL LESION OR MALIGNANCY (NIL) (none) 11/11/2022 8:04 AM ASSEMBLY LEAD PERSON [facility] IMEN ADEQUACY Satisfactory for evaluation Endocervical component present 11/11/2022 8:04 AM ASSEMBLY LEAD PERSON [facility] HPV REQUEST HPV and PAP 11/11/2022 8:04 AM ASSEMBLY LEAD PERSON [facility] Date of LMP 08/31/2022 11/11/2022 8:04 AM ASSEMBLY LEAD PERSON [facility] Last Pap Date 09/13/2021 11/11/2022 8:04 AM ASSEMBLY LEAD PERSON [employer] [facility] Last Pap Result NIL 8:04 AM ASSEMBLY LEAD PERSON [facility] Abnormal Pap or Edna Bx in last 5 years No 11/11/2022 8:04 AM ASSEMBLY LEAD PERSON [facility] [employer] [facility] ENTRAL LABORATORY Menstrual Status 11/11/2022 8:04 AM ASSEMBLY LEAD PERSON [facility] [employer] [facility] EN[facility]AL LABORATORY Edna Bx Done Today No 11/11/2022 8:04 AM ASSEMBLY LEAD PERSON [facility] [employer] [facility] EN[facility]AL LABORAT[facility] Additional Information 11/11/2022 8:04 AM ASSEMBLY LEAD PERSON [facility] [employer] [facility] EN[facility] LAB[facility] Comment: Interpreted at [facility] - [address] [place] [address] [place] [address] Automated Review Successful 11/11/2022 8:04 AM ASSEMBLY LEAD PERSON [facility] [employer] [facility] LABORAT[facility] Comment:Specimen processed s uccessfully by automated oven unloader device, [employer] System, [employer] ANCILLARY TESTING PANTOGRAPH MACHINE SET UP OPERATOR HPV Ordered, Please see separate report 11/11/2022 8:04 AM ASSEMBLY LEAD PERSON [facility] [employer] [facility] Note The pap test is a screening technique, not a diagnostic procedure. It is used primarily to screen for squamous cancers and precursor lesions. Published studies have shown that it is subject to both false negative and false positive results. The pap test should not be used as the sole means to diagnose or exclude pre-malignant and malignant lesions. 11/11/2022 8:04 AM [facility] [employer] [facility] Other (Cervical) 10/28/2022 11:50 AM ASSEMBLY LEAD PERSON 11/01/2022 4:35 PM ASSEMBLY LEAD PERSON January [place] [facility] [address] [place] [address], [place] from Last 3 Months or Most [...] 6:16 AM 08/09/2010 12:05 PM Care Teams Automotive Glazier Relationship Specialty Start Date End Date Sherin Medina MD PCP - General 09/17/06
--- OUTSIDE RECORDS SUMMARY | 2024-09-04 14:22 | XMS_ITS | Encounter Summary ---
Author Organization [facility] Address [address] [place] [address] Care Team Providers Care Automotive Painter Helper Name Role Phone No Ref-Primary, Physician Primary Care Provider Mandeep Guadarrama MD Unavailable [phone] Tate Salazar MD Unavailable [phone] Tate Salazar MD Unavailable [phone] Encounter Details Date Type Department Care Team [...] on file Legal Sex Female 3:16 AM PLASTIC DIE MAKER APPRENTICE Gender Identity Female 09/24/2021 9:00 AM PLASTIC DIE MAKER APPRENTICE Sexual Orientation Not on file documented as of this encounter Plan of Treatment Upcoming Encounters Date Type Department Care Team (Late st Contact Info) Description 09/09/2024 11:30 AM PLASTIC DIE MAKER APPRENTICE Virtual Visit [address] [address] Tate Salazar MD [address] [place] [address] documented as of this encounter Visit Diagnoses Not on filedocumented in this encounter Care Teams Automotive Painter Helper Relationship Specialty Start Date End Date No Ref-Primary, Physician PCP - General 10/07/22 Mandeep Guadarrama MD [address] [place] [address] Fellow Endocrinology, Diabetes, and Metabolism 05/09/24 Tate Salazar MD [address] [place] [address] [phone] Endocrinology, Diabetes, and Metabolism 05/13/24 Tate Salazar MD [address] [place], [place] 243295 Assigned Endocrinology Provider 06/07/24 documented as of this encounter
--- OUTSIDE RECORDS SUMMARY | 2024-09-04 14:22 | XMS_ITS | Encounter Summary ---
Author Organization [facility] Address [address] [place] [address] Care Team Providers Care Radio Program Checker Name Role Phone No Ref-Primary, Physician Primary Care Provider Mandeep Guadarrama MD Unavailable [phone] Tate Salazar MD Unavailable [phone] Tate Salazar MD Unavailable [phone] Encounter Details Date Type Department Care Team (Late st Contact Info) Description 06/14/2024 MyC Medical Advice [facility] Endocrinology Clinic [address] [address] Tate Salazar MD [address] [place] [address] Social History Tobacco Use Types Packs/Day Years [...] on file Legal Sex Female 3:16 AM DITCH RIDER Gender Identity Female 09/24/2021 9:00 AM DITCH RIDER Sexual Orientation Not on file documented as of this encounter Plan of Treatment Upcoming Encounters Date Type Department Care Team (Late st Contact Info) Description 09/09/2024 11:30 AM DITCH RIDER Virtual Visit [address] [address] Tate Salazar MD [address] [place] [address] [phone] documented as of this encounter Visit Diagnoses Not on filedocumented in this encounter Care Teams Radio Program Checker Relationship Specialty Start Date End Date No Ref-Primary, Physician PCP - General 10/07/22 Mandeep Guadarrama MD [address] [place] [address] Fellow Endocrinology, Diabetes, and Metabolism 05/09/24 Tate Salazar MD [address] [place] [address] Endocrinology, Diabetes, and Metabolism 05/13/24 Tate Salazar MD [address] [place] [address] Assigned Endocrinology Provider 06/07/24 documented as of this encounter
--- OUTSIDE RECORDS SUMMARY | 2024-09-04 14:22 | XMS_ITS | Encounter Summary ---
Author Organization [facility] Address [address] [place] [id number] Care Team Providers Care Time Clock Repairer Name Role Phone Sujata Payne MD Primary Care Provider [phone] Sujata Payne MD Unavailable [phone] Adams Rose MD Unavailable [phone] No Ref-Primary, Physician Primary Care Provider Mandeep Guadarrama MD Unavailable [phone] Tate Salazar MD Unavailable [phone] Tate Salazar MD Unavailable [phone] Encounter Details Date Type Department Care Team (Late st Contact Info) Description 05/09/2020 MyC Medical Advice [facility] [address] [place] [id number] Adams Rose MD [address] [place] [address] Social History Tobacco Use Types Packs/Day Years Used Date Smoking Tobacco: Former Cigarettes Q uit: 10/06/2008 Smokeless Tobacco: Never Alcohol Use Standard Drinks/Week Comments No 0 (1 standard drink = 0.6 oz pur e alcohol) PHQ-2 Answer Date Recorded PHQ-2 Score 0 12/03/2019 Comments No Sex and Gender Information Value Date Recorded Sex Assigned at Not on file Legal Sex Female 3:16 AM BUILDING CONSULTANT Gender Identity Female 09/24/2021 9:00 AM BUILDING CONSULTANT Sexual Orientation Not on file documented as of this encounter Plan of Treatment Upcoming Encounters Date Type Department Care Team (Late st Contact Info) Description 09/09/2024 11:30 AM BUILDING CONSULTANT Virtual Visit [address] [phone] Tate Salazar MD [address] [place] [id number] documented as of this encounter Visit Diagnoses Not on filedocumented in this encounter Care Teams Time Clock Repairer Relationship Specialty [place] [address] [place] [address] PCP - General Family Practice 08/21/17 10/06/22 No Ref-Primary, Physician PCP - General 10/07/22 [place] [address] [place] [address] Assigned PCP 09/17/17 09/05/20 Adams Rose MD [address] [place] [address] Assigned OBGYN Provider 08/07/20 Mandeep Guadarrama MD [address] [place] [id number] Fellow Endocrinology, Diabetes, and Metabolism 05/09/24 Tate Salazar MD [address] [place] [id number] Endocrinology, Diabetes, and Metabolism 05/13/24 Tate Salazar MD [address] [place] [address] Assigned Endocrinology Provider 06/07/24 documented as of this encounter
== END 2024-09-04 14:19 | disposition home or self-care (01) ==
LOC: US 14:19
PROVIDERS: Visit Provider Obstetrics & Gynecology
DX: O26.892 Other specified pregnancy related conditions, second trimester (principal); O99.282 Endocrine, nutritional and metabolic diseases complicating pregnancy, second trimester; E05.00 Thyrotoxicosis with diffuse goiter without thyrotoxic crisis or storm; Z3A.25 25 weeks gestation of pregnancy
CPT/HCPCS: 76816

== ENCOUNTER 2024-09-23 13:25 | Outpatient (CLI) | payer MEDICAID, SELFPAY | END 2024-09-23 13:26 | disposition home or self-care (01) | LOC: NFLDREF 09-26 11:41 | PROVIDERS: Visit Provider Obstetrics & Gynecology | DX: Z34.82 Encounter for supervision of other normal pregnancy, second trimester (principal) | CPT/HCPCS: 86592 ==

== ENCOUNTER 2024-10-11 08:30 | Outpatient (CLI) | payer MEDICAID, SELFPAY | END 2024-10-11 08:31 | disposition home or self-care (01) | LOC: NFLDREF 10-16 23:07 | PROVIDERS: Visit Provider Obstetrics & Gynecology | DX: R73.09 Other abnormal glucose (principal) | CPT/HCPCS: 82951; 82952 ==

== ENCOUNTER 2024-11-22 09:08 | Outpatient (CLI) | payer MEDICAID, SELFPAY ==
--- NOTE | 2024-11-22 09:15 | CRLHL7_ITS ---
For Patients: As a result of the Century Cures Act, medical imaging exams and procedure reports are released immediately into your electronic medical record. You may view this report before your referring provider. If you have questions, please contact your health care provider. OB ULTRASOUND LIMITED FOLLOWUP, 11/22/2024 CLINICAL HISTORY: Advanced maternal age. TECHNIQUE: Transabdominal OB ultrasound. Real time sun scale imaging of the fetus was performed. COMPARISON: 10/29/2024, 09/04/2024, 08/26/2024. FINDINGS: Gestation: Single. ODETTE by LMP: 12/22/2024. GA: 35 weeks 5 days. Cervix: Not visualized. Positioning: Vertex. Amniotic Fluid: 2.7 cm. Placenta: Technique: Transabdominal. Placenta position: Anterior. Dopplers: Heart Rate: 145 bpm. Biometry: BPD: 8.5 cm, 34 weeks 3 days. 19.9% HC: 32.4 cm, 36 weeks 4 days. 39.1% AC: 31.8 cm, 35 weeks 5 days. 59.1% FL: 7.0 cm, 35 weeks 5 days. 43.0% EFW: 2739 grams, 6 lb 0 oz. Age by this US: 35 weeks 9 days. ODETTE by this US: 12/23/2024. Percentile by ODETTE: 47.6% IMPRESSION: 1. Sonographic gestational age 35 weeks 4 days and sonographic due date 12/23/2022. Good correlation with dates. Normal interval growth. 2. Estimated weight 48th percentile. Abdominal circumference 59th percentile. 3. Bilateral renal pelviectasis measuring 8.3 mm on the left and 4.6 mm on the right. Post-laura followup recommended. Wili Fernandez M.D. Diagnostic Radiologist [email or web address] Transcribed: 10:32 am DW/Dictated by: Wili Fernandez MD @ 11/22/2024 10:15:00 AM DW/Dictated by: Wili Fernandez MD @ 11/22/2024 10:15:00 AM (Electronically Signed)
== END 2024-11-22 09:09 | disposition home or self-care (01) ==
LOC: US 09:09
PROVIDERS: Visit Provider Obstetrics & Gynecology
DX: O09.523 Supervision of elderly multigravida, third trimester (principal); O26.893 Other specified pregnancy related conditions, third trimester; E05.00 Thyrotoxicosis with diffuse goiter without thyrotoxic crisis or storm; Z3A.35 35 weeks gestation of pregnancy
CPT/HCPCS: 76816; 87081; 87653

== ENCOUNTER 2024-12-02 11:43 | Outpatient (CLI) | payer MEDICAID, SELFPAY ==
[2024-12-02 11:52] VITALS: PULSE 103; O2SAT 99
[2024-12-02 12:03] VITALS: RESP 18; TEMP 36.6
[2024-12-02 12:04] VITALS: BP 134/88; PULSE 104
--- NOTE | 2024-12-02 12:50 | PC.OBNST ---
NST Note NST Note Start: 12/02/24 11:53 Freq: ONCE Status: Active Protocol: Document 12/02/24 12:48 RO (Rec: 12/02/24 12:50 RO [id number]) NST Note 9 Para (# of births) 5 EDC 12/22/24 Gestational Age In Weeks & Days 37 Weeks & 1 Days High Risk Factors Advanced Maternal Age Patient Presented with Complaint(s) of Decreased movement Reactive Yes Appropriate for Gestational Age Yes MILLICENT Castaneda RN Date 12/02/24 Reactive Yes Appropriate for Gestational Age Yes MILLICENT Vera RN Date 12/02/24 OB NST charge Yes Complete NST Note via Write Note Yes The provider's electronic signature indicates the NST is reactive/appropriate for gestational age. *Note to provider: If an addendum is required, open the patient's chart and click on the note under the Nurse/Allied Health tab.
== END 2024-12-02 12:43 | disposition home or self-care (01) ==
LOC: OB OUT 11:44 → OB 11:44
PROVIDERS: Visit Provider Obstetrics & Gynecology
DX: O09.523 Supervision of elderly multigravida, third trimester (principal); O36.8130 Decreased fetal movements, third trimester, not applicable or unspecified; Z3A.37 37 weeks gestation of pregnancy
CPT/HCPCS: 59025; G0463

== ENCOUNTER 2024-12-06 14:19 | Inpatient (IN) | payer MEDICAID, SELFPAY ==
[2024-12-06] VITALS (46 sets, daily range): BP systolic 117–178; BP diastolic 62–88; PULSE 78–130; RESP 16–18; TEMP 36.8–37.1; O2SAT 92–100; BMI 33.5
[2024-12-06 12:40] LABS: Hemoglobin* 11.7 gm/dL (12.0-16.0); Mean Corpuscular HGB Conc 33 gm/dL (32-36); Mean Corpuscular Hemoglobin 27 pg (26-34); Mean Corpuscular Volume 82 fL (80-100); Platelet Count* 247 K/uL (140-440); Red Blood Count 4.37 m/uL (4.00-5.20); White Blood Count* 9.32 K/uL (4.50-11.00)
[2024-12-06 12:50] LABS: Slide Review Reflex No
[2024-12-06 12:51] LABS: Total Protein Urine 12 mg/dL
[2024-12-06 12:52] LABS: Creatinine Urine 51.2 mg/dL; Protein Creatinine Ratio Urine 0.23 (0-0.19)
[2024-12-06 12:54] LABS: Alanine Aminotransferase* 11 U/L (4-35); Aspartate Amino Transferase* 18 U/L (12-35); Creatinine* 0.6 mg/dL (0.5-1.5); Estimated Glomerular Filt Rate 119 ml/min
[2024-12-06 12:55] LABS: Blood Urea Nitrogen* 8 mg/dL (5-24)
[2024-12-06] MEDS: LACTATED RINGERS 1000 ML 1,000 ML 125 ML IV (14:46)
[2024-12-06] MEDS: AMPICILLIN 2 GM in 0.9 % SODIUM CHLORIDE Mini-bag 100 ML IVPB (14:46)
--- NOTE | 2024-12-06 15:05 | W.PM.LDBA ---
Subjective History of Present Illness Time Seen by Provider: 15:15 Date Seen: 12/06/24 Narrative: Patient is being admitted to Labor and Delivery for induction of labor due to gestational hypertension she also feels she is in early labor with increasing frequency and intensity of contractions since early this morning. She is a 34 year old at 37w5d gestation. Her full history and physical was dictated by Dr. Aponte on 12/06/2024. Please see this for details. Shantelle was seen in the clinic this morning and had elevated blood pressure: 144/94 and 130/96. She was sent to the center for blood pressure monitoring and preeclampsia labs and her blood pressures in the Center since being evaluated in triage have been: 133-147/72-87. She denies headache, right upper quadrant pain, visual disturbance and swelling. She reports increasing frequency and intensity of contractions. She is very nervous that she is in early labor because she is group B strep positive and has had relatively short labors in the past. She was admitted to the center at 2:45 p.m. on 12/06/2024 for gestational hypertension and ampicillin started for group B strep positive status for prophylaxis. Preeclampsia labs performed at 12:30 p.m. on 12/06/2024 showed: Hemoglobin 11.7, platelets 247 K, BUN 8, creatinine 0.6, AST 18, ALT 11, urine protein creatinine ratio 0.23. Specific Issues/Plans Partner: Armando H&P done 12/06/[address] Aponte. #AMA declined genetic screening level II u/s: 07/24/24. Isolated echogenic intracardiac focus within the left ventricle. No other anomalies. Normal growth. Recommends growth ultrasound q6 weeks. Consider NIPT: patient declines. echocardiogram: Small, mid-muscular ventricular septal defect. Normal right and left ventricular size and systolic function. No additional echocardiograms are recommended for this . A post-Bernice transthoracic echocardiogram with an outpatient pediatric cardiology appointment is recommended at one month of life. 32-week growth US: EFW 48% (4# 6oz), AC 47%, MVP 5.8 cm, mid-muscular VSD, Left UTD,A1 (mild urinary tract dilation). Referred to Pediatric Urology. 36-week growth US: EFW 48% (6# 0oz), AC 59%, MVP 2.7 cm # VSD Cardiology referral for echo: See above #BMI 32 recommended aspirin at 12 wks r/t BMI & age 33. No previous hx of preeclampsia #Hx of PP thyroiditis & Graves disease previously managed with diet. plans to resume this diet. TSH collected at NOB <0.015, normal T4. Recheck TSH at next visit: 0.025 (L) Patient managed by endocrinology, has monthly follow-up labs. Thyroid receptor antibodies were positive, consistent with Graves. No medication recommended, as free T4 and free T3 remain normal. TSH 0.18 on 06/11/2024, T3 146 (N). Next visit: August 2024 - lab still normal, but trending upwards. #Desires PPTL vs. vas #Hx of asthma, last inhaler use as a child Flu: declines Covid: declines Tdap: declines RSV: Declines OB - Problem Based A/P Additional Plan (1) Gestational hypertension: Status: Acute Plan 1. Ampicillin for GBS prophylaxis. 2. Recommended starting Pitocin per induction protocol which the patient declined until after artificial rupture of membranes because she is concerned that she will not have enough time for antibiotics to prevent GBS infection in her infant if Pitocin is started now. 3. Plan AROM once it is 4 hours after starting ampicillin: 6:50Pm. 4. Repeat preeclampsia labs if blood pressure reaches severe range or patient develops symptoms of severe preeclampsia. 5. Type and screen performed as the patient is a grand multipara so is at increased risk of hemorrhage. 6. Expect vaginal delivery. 7. The patient desires an epidural for labor analgesia. OB Exam Physical Exam Vital signs: Pulse BP Pulse Ox 82 133/82 99 12/06/24 14:53 12/06/24 14:53 12/06/24 12:03 Narrative: General: Pleasant, , well groomed woman in no acute distress. Vital signs: See the patient's electronic medical record. Chest: Clear to auscultation bilaterally. Heart: Regular rate and rhythm without gallop, rub or murmur. Abdomen: Gravid and nontender. EFM: Baseline: 140bpm. Accelerations: Present. Decelerations: Absent. Moderate variability. Reactive. Category 1. TOCO: Q 2-7 minutes. SVE: 5.0 cm/80%/-1 Extremities: No pain or edema.
[2024-12-06] MEDS: LIDOCAINE 2% (PF) 5 ML VIAL EPIDURAL (16:14)
[2024-12-06] MEDS: ROPIVACAINE 0.2% 100 ml 100 ML 12 MG EPIDURAL (16:14)
--- NOTE | 2024-12-06 16:31 | PM.ANBPRC ---
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) Surgical History History of laparoscopy ?Z98.890 - Other specified postprocedural states (ICD-10) History of wisdom tooth extraction ?K08.409 - Partial loss of teeth, unspecified cause, unspecified class (ICD-10) History of elbow surgery ?Z98.890 - Other specified postprocedural states (ICD-10) History of D&C ?Z98.890 - Other specified postprocedural states (ICD-10) History of appendectomy ?Z90.49 - Acquired absence of other specified parts of digestive tract (ICD-10) Family History Father High blood pressure Brother FH: testicular cancer Paternal Grandmother Ovarian cancer Social History Narrative: SOCIAL? ? Education: some college? ? 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 ? Partner: Armando, not , Process Trainer? ? Lives with: Armando, kids? ? Pets: 3 dogs, rabbits, gecko, turtle ? ? Abuse: Denies past Unable to assess current, partner present? ? Special Diet: Denies? ? Ok with a blood transfusion: yes? ? Culture or congregation beliefs: denies? RISK FACTORS? ? Exercise Times/wk: walking, daily? ? Depression/Anxiety: denies? ? Previous Treatments NA Therapy NA ROXIE: 0 PHQ 9: 0? ? Seat Belt Use: Routinely ? Smoking: Denies past/present? ? Alcohol/day: Denies while ? ? Caffeine: 1 cup of coffee a day? ? Drug Use: Denies past/present? ? What is your current living situation?: I presently have a place to live Problems where you live: no known problems In the past 12 months, utilities in danger of being shut off: no In past 12 months, lack of transportation kept you from medical appts, meetings, work, or getting things needed for daily living: no In the past 12 mos, have been you worried that your food would run out before you had money to buy more?: never true In the past 12 mos, the food you bought just didn't last and you didn't have money to buy more?: never true Smoking Status: Never smoker How often does anyone, including family, friends and others, physically hurt you: never How often does anyone, including family, friends and others, insult or talk down to you: never How often does anyone, including family, friends and others, threaten you with harm: never How often does anyone, including family, friends and others, scream or curse at you: never Meds Home Medications and Allergies Home Medications ?Medication ?Instructions ?Recorded ?Confirmed ?Type docosahexaenoic acid 200 mg 200 mg PO DAILY 05/08/24 12/06/24 History capsule ( DHA) magnesium 200 mg tablet 200 mg PO QDAY 05/08/24 12/06/24 History aspirin 81 mg capsule 81 mg PO QDAY 07/03/24 12/06/24 History Allergies Allergy/AdvReac Type Severity Reaction Status Date / Time Sulfa (Sulfonamide Allergy Unknown Verified 12/06/24 11:11 Antibiotics) Results Labs Labs: Laboratory Results - last 24 hr 12/06/24 12/06/24 12/06/24 12:16 12:31 14:40 WBC 9.32 RBC 4.37 Hgb 11.7 L Hct 36.0 MCV 82 MCH 27 MCHC 33 Plt Count 247 BUN 8 Creatinine 0.6 Estimated GFR 119 AST 18 ALT 11 Urine Creatinine 51.2 Protein/Creatinin Ratio 0.23 H Urine Total Protein 12 Blood Type O Positive Antibody Screen NEGATIVE Vital Signs Vital Signs: Last Vital Signs Pulse 107 H 12/06/24 16:25 BP 139/81 12/06/24 16:25 Pulse Ox 99 12/06/24 16:29 Weight: 91.263 kg Anesthesia Procedures Epidural Insertion Patient Location: OB Start Time: 16:00 Stop Time: 17:00 Start Date: 12/06/24 Stop Date: 12/06/24 Reason for Block: procedure for pain Patient Position: sitting Performed By: Alcira De La Torre Preanesthetic Checklist: IV checked, site marked, risks and benefits discussed, monitors and equipment checked, pre-op evaluation, timeout performed and anesthesia consent Prep: chlorhexidine gluconate Monitoring: blood pressure monitoring, continuous pulse oximetry and heart rate Approach: midline Vertebral Space: lumbar (1-5) Epidural Technique: OLGA saline Needle Type: Tuohy needle Injection Technique: continuous catheter Needle gauge: 17 Needle Length (cm): 10 cm Needle Insertion Depth (cm): 7 Catheter Gauge: 19 Catheter Type: multi-orifice Catheter at skin depth (cm): 17 Test Dose Result: negative and lidocaine 1.5% with epinephrine 1 to 200,000
[2024-12-06] MEDS: AMPICILLIN 1 GM in 0.9 % SODIUM CHLORIDE Mini-bag 100 ML IVPB (18:50)
[2024-12-06] MEDS: OXYTOCIN 30 unit/500 ML in NS 30 UNIT/500 ML BAG 300 UNIT IVPB (18:54)
--- NOTE | 2024-12-06 19:17 | W.PM.OBVAGDE ---
OB Procedure Vag Delivery Mother Details Mother Details: The patient is a 34 year-old, 9, Para 5, admitted on 12/06/24 at 37w5d with gestational htn and spontaneous onset of labor. Additional Details Amniotic Membrane Status: AROM Amniotic Membrane Rupture Date: 12/06/24 Amniotic Membrane Rupture Time: 18:49 Amniotic Membrane Fluid Description: Clear Analgesia/Anesthesia Type: Epidural Waterbirth: No Pitcoin: No Delivery augmentation: rupture of membranes Labor Onset: 15:30 Complete: 18:50 Pushin:50 Heart: heart tones during second stage were reassuring with variable decelerations with contractions with immediate return to baseline. Delivery Details Delivery Date: 12/06/24 Delivery Time: 18:54 Route of delivery: Gender: Male Viability: Alive; Heart Rate Present Position at Delivery: OA Delivery Details: Delivered via VS vaginal delivery. was placed on maternal abdomen.? Cord was clamped and cut after a 60 second delay. Nose and mouth were bulb suctioned. The was brought to the warmer to check his O2 saturation and get him to mobilize some of the fluid in his lungs. He did well and went back to the patient.? Infant weight pending. 1 Minute Interval Total Score: 7 5 Minute Interval Total Score: 8 Additional Details Shoulder Dystocia: No Placental Delivery Description: Spontaneous Delivery repair: Vicryl (In a running manner: 3 stitches were placed.) Procedure Done: Global Blood Loss: 10 Laceration: Periurethral - 1st Degree Blood Loss Measurement Type: QBL Bakri Used: No Sponge/Need Count Correct: Yes Cord Vessel Description: 3 Vessels Event Summary Status: Mother and infant were stable after delivery. Baby's name is Carlos. Disposition: floor
[2024-12-06] MEDS: NIFEdipine 30 MG TAB.ER.24 PO (22:07)
[2024-12-07] VITALS (7 sets, daily range): BP systolic 124–139; BP diastolic 77–86; PULSE 71–92; RESP 16–20; TEMP 36.7–37.1; O2SAT 97
[2024-12-07] MEDS: IBUPROFEN 600 MG TABLET PO ×2 (00:39→21:45)
[2024-12-07 06:55] LABS: Hematocrit 36.2 % (33.0-51.0); Hemoglobin* 11.6 gm/dL (12.0-16.0); Mean Corpuscular HGB Conc 32 gm/dL (32-36); Mean Corpuscular Hemoglobin 27 pg (26-34); Mean Corpuscular Volume 83 fL (80-100); Platelet Count* 243 K/uL (140-440); Red Blood Count 4.38 m/uL (4.00-5.20); White Blood Count* 12.66 K/uL (4.50-11.00)
[2024-12-07 07:00] LABS: Slide Review Reflex No
[2024-12-07 07:23] LABS: Alanine Aminotransferase* 11 U/L (4-35); Aspartate Amino Transferase* 22 U/L (12-35); Blood Urea Nitrogen* 7 mg/dL (5-24); Creatinine* 0.6 mg/dL (0.5-1.5); Est. Creatinine Clearance* 116.64; Estimated Glomerular Filt Rate 119 ml/min
--- NOTE | 2024-12-07 08:05 | PM.ANPOST ---
Post Anesthesia Note Post Anesthesia Note Patient seen: Inpatient Respiratory Status: adequate Cardiovascular Status: adequate Mental Status: baseline Pain: adequate Temp: baseline Anesthetic awareness: N/A Complications: none Follow care: none
--- NOTE | 2024-12-07 09:00 | PM.OBPNVD1 ---
OB - PN:Subj Subjective Date Seen: 12/07/24 Interval history: Shantelle is a 34-year-old G 9 now P 6 woman who is status post normal spontaneous vaginal delivery on 12/06/2024 at 37 weeks, 5 days gestation. She presented in early labor. At time of presentation, she was found to have newly elevated blood pressures in the mild range. She was started on nifedipine ER 30 mg q.h.s. last night. She had a periurethral laceration. Ob problem list: #AMA declined genetic screening level II u/s: 07/24/24. Isolated echogenic intracardiac focus within the left ventricle. No other anomalies. Normal growth. Recommends growth ultrasound q6 weeks. Consider NIPT: patient declines. echocardiogram: Small, mid-muscular ventricular septal defect. Normal right and left ventricular size and systolic function. No additional echocardiograms are recommended for this . A post- transthoracic echocardiogram with an outpatient pediatric cardiology appointment is recommended at one month of life. 32-week growth US: EFW 48% (4# 6oz), AC 47%, MVP 5.8 cm, mid-muscular VSD, Left UTD,A1 (mild urinary tract dilation). Referred to Pediatric Urology. 36-week growth US: EFW 48% (6# 0oz), AC 59%, MVP 2.7 cm # VSD Cardiology referral for echo: See above #BMI 32 recommended aspirin at 12 wks r/t BMI & age 33. No previous hx of preeclampsia #Hx of PP thyroiditis & Graves disease previously managed with diet. plans to resume this diet. TSH collected at NOB <0.015, normal T4. Recheck TSH at next visit: 0.025 (L) Patient managed by endocrinology, has monthly follow-up labs. Thyroid receptor antibodies were positive, consistent with Graves. No medication recommended, as free T4 and free T3 remain normal. TSH 0.18 on 06/11/2024, T3 146 (N). Next visit: August 2024 - lab still normal, but trending upwards. #Desires PPTL vs. vas #Hx of asthma, last inhaler use as a child Narrative: Shantelle has no complaints. Her son is struggling a little bit with . She is an experienced breast feeder. All the kids are here visiting the baby right now. She denies any heavy bleeding. No complaints of pain. OB - PN: Obj Exam Physical Exam: Vital signs: Temp Pulse Resp BP Pulse Ox O2 Del Method 98.6 F 92 16 124/81 97 Room Air 12/07/24 07:58 12/07/24 07:58 12/07/24 07:58 12/07/24 07:58 12/07/24 07:58 12/07/24 07:58 Narrative: General: Pleasant, no acute distress Heart: Regular rate and rhythm, no murmur or gallop Lungs: Clear to auscultation bilaterally Abdomen: Soft, nontender, fundus well below umbilicus Lower extremities: No edema or erythema OB - PN: Obj Data Labs Labs: Laboratory Results - last 24 hr 12/06/24 12/06/24 12/06/24 12:16 12:31 14:40 WBC 9.32 RBC 4.37 Hgb 11.7 L Hct 36.0 MCV 82 MCH 27 MCHC 33 Plt Count 247 BUN 8 Creatinine 0.6 Estimated Creat Clear Estimated GFR 119 AST 18 ALT 11 Urine Creatinine 51.2 Protein/Creatinin Ratio 0.23 H Urine Total Protein 12 Blood Type O Positive Antibody Screen NEGATIVE 12/07/24 06:32 WBC 12.66 H RBC 4.38 Hgb 11.6 L Hct 36.2 MCV 83 MCH 27 MCHC 32 Plt Count 243 BUN 7 Creatinine 0.6 Estimated Creat Clear 116.64 Estimated GFR 119 AST 22 ALT 11 Urine Creatinine Protein/Creatinin Ratio Urine Total Protein Blood Type Antibody Screen OB - PN: A/P Delivery Assessment and Plan (1) Gestational hypertension: Status: Acute Assessment and Plan: Continue nifedipine ER 30 mg q.h.s.. Follow blood pressures overnight. Considering discharge tomorrow. Plan day: 1
[2024-12-07] MEDS: DOCUSATE SODIUM 100 MG CAPSULE PO (13:09)
[2024-12-07] MEDS: NIFEdipine 30 MG TAB.ER.24 PO (21:38)
[2024-12-08 05:07] VITALS: BP 132/81; TEMP 36.6
[2024-12-08 08:29] VITALS: BP 136/87; PULSE 98; RESP 18; TEMP 36.6; O2SAT 98
--- NOTE | 2024-12-08 09:04 | PM.OBDSVD1 ---
DS: Providers Provider Date Seen: 12/08/24 Date of admission: 12/06/24 14:19 Primary care physician: Not a Local Provider Admitting Clinician: Shelia Beach MD Attending Physician on discharge: Ambika Kiser MD Date of Discharge: 12/08/24 DS: Diagnosis Discharge Diagnosis (1) Normal vaginal delivery of sixth : Status: Acute Problem details: Boy. Apgars 7/8. (2) Lactating mother: Status: Acute (3) Gestational hypertension: Status: Acute (4) Graves disease: Status: Acute Exam Narrative: Exam Narrative: General: Pleasant, no acute distress Heart: Regular rate and rhythm, no murmur or gallop Lungs: Clear to auscultation bilaterally Abdomen: Soft, nontender, fundus well below umbilicus Lower extremities: No edema or erythema Const: Vital Signs, click to edit/add: Vital Signs - 24 hr 12/07/24 13:03 12/07/24 16:32 12/07/24 20:37 Temperature 98.1 F 98.8 F Pulse Rate [Pulse Oximeter] 76 80 71 Respiratory Rate 16 16 18 Blood Pressure [Ri ght Arm] 133/84 132/85 133/83 Pulse Oximetry 97 97 97 Oxygen Delivery Me thod Room Air Room Air Room Air 12/07/24 23:56 12/08/24 05:07 12/08/24 08:29 Temperature 97.9 F 97.9 F Pulse Rate [Pulse Oximeter] 71 98 Respiratory Rate 18 Blood Pressure [Ri ght Arm] 136/84 132/81 136/87 Pulse Oximetry 98 Oxygen Delivery Me thod Room Air OB - DS: Summary Hospital Course Hospital Course: Shantelle is a 34-year-old G 9 now P 6 woman who is status post normal spontaneous vaginal delivery on 12/06/2024 at 37 weeks, 5 days gestation. She presented in early labor. At time of presentation, she was found to have newly elevated blood pressures in the mild range. She was started on nifedipine ER 30 mg q.h.s. She had a periurethral laceration. Ob problem list: #AMA declined genetic screening level II u/s: 07/24/24. Isolated echogenic intracardiac focus within the left ventricle. No other anomalies. Normal growth. Recommends growth ultrasound q6 weeks. Consider NIPT: patient declines. echocardiogram: Small, mid-muscular ventricular septal defect. Normal right and left ventricular size and systolic function. No additional echocardiograms are recommended for this . A post- transthoracic echocardiogram with an outpatient pediatric cardiology appointment is recommended at one month of life. 32-week growth US: EFW 48% (4# 6oz), AC 47%, MVP 5.8 cm, mid-muscular VSD, Left UTD,A1 (mild urinary tract dilation). Referred to Pediatric Urology. 36-week growth US: EFW 48% (6# 0oz), AC 59%, MVP 2.7 cm # VSD Cardiology referral for echo: See above #BMI 32 recommended aspirin at 12 wks r/t BMI & age 33. No previous hx of preeclampsia #Hx of PP thyroiditis & Graves disease previously managed with diet. plans to resume this diet. TSH collected at NOB <0.015, normal T4. Recheck TSH at next visit: 0.025 (L) Patient managed by endocrinology, has monthly follow-up labs. Thyroid receptor antibodies were positive, consistent with Graves. No medication recommended, as free T4 and free T3 remain normal. TSH 0.18 on 06/11/2024, T3 146 (N). Next visit: August 2024 - lab still normal, but trending upwards. #Desires PPTL vs. vas #Hx of asthma, last inhaler use as a child Narrative: Shantelle has no complaints. She has started to supplement with formula because her infant son is struggling a little bit with . She is an experienced breast feeder. She denies any heavy bleeding. No complaints of pain. Her highest blood pressures in the last 24 hours was 136/87, and that was her most recent. Because of that, I have increased nifedipine ER 30 mg to BID. [place] Gender: Male Time Spent with Patient Time attestation: Total time spent providing and/or coordinating discharge services: Discharge Plan Discharge Disposition: Home, Self-Care Date of Admission: 12/06/24 14:19 Attending Provider on Discharge: Ambika Kiser Primary Care Provider: Provider,Not a Local Condition: Stable Anticipated Discharge Date/Time: 12/08/24 09:31 Discharge Medications: New nifedipine 30 mg Tablet Extended Release 24hr 30 mg PO BID Qty: 60 0RF acetaminophen 500 mg Tablet 1,000 mg PO Q6H PRNQty: 0 0RF docusate sodium 100 mg Capsule 100 mg PO BID PRNQty: 0 0RF ibuprofen 600 mg Tablet 600 mg PO Q6H PRNQty: 0 0RF Lanolin (HPA) 100 % Cream 1 applic topical Q1H PRNQty: 0 0RF Continued DHA 200 mg capsule 200 mg PO DAILY magnesium 200 mg tablet 200 mg PO QDAY Discontinued aspirin 81 mg capsule 81 mg PO QDAY Discharge Orders: Discharge Order (Routine); Ordered 12/08/24 Ordered By: Ambika Kiser Patient Education: OB High Blood Pressure DC, OB Vaginal/Breast Feeding Activity Level: No Restrictions Discharge Diet: Regular Follow Up Appointments: Ambika Kiser MD [Staff Physician] - Provider,Not a Local [Primary Care Provider] - Forms: VM Discovery Info Instructions
[2024-12-08] MEDS: NIFEdipine 30 MG TAB.ER.24 PO (09:27)
[2024-12-08 09:38] LABS: Basophils Percent Auto 0.5 % (0.0-3.0); Eosinophils Percent Auto 0.8 % (0.0-7.0); Hematocrit 38.4 % (33.0-51.0); Hemoglobin* 12.3 gm/dL (12.0-16.0); Immature Granulocytes Pct Auto 0.6 %; Lymphocytes Percent Auto 17.4 % (20-44); Mean Corpuscular HGB Conc 32 gm/dL (32-36); Mean Corpuscular Hemoglobin 27 pg (26-34); Mean Corpuscular Volume 83 fL (80-100); Monocytes Percent Auto 4.2 % (0.0-11.0); Neutrophils Percent Auto 76.5 % (42.0-72.0); Platelet Count* 256 K/uL (140-440); RDW Coefficient of Variation % 14.9 % (11.5-15.5); Red Blood Count 4.63 m/uL (4.00-5.20); White Blood Count* 11.18 K/uL (4.50-11.00)
[2024-12-08 09:39] LABS: Slide Review Reflex No
[2024-12-08 09:58] LABS: Aspartate Amino Transferase* 21 U/L (12-35); Creatinine* 0.7 mg/dL (0.5-1.5); Est. Creatinine Clearance* 99.98; Estimated Glomerular Filt Rate 115 ml/min
[2024-12-08 09:59] LABS: Alanine Aminotransferase* 14 U/L (4-35); Blood Urea Nitrogen* 9 mg/dL (5-24)
[2024-12-08 17:22] LABS: Rapid Plasma Reagin (RPR) Non Reactive (Non Reactive)
== END 2024-12-08 12:37 | disposition home or self-care (01) | DRG 807 ==
LOC: OB OUT 14:19 → OB 14:19
PROVIDERS: Obstetrics & Gynecology; Admitting Provider Obstetrics & Gynecology; Visit Provider Obstetrics & Gynecology
DX: O13.4 Gestational [pregnancy-induced] hypertension without significant proteinuria, complicating childbirth (principal); Z37.0 Single live birth; O99.824 Streptococcus B carrier state complicating childbirth; O70.0 First degree perineal laceration during delivery; O99.284 Endocrine, nutritional and metabolic diseases complicating childbirth; E05.00 Thyrotoxicosis with diffuse goiter without thyrotoxic crisis or storm; Z86.39 Personal history of other endocrine, nutritional and metabolic disease; Z3A.37 37 weeks gestation of pregnancy
CPT/HCPCS: 01967; 36415; 82565; 82570; 84156; 84450; 84460; 84520; 85025; 85027; 86592; 86850; 86900; 86901; 88307; A9270; J0290; J2371; J2795; J7120

== ENCOUNTER 2024-12-17 09:17 | Outpatient (CLI) | payer MEDICAID, SELFPAY | END 2024-12-17 09:18 | disposition home or self-care (01) | PROVIDERS: Visit Provider Obstetrics & Gynecology | DX: E05.00 Thyrotoxicosis with diffuse goiter without thyrotoxic crisis or storm (principal); Z39.2 Encounter for routine postpartum follow-up | CPT/HCPCS: 84439; 84443 ==

== ENCOUNTER 2025-05-20 21:20 | Emergency (ER) | payer MEDICAID, SELFPAY ==
--- OUTSIDE RECORDS SUMMARY | 2025-05-20 21:22 | XMS_ITS | Clinical Summary ---
Author Organization [facility] Address [address] [place] [address] Care Team Providers Care Terrazzo Polisher Name Role Phone Sherin Medina MD Primary Care Prov ider Allergies Active Allergy Reactions Criticality Noted Date Comments Sulfa (Sulfonamide Antibiotics) Rash 12/2005 Medications vitamin-folic acid 1 mg ( VITAMIN) tablet/capsule Indications:pr egnancy Take 1 tablet by mouth once daily. Indications: Active PHENAZOPYRIDIN E HCL (PYRIDIUM ORAL) Take by mouth. Activ e ibuprofen (MOTRIN IB) 200 mg tablet Take 1-3 tablets by mouth every 6 hours if needed for Other (Specify) (for uterine cramping). 100 tablet 0 1 Active docusate (COLACE) 100 mg capsule Take 1 capsule by mouth once daily. 100 capsule 0 1 Active oxyCODONE-acet aminophen, 5-325 mg, (PERCOCET) 5-325 mg per tablet Take 1-2 tablets by mouth every 4 hours if needed for Other (Specify) (severe pain). Max acetaminophen dose: 4000mg in 24 hrs. 20 tablet 0 1 Active oxyCODONE-acet aminophen, 5-325 mg, (PERCOCET) 5-325 mg per tablet Take 1-2 tablets by mouth every 4 hours if needed for Pain (For moderate to severe pain not relieved with ibuprofen or acetaminophen). 20 tablet 0 1 Active Breast Pump - Purchase As directed. For home use. Gestation age at delivery: 40 weeks. Reason for need: engorgement. 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 Gender Identity Not on file Sexual Orientation [...] 7 9 WILLI AMS,[place] GIR[place] Delivery Location:[facility] Last Filed Vital Signs Vital Sign Reading [...] Health Maintenance Due Date Last Done Comments Tetanus booster 1999 Depression screening for age 12+ 2000 HIV for age 15-65 2003 BMI (ht and wt on same day) for age 18+ 2006 Hepatitis C screening for ag e 18-79 2006 Hepatitis B series for 19+ ( 1 of 3 - 19+ 3-dose series) 2007 COVID-19 vaccine series ( - 2023- season) 2024 Influenza Vaccine (#1) 2025 Pap test for age 21-65 10/28/2025 , 10/28/2022 Pneumococcal series for age 6-49 Aged Out No longer eligible b ased on patient's age to complete this topic Procedures Procedure Name Priority Date/Time Associated Diagnosis Comments BLEACHER SULFITE PULP THIN PREP PAP SCREEN IMAGED Routine 10/28/2022 11:50 AM 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 [facility] HPV REQUEST HPV and PAP 11/11/2022 8:04 AM FIBERGLASS BOAT ASSEMBLY SUPERVISOR [facility] Date of LMP 08/31/2022 11/11/2022 8:04 AM [facility] Last Pap Date 09/13/2021 11/11/2022 8:04 AM [facility] Last Pap Result NIL 8:04 AM FIBERGLASS BOAT ASSEMBLY SUPERVISOR [facility] Abnormal Pap or [place] Bx in last 5 years No 11/11/2022 8:04 AM FIBERGLASS BOAT ASSEMBLY SUPERVISOR [facility] Menstrual Status 11/11/2022 8:04 AM FIBERGLASS BOAT ASSEMBLY SUPERVISOR [facility] [place] Bx Done Today No 11/11/2022 8:04 AM FIBERGLASS BOAT ASSEMBLY SUPERVISOR [facility] Additional Information 11/11/2022 8:04 AM [facility] Comment: Interpreted at [facility] - [address] [place] [address] Automated Review Successful 11/11/2022 8:04 AM [facility] Comment:Specimen processed s uccessfully by automated motor coach operator device, [employer]ova[employer] Imaging System, [employer] ANCILLARY TESTING BLEACHER SULFITE PULP HPV Ordered, Please see separate report 11/11/2022 8:04 AM [facility] Note The pap test is a screening technique, not a diagnostic procedure. It is used primarily to screen for squamous cancers and precursor lesions. Published studies have shown that it is subject to both false negative and false positive results. The pap test should not be used as the sole means to diagnose or exclude pre-malignant and malignant lesions. 11/11/2022 8:04 AM [facility] Other (Cervical) 10/28/2022 11:50 AM FIBERGLASS BOAT ASSEMBLY SUPERVISOR 11/01/2022 4:35 PM FIBERGLASS BOAT ASSEMBLY SUPERVISOR january [facility]TOLOGY Final R esult [facility] [address] [place] [address], from Last 3 Months or Most Recently Relevant to Health Maintenance Insurance MEDICAID t [facility] [place] [address] [facility] Advance Directives * Full Code (Latest Code [...] 6:16 AM 08/09/2010 12:05 PM Care Teams Terrazzo Polisher Relationship Specialty Start Date End Date Sherin Medina MD PCP - General 09/17/06
--- OUTSIDE RECORDS SUMMARY | 2025-05-20 21:22 | XMS_ITS | Encounter Summary ---
Author Organization [facility] Address [address] [place] [address] Care Team Providers Care Contract Paralegal Name Role Phone No Ref-Primary, Physician Primary Care Provider Mandeep Guadarrama MD Unavailable [phone] Tate Salazar MD Unavailable [phone] Tate Salazar MD Unavailable [phone] Priya Theodore APRN [facility] Unavailable + [phone] Encounter Details Date Type Department Care Team (Late st Contact Info) Description 03/27/2025 Results Follow-Up [address] [address] Tate Salazar MD [address] [place] [address] Subj: Message about your results Social History Tobacco Use Types Packs/Day Years Used Date Smoking Tobacco: Former Cigarettes Q uit: 10/06/2008 Smokeless Tobacco: Never Alcohol Use Standard Drinks/Week Comments No 0 (1 standard drink = 0.6 oz pur e alcohol) PHQ-2 Answer Date Recorded PHQ-2 Score 0 09/09/2024 Adolescent Education Answer Date Record ed Getting School Help Needed Not on file 07/15 Comments No Sex and Gender Information Value Date Recorded Sex Assigned at Not on file Legal Sex Female 3:16 AM 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 Gender Identity Female 09/24/2021 9:00 AM 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 Sexual Orientation Not on file documented as of this encounter Plan of Treatment Not on file documented as of this encounter Visit Diagnoses Not on filedocumented in this encounter Care Teams Contract Paralegal Relationship Specialty Start Date End Date No Ref-Primary, Physician PCP - General 10/07/22 Mandeep Guadarrama MD [address] [place] [address] [id number] Fellow Endocrinology, Diabetes, and Metabolism 05/09/24 Tate Salazar MD [address] [place] [address] [id number] Endocrinology, Diabetes, and Metabolism 05/13/24 Tate Salazar MD [address] [place] [address] [id number] Assigned Endocrinology Provider 06/07/24 Priya Theodore APRN CNP [address] [place] [address] Nurse Practitioner Pediatric Urology 11/19/24 documented as of this encounter
--- OUTSIDE RECORDS SUMMARY | 2025-05-20 21:22 | XMS_ITS | Encounter Summary ---
Author Organization [facility] Address [address] [place] [address] Care Team Providers Care Exotic Dancer Name Role Phone Sujata Payne MD Primary Care Provider [phone] Sujata Payne MD Unavailable [phone] Adams Rose MD Unavailable + [phone] No Ref-Primary, Physician Primary Care Provider Mandeep Guadarrama MD Unavailable [phone] Tate Salazar MD Unavailable [phone] Tate Salazar MD Unavailable [phone] Priya Theodore APRN MANAGER OF PATIENT Unavailable + [phone] Encounter Details Date Type Department Care Team (Late st Contact Info) Description 05/09/2020 MyC Medical Advice [facility] [address] [place] [address] Adams Rose MD [address] [place] [address] Social History Tobacco Use Types Packs/Day Years Used Date Smoking Tobacco: Former Cigarettes Q uit: 10/06/2008 Smokeless Tobacco: Never Alcohol Use Standard Drinks/Week Comments No 0 (1 standard drink = 0.6 oz pur e alcohol) PHQ-2 Answer Date Recorded PHQ-2 Score 0 12/03/2019 Comments No Sex and Gender Information Value Date Recorded Sex Assigned at Not on file Legal Sex Female 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 Gender Identity Female 09/24/2021 9:00 AM TREE FARMER Sexual Orientation Not on file documented as of this encounter Plan of Treatment Not on file documented as of this encounter Visit Diagnoses Not on filedocumented in this encounter Care Teams Exotic Dancer Relationship Specialty [place] [address] [place] [address] PCP - General Family Practice 08/21/17 10/06/22 No Ref-Primary, Physician PCP - General 10/07/22 [place] [address] [place] [address] Assigned PCP 09/17/17 09/05/20 Adams Rose MD [address] [place] [address] Assigned OBGYN Provider 08/07/20 Mandeep Guadarrama MD [address] [place] [address] Fellow Endocrinology, Diabetes, and Metabolism 05/09/24 Tate Salazar MD [address] [place] [address] Endocrinology, Diabetes, and Metabolism 05/13/24 Tate Salazar MD [address] [place] [address] Assigned Endocrinology Provider 06/07/24 Priya Theodore APRN CNP [address] [place] [address] Nurse Practitioner Pediatric Urology 11/19/24 documented as of this encounter
--- OUTSIDE RECORDS SUMMARY | 2025-05-20 21:22 | XMS_ITS | Encounter Summary ---
Author Organization [facility] Address [address] [place] [address] Care Team Providers Care Mill Hand Name Role Phone No Ref-Primary, Physician Primary Care Provider Mandeep Guadarrama MD Unavailable [phone] Tate Salazar MD Unavailable [phone] Tate Salazar MD Unavailable [phone] Priya Theodore APRN [facility] Unavailable + [phone] Encounter Details Date Type Department Care Team (Late st Contact Info) Description 12/31/2024 MyC Medical Advice [address] [address] Tate Salazar MD [address] [place] [address] Graves disease (Primary Dx) Social History Tobacco Use Types Packs/Day Years Used Date Smoking Tobacco: Former Cigarettes Q uit: 10/06/2008 Smokeless Tobacco: Never Alcohol Use Standard Drinks/Week Comments No 0 (1 standard drink = 0.6 oz pur e alcohol) PHQ-2 Answer Date Recorded PHQ-2 Score 0 09/09/2024 Adolescent Education Answer Date Record ed Getting School Help Needed Not on file 07/15 Comments Yes Sex and Gender Information Value Date Recorded Sex Assigned at Not on file Legal Sex Female 3:16 AM SENIOR INVESTMENT ANALYST Gender Identity Female 09/24/2021 9:00 AM SENIOR INVESTMENT ANALYST Sexual Orientation Not on file documented as of this encounter Plan of Treatment Not on file documented as of this encounter Results * T3 total (03/24/2025 11:57 AM CDT) T3 Total 101 85 - 202 ng/dL 03/24/2025 11:32 PM CDT [facility] Blood BLOOD SPECIMEN / Unknown Venipuncture / Unknown 03/24/2025 11:57 AM CDT 03/24/2025 11:57 AM CDT Tate Salazar MD LAB - BLOOD ORDERABLES Final Result [facility] [address] [facility], [address] * T4 free (03/24/2025 11:57 AM CDT) Free T4 1.26 0.90 - 1.70 ng/dL 03/24/2025 11:32 PM CDT [facility] Blood BLOOD SPECIMEN / Unknown Venipuncture / Unknown 03/24/2025 11:57 AM CDT 03/24/2025 11:57 AM CDT Tate Salazar MD LAB - BLOOD ORDERABLES Final Result [facility] [address] [facility], [address] * TSH (03/24/2025 11:57 AM CDT) Pathologist [facility] TSH 0.48 0.30 - 4.20 uIU/mL 03/24/2025 11:32 PM CDT [facility] Blood BLOOD SPECIMEN / Unknown Venipuncture / Unknown 03/24/2025 11:57 AM CDT 03/24/2025 11:57 AM CDT Tate Salazar MD LAB - BLOOD ORDERABLES Final Result [facility] [address] [facility] [address], [address] [place] [address], [facility] documented in this encounter Visit Diagnoses Diagnosis Graves disease- Primary Toxic diffuse goiter without mention of thyrotoxic crisis or storm documented in this encounter Care Teams Mill Hand Relationship Specialty Start Date End Date No Ref-Primary, Physician PCP - General 10/07/22 Mandeep Guadarrama MD [address] [place] [address] Fellow Endocrinology, Diabetes, and Metabolism 05/09/24 Tate Salazar MD [address] [place] [address] Endocrinology, Diabetes, and Metabolism 05/13/24 Tate Salazar MD [address] [place] [address] Assigned Endocrinology Provider 06/07/24 Priya Theodore APRN [employer] [address] [place] [address] Nurse Practitioner Pediatric Urology 11/19/24 documented as of this encounter
--- OUTSIDE RECORDS SUMMARY | 2025-05-20 21:22 | XMS_ITS | Encounter Summary ---
Author Organization [facility] Address [address] [place] [address] Care Team Providers Care Manager Fashion Name Role Phone Sujata Payne MD Primary Care Provider [phone] Sujata Payne MD Unavailable [phone] Adams Rose MD Unavailable + [phone] No Ref-Primary, Physician Primary Care Provider Mandeep Guadarrama MD Unavailable [phone] Tate Salazar MD Unavailable [phone] Tate Salazar MD Unavailable [phone] Priya Theodore APRN RN [facility] Unavailable + [phone] Encounter Details Date Type Department Care Team (Late st Contact Info) Description 12/09/2019 MyC Medical Advice [facility] [address] [place] [address] Adams Rose MD [address] [place] [address] Social History Tobacco Use Types Packs/Day Years Used Date Smoking Tobacco: Former Cigarettes Q uit: 10/06/2008 Smokeless Tobacco: Never Alcohol Use Standard Drinks/Week Comments No 0 (1 standard drink = 0.6 oz pur e alcohol) PHQ-2 Answer Date Recorded PHQ-2 Score 0 12/03/2019 Comments No Sex and Gender Information Value Date Recorded Sex Assigned at Not on file Legal Sex Female 3:16 AM GAME ROOM ATTENDANT Gender Identity Female 09/24/2021 9:00 AM GAME ROOM ATTENDANT Sexual Orientation Not on file documented as of this encounter Plan of Treatment Not on file documented as of this encounter Visit Diagnoses Not on filedocumented in this encounter Care Teams Manager Fashion Relationship Specialty [place] [address] [place] [address] PCP - General Family Practice 08/21/17 10/06/22 No Ref-Primary, Physician PCP - General 10/07/22 [place] [address] [place] [address] Assigned PCP 09/17/17 09/05/20 Adams Rose MD [address] [place] [address] Assigned OBGYN Provider 08/07/20 Mandeep Guadarrama MD [address] [place] [address] Fellow Endocrinology, Diabetes, and Metabolism 05/09/24 Tate Salazar MD [address] [place] [address] Endocrinology, Diabetes, and Metabolism 05/13/24 Tate Salazar MD [address] [place] [address] Assigned Endocrinology Provider 06/07/24 Priya Theodore APRN CNP [address] [place] [address] Nurse Practitioner Pediatric Urology 11/19/24 documented as of this encounter
--- OUTSIDE RECORDS SUMMARY | 2025-05-20 21:22 | XMS_ITS | Clinical Summary ---
Author Organization [facility] Address [address], [place] [address] Care Team Providers Care Lumber Piler Name Role Phone Sherin Medina MD Primary Care Provider + [phone] Source Comments You are receiving this document as you are listed as the primary care provider,follow-up provider, or the patient has been referred to you for consultation.This is in compliance with the Medicare andMedicaid EHR Incentive Program,which states Providers who transition their patient to another setting of careor provider of care or refers their patient to another provider of care shouldprovide summary care record for each transition of care or referral. [facility] Allergies Active Allergy Reactions Criticality Noted Date Comments Sulfa Antibiotics 06/26/2003 PN: LW Reaction: Rash, Generalized Medications * This document contains information received from the source organization and may not represent a complete record from that organization. Mcoyfmvf-Fpu-Ld -FA (/IRON OR) Take by mouth daily (every 24 hours). Indications: 4 Active Norethindrone, Contraceptive, (NOR-QD) 0.35 MG tablet Take 1 Tab by mouth daily. 90 Tab 3 7 Active drospirenone-et hinyl estradiol (FABIOLA) 3-0.03 MG tablet Take 1 Tab by mouth daily for 83 days. 84 Tab 3 7 Active fluconazole (DIFLUCAN) 150 MG tabletIndicatio ns:Yeast vaginitis Take one tablet by mouth now, may repeat in 3-5 days if symptoms persist. 2 Tab 7 Active hydrOXYzine HCl (ATARAX) 10 MG tabletIndicatio ns:Anxiety (HRC) Take 1-2 Tablets (10-20 mg) by mouth every 8 hours as needed for up to 60 doses. 60 Tablet 1 5 Active Active Problems Problem Noted Date Diagnosed Date Encounter for supervision of other normal pregna ncy 12/12/2013 Overview (06/07/2017): Supervision of other normal Labial varicosities 11/13/2012 HSIL on Pap smear of cervix 02/22/2010 Overview (06/07/2017): Colposcopy 03/09/2010. LEEP 08/09/2010 ; HSIL (high grade squamous intraepithelial lesion) on Pap smear Resolved Problems Problem Noted Date Diagnosed Date Resolved Date Contraceptive surveillance 01/01/2013 0 11/07/2013 Overview (06/07/2017): Ortho Evra patches ; Contraceptive surveillance, unspecified History of nephrolithiasis 10/29/2012 0 10/29/2012 Overview (05/19/2016): Patient passed kidney stone during in October 2012. History of cervical LEEP bio psy affecting care of mother, antepartum 05/16/2012 11/07/2013 Assessment & Plan (05/16/2012 10:37 AM CDT): previous term delivery with no labor Encounter for supervision of normal in multigravida 05/16/2012 11/07/2013 Overview (06/07/2017): Supervision of normal subsequent Supervision of normal first 05/09/2011 10/11/2011 S/P LEEP of cervix 08/09/2010 4 Major depressive disorder, single episode 10/21/2009 11/07/2013 Overview (06/07/2017): Depression Major NOS Varicella 05/02/2007 11/07/2013 Overview (06/07/2017): LW Onset: [id number] ; Varicella Zoster Immunizations Immunization Administration Dates Next Due 4vHPV (Gardasil) 05/02/2007,12/29/2006, 7 DTP 12/22/1993, 0,01/07/1989,1988,1988 Flu Vac Preserv Free (3+yrs) 08/24/2012, 07/20/2010,07/27/2009,2006,07/26/2006 HepA Ped/Adol (1-18 yrs) 05/24/2007 HepB Adult (Engerix-B, 20+ y rs, 3 dose series) 07/01/1998,01/01/1998,12/04/1997 MCV4 (Menactra) 10/30/2006 MMR 07/12/2000,12/14/1989 OPV, Trivalent (Orimune or tOPV) 994,05/07/1990,1988,1987 TB Skin Test (PPD) 05/19/2010 TDAP (ADACEL) 07/07/2011,01/31/2007 TDAP (BOOSTRIX) 04/03/2014 Td 07/12/2000 Tdap 10/25/2016 Family History Medical History Relation Name Comments Cancer, Prostate Father Hyperlipidemia Father Cancer Brother testicular Cataract Maternal Grandfather Diabetes Maternal Grandfather Heart Disease Maternal Grandfather High Cholesterol Maternal Grandfather Cancer Paternal Grandmother Amblyopia/Strabismus Negative Family History Blindness Negative Family History Glaucoma Negative Family History Hypertension Negative Family History Macular Degeneration Negative Family History Retinal Detachment Negative Family History Stroke Negative Family History Thyroid Disorder Negative Family History Relation Name Status Comments Father Alive Mother Alive Brother Alive Daughter Alive Maternal Grandfather Maternal Grandmother Paternal Grandfather Paternal Grandmother Son 1 Alive Son 2 Alive Son 3 Alive Son 4 Alive Son 5 Alive Social History Tobacco Use Types Packs/Day Years Used Date Smoking Tobacco: Never Smokeless Tobacco: Never Alcohol Use Standard Drinks/Week Comments No 0 (1 standard drink = 0.6 oz pur e alcohol) Depression Answer Date Recor ded Last EPDS Total Score 13 02/03/2025 Last EPDS Self Harm Result Not on file 02/03 Comments No Sex and Gender Information Value Date Recorded Sex Assigned at Not on file Legal Sex Female 4:55 AM CDT Gender Identity Not on file Sexual Orientation Not on file 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 Not on file Not on file Not on file Last Filed Vital Signs Vital Sign Reading Time Taken Comments Blood Pressure 118/71 03/23/2017 1:05 PM CDT Pulse 80 03/23/2017 1:05 PM CDT Temperature 36.6 C (97.9 F) 05/29/2013 2:11 PM CDT Respiratory Rate 20 10/20/2012 10:40 AM LINE CONSTRUCTION SUPERVISOR Oxygen Saturation 99% 10/20/2012 10:40 AM LINE CONSTRUCTION SUPERVISOR Inhaled Oxygen Concentration - - Weight 82.7 kg (182 lb 6.4 oz) 03/23/2017 1:05 P M CDT Height 163.2 cm (5' 4.25) 06/23/2016 10:17 AM C DT Body Mass Index 31.07 06/23/2016 10:17 AM CDT Plan of Treatment Health Maintenance Due Date Last Done Comments Hep C Screening (Preventive Services) 1988 Adult Preventive Visit 2006 HepA Vaccine (2 of 2 - Risk 2-dose series) 11/24/2007 05/24/2007 Cervical Cancer Screening 10/06/20162014, 11/07/2013, 11/07/2013, Additional history exists COVID-19 Vaccine ( season) 2024 Influenza Vaccine (#1) 2025 2, 07/20/2010, 07/27/2009, Additional history exists DTaP/Tdap/Td Vaccine (10 - Tdap) 10/25/2026 10/25/2016, 04/03/2014, 07/07/2011, Additional history exists Zoster/Shingles Vaccine (1 of 2) 2038 Hib Vaccine Completed 05/07/1990 IPV (Polio) Vaccine Completed 12/22/1993, 05/07/1990, 1988, Additional history exists HepB Vaccine Completed 07/01/1998, 12/14, 12/04/1997 MCV4 Vaccine Completed 10/30/2006 HPV Vaccine Completed 05/02/2007, 12/14, 11/01/2006 HIV Screening (Preventive Services) Completed 06/23/2016, 11/07/2013, 05/16/2012, Additional history exists Meningococcal B Vaccine Aged Out No l onger eligible based on patient's age to complete this topic Pneumococcal Vaccine Aged Out No long er eligible based on patient's age to complete this topic Procedures Procedure Name Priority Date/Time Associated Diagnosis Comments HIV-1 P24 AND HIV-1/HIV-2 ANTIBODIES Routine 06/23/2016 11:09 AM CDT Screening examination for venereal disease ANATOMICAL PATH LIQUID BASED Routine 10/06/2015 11:30 AM LINE CONSTRUCTION SUPERVISOR from Last 3 Months or Most Recently Relevant to Health Maintenance Results * LAB HIV-1 p24 AND HIV-1/HIV-2 ANTIBODIES (06/23/2016 11:09 AM CDT) HIV-1 p24 Ag and HIV-1/HIV-2 Ab Nonreactive Non-React bradford PN SOFT 06/23/2016 11:0 9 AM CDT 06/23/2016 7:41 PM CDT Narrative PN SOFT - 06/23/2016 8:36 PM CDT Performed at [address] [address] CLIA number [id number] us Penny Reyes APRN, DOMINIC LAB_1 Fi nal Result PN SOFT [address] [place] [address] * Pap Smear (10/06/2015 11:30 AM LINE CONSTRUCTION SUPERVISOR) 10/06/2015 11:3 0 AM LINE CONSTRUCTION SUPERVISOR Narrative HP CONVERSION - 10/12/2015 11:20 AM LINE CONSTRUCTION SUPERVISOR FINAL GYNECOLOGICAL CYTOLOGY REPORT Pathology #: [id number] Date Obtained: 10/06/2015 Date Received: 10/07/2015 INTERPRETATION/RESULTS: Negative for Intraepithelial Lesion or Malignancy. SPECIMEN ADEQUACY: Satisfactory for Evaluation. No endocervical cells/transformation zone component present; patient is . Verified on 10/12/2015 by SAV ALBA(ASCP) (electronic signature) CLINICAL NOTES: Abnormal bleeding: No, LMP: 07/31/15, Menstrual status: , Current form of therapy: None apply LIQUID BASED PAP SMEAR SPECIMEN TYPE: ROUTINE CERVICAL PAP TEST PLEASE NOTE: The pap smear is a screening test designed to aid in the detection of cervical cancer and its precursor lesions. It is not a diagnostic procedure and should not be used as the sole means of detecting cervical cancer. Both false-positive and false-negative reports may occur. End of Report Performed at [facility], [address] [place] [id number] Transcriptions 11/23/2016 11:21 PM CSTNotes Recorded by Sydney Dasilva RN on 10/22/2015 at 11:19 Araceli Pepper,I am writing to let you know that your PAP result is negative. This means that your test result was normal. No cancer or precancerous cells were seen.Based on current cervical cancer screening recommendations, your next PAP and HPV should be in 12 months. Continue to schedule your annual preventive exams for your overall health.If you have questions about cervical cancer screening or your test results, callCervical Cancer Screening and Management Team [phone],Sydney Dasilva, MILLICENT on behalf ofDr. Lucero Sumner, Medical DirectorCovington [facility] Cervical Cancer Screening and Management Penny Reyes APRN, CONSTRUCTION ADMINISTRATOR LAB_1 Fi nal Result HP CONVERSION from Last 3 Months or Most Recently Relevant to Health Maintenance Insurance [facility] Care Teams Lumber Piler Relationship Specialty Start Date End Date Sherin Medina MD [address] [place], [place] [id number] PCP - General 01/16/11
--- OUTSIDE RECORDS SUMMARY | 2025-05-20 21:22 | XMS_ITS | Encounter Summary ---
Author Organization [facility] Address [address] [place] [address] Care Team Providers Care Shingle Inspector Name Role Phone No Ref-Primary, Physician Primary Care Provider Mandeep Guadarrama MD Unavailable [phone] Tate Salazar MD Unavailable [phone] Tate Salazar MD Unavailable [phone] Priya Theodore APRN [facility] Unavailable + [phone] Encounter Details Date Type Department Care Team (Late st Contact Info) Description 01/16/2025 MyC Medical Advice [address] [address] Tate Salazar MD [address] [place] [address] Social History Tobacco Use Types [...] on file Legal Sex Female 3:16 AM LANDSCAPE FOREMAN Gender Identity Female 09/24/2021 9:00 AM LANDSCAPE FOREMAN Sexual Orientation Not on file documented as of this encounter Plan of Treatment Not on file documented as of this encounter Visit Diagnoses Not on filedocumented in this encounter Care Teams Shingle Inspector Relationship Specialty Start Date End Date No Ref-Primary, Physician PCP - General 10/07/22 Mandeep Guadarrama MD [address] [place] [address] Fellow Endocrinology, Diabetes, and Metabolism 05/09/24 Tate Salazar MD [address] [place] [address] Endocrinology, Diabetes, and Metabolism 05/13/24 Tate Salazar MD [address] [place] [address] Assigned Endocrinology Provider 06/07/24 Priya Theodore APRN THERAPEUTIC RECREATION SPECIALIST [address] [place] [address] Nurse Practitioner Pediatric Urology 11/19/24 documented as of this encounter
--- OUTSIDE RECORDS SUMMARY | 2025-05-20 21:22 | XMS_ITS | Encounter Summary ---
Author Organization [facility] Address [address] [place] [address] Care Team Providers Care Applied Psychology Teacher Name Role Phone No Ref-Primary, Physician Primary Care Provider Mandeep Guadarrama MD Unavailable [phone] Tate Salazar MD Unavailable [phone] Tate Salazar MD Unavailable [phone] Priya Theodore APRN [facility] Unavailable + [phone] Encounter Details Date Type Department Care Team (Late st Contact Info) Description 04/29/2025 MyC Medical Advice [address] [address] Tate Salazar MD [address] [place] [address] Graves disease (Primary Dx) Social [...] on file Legal Sex Female 3:16 AM DATA MIGRATION CONSULTANT Gender Identity Female 09/24/2021 9:00 AM DATA MIGRATION CONSULTANT Sexual Orientation Not on file documented as of this encounter Plan of Treatment Scheduled Orders Name Type Priority Associated Diagnoses Orde r Schedule TSH with free T4 reflex Lab Routine Graves disease 4m for 3 Occurrences starting 05/02/2025 until 05/02/2026 documented as of this encounter Visit Diagnoses Diagnosis Graves disease- Primary Toxic diffuse goiter without mention of thyrotoxic crisis or storm documented in this encounter Care Teams Applied Psychology Teacher Relationship Specialty Start Date End Date No Ref-Primary, Physician PCP - General 10/07/22 Mandeep Guadarrama MD [address] [place] [address] Fellow Endocrinology, Diabetes, and Metabolism 05/09/24 Tate Salazar MD [address] [place] [address] Endocrinology, Diabetes, and Metabolism 05/13/24 Tate Salazar MD [address] [place] [address] Assigned Endocrinology Provider 06/07/24 Priya Theodore APRN FAMILY NURSE [address] [place] [address] Nurse Practitioner Pediatric Urology 11/19/24 documented as of this encounter
--- OUTSIDE RECORDS SUMMARY | 2025-05-20 21:22 | XMS_ITS | Encounter Summary ---
Author Organization [facility] Address [address] [place] [address]. [place] [address] Care Team Providers Care Component Prep Operator Name Role Phone Sujata Payne MD Primary Care Provider [phone] Sujata Payne MD Unavailable [phone] Sujata Payne MD Unavailable [phone] Adams Rose MD Unavailable + [phone] No Ref-Primary, Physician Primary Care Provider Mandeep Guadarrama MD Unavailable [phone] Tate Salazar MD Unavailable [phone] Tate Salazar MD Unavailable [phone] Priya Theodore APRN AUTOMATIC DRY STARCH OPERATOR Unavailable + [phone] Reason for Visit * Reason Onset Date Comments MyChart Communication 05/30/2018 Encounter Details Date Type Department Care Team (Late st Contact Info) Description 05/30/[address] [facility] [address] [place] [phone] [place] [phone] [place] [address] MyChart Communication Social History Tobacco Use Types Packs/Day Years Used Date Smoking Tobacco: Former Cigarettes Q uit: 10/06/2008 Smokeless Tobacco: Never Alcohol Use Standard Drinks/Week Comments No 0 (1 standard drink = 0.6 oz pur e alcohol) Comments No Sex and Gender Information Value Date Recorded Sex Assigned at Not on file Legal Sex Female 3:16 AM MOLD MAINTENANCE TECHNICIAN Gender Identity Female 09/24/2021 9:00 AM MOLD MAINTENANCE TECHNICIAN Sexual Orientation Not on file documented as of this encounter Miscellaneous Notes * Telephone Encounter - Sujata Payne MD - 05/30/2018 4:14 PM CDT Can give Timothy's info if she feels comfortable seeing a man. If not, [facility] * Telephone Encounter - Roxanna Aguilera RN - 05/30/2018 3:43 PM CDT PCP: Please see below. BRODIE was 09/05/17. Roxanna Aguilera RN -- [facility] documented in this encounter Plan of Treatment Not on file documented as of this encounter Visit Diagnoses Not on filedocumented in this encounter Care Teams Component Prep Operator Relationship Specialty [place] [address] [place] [address] PCP - General Family Practice 08/21/17 10/06/22 [place] [address] [place] [address] PCP - Assigned PCP 09/17/17 12/18/18 No Ref-Primary, Physician PCP - General 10/07/22 [place] [address] [place] [address] Assigned PCP 09/17/17 09/05/20 Adams Rose MD [address] [place] [address] Assigned OBGYN Provider 08/07/20 Mandeep Guadarrama MD [address] [place] [address] Fellow Endocrinology, Diabetes, and Metabolism 05/09/24 Tate Salazar MD [address] [place] [address] Endocrinology, Diabetes, and Metabolism 05/13/24 Tate Salazar MD [address] [place] [address] Assigned Endocrinology Provider 06/07/24 Priya Theodore APRN AUTOMATIC DRY STARCH OPERATOR [address] [place] [address] Nurse Practitioner Pediatric Urology 11/19/24 documented as of this encounter
--- OUTSIDE RECORDS SUMMARY | 2025-05-20 21:23 | XMS_ITS | Encounter Summary ---
Author Organization [facility] Address [address] [place] [address] Care Team Providers Care Biological Aide Name Role Phone No Ref-Primary, Physician Primary Care Provider Mandeep Guadarrama MD Unavailable [phone] Tate Salazar MD Unavailable [phone] Tate Salazar MD Unavailable [phone] Priya Theodore APRN [facility] Unavailable + [phone] Encounter Details Date Type Department Care Team (Late st Contact Info) Description 06/14/2024 [facility] Medical Advice [facility] [address] [address] Tate Salazar MD [address] [place] [phone] Social History Tobacco Use Types Packs/Day Years [...] on file Legal Sex Female 3:16 AM RADIO DISPATCHER Gender Identity Female 09/24/2021 9:00 AM RADIO DISPATCHER Sexual Orientation Not on file documented as of this encounter Plan of Treatment Not on file documented as of this encounter Visit Diagnoses Not on filedocumented in this encounter Care Teams Biological Aide Relationship Specialty Start Date End Date No Ref-Primary, Physician PCP - General 10/07/22 Mandeep Guadarrama MD [address] [place] [address] Fellow Endocrinology, Diabetes, and Metabolism 05/09/24 Tate Salazar MD [address] [place] [address] Endocrinology, Diabetes, and Metabolism 05/13/24 Tate Salazar MD [address] [place] [address] Assigned Endocrinology Provider 06/07/24 Priya Theodore APRN BRUSH CLEANER [address] [place] [address] Nurse Practitioner Pediatric Urology 11/19/24 documented as of this encounter
--- OUTSIDE RECORDS SUMMARY | 2025-05-20 21:23 | XMS_ITS | Encounter Summary ---
Author Organization [facility] Address [address] [place] [address] Care Team Providers Care Is Manager Name Role Phone No Ref-Primary, Physician Primary Care Provider Mandeep Guadarrama MD Unavailable [phone] Tate Salazar MD Unavailable [phone] Tate Salazar MD Unavailable [phone] Priya Theodore APRN [facility] Unavailable + [phone] Encounter Details Date Type Department Care Team (Late st Contact Info) Description 12/17/2024 [facility] [place] Medical Advice [address] [address] Tate Salazar MD [address] [place] [address] Social History Tobacco Use Types [...] on file Legal Sex Female 3:16 AM RECYCLING CREW SUPERVISOR Gender Identity Female 09/24/2021 9:00 AM RECYCLING CREW SUPERVISOR Sexual Orientation Not on file documented as of this encounter Plan of Treatment Not on file documented as of this encounter Visit Diagnoses Not on filedocumented in this encounter Care Teams Is Manager Relationship Specialty Start Date End Date No Ref-Primary, Physician PCP - General 10/07/22 Mandeep Guadarrama MD [address] [place] [address] Fellow Endocrinology, Diabetes, and Metabolism 05/09/24 Tate Salazar MD [address] [place] [address] Endocrinology, Diabetes, and Metabolism 05/13/24 Tate Salazar MD [address] [place] [address] Assigned Endocrinology Provider 06/07/24 Priya Theodore APRN SQL ANALYST [address] [place] [address] Nurse Practitioner Pediatric Urology 11/19/24 documented as of this encounter
--- OUTSIDE RECORDS SUMMARY | 2025-05-20 21:23 | XMS_ITS | Clinical Summary ---
Author Organization [facility] Address [address] [place] [address] Care Team Providers Care Solar Energy Consultant And Designer Name Role Phone No Ref-Primary, Physician Primary Care Provider Mandeep Guadarrama MD Unavailable [phone] Tate Salazar MD Unavailable [phone] Tate Salazar MD Unavailable [phone] Priya Theodore APRN MANAGER INSPECTION Unavailable + [phone] Allergies Active Allergy Reactions Criticality Noted Date [...] Encounters Date Type Department Care Team Description 04/29/2025 MyC Medical Advice [address] [phone] Tate Salazar MD Graves disease (Primary Dx) 03/27/2025 Results Follow-Up [address] [place] [phone] Tate Salazar MD Subj: Message about your results 03/24/2025 12:00 PM CDT Lab [facility] [address] [place] [phone] Graves disease 03/24/2025 Travel 03/21/2025 [facility] Medical Advice [address] [phone] Tate Salazar MD from Last 3 Months Immunizations Immunization Administration Dates Next Due DTAP (<7y) 12/22/1993, 0,01/07/1989,11/05,1988 Flu, Unspecified 07/20/2010, 9,10/01/2007,07/26 HIB (PRP-T) 05/07/1990 HIB, Unspecified 05/07/1990 Hepatitis A (VAQTA)(ADULT 19+) 05/24/2007 Hepatitis A (Vaqta/Havrix)(P eds 12m-18y) 05/24/2007 Hepatitis B, Adult (Energix-B/Recombivax HB) 07/01/1998,01/01/1998,12/04/1997 Hepatitis B, Peds (Engerix-B/Recombivax HB) 07/01/1998,12/04/1997,01/01/1989 Hpv, Unspecified 05/02/2007,12/29/2006, 7 Influenza (H1N1) 06/30/2010 Influenza (prior to 2023) 08/24/2012,02/2010,07/27/2009,10/01,07/26/2006 MMR (MMRII) 07/12/2000,12/14/1989 Mantoux Tuberculin Skin Test 05/19/2010 Meningococcal ACWY (Menactra ) 10/30/2006 OPV, trivalent, live 12/22/1993,05/07/19 90,1988,08/30 Polio, Unspecified 12/22/1993, 0,1988,08/30 TDAP (Adacel,Boostrix) 04/03/2014,07/07/2011, TDAP Vaccine (Boostrix) 10/25/2016 [...] on file Legal Sex Female 3:16 AM PROFESSOR OF BIOLOGICAL SCIENCES Gender Identity Female 09/24/2021 9:00 AM PROFESSOR OF BIOLOGICAL SCIENCES Sexual Orientation Not on file Last Filed Vital Signs Vital Sign Reading Time Taken Comments Blood Pressure 124/78 10/07/2022 12:08 PM PROFESSOR OF BIOLOGICAL SCIENCES Pulse 95 10/07/2022 1:49 PM PROFESSOR OF BIOLOGICAL SCIENCES Temperature 36.5 C (97.7 F) 10/07/2022 9:21 AM PROFESSOR OF BIOLOGICAL SCIENCES Respiratory Rate 16 10/07/2022 1:49 PM PROFESSOR OF BIOLOGICAL SCIENCES Oxygen Saturation 100% 10/07/2022 12:08 PM PROFESSOR OF BIOLOGICAL SCIENCES Inhaled Oxygen Concentration - - Weight 82.6 kg (182 lb) 05/16/2024 9:20 AM CDT Height 162.6 cm (5' 4) 12/03/2019 1:20 PM PROFESSOR OF BIOLOGICAL SCIENCES Body Mass Index 31.24 12/03/2019 1:20 PM PROFESSOR OF BIOLOGICAL SCIENCES Plan of Treatment Health Maintenance Due Date Last Done Comments ADVANCE CARE PLANNING 1988 ANNUAL REVIEW OF HM ORDERS 1988 HEPATITIS C SCREENING 2006 PNEUMOCOCCAL VACCINE: PEDIAT RICS (0 to 5 YEARS) AND AT-RISK PATIENTS (6 to 49 YEARS) (1 of 2 - PCV) 2007 YEARLY PREVENTIVE VISIT 12/03/2020 12/03/2019, 09/05 COVID-19 VACCINE (1 - 2023-2 5 season) 2024 PHQ-2 (once per calendar year) 2024 1 11/09/2023, 05/16/2024, 12/03/2019, Additional history exists INFLUENZA VACCINE (#1) 2025 (Declined), 10/03/2018 (Declined), 08/24/2012, Additional history exists DIABETES SCREENING 10/07/2025 10/07/2022, 05/30/2016 DTAP/TDAP/TD VACCINE (10 - T d or Tdap) 10/25/2026 10/25/2016, 04/03/2014, 07/07/2011, Additional history exists HPV TEST 10/28/2027 10/28/2022, 12/03/2019 PAP 10/28/2027 10/28/2022, 10/16, 12/03/2019, Additional history exists ZOSTER VACCINE (1 of 2) 2038 HEPATITIS B VACCINE Completed 07/01/1998, 07/01/1998, 01/01/1998, Additional history exists MENINGITIS VACCINE Completed 10/30/2006 HPV VACCINE Completed 05/02/2007, 12/14, 11/01/2006 HIV SCREENING Completed 06/23/2016, 10/17, 05/16/2012 Procedures Procedure Name Priority Date/Time Associated Diagnosis Comments T3 TOTAL Routine 03/24/2025 11:57 AM CDT Graves disease T4 FREE Routine 03/24/2025 11:57 AM CDT Graves disease TSH Routine 03/24/2025 11:57 AM CDT Graves disease THYROXINE TOTAL Routine 03/24/2025 11:57 AM CDT Graves disease BASIC METABOLIC PANEL STAT 10/07/2022 9:30 AM PROFESSOR OF BIOLOGICAL SCIENCES HPV HIGH RISK TYPES DNA CERVICAL Routine 12/03/2019 1:30 PM PROFESSOR OF BIOLOGICAL SCIENCES Screening for malignant neoplasm of cervix PAP IMAGED THIN LAYER SCREEN Routine 12/03/2019 1:29 PM PROFESSOR OF BIOLOGICAL SCIENCES Screening for malignant neoplasm of cervix HIV ANTIGEN ANTIBODY COMBO Routine 06/23/2016 from Last 3 Months or Most Recently Relevant to Health Maintenance Results * TSH (03/24/2025 11:57 AM CDT) TSH 0.48 0.30 - 4.20 uIU/mL 03/24/2025 11:32 PM CDT [facility] Blood BLOOD SPECIMEN / Unknown Venipuncture / Unknown 03/24/2025 11:57 AM CDT 03/24/2025 11:57 AM CDT Tate Salazar MD LAB - BLOOD ORDERABLES Final Result U LAB[facility]ATORY [facility] [place] [facility] [address] [facility], [address] * Thyroxine total (03/24/2025 11:57 AM CDT) Pathologist [facility] T4 Total 8.5 4.5 - 11.7 ug/dL 03/24/2025 11:32 PM CDT [facility] Blood BLOOD SPECIMEN / Unknown Venipuncture / Unknown 03/24/2025 11:57 AM CDT 03/24/2025 11:57 AM CDT Tate Salazar MD LAB - BLOOD ORDERABLES Final Result [facility] [place] [facility] [address] [facility], [address] * T4 free (03/24/2025 11:57 AM CDT) Pathologist [facility] Free T4 1.26 0.90 - 1.70 ng/dL 03/24/2025 11:32 PM CDT [facility] Blood BLOOD SPECIMEN / Unknown Venipuncture / Unknown 03/24/2025 11:57 AM CDT 03/24/2025 11:57 AM CDT Tate Salazar MD LAB - BLOOD ORDERABLES Final Result [facility] [place] [facility] [address] [facility], [address] * T3 total (03/24/2025 11:57 AM CDT) [facility] T3 Total 101 85 - 202 ng/dL 03/24/2025 11:32 PM CDT U LABORATORY Blood BLOOD SPECIMEN / Unknown Venipuncture / Unknown 03/24/2025 11:57 AM CDT 03/24/2025 11:57 AM CDT Tate Salazar MD LAB - BLOOD ORDERABLES Final Result LABORATORY [facility] [place] [facility] [address] [facility], [address] * (ABNORMAL) Basic metabolic panel (10/07/2022 9:30 AM PROFESSOR OF BIOLOGICAL SCIENCES) [facility] Sodium 137 136 - 145 mmol/L 10/07/2022 11:03 AM PROFESSOR OF BIOLOGICAL SCIENCES LABORATORY Potassium 4.2 3.4 - 5.3 mmol/L 10/07/2022 11:03 AM [facility] Chloride 102 98 - 107 mmol/L 10/07/2022 11:03 AM [facility] Carbon Dioxide (CO2) 22 22 - 29 mmol/L 10/07/2022 11:03 AM [facility] Anion Gap 13 7 - 15 mmol/L 10/07/2022 11:03 AM [facility] Urea Nitrogen 10.9 6.0 - 20.0 mg/dL 10/07/2022 11:03 AM PROFESSOR OF BIOLOGICAL SCIENCES LABORATORY Creatinine 0.72 0.51 - 0.95 mg/dL 10/07/2022 11:03 AM PROFESSOR OF BIOLOGICAL SCIENCES LABORATORY Calcium 9.6 8.6 - 10.0 mg/dL 10/07/2022 11:03 AM [facility] Glucose 105(H) 70 - 99 mg/dL 10/07/2022 11:03 AM PROFESSOR OF BIOLOGICAL SCIENCES LABORATORY GFR Estimate >90 >60 mL/min/1.7 3m2 10/07/2022 11:03 AM PROFESSOR OF BIOLOGICAL SCIENCES LABORATORY Comment:Effective September 162020 eGFRcr in adults is calculated using the 2020 CKD-EPI creatinine equation which includes age and gender (Arianna et al., NEJ, DOI: 10.1056/CSXBre3091518) Blood STRUCTURE OF RIGHT UPPER LIMB / Unknown Venipuncture / Unknown 10/07/2022 9:30 AM PROFESSOR OF BIOLOGICAL SCIENCES 10/07/2022 9:35 AM PROFESSOR OF BIOLOGICAL SCIENCES Adams Washington MD LAB - BLOOD ORDERABLES F inal Result LABORATORY [facility] [address] [facility] Lab (1st floor, no room number) [place] [address], [facility] [phone] * HPV High Risk Types DNA Cervical (12/03/2019 1:30 PM PROFESSOR OF BIOLOGICAL SCIENCES) HPV Source [facility] 12/03/2019 1:29 PM PROFESSOR OF BIOLOGICAL SCIENCES [facility] HPV 16 DNA Negative NEG^Nega tive 12/09/2019 3:31 PM PROFESSOR OF BIOLOGICAL SCIENCES [facility] HPV 18 DNA Negative NEG^Nega tive 12/09/2019 3:31 PM PROFESSOR OF BIOLOGICAL SCIENCES [facility] Other HR HPV Negative NEG^Nega tive 12/09/2019 3:31 PM PROFESSOR OF BIOLOGICAL SCIENCES [facility] Final Diagnosis This patient's sample is negative for HPV DNA. 12/09/2019 3:31 PM PROFESSOR OF BIOLOGICAL SCIENCES [facility] Comment: This test was developed and its performance characteristics determined by the [facility], Molecular Diagnostics Laboratory. It has [...] Specimen Description Cervical Cells 12/03/2019 1:29 PM PROFESSOR OF BIOLOGICAL SCIENCES [facility] Comment:[id number] Cervical Cells 12/03/2019 1: 30 PM PROFESSOR OF BIOLOGICAL SCIENCES 12/03/2019 2:05 PM PROFESSOR OF BIOLOGICAL SCIENCES us Adams Baron MD LAB - BLOOD ORDERABLES Final Result [facility] [address] [place] [address] [facility] [address] [facility] [address] [place] [address] * Pap imaged thin layer screen with HPV - recommended age 30 - 65 years (select HPV order below) (12/03/2019 1:29 PM PROFESSOR OF BIOLOGICAL SCIENCES) PAP YULIET Sanchez Report Patient Name: SHANTELLE RICHARDSON MR#: [id number] Specimen #: [id number] Collected: 12/03/2019 Received: 12/04/2019 Reported: 12/06/2019 07:36 [...] adenocarcinomas or other cancers. COLLECTION SITE: Client: [facility] Location: [facility] () The technical component of this testing was completed at the [facility], with the professional component performed at the [facility], [address] [place] [phone] ([phone]) [facility] Cytologic material (specimen) 12/03/2019 1:29 PM PROFESSOR OF BIOLOGICAL SCIENCES 12/04/2019 10:46 AM PROFESSOR OF BIOLOGICAL SCIENCES Adams Baron MD LAB - OPTIME CLINICAL SPECIMEN Final Result [facility] * HIV Antigen Antibody Combo (06/23/2016) HIV Antigen Antibody Combo nonreactive Blood specimen (specimen) us Patient Reported LAB - BLOOD ORDERABLES Final Re sult from Last 3 Months or Most Recently Relevant to Health Maintenance Insurance [facility] Advance Directives For more information, please contact: [phone] * Full Code (Latest Code Status on File) Date Activated Date Inactivated Comments 09/11/2012 8:22 AM 10/07/2022 9:04 AM Care Teams Solar Energy Consultant And Designer Relationship Specialty Start Date End Date No Ref-Primary, Physician PCP - General 10/07/22 Mandeep Guadarrama MD [address] [place] [address] Fellow Endocrinology, Diabetes, and Metabolism 05/09/24 Tate Salazar MD [address] [place] [address] Endocrinology, Diabetes, and Metabolism 05/13/24 Tate Salazar MD [address] [place] [address] Assigned Endocrinology Provider 06/07/24 Priya Theodore APRN MANAGER INSPECTION [address] [place] [address] Nurse Practitioner Pediatric Urology 11/19/24
--- OUTSIDE RECORDS SUMMARY | 2025-05-20 21:23 | XMS_ITS | Encounter Summary ---
Author Organization [facility] Address [address] [place] [address] Care Team Providers Care Laboratory Associate Name Role Phone No Ref-Primary, Physician Primary Care Provider Mandeep Guadarrama MD Unavailable [phone] Tate Salazar MD Unavailable [phone] Tate Salazar MD Unavailable [phone] Priya Theodore APRN [facility] Unavailable + [phone] Encounter Details Date Type Department Care Team (Latest Contact Info) Description 05/21/2024 [facility] Medical Advice [facility] Endocrinology Clinic [address] [address] Tate Salazar MD [address] [place] [id number] Graves disease (Primary Dx) Social History Tobacco [...] on file Legal Sex Female 3:16 AM FINANCIAL INVESTMENT MANAGER Gender Identity Female 09/24/2021 9:00 AM FINANCIAL INVESTMENT MANAGER Sexual Orientation Not on file documented as of this encounter Plan of Treatment Not on file documented as of this encounter Results * Thyroxine total (03/24/2025 11:57 AM CDT) T4 Total 8.5 4.5 - 11.7 ug/dL 03/24/2025 11:32 PM CDT [facility] Blood BLOOD SPECIMEN / Unknown Venipuncture / Unknown 03/24/2025 11:57 AM CDT 03/24/2025 11:57 AM CDT Tate Salazar MD LAB - BLOOD ORDERABLES Final Result U LABORATORY [facility] [place] [facility] [address] [facility], [address] * Thyroxine total (12/30/2024 11:25 AM CDT) T4 Total 9.6 4.5 - 11.7 ug/dL 12/31/2024 3:00 AM CDT [facility] Blood BLOOD SPECIMEN / Unknown Venipuncture / Unknown 12/30/2024 11:25 AM CDT 12/30/2024 11:26 AM CDT Tate Salazar MD LAB - BLOOD ORDERABLES Final Result U LABORATORY [facility] Lab [address] [facility], [address] * (ABNORMAL) Thyroxine total (12/05/2024 12:51 PM FINANCIAL INVESTMENT MANAGER) T4 Total 12.8(H) 4.5 - 11.7 ug/dL 12/05/2024 7:53 PM FINANCIAL INVESTMENT MANAGER [facility] Blood BLOOD SPECIMEN / Unknown Venipuncture / Unknown 12/05/2024 12:51 PM FINANCIAL INVESTMENT MANAGER 12/05/2024 12:54 PM FINANCIAL INVESTMENT MANAGER Tate Salazar MD LAB - BLOOD ORDERABLES Final Result U LABORATORY [facility] [address] [facility], [address] [phone] * (ABNORMAL) Thyroxine total (11/12/2024 10:31 AM FINANCIAL INVESTMENT MANAGER) T4 Total 13.2(H) 4.5 - 11.7 ug/dL 11/13/2024 1:07 AM FINANCIAL INVESTMENT MANAGER [facility] Blood BLOOD SPECIMEN / Unknown Venipuncture / Unknown 11/12/2024 10:31 AM FINANCIAL INVESTMENT MANAGER 11/12/2024 10:31 AM FINANCIAL INVESTMENT MANAGER Tate Salazar MD LAB - BLOOD ORDERABLES Final Result Performing Organization Address City/[facility]/ZIP Co de Phone Number LABORATORY [facility] Core Lab [address] [facility], [address] [phone] * (ABNORMAL) Thyroxine total (09/26/2024 10:01 AM FINANCIAL INVESTMENT MANAGER) T4 Total 14.5(H) 4.5 - 11.7 ug/dL 09/26/2024 7:03 PM FINANCIAL INVESTMENT MANAGER [facility] Blood BLOOD SPECIMEN / Unknown Venipuncture / Unknown 09/26/2024 10:01 AM FINANCIAL INVESTMENT MANAGER 09/26/2024 10:01 AM FINANCIAL INVESTMENT MANAGER Tate Salazar MD LAB - BLOOD ORDERABLES Final Result U LABORATORY [facility] [place] [facility] [address] [facility], [address] [phone] * (ABNORMAL) Thyroxine total (08/28/2024 9:55 AM FINANCIAL INVESTMENT MANAGER) T4 Total 13.9(H) 4.5 - 11.7 ug/dL 08/28/2024 6:05 PM FINANCIAL INVESTMENT MANAGER [facility] Blood BLOOD SPECIMEN / Unknown Venipuncture / Unknown 08/28/2024 9:55 AM FINANCIAL INVESTMENT MANAGER 08/28/2024 9:58 AM FINANCIAL INVESTMENT MANAGER Tate Salazar MD LAB - BLOOD ORDERABLES Final Result LABORATORY [facility] [place] [facility] [address] [facility], [address] [phone] * (ABNORMAL) Thyroxine total (07/16/2024 9:55 AM CDT) T4 Total 13.4(H) 4.5 - 11.7 ug/dL 07/16/2024 7:01 PM CDT [facility] Blood BLOOD SPECIMEN / Unknown Venipuncture / Unknown 07/16/2024 9:55 AM CDT 07/16/2024 9:55 AM CDT Tate Salazar MD LAB - BLOOD ORDERABLES Final Result Performing Organization Address City/[facility] Co de Phone Number LABORATORY [facility] [address] [place] [address], [address] [phone] * Thyroxine total (06/11/2024 10:49 AM CDT) T4 Total 9.9 4.5 - 11.7 ug/dL 06/11/2024 7:17 PM CDT [facility] Blood BLOOD SPECIMEN / Unknown Venipuncture / Unknown 06/11/2024 10:49 AM CDT 06/11/2024 10:49 AM CDT Tate Salazar MD LAB - BLOOD ORDERABLES Final Result LABORATORY [facility] [address] [place] [address], [address] [phone] [place] [address] documented in this encounter Visit Diagnoses Diagnosis Graves disease- Primary Toxic diffuse goiter without mention of thyrotoxic crisis or storm documented in this encounter Care Teams Laboratory Associate Relationship Specialty Start Date End Date No Ref-Primary, Physician PCP - General 10/07/22 Mandeep Guadarrama MD [address] [place] [address] Fellow Endocrinology, Diabetes, and Metabolism 05/09/24 Tate Salazar MD [address] [place] [address] Endocrinology, Diabetes, and Metabolism 05/13/24 Tate Salazar MD [address] [place] [address] 280225 Assigned Endocrinology Provider 06/07/24 Priya Theodore APRN PEANUT PICKER [address] [place] [address] Nurse Practitioner Pediatric Urology 11/19/24 documented as of this encounter
--- OUTSIDE RECORDS SUMMARY | 2025-05-20 21:23 | XMS_ITS | Encounter Summary ---
Author Organization [facility] Address [address] [place] [address] Care Team Providers Care High [employer] French Teacher Name Role Phone No Ref-Primary, Physician Primary Care Provider Mandeep Guadarrama MD Unavailable [phone] Tate Salazar MD Unavailable [phone] Tate Salazar MD Unavailable [phone] Priya Theodore APRN [facility] Unavailable [phone] Encounter Details Date Type Department Care Team (Late st Contact Info) Description 07/17/2024 [facility] Medical Advice [address] [address] Tate Salazar MD [address] [place] [address] Social History Tobacco Use Types [...] on file Legal Sex Female 3:16 AM PRESS WASHER Gender Identity Female 09/24/2021 9:00 AM PRESS WASHER Sexual Orientation Not on file documented as of this encounter Plan of Treatment Not on file documented as of this encounter Visit Diagnoses Not on filedocumented in this encounter Care Teams [employer] French Teacher Relationship Specialty Start Date End Date No Ref-Primary, Physician PCP - General 10/07/22 Mandeep Guadarrama MD [address] [place] [address] Fellow Endocrinology, Diabetes, and Metabolism 05/09/24 Tate Salazar MD [address] [place] [address] Endocrinology, Diabetes, and Metabolism 05/13/24 Tate Salazar MD [address] [place] [address] Assigned Endocrinology Provider 06/07/24 Priya Theodore APRN RIB BENDER [address] [place] [address] Nurse Practitioner Pediatric Urology 11/19/24 documented as of this encounter
--- OUTSIDE RECORDS SUMMARY | 2025-05-20 21:23 | XMS_ITS | Encounter Summary ---
Author Organization [facility] Address [address] [place] [address] Care Team Providers Care Snow Shoveler Name Role Phone Sujata Payne MD Primary Care Provider [phone] Sujata Payne MD Unavailable [phone] Sujata Payne MD Unavailable [phone] Adams Rose MD Unavailable [phone] No Ref-Primary, Physician Primary Care Provider Mandeep Guadarrama MD Unavailable [phone] Tate Salazar MD Unavailable [phone] Tate Salazar MD Unavailable [phone] Priya Theodore APRN GENERAL ACCOUNTING CLERK Unavailable [phone] Encounter Details Date Type Department Care Team (Late st Contact Info) Description 10/04/2018 MyC Medical Advice [facility] [address] [facility] [address] [place] [phone] Adams Rose MD [address] [place] [address] Social History Tobacco Use Types Packs/Day Years Used Date Smoking Tobacco: Former Cigarettes Q uit: 10/06/2008 Smokeless Tobacco: Never Alcohol Use Standard Drinks/Week Comments No 0 (1 standard drink = 0.6 oz pur e alcohol) Comments Yes Sex and Gender Information Value Date Recorded Sex Assigned at Not on file Legal Sex Female 3:16 AM RESTAURANT GREETER Gender Identity Female 09/24/2021 9:00 AM RESTAURANT GREETER Sexual Orientation Not on file documented as of this encounter Miscellaneous Notes * Telephone Encounter - Adams Rose MD - 10/05/2018 1:44 PM RESTAURANT GREETER Spoke with patient. Advised of falling HCG levels. Patient has previously experienced a first trimester loss. Given early timing of loss D&C not likely to be necessary AURANT GREETER * Telephone Encounter - Alisha Costa RN - 10/05/2018 1:05 PM RESTAURANT GREETER Please see the results of the pt's hcg level, and discuss with her. Alisha Costa RN AURANT GREETER documented in this encounter Plan of Treatment Not on file documented as of this encounter Visit Diagnoses Not on filedocumented in this encounter Care Teams Snow Shoveler Relationship Specialty [place] [address] [place] [address] PCP - General Family Practice 08/21/17 10/06/22 [place] [address] [place] [address] PCP - Assigned PCP 09/17/17 12/18/18 No Ref-Primary, Physician PCP - General 10/07/22 [place] [address] [place] [address] Assigned PCP 09/17/17 09/05/20 Adams Rose MD [address] [place] [address] Assigned OBGYN Provider 08/07/20 Mandeep Guadarrama MD [address] [place] [address] Fellow Endocrinology, Diabetes, and Metabolism 05/09/24 Tate Salazar MD [address] [place] [address] Endocrinology, Diabetes, and Metabolism 05/13/24 Tate Salazar MD [address] [place] [address] Assigned Endocrinology Provider 06/07/24 Priya Theodore APRN GENERAL ACCOUNTING CLERK [address] [place] [address] Nurse Practitioner Pediatric Urology 11/19/24 documented as of this encounter
--- OUTSIDE RECORDS SUMMARY | 2025-05-20 21:23 | XMS_ITS | Encounter Summary ---
Author Organization [facility] Address [address] [place] [address] Care Team Providers Care Needle Felt Making Machine Operator Name Role Phone No Ref-Primary, Physician Primary Care Provider Mandeep Guadarrama MD Unavailable [phone] Tate Salazar MD Unavailable [phone] Tate Salazar MD Unavailable [phone] Priya Theodore APRN [facility] Unavailable [phone] Encounter Details Date Type Department Care Team (Late st Contact Info) Description 06/03/2024 [facility] Medical Advice [facility] Endocrinology Clinic [address] [address] Tate Salazar MD [address] [place] [address] [phone] Social History Tobacco Use Types Packs/Day Years [...] on file Legal Sex Female 3:16 AM MAT MACHINE OPERATOR Gender Identity Female 09/24/2021 9:00 AM MAT MACHINE OPERATOR Sexual Orientation Not on file documented as of this encounter Plan of Treatment Not on file documented as of this encounter Visit Diagnoses Not on filedocumented in this encounter Care Teams Needle Felt Making Machine Operator Relationship Specialty Start Date End Date No Ref-Primary, Physician PCP - General 10/07/22 Mandeep Guadarrama MD [address] [place] [address] Fellow Endocrinology, Diabetes, and Metabolism 05/09/24 Tate Salazar MD [address] [place] [address] Endocrinology, Diabetes, and Metabolism 05/13/24 Tate Salazar MD [address] [place] [address] Assigned Endocrinology Provider 06/07/24 Priya Theodore APRN SENIOR LOGISTICS MANAGER [address] [place] [address] Nurse Practitioner Pediatric Urology 11/19/24 documented as of this encounter
--- OUTSIDE RECORDS SUMMARY | 2025-05-20 21:23 | XMS_ITS | Encounter Summary ---
Author Organization [facility] Address [address] [place] [address] Care Team Providers Care Clinical Ob Name Role Phone No Ref-Primary, Physician Primary Care Provider Mandeep Guadarrama MD Unavailable [phone] Tate Salazar MD Unavailable [phone] Tate Salazar MD Unavailable [phone] Priya Theodore APRN [facility] Unavailable + [phone] Encounter Details Date Type Department Care Team (Late st Contact Info) Description 09/27/2024 [facility] [place] [address] [address] Tate Salazar MD [address] [place] [address] Social History Tobacco Use Types [...] on file Legal Sex Female 3:16 AM OPERATING ROOM SPECIALIST Gender Identity Female 09/24/2021 9:00 AM OPERATING ROOM SPECIALIST Sexual Orientation Not on file documented as of this encounter Plan of Treatment Not on file documented as of this encounter Visit Diagnoses Not on filedocumented in this encounter Care Teams Clinical Ob Relationship Specialty Start Date End Date No Ref-Primary, Physician PCP - General 10/07/22 Mandeep Guadarrama MD [address] [place] [address] Fellow Endocrinology, Diabetes, and Metabolism 05/09/24 Tate Salazar MD [address] [place] [address] Endocrinology, Diabetes, and Metabolism 05/13/24 Taet Salazar MD [address] [place] [address] Assigned Endocrinology Provider 06/07/24 rPiya Theodore APRN PARADICHLOROBENZENE MACHINE OPERATOR [address] [place] [address] Nurse Practitioner Pediatric Urology 11/19/24 documented as of this encounter
--- OUTSIDE RECORDS SUMMARY | 2025-05-20 21:23 | XMS_ITS | Encounter Summary ---
Author Organization [facility] Address [address] [place] [address] Care Team Providers Care Milking System Installer Name Role Phone No Ref-Primary, Physician Primary Care Provider Mandeep Guadarrama MD Unavailable [phone] Tate Salazar MD Unavailable [phone] Tate Salazar MD Unavailable [phone] Priya Theodore APRN [facility] Unavailable + [phone] Encounter Details Date Type Department Care Team (Latest Contact Info) Description 08/26/2024 [facility] [place] [facility] [address] [address] Tate Salazar MD [address] [place] [address] [id number] Graves disease (Primary Dx) Social History Tobacco [...] file Legal Sex Female 3:16 AM FINANCIAL SOLUTIONS ADVISOR Gender Identity Female 09/24/2021 9:00 AM FINANCIAL SOLUTIONS ADVISOR Sexual Orientation Not on file documented as of this encounter Plan of Treatment Not on file documented as of this encounter Results * (ABNORMAL) Thyrotropin Receptor Antibody (08/28/2024 9:55 AM FINANCIAL SOLUTIONS ADVISOR) Thyrotropin Receptor Antibody 2.88(H) 0.00 - 1.75 IU/L 08/30/2024 11:05 AM FINANCIAL SOLUTIONS ADVISOR [facility] Comment: ADDITIONAL INFORMATION At a decision limit of 1.75 IU/L, this assay has 97% sensitivity and 99% specificity for detection of Graves' disease. In healthy individuals and in patients with thyroid disease without diagnosis of Graves' disease, the upper limit of anti-TSHR values are 1.22 IU/L and 1.58 IU/L, respectively (97.5th percentiles). Test Performed by: [facility] [place] [address] Crystal Grinder: Barrington Douglas Ph.D.; CLIA# [id number] Blood BLOOD SPECIMEN / Unknown Venipuncture / Unknown 08/28/2024 9:55 AM FINANCIAL SOLUTIONS ADVISOR 08/28/2024 9:59 AM FINANCIAL SOLUTIONS ADVISOR [facility] LAB - IMMUNOLOGY ORDERABLES F inal Result [facility] [address] [place] [address], [facility] [phone] * [facility] [employer]; FFTSI; Thyroid-stimulating Immunoglobulin (TSI) (Laboratory Miscellaneous Order) (08/28/2024 9:55 AM FINANCIAL SOLUTIONS ADVISOR) Pathologist [facility] Specimen Status Specimen received. Reordered and sent to performing laboratory. Report to follow upon completion. [facility] 08/28/2024 10:01 AM FINANCIAL SOLUTIONS ADVISOR LABORATORY Performing Laboratory [facility] 08/28/2024 10:01 AM FINANCIAL SOLUTIONS ADVISOR LABORATORY Test Name Thyroid-stimulati ng Immunoglobulin (TSI) [facility] 08/28/2024 10:01 AM FINANCIAL SOLUTIONS ADVISOR LABORATORY Test Code FFTSI [facility] 08/28/2024 10:01 AM FINANCIAL SOLUTIONS ADVISOR LABORATORY Blood BLOOD SPECIMEN / Unknown Venipuncture / Unknown 08/28/2024 9:55 AM FINANCIAL SOLUTIONS ADVISOR 08/28/2024 9:59 AM FINANCIAL SOLUTIONS ADVISOR Tate Salazar MD LAB - BLOOD ORDERABLES Final Result [facility] [place] [facility] [address] [facility] (no room number, 1st floor of clinic) [place] [address], [facility] documented in this encounter Visit Diagnoses Diagnosis Graves disease- Primary Toxic diffuse goiter without mention of thyrotoxic crisis or storm documented in this encounter Care Teams Milking System Installer Relationship Specialty Start Date End Date No Ref-Primary, Physician PCP - General 10/07/22 Mandeep Guadarrama MD [address] [place] [address] Fellow Endocrinology, Diabetes, and Metabolism 05/09/24 Tate Salazar MD [address] [place] [address] Endocrinology, Diabetes, and Metabolism 05/13/24 Tate Salazar MD [address] [place] [address] Assigned Endocrinology Provider 06/07/24 Priya Theodore APRN SHIFT COORDINATOR [address] [place] [address] Nurse Practitioner Pediatric Urology 11/19/24 documented as of this encounter
--- OUTSIDE RECORDS SUMMARY | 2025-05-20 21:23 | XMS_ITS | Encounter Summary ---
Author Organization [facility] Address [address] [place] [address]. [place] [address] Care Team Providers Care Roll On Worker Name Role Phone No Ref-Primary, Physician Primary Care Provider Mandeep Guadarrama MD Unavailable [phone] Tate Salazar MD Unavailable [phone] Tate Salazar MD Unavailable [phone] HIG[address] ADMINISTRATIVE ENGINEER Unavailable + [phone] Encounter Details Date Type Department Care Team (Late st Contact Info) Description 05/13/2024 [facility] [address] [address] [facility] Social History Tobacco Use Types Packs/Day [...] on file Legal Sex Female 3:16 AM LIBRARIAN SPECIAL LIBRARY Gender Identity Female 09/24/2021 9:00 AM LIBRARIAN SPECIAL LIBRARY Sexual Orientation Not on file documented as of this encounter Plan of Treatment Not on file documented as of this encounter Visit Diagnoses Not on filedocumented in this encounter Care Teams Roll On Worker Relationship Specialty Start Date End Date No Ref-Primary, Physician PCP - General 10/07/22 Mandeep Guadarrama MD [address] [place] [address] Fellow Endocrinology, Diabetes, and Metabolism 05/09/24 Tate Salazar MD [address] [place] [address] Endocrinology, Diabetes, and Metabolism 05/13/24 Tate Salazar MD [address] [place] [address] [id number] Assigned Endocrinology Provider 06/07/24 Priya Theodore APRN CNP [address] [place] [address] Nurse Practitioner Pediatric Urology 11/19/24 documented as of this encounter
--- OUTSIDE RECORDS SUMMARY | 2025-05-20 21:23 | XMS_ITS | Encounter Summary ---
Author Organization [facility] Address [address] [place] [address] Care Team Providers Care City Planning Teacher Name Role Phone Sujata Payne MD Primary Care Provider [phone] Sujata Payne MD Unavailable [phone] Sujata Payne MD Unavailable [phone] Adams Rose MD Unavailable [phone] No Ref-Primary, Physician Primary Care Provider Mandeep Guadarrama MD Unavailable [phone] Tate Salazar MD Unavailable [phone] Tate Salazar MD Unavailable [phone] Priya Theodore APRN [employer] Unavailable + [phone] Encounter Details Date Type Department Care Team (Late st Contact Info) Description 10/08/2018 [facility] Medical Advice [facility] [address] [facility] [address] [place] [phone] Adams Rose MD [address] [place] [address] Social History Tobacco Use Types Packs/Day Years Used Date Smoking Tobacco: Former Cigarettes Q uit: 10/06/2008 Smokeless Tobacco: Never Alcohol Use Standard Drinks/Week Comments No 0 (1 standard drink = 0.6 oz pur e alcohol) Comments Yes Sex and Gender Information Value Date Recorded Sex Assigned at Not on file Legal Sex Female 3:16 AM MANAGER CLIENT SERVICE Gender Identity Female 09/24/2021 9:00 AM MANAGER CLIENT SERVICE Sexual Orientation Not on file documented as of this encounter Miscellaneous Notes * Telephone Encounter - Adams Rose MD - 10/10/2018 9:50 AM MANAGER CLIENT SERVICE Spoke with patient. I am much better now. GER CLIENT SERVICE * Telephone Encounter - Alisha Costa, MILLICENT - 10/10/2018 8:07 AM MANAGER CLIENT SERVICE Please see the [employer] message and advise. Pt had miscarriage last week. Alisha Costa RN GER CLIENT SERVICE documented in this encounter Plan of Treatment Not on file documented as of this encounter Visit Diagnoses Not on filedocumented in this encounter Care Teams City Planning Teacher Relationship Specialty [place] [address] [place] [address] PCP - General Family Practice 08/21/17 10/06/22 [place] [address] [facility] [place] [address] PCP - Assigned PCP 09/17/17 12/18/18 No Ref-Primary, Physician PCP - General 10/07/22 [place] [address] [place] [address] Assigned PCP 09/17/17 09/05/20 Adams Rose MD [facility] [place] [place] [address] Assigned OBGYN Provider 08/07/20 Mandeep Guadarrama MD [address] [place] [address] Fellow Endocrinology, Diabetes, and Metabolism 05/09/24 Tate Salazar MD [address] [place] [address] Endocrinology, Diabetes, and Metabolism 05/13/24 Tate Salazar MD [address] [place] [address] Assigned Endocrinology Provider 06/07/24 Priya Theodore APRN CNP [address] [place] [address] Nurse Practitioner Pediatric Urology 11/19/24 documented as of this encounter
[2025-05-20 21:25] VITALS: BP 146/92; PULSE 118; RESP 19; TEMP 36.1; O2SAT 99; BMI 29.9
--- NOTE | 2025-05-20 21:33 | ED.ABDPAIN ---
HPI - Abdominal Pain General Time Seen by Provider: 21:33 Date Seen: 05/20/25 Chief Complaint: Abdominal Pain Stated Complaint: abdominal pain Time Seen by Provider: 05/20/25 21:33 Source: patient Mode of arrival: ambulatory History of Present Illness HPI narrative: Shantelle is a 34-year-old female who presents to the emergency department for evaluation of left lower abdominal/pelvic pain. Patient reports some pain in the left lower abdomen/pelvic region that started last night. Patient states that she typically gets some pain with ovulation so assumed it was related to that and did not think much of it. Patient reports that the pain progressively worsened throughout the day and also notice some dull achy pain on her left side of her back. Patient reports some dysuria but denies any hematuria, no urinary frequency, urgency. Patient denies any vaginal bleeding, vaginal discharge, vaginal pain. Patient denies any fever, chills, chest pain, shortness of breath, nausea, vomiting. Patient reports normal bowel movements. Patient reports her last menstrual period was last week. No medications prior to arrival. No other complaints. Related Data Home Medications ?Medication ?Instructions ?Recorded ?Confirmed No Known Home Medications 05/20/25 05/20/25 Allergies Allergy/AdvReac Type Severity Reaction Status Date / Time Sulfa (Sulfonamide Allergy Unknown Verified 04/10/25 09:25 Antibiotics) Review of Systems Narrative Past medical history, past surgical history, medications, allergies, family history, and social history were reviewed with the patient. No additional pertinent items. A medically appropriate review of systems was performed with pertinent positives and negatives noted in HPI, all other systems negative. [facility] Medical History (Updated 05/20/25 @ 22:37 by Nhi Powers MD) AMA (advanced maternal age) multigravida 35+ ?O09.529 - Supervision of elderly multigravida, unspecified trimester (ICD-10) ventricular septal defect affecting antepartum care of mother ?O35.BXX0 - Maternal care for other (suspected) abnormality and damage, cardiac anomalies, not applicable or unspecified (ICD-10) Dilation of renal pelvis of fetus thyroiditis ?O90.5 - thyroiditis (ICD-10) NVD (normal vaginal delivery) (06/01/23) ?O80 - Encounter for full-term uncomplicated delivery (ICD-10) History of LEEP (loop electrosurgical excision procedure) of cervix complicating ?O34.40 - Maternal care for other abnormalities of cervix, unspecified trimester (ICD-10) ?Z98.890 - Other specified postprocedural states (ICD-10) Depression ?F32.A - Depression, unspecified (ICD-10) Nephrolithiasis ?N20.0 - Calculus of kidney (ICD-10) 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) Surgical History History of laparoscopy ?Z98.890 - Other specified postprocedural states (ICD-10) History of wisdom tooth extraction ?K08.409 - Partial loss of teeth, unspecified cause, unspecified class (ICD-10) History of elbow surgery ?Z98.890 - Other specified postprocedural states (ICD-10) History of D&C ?Z98.890 - Other specified postprocedural states (ICD-10) History of appendectomy ?Z90.49 - Acquired absence of other specified parts of digestive tract (ICD-10) Family History Father High blood pressure Brother FH: testicular cancer Paternal Grandmother Ovarian cancer Social History Narrative: SOCIAL? ? Education: some college? ? 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 ? Partner: Armando, not , Plastics And Composites Inspector? ? Lives with: Armando, kids? ? Pets: 3 dogs, rabbits, gecko, turtle ? ? Abuse: Denies past Unable to assess current, partner present? ? Special Diet: Denies? ? Ok with a blood transfusion: yes? ? Culture or evangelical beliefs: denies? RISK FACTORS? ? Exercise Times/wk: walking, daily? ? Depression/Anxiety: denies? ? Previous Treatments NA Therapy NA ROXIE: 0 PHQ 9: 0? ? Seat Belt Use: Routinely ? Smoking: Denies past/present? ? Alcohol/day: Denies while ? ? Caffeine: 1 cup of coffee a day? ? Drug Use: Denies past/present? ? What is your current living situation?: I presently have a place to live Problems where you live: no known problems In the past 12 months, utilities in danger of being shut off: no In past 12 months, lack of transportation kept you from medical appts, meetings, work, or getting things needed for daily living: no In the past 12 mos, have been you worried that your food would run out before you had money to buy more?: never true In the past 12 mos, the food you bought just didn't last and you didn't have money to buy more?: never true Smoking Status: Never smoker Non-prescribed substance use: denies use How often does anyone, including family, friends and others, physically hurt you: never How often does anyone, including family, friends and others, insult or talk down to you: never How often does anyone, including family, friends and others, threaten you with harm: never How often does anyone, including family, friends and others, scream or curse at you: never Exam Narrative: Exam Narrative: General: Afebrile, no acute distress HEENT: Normocephalic, atraumatic, conjunctiva normal. MMM Neck: non-tender, supple Cardio: regular rate. regular rhythm Resp: Normal work of breathing, no respiratory distress, lungs clear bilaterally, no wheezing, rhonchi, rales Chest/Back: no visual signs of trauma, no midline tenderness, no CVA tenderness Abdomen: soft, non distension, no tenderness, no peritoneal signs Neuro: alert and fully oriented. CN II-XII grossly intact. Grossly normal strength and sensation in all extremities. MSK: no deformities. Normal range of motion Integumentary/Skin: no rash visualized, normal color Psych: normal affect, normal behavior Const: Vital Signs, click to edit/add: Vital Signs - 24 hr 05/20/25 21:25 Temperature 97 F L Pulse Rate [Pulse Oximeter] 118 H Respiratory Rate 19 Blood Pressure [Ri ght Upper Arm] 146/92 H Pulse Oximetry 99 Oxygen Delivery Me thod Room Air Course Vital Signs Vital signs: Initial Vital Signs Temperature 97 F L 05/20/25 21:25 Temperature Source Temporal Artery Scan 05/20/25 21:25 Pulse Rate 118 H 05/20/25 21:25 Respiratory Rate 19 05/20/25 21:25 Blood Pressure 146/92 H 05/20/25 21:25 Blood Pressure Mean 110 H 05/20/25 21:25 Blood Pressure Position Semi-Fowlers 05/20/25 21:25 Pulse Oximetry 99 05/20/25 21:25 Oxygen Delivery Method Room Air 05/20/25 21:25 Vital Signs Temperature 97 F L 05/20/25 21:25 Pulse Rate 118 H 05/20/25 21:25 Respiratory Rate 19 05/20/25 21:25 Blood Pressure 146/92 H 05/20/25 21:25 Pulse Oximetry 99 05/20/25 21:25 Oxygen Delivery Method Room Air 05/20/25 21:25 Temperature 97 F L 05/20/25 21:25 Pulse Rate 118 H 05/20/25 21:25 Respiratory Rate 19 05/20/25 21:25 Blood Pressure 146/92 H 05/20/25 21:25 Pulse Oximetry 99 05/20/25 21:25 Oxygen Delivery Method Room Air 05/20/25 21:25 MDM - Abdominal Pain MDM Narrative Medical decision making narrative: Shantelle is a 34-year-old female who presents to the emergency department for evaluation of left lower abdominal/pelvic pain. Upon arrival patient is nontoxic appearing, afebrile, no distress. Patient hemodynamically stable vital signs within normal limits. Abdomen is soft, nontender, nondistended, no CVA tenderness. Differential diagnosis includes but is not limited to versus cystitis versus pyelonephritis versus nephrolithiasis versus mittelschmerz versus ectopic versus ovarian cyst versus torsion versus diverticulitis versus constipation versus musculoskeletal among others. Upon arrival patient declined anything for symptoms. Urinalysis with no evidence of acute infection, trace blood but no red blood cells. Negative test. I discussed results with patient. Given urinalysis less likely cystitis/pyelonephritis. Discussed with patient this could be nephrolithiasis as she reports history of kidney stones in the past. Patient is overall nontoxic appearing, discussed need considered CT imaging for further evaluation. With shared decision-making, will hold off on CT imaging at this time as it will not exchange clerk. Patient is agreeable in for for this supportive care with pain control with Tylenol, ibuprofen, close outpatient follow-up with strict return precaution. I also discussed with patient and considered pelvic ultrasound to further evaluate pain. Patient denies any history of ovarian cyst. Low suspicious for torsion as patient with no severe pain, no nausea, no vomiting her murmur no significant pelvic tenderness. With shared decision making patient would also like to hold off on pelvic ultrasound at this time which I also think is reasonable. Plan for continued supportive care with Tylenol, ibuprofen, close outpatient follow-up with her primary care provider, strict return precautions discussed if high fever, severe pain, persistent vomiting, new or worsening symptoms. Patient understands and agrees with the plan. Medical Records Attestation: I reviewed the patient's medical records. Lab Data Labs: Lab Results 05/20/25 05/20/25 Range/Units 21:25 21:34 Urine Color Yellow (Yellow) Urine Appearance Clear (Clear) Urine pH 6.0 (5.0-8.5) Ur Specific [place] <= 1.005 (1.000-1.030) Urine Protein Negative (Negative) Urine Glucose (UA) Negative (Negative) Urine Ketones Negative (Negative) Urine Blood Trace-intact A (Negative) Urine Nitrite Negative (Negative) Urine Bilirubin Negative (Negative) Urine Urobilinogen 0.2 (0.2-1.0) Ur Leukocyte Esterase Negative (Negative) Urine RBC 0-2 (0-2) Urine WBC 0-2 (0-5) Ur Squamous Epith Cells Few (None-Few) Urine Bacteria None (None) Urine HCG, Qual Negative (Negative) Discharge Plan Discharge Clinical Impression: Left lower quadrant abdominal pain Patient Disposition: Home, Self-Care Condition: Stable Additional Instructions: Please follow-up with your primary care provider next 3-5 days for further evaluation and follow-up. Please call to schedule appointment. Please alternate taking ibuprofen 600 mg and Tylenol 1000 mg every 6 hours as needed for pain. Please drink plenty of fluids. Return to the emergency department if he develops high fever, severe pain, persistent vomiting, worsening symptoms. It was a pleasure taking care of you today. We hope you feel better soon. Prescriptions: No Action No Known Home Medications Follow Up/Referrals: Provider,Not a Local [Primary Care Provider, Family Practice] Stand Alone Forms: [employer] Info Instructions
[2025-05-20 21:36] LABS: Appearance Urine Clear (Clear)
[2025-05-20 21:44] LABS: Ur HCG Qualitative* Negative (Negative)
== END 2025-05-20 22:52 | disposition home or self-care (01) ==
PROVIDERS: Emergency Provider Emergency Medicine
DX: R10.32 Left lower quadrant pain (principal)
CPT/HCPCS: 81001; 81025; 99283; 99285

== ENCOUNTER 2025-06-04 10:42 | Emergency (ER) | payer MEDICAID, SELFPAY ==
--- OUTSIDE RECORDS SUMMARY | 2025-05-26 11:30 | XMS_ITS | Encounter Summary ---
Author Organization [facility] Address [address], [place] [address] Care Team Providers Care Sleeve Presser Operator Name Role Phone Sherin [place] MD Primary Care Provider + [phone] Reason for Visit * Reason Comments Video Visit Overactive thyroid Encounter Details Date Type Department Care Team (Late st Contact Info) Description 05/26/2025 11:30 AM CDT Telemedicine [facility] [address] [place], [place] [phone] Helga Lopez PA-C [address] [place], [place] [phone] Graves disease (HRC) (Primary Dx); Need for hepatitis C screening test Social History Tobacco Use Types Packs/Day Years Used Date Smoking Tobacco: Never Smokeless Tobacco: Never Alcohol Use Standard Drinks/Week Comments No 0 (1 standard drink = 0.6 oz pur e alcohol) PHQ-2 Answer Date Recorded PHQ-2 Score 0 05/26/2025 Depression Answer Date Recor ded Last EPDS [...] file Not on file Not on file documented as of this encounter Last Filed Vital Signs Vital Sign Reading Time Taken Comments Blood Pressure - - Pulse - - Temperature - - Respiratory Rate - - Oxygen Saturation - - Inhaled Oxygen Concentration - - Weight 79.8 kg (176 lb) 05/26/2025 11:23 AM CDT pt reported Height - - Body Mass Index 29.98 06/23/2016 10:17 AM CDT documented in this encounter Progress Notes * Pretty Lopezherhaylee Ayala PA-C - 05/26/2025 11:30 AM CDT SUBJECTIVE: Shantelle is a 34 y.o. female presenting via Telemedicine for Grave's Disease check. She was diagnosed with Graves disease in 2016, one month after delivery of her fourth child. Graves was in remission from 12/2017-12/2018. Developed symptoms of Grave's again after delivery of her 5th child 05/2023, managed by endocrinology at the [facility]. She started to develop symptoms again in the past severeal weeks, her Son (fabiola) is 6 month old now. Most bothersome symptoms are fluttering sensation and increase in anxiety. Is not . Was going to try a hollistic provider from [employer], however, she does not feel comfortable with that providers plan. She did start methimazole today, but only 5 mg. Propanolol also started, has helped with symptoms. No reported adverse effects. No reported rapid weight loss. Lab work from last week showed: TSH .032 T3: 11.5 T4: 3.87 Liver and CBC WNL. Pertinent ROS is noted above. Reviewed patient Past medical history, medications. Updated in Epic. OBJECTIVE: Vital Signs: Reviewed. Wt 176 lb (79.8 kg) Comment: pt reported BMI 29.98 kg/m?? General: Alert, well and comfortable-appearing, pleasant female, NAD. Eyes: External exam normal. No exophthalmos. Neck: Supple, without masses, lymphadenopathy or tenderness. Thyroid gland is not enlarged, soft without any notable nodules or tenderness. Normal swallow. Respiratory: Easy effort of breathing. Skin: No rash. Labs: TSH, free T4, total T3, liver panel, CBC, Hep C screen: Pending. ASSESSMENT/PLAN: ICD-10-CM 1. Need for hepatitis C screening test Z11.59 Rx: Methimazole 20 mg daily. Medication profile reviewed. Plan to recheck labs in 4 weeks, will make medication adjustments as needed. RTC sooner if symptoms worsen, medication intolerable, or other concerns. I provide medical care services that serve as the continuing focal point for continuity of care forthis patient. Clinician located at clinic Patient located at home Billing based on complexity documented in this encounter Plan of Treatment Upcoming Encounters Date Type Department Care Team (Late st Contact Info) Description 06/23/2025 8:00 AM CDT Appointment [facility] [address] [place] [address] Scheduled Orders Name Type Priority Associated Diagnoses Orde r Schedule TSH Lab Routine Graves disease (HRC) Expected: 06/19/2025 (Approximate), Expires: 11/22/2025 T3, Total Lab Routine Graves disease (HRC) Expected: 06/19/2025 (Approximate), Expires: 09/17/2025 Free T4 Lab Routine Graves disease (HRC) Expected: 06/19/2025 (Approximate), Expires: 09/17/2025 Liver Panel (Hepatic Function Panel) Lab Routine Graves disease (HRC) Expected: 06/19/2025 (Approximate), Expires: 09/17/2025 Complete Blood Count-No Diff Lab Routine Graves disease (HRC) Expected: 06/19/2025 (Approximate), Expires: 09/17/2025 Hepatitis C Antibody, with Reflex (Anti-HCV) Microbiology Routine Need for hepatitis C screening test Expected: 06/19/2025 (Approximate), Expires: 09/17/2025 documented as of this encounter Visit Diagnoses Diagnosis Graves disease (HRC)- Primary Toxic diffuse goiter without mention of thyrotoxic crisis or storm Need for hepatitis C screening test Special screening examination for other specified viral diseases documented in this encounter Care Teams Sleeve Presser Operator Relationship Specialty Start Date End Date Sherin [place] MD [address] [place] [address] PCP - General 01/16/11 documented as of this encounter
--- OUTSIDE RECORDS SUMMARY | 2025-05-27 11:30 | XMS_ITS | Encounter Summary ---
Author Organization [facility] Address [address], [place] [address] Care Team Providers Care Occupational Health Nursing Director Name Role Phone Sherin [place] MD Primary Care Provider + [phone] Reason for Visit * Reason Comments RESULTS, TEST Entered automaticall y based on patient selection in [employer]. Encounter Details Date Type Department Care Team (Late st Contact Info) Description 05/27/2025 11:30 AM CDT E-Visit [facility] [address] [place], [place] [phone] Helga Lopez PA-C [address] [place] [address] Chief Comp: RESULTS, TEST Social History Tobacco Use Types Packs/Day Years [...] on file documented as of this encounter Nursing Notes * Macarena Garcia - 05/27/2025 2:40 PM CDT Clinician: Review and advise Patient/landcare officer request: Input needed: lab results Specific Request: Patient is asking that you weigh in on her results from [facility] when they are placed in chart. Please advise. documented in this encounter Plan of Treatment Upcoming Encounters Date Type Department Care Team (Late st Contact Info) Description 06/23/2025 8:00 AM CDT Appointment [facility] [address] [place] [phone] documented as of this encounter Visit Diagnoses Not on filedocumented in this encounter Care Teams Occupational Health Nursing Director Relationship Specialty Start Date End Date Sherin [place] MD [address] [place], [place] [address] PCP - General 01/16/11 documented as of this encounter
--- OUTSIDE RECORDS SUMMARY | 2025-05-27 15:30 | XMS_ITS | Encounter Summary ---
Author Organization [facility] Address [address], [place] [address] Care Team Providers Care Furnace Tender Name Role Phone Sherin [place] MD Primary Care Provider + [phone] Reason for Visit * Reason Comments Follow-up, NOS Entered automaticall y based on patient selection in [employer]. Encounter Details Date Type Department Care Team (Late st Contact Info) Description 05/27/2025 3:30 PM CDT [facility] [address] [place], [place] [phone] Helga Lopez PA-C [address] [place], [place] [phone] Chief Comp: Follow-up, NOS Social History Tobacco Use Types Packs/Day Years [...] encounter Nursing Notes * Macarena Garcia - 05/29/2025 3:27 PM CDT Clinician: Review and advise Patient/summer child caregiver request: patient has another question Specific Request: Patient questioning if it is totally fine for her to skip a dose without any adverse reactions, etc. Please advise * Macarena Garcia - 05/27/2025 3:32 PM CDT Clinician: Review and advise Patient/summer child caregiver request: Input needed: questions about meds Specific Request: Patient has questions about medications Please advise documented in this encounter Plan of Treatment Upcoming Encounters Date Type Department Care Team (Late st Contact Info) Description 06/23/2025 8:00 AM CDT Appointment [facility] [address] [place] [address] documented as of this encounter Visit Diagnoses Not on filedocumented in this encounter Care Teams Furnace Tender Relationship Specialty Start Date End Date Sherin [place] MD [address] [place] [address] PCP - General 01/16/11 documented as of this encounter
[2025-06-04] VITALS (23 sets, daily range): BP systolic 135–143; BP diastolic 82–102; PULSE 122–125; RESP 6–25; TEMP 36.9; O2SAT 98–99; BMI 28.1
--- OUTSIDE RECORDS SUMMARY | 2025-06-04 10:45 | XMS_ITS | Encounter Summary ---
Author Organization [facility] Address [address] [place] [address] Care Team Providers Care Sound Recordist Name Role Phone Sujata Payne MD Primary Care Provider [phone] Sujata Payne MD Unavailable [phone] Adams Rose MD Unavailable + [phone] No Ref-Primary, Physician Primary Care Provider Mandeep Guadarrama MD Unavailable [phone] Tate Salazar MD Unavailable [phone] Tate Salazar MD Unavailable [phone] Priya Theodore APRN RN [facility] Unavailable + [phone] Encounter Details Date Type Department Care Team (Late st Contact Info) Description 05/09/2020 MyC Medical Advice [facility] [address] [place] [address] Adams Rose MD [address] [place] [address] Social History Tobacco Use Types Packs/Day Years Used Date Smoking Tobacco: Former Cigarettes Q uit: 10/06/2008 Smokeless Tobacco: Never Alcohol Use Standard Drinks/Week Comments No 0 (1 standard drink = 0.6 oz pur e alcohol) PHQ-2 Answer Date Recorded PHQ-2 Score 0 12/03/2019 Comments No Sex and Gender Information Value Date Recorded Sex Assigned at Not on file Legal Sex Female 3:16 AM ARTS AND CRAFTS INSTRUCTOR Gender Identity Female 09/24/2021 9:00 AM ARTS AND CRAFTS INSTRUCTOR Sexual Orientation Not on file documented as of this encounter Plan of Treatment Upcoming Encounters Date Type Department Care Team (Late st Contact Info) Description 06/10/2025 10:15 AM CDT Lab [facility] [address] [place] [address] 06/11/2025 12:00 PM CDT Virtual Visit [facility] [address] [address] [place] [phone] Tate Salazar MD [address] [place] [address] documented as of this encounter Visit Diagnoses Not on filedocumented in this encounter Care Teams Sound Recordist Relationship Specialty [place] [address] [place] [address] PCP - General Family Practice 08/21/17 10/06/22 No Ref-Primary, Physician PCP - General 10/07/22 [place] [address] [place] [address] Assigned PCP 09/17/17 09/05/20 Adams Rose MD [address] [place] [address] Assigned OBGYN Provider 08/07/20 Mandeep Guadarrama MD [address] [place] [address] Fellow Endocrinology, Diabetes, and Metabolism 05/09/24 Tate Salazar MD [address] [place] [address] Endocrinology, Diabetes, and Metabolism 05/13/24 Tate Salazar MD [address] [place] [address] Assigned Endocrinology Provider 06/07/24 Priya Theodore APRN RN POSTPARTUM [address] [place] [address] Nurse Practitioner Pediatric Urology 11/19/24 documented as of this encounter
--- OUTSIDE RECORDS SUMMARY | 2025-06-04 10:45 | XMS_ITS | Encounter Summary ---
Author Organization [place] Address [address] [place] [address]. [place] [address] Care Team Providers Care Tool Room Lathe Operator Name Role Phone Sujata Payne MD Primary Care Provider [phone] Sujata Payne MD Unavailable [phone] Sujata Payne MD Unavailable [phone] Adams Rose MD Unavailable + [phone] No Ref-Primary, Physician Primary Care Provider Mandeep Guadarraam MD Unavailable [phone] Tate Salazar MD Unavailable [phone] Tate Salazar MD Unavailable [phone] Priya Theodore APRN ROENTGENOLOGY TEACHER Unavailable + [phone] Reason for Visit * Reason Onset Date Comments MyChart Communication 05/30/2018 Encounter Details Date Type Department Care Team (Late st Contact Info) Description 05/30/2018 MyC Medical Advice [facility] [address] [place] [phone] [place] [id number] [place] [address] MyChart Communication Social History Tobacco Use Types Packs/Day Years Used Date Smoking Tobacco: Former Cigarettes Q uit: 10/06/2008 Smokeless Tobacco: Never Alcohol Use Standard Drinks/Week Comments No 0 (1 standard drink = 0.6 oz pur e alcohol) Comments No Sex and Gender Information Value Date Recorded Sex Assigned at Not on file Legal Sex Female 3:16 AM EDGER TECHNICIAN Gender Identity Female 09/24/2021 9:00 AM EDGER TECHNICIAN Sexual Orientation Not on file documented as of this encounter Miscellaneous Notes * Telephone Encounter - Sujata Payne MD - 05/30/2018 4:14 PM CDT Can give Timothy's info if she feels comfortable seeing a man. If not, can check into [facility] * Telephone Encounter - Roxanna Aguilera RN - 05/30/2018 3:43 PM CDT PCP: Please see below. BRODIE was 09/05/17. Roxanna Aguilera RN -- [facility] documented in this encounter Plan of Treatment Upcoming Encounters Date Type Department Care Team (Late st Contact Info) Description 06/10/2025 10:15 AM CDT Lab [facility] [address] [place] [address] 06/11/2025 12:00 PM CDT Virtual Visit [address] [address] Tate Salazar MD [address] [place] [address] documented as of this encounter Visit Diagnoses Not on filedocumented in this encounter Care Teams Tool Room Lathe Operator Relationship Specialty [place] [address] [place] [address] PCP - General Family Practice 08/21/17 10/06/22 [place] [address] [place] [address] PCP - Assigned PCP 09/17/17 12/18/18 No Ref-Primary, Physician PCP - General 10/07/22 [place] [address] [place] [address] Assigned PCP 09/17/17 09/05/20 Adams Rose MD [address] [place] [address] Assigned OBGYN Provider 08/07/20 Mandeep Guadarrama MD [address] [place] [address] Fellow Endocrinology, Diabetes, and Metabolism 05/09/24 Tate Salazar MD [address] [place] [address] Endocrinology, Diabetes, and Metabolism 05/13/24 Tate Salazar MD [address] [place] [address] Assigned Endocrinology Provider 06/07/24 Priya Theodore APRN ROENTGENOLOGY TEACHER [address] [place] [address] Nurse Practitioner Pediatric Urology 11/19/24 documented as of this encounter
--- OUTSIDE RECORDS SUMMARY | 2025-06-04 10:45 | XMS_ITS | Encounter Summary ---
Author Organization [facility] Address [address] [place] [address] Care Team Providers Care Shipping Support Name Role Phone No Ref-Primary, Physician Primary Care Provider Mandeep Guadarrama MD Unavailable [phone] Tate Salazar MD Unavailable [phone] Tate Salazar MD Unavailable [phone] Priya Theodore APRN [facility] Unavailable + [phone] Encounter Details Date Type Department Care Team (Late st Contact Info) Description 01/16/2025 [facility] [address] [address] Tate Salazar MD [address] [place] [address] Social History Tobacco Use Types [...] on file Legal Sex Female 3:16 AM CULTURAL HISTORIAN Gender Identity Female 09/24/2021 9:00 AM CULTURAL HISTORIAN Sexual Orientation Not on file documented as of this encounter Plan of Treatment Upcoming Encounters Date Type Department Care Team (Late st Contact Info) Description 06/10/2025 10:15 AM CDT Lab [facility] [address] [place] [phone] 06/11/2025 12:00 PM CDT Virtual Visit [facility] [address] [place] [phone] Tate Salazar MD [address] [place] [address] documented as of this encounter Visit Diagnoses Not on filedocumented in this encounter Care Teams Shipping Support Relationship Specialty Start Date End Date No Ref-Primary, Physician PCP - General 10/07/22 Mandeep Guadarrama MD [address] [place] [address] Fellow Endocrinology, Diabetes, and Metabolism 05/09/24 Tate Salazar MD [address] [place] [address] Endocrinology, Diabetes, and Metabolism 05/13/24 Tate Salazar MD [address] [place] [address] Assigned Endocrinology Provider 06/07/24 Priya Theodore APRN RADIOLOGY NURSE [address] [place] [address] Nurse Practitioner Pediatric Urology 11/19/24 documented as of this encounter
--- OUTSIDE RECORDS SUMMARY | 2025-06-04 10:45 | XMS_ITS | Clinical Summary ---
Author Organization [employer] [facility] [employer] Address [address] [place] [address] Care Team Providers Care Organ Fixer Name Role Phone Sherin [place] MD Primary [...] on file Legal Sex Female 6:51 AM CANOPY INSPECTOR Gender Identity Not on file Sexual Orientation [...] 7 9 WILLI AMS,[place] Delivery Location:[facility] Last Filed Vital Signs Vital Sign [...] Procedure Name Priority Date/Time Associated Diagnosis Comments IN HOME SALES CONSULTANT THIN PREP PAP SCREEN IMAGED Routine 10/28/2022 11:50 AM CANOPY INSPECTOR from Last 3 Months or Most Recently Relevant to Health Maintenance Results * IN HOME SALES CONSULTANT THIN PREP PAP SCREEN IMAGED (10/28/2022 11:50 AM CANOPY INSPECTOR) Case Report Gynecologic Cytology Report Case: [id number] Authorizing Provider: Milagro [place] PA-C Collected: 10/28/2022 1150 Ordering Location: [facility] Received: 11/01/2022 1635 First Screen: Adams Ortiz Specimen: IN HOME SALES CONSULTANT ThinPrep Vial Screening, Cervical 11/11/2022 8:04 AM CANOPY INSPECTOR [employer] [facility] ENTRAL LABORATORY INTERPRETATION/ RESULT NEGATIVE FOR INTRAEPITHELIAL LESION OR MALIGNANCY (NIL) (none) 11/11/2022 8:04 AM CANOPY INSPECTOR [employer] [facility] ENTRAL LABORATORY at 0804 CANOPY INSPECTOR SPECIMEN ADEQUACY Satisfactory for evaluation Endocervical component present 11/11/2022 8:04 AM CANOPY INSPECTOR [employer] [facility] LAB[facility] HPV REQUEST HPV and PAP 11/11/2022 8:04 AM CANOPY INSPECTOR [employer] [facility] LAB[facility] Date of LMP 08/31/2022 11/11/2022 8:04 AM [facility] Last Pap Date 09/13/2021 11/11/2022 8:04 AM [facility] Last Pap Result NIL 8:04 AM CANOPY INSPECTOR [facility] Abnormal Pap or Herod Bx in last 5 years No 11/11/2022 8:04 AM CANOPY INSPECTOR [facility] Menstrual Status 11/11/2022 8:04 AM CANOPY INSPECTOR [facility] Herod Bx Done Today No 11/11/2022 8:04 AM CANOPY INSPECTOR [facility] LABORAT[facility] Additional Information 11/11/2022 8:04 AM [facility] Comment: Interpreted at [facility] - [address] [place] [address] Automated Review Successful 11/11/2022 8:04 AM [facility] Comment:Specimen processed s uccessfully by automated pig caster device, [employer] System, [employer] ANCILLARY TESTING IN HOME SALES CONSULTANT HPV Ordered, Please see separate report 11/11/2022 8:04 AM [facility] Note The pap test is a screening technique, not a diagnostic procedure. It is used primarily to screen for squamous cancers and precursor lesions. Published studies have shown that it is subject to both false negative and false positive results. The pap test should not be used as the sole means to diagnose or exclude pre-malignant and malignant lesions. 11/11/2022 8:[address] [facility] Other (Cervical) 10/28/2022 11:50 AM CANOPY INSPECTOR 11/01/2022 4:35 PM CANOPY INSPECTOR january Sh[facility] PATHOLOGY/CYTOLOGY Final R esult [facility] [address] [place] [address], from Last 3 Months or Most Recently Relevant to Health Maintenance Insurance MEDICAID t [facility] [place] [address] [facility] Advance Directives * Full Code (Latest Code [...] 6:16 AM 08/09/2010 12:05 PM Care Teams Organ Fixer Relationship Specialty Start Date End Date Sherin [place] MD PCP - General 09/17/06
--- OUTSIDE RECORDS SUMMARY | 2025-06-04 10:45 | XMS_ITS | Encounter Summary ---
Author Organization [facility] Address [address] [place] [address] Care Team Providers Care Neuro Intensivist Physician Name Role Phone No Ref-Primary, Physician Primary Care Provider Mandeep Guadarrama MD Unavailable [phone] Tate Salazar MD Unavailable [phone] Tate Salazar MD Unavailable [phone] Priya Theodore APRN [facility] Unavailable + [phone] Encounter Details Date Type Department Care Team (Late st Contact Info) Description 12/31/2024 MyC Medical Advice [address] [address] Tate Salazar MD [address] [place] [address] Graves disease (Primary Dx) Social [...] on file Legal Sex Female 3:16 AM ORACLE FUSION MIDDLEWARE ARCHITECT Gender Identity Female 09/24/2021 9:00 AM ORACLE FUSION MIDDLEWARE ARCHITECT Sexual Orientation Not on file documented as of this encounter Plan of Treatment Upcoming Encounters Date Type Department Care Team (Late st Contact Info) Description 06/10/2025 10:15 AM CDT Lab [facility] [address] [place] [address] 06/11/2025 12:00 PM CDT Virtual Visit [facility] [address] [place] [address] [place] [address] Tate Salazar MD [address] [place] [address] documented as of this encounter Results * T3 total (03/24/2025 11:57 AM CDT) T3 Total 101 85 - 202 ng/dL 03/24/2025 11:32 PM CDT [facility] Blood BLOOD SPECIMEN / Unknown Venipuncture / Unknown 03/24/2025 11:57 AM CDT 03/24/2025 11:57 AM CDT us Tate Salazar MD LAB - BLOOD ORDERABLES Final Result [facility] [place] [facility] [address] [facility], [address] [address] * T4 free (03/24/2025 11:57 AM CDT) Free T4 1.26 0.90 - 1.70 ng/dL 03/24/2025 11:32 PM CDT [facility] Blood BLOOD SPECIMEN / Unknown Venipuncture / Unknown 03/24/2025 11:57 AM CDT 03/24/2025 11:57 AM CDT us Tate Salazar MD LAB - BLOOD ORDERABLES Final Result [facility] [address] [facility], [address] [address] * TSH (03/24/2025 11:57 AM CDT) TSH 0.48 0.30 - 4.20 uIU/mL 03/24/2025 11:32 PM CDT [facility] Blood BLOOD SPECIMEN / Unknown Venipuncture / Unknown 03/24/2025 11:57 AM CDT 03/24/2025 11:57 AM CDT Tate Salazar MD LAB - BLOOD ORDERABLES Final Result [facility] [address] [facility], [address] [place] [address], [facility] documented in this encounter Visit Diagnoses Diagnosis Graves disease- Primary Toxic diffuse goiter without mention of thyrotoxic crisis or storm documented in this encounter Care Teams Neuro Intensivist Physician Relationship Specialty Start Date End Date No Ref-Primary, Physician PCP - General 10/07/22 Mandeep Guadarrama MD [address] [place] [address] Fellow Endocrinology, Diabetes, and Metabolism 05/09/24 Tate Salazar MD [address] [place] [address] Endocrinology, Diabetes, and Metabolism 05/13/24 Tate Salazar MD [address] [place] [address] Assigned Endocrinology Provider 06/07/24 Priya Theodore APRN AUTOMATIC STEEL TIE ADJUSTER [address] [place] [address] Nurse Practitioner Pediatric Urology 11/19/24 documented as of this encounter
--- OUTSIDE RECORDS SUMMARY | 2025-06-04 10:45 | XMS_ITS | Encounter Summary ---
Author Organization [place] Address [address] [place] [address] Care Team Providers Care Tow Truck Dispatcher Name Role Phone No Ref-Primary, Physician Primary Care Provider Mandeep Guadarrama MD Unavailable [phone] Tate Salazar MD Unavailable [phone] Tate Salazar MD Unavailable [phone] Priya Theodore APRN [facility] Unavailable + [phone] Encounter Details Date Type Department Care Team (Late st Contact Info) Description 03/27/2025 Results Follow-Up [address] [address] Tate Salazar MD [address] [place] [address] Subj: Message about your results [...] on file Legal Sex Female 3:16 AM BRANCH MECHANIC Gender Identity Female 09/24/2021 9:00 AM BRANCH MECHANIC Sexual Orientation Not on file documented as of this encounter Plan of Treatment Upcoming Encounters Date Type Department Care Team (Late st Contact Info) Description 06/10/2025 10:15 AM CDT Lab [facility] [address] [place] [address] 06/11/2025 12:00 PM CDT Virtual Visit [facility] [address] [place] [address] [place] [address] Tate Salazar MD [address] [place] [address] documented as of this encounter Visit Diagnoses Not on filedocumented in this encounter Care Teams Tow Truck Dispatcher Relationship Specialty Start Date End Date No Ref-Primary, Physician PCP - General 10/07/22 Mandeep Guadarrama MD [address] [place] [address] Fellow Endocrinology, Diabetes, and Metabolism 05/09/24 Tate Salazar MD [address] [place] [address] Endocrinology, Diabetes, and Metabolism 05/13/24 Tate Salazar MD [address] [place] [address] Assigned Endocrinology Provider 06/07/24 Priya Theodore APRN [facility] [address] [place] [address] Nurse Practitioner Pediatric Urology 11/19/24 documented as of this encounter
--- OUTSIDE RECORDS SUMMARY | 2025-06-04 10:45 | XMS_ITS | Encounter Summary ---
Author Organization [place] Address [address] [place] [address] Care Team Providers Care Community Board Member Name Role Phone No Ref-Primary, Physician Primary Care Provider Mandeep Guadarrama MD Unavailable [phone] Tate Salazar MD Unavailable [phone] Tate Salazar MD Unavailable [phone] Priya Theodore APRN [facility] Unavailable + [phone] Encounter Details Date Type Department Care Team (Late st Contact Info) Description 04/29/2025 My[facility] Medical Advice [address] [address] Tate Salazar MD [address] [place] [address] Graves disease (Primary Dx) Social [...] on file Legal Sex Female 3:16 AM GROUP THERAPY COUNSELOR Gender Identity Female 09/24/2021 9:00 AM GROUP THERAPY COUNSELOR Sexual Orientation Not on file documented as of this encounter Plan of Treatment Upcoming Encounters Date Type Department Care Team (Late st Contact Info) Description 06/10/2025 10:15 AM CDT Lab [facility] Laboratory [address] [place] [address] 06/11/2025 12:00 PM CDT Virtual Visit [facility] [address] [place] [address] Tate Salazar MD [address] [place] [address] Scheduled Orders Name Type Priority Associated Diagnoses Orde r Schedule TSH with free T4 reflex Lab Routine Graves disease 4m for 3 Occurrences starting 05/02/2025 until 05/02/2026 documented as of this encounter Visit Diagnoses Diagnosis Graves disease- Primary Toxic diffuse goiter without mention of thyrotoxic crisis or storm documented in this encounter Care Teams Community Board Member Relationship Specialty Start Date End Date No Ref-Primary, Physician PCP - General 10/07/22 Mandeep Guadarrama MD [address] [place] [address] Fellow Endocrinology, Diabetes, and Metabolism 05/09/24 Tate Salazar MD [address] [place] [address] Endocrinology, Diabetes, and Metabolism 05/13/24 Tate Salazar MD [address] [place] [address] Assigned Endocrinology Provider 06/07/24 Priya Theodore APRN [facility] [address] [place] [address] Nurse Practitioner Pediatric Urology 11/19/24 documented as of this encounter
--- OUTSIDE RECORDS SUMMARY | 2025-06-04 10:45 | XMS_ITS | Encounter Summary ---
Author Organization [place] Address [address] [place] [address] Care Team Providers Care Sap Bw Architect Name Role Phone Sujata Payne MD Primary Care Provider [phone] Sujata Payne MD Unavailable [phone] Adams Rose MD Unavailable + [phone] No Ref-Primary, Physician Primary Care Provider Mandeep Guadarrama MD Unavailable [phone] Tate Salazar MD Unavailable [phone] Tate Salazar MD Unavailable [phone] Priya Theodore APRN [facility] Unavailable + [phone] Encounter Details Date Type Department Care Team (Late st Contact Info) Description 12/09/2019 MyC Medical Advice [facility] [address] [place] [address] Adams Rose MD [address] [place] [address] Social History Tobacco Use Types Packs/Day Years Used Date Smoking Tobacco: Former Cigarettes Q uit: 10/06/2008 Smokeless Tobacco: Never Alcohol Use Standard Drinks/Week Comments No 0 (1 standard drink = 0.6 oz pur e alcohol) PHQ-2 Answer Date Recorded PHQ-2 Score 0 12/03/2019 Comments No Sex and Gender Information Value Date Recorded Sex Assigned at Not on file Legal Sex Female 3:16 AM SIGN LANGUAGE TRANSLATOR Gender Identity Female 09/24/2021 9:00 AM SIGN LANGUAGE TRANSLATOR Sexual Orientation Not on file documented as of this encounter Plan of Treatment Upcoming Encounters Date Type Department Care Team (Late st Contact Info) Description 06/10/2025 10:15 AM CDT Lab [facility] Laboratory [address] [place] [address] 06/11/2025 12:00 PM CDT Virtual Visit [facility] [address] [address] [place] [phone] Tate Salazar MD [address] [place] [address] 721015 documented as of this encounter Visit Diagnoses Not on filedocumented in this encounter Care Teams Sap Bw Architect Relationship Specialty [place] [address] [place] [address] PCP - General Family Practice 08/21/17 10/06/22 No Ref-Primary, Physician PCP - General 10/07/22 [place] [address] [place] [address] Assigned PCP 09/17/17 09/05/20 Adams Rose MD [address] [place] [address] Assigned OBGYN Provider 08/07/20 Mandeep Guadarrama MD [address] [place] [address] Fellow Endocrinology, Diabetes, and Metabolism 05/09/24 Tate Salazar MD [address] [place] [address] Endocrinology, Diabetes, and Metabolism 05/13/24 Tate Salazar MD [address] [place] [address] Assigned Endocrinology Provider 06/07/24 Priya Theodore APRN [facility] [address] [place] [address] Nurse Practitioner Pediatric Urology 11/19/24 documented as of this encounter
--- OUTSIDE RECORDS SUMMARY | 2025-06-04 10:46 | XMS_ITS | Encounter Summary ---
Author Organization [place] Address [address] [place] [address] Care Team Providers Care Rubber Attacher Name Role Phone Sujata Payne MD Primary Care Provider [phone] Sujata Payne MD Unavailable [phone] Sujata Payne MD Unavailable [phone] Adams Rose MD Unavailable [phone] No Ref-Primary, Physician Primary Care Provider Mandeep Guadarrama MD Unavailable [phone] Tate Salazar MD Unavailable [phone] Tate Salazar MD Unavailable [phone] Priya Theodore APRN ELECTROMECHANICAL TECHNOLOGIST Unavailable + [phone] Encounter Details Date Type Department Care Team (Late st Contact Info) Description 10/08/2018 MyC Medical Advice [facility] [address] [facility] [address] [place] [phone] Adams Rose MD [address] [place] [address] Social History Tobacco Use Types Packs/Day Years Used Date Smoking Tobacco: Former Cigarettes Q uit: 10/06/2008 Smokeless Tobacco: Never Alcohol Use Standard Drinks/Week Comments No 0 (1 standard drink = 0.6 oz pur e alcohol) Comments Yes Sex and Gender Information Value Date Recorded Sex Assigned at Not on file Legal Sex Female 3:16 AM GOLF COURSE MECHANIC Gender Identity Female 09/24/2021 9:00 AM GOLF COURSE MECHANIC Sexual Orientation Not on file documented as of this encounter Miscellaneous Notes * Telephone Encounter - Adams Rose MD - 10/10/2018 9:50 AM GOLF COURSE MECHANIC Spoke with patient. I am much better now. COURSE MECHANIC * Telephone Encounter - Alisha Costa, MILLICENT - 10/10/2018 8:07 AM GOLF COURSE MECHANIC Please see the [employer] message and advise. Pt had miscarriage last week. Alisha Costa, RN COURSE MECHANIC documented in this encounter Plan of Treatment Upcoming Encounters Date Type Department Care Team (Late st Contact Info) Description 06/10/2025 10:15 AM CDT Lab [facility] Laboratory [address] [place] [address] 06/11/2025 12:00 PM CDT Virtual Visit [address] [phone] Tate Salazar MD [address] [place] [address] documented as of this encounter Visit Diagnoses Not on filedocumented in this encounter Care Teams Rubber Attacher Relationship Specialty [place] [address] [place] [address] PCP - General Family Practice 08/21/17 10/06/22 [place] [address] [place] [address] PCP - Assigned PCP 09/17/17 12/18/18 No Ref-Primary, Physician PCP - General 10/07/22 [place] [address] [place] [address] Assigned PCP 09/17/17 09/05/20 Adams Rose MD [address] [place] [address] Assigned OBGYN Provider 08/07/20 Mandeep Guadarrama MD [address] [place] [address] Fellow Endocrinology, Diabetes, and Metabolism 05/09/24 Tate Salazar MD [address] [place] [address] Endocrinology, Diabetes, and Metabolism 05/13/24 Tate Salazar MD [address] [place] [address] Assigned Endocrinology Provider 06/07/24 Priya Theodore APRN ELECTROMECHANICAL TECHNOLOGIST [address] [place] [address] Nurse Practitioner Pediatric Urology 11/19/24 documented as of this encounter
--- OUTSIDE RECORDS SUMMARY | 2025-06-04 10:46 | XMS_ITS | Encounter Summary ---
Author Organization [place] Address [address] [place] [address] Care Team Providers Care Qc Scientist Name Role Phone No Ref-Primary, Physician Primary Care Provider Mandeep Guadarrama MD Unavailable [phone] Tate Salazar MD Unavailable [phone] Tate Salazar MD Unavailable [phone] Priya Theodore APRN [facility] Unavailable + [phone] Encounter Details Date Type Department Care Team (Latest Contact Info) Description 05/21/2024 [facility] Medical Advice [facility] Endocrinology Clinic [address] [address] Tate Salazar MD [address] [place] [address] 816765 Graves disease (Primary Dx) Social History Tobacco [...] on file Legal Sex Female 3:16 AM CUTTER PLASTICS ROLLS Gender Identity Female 09/24/2021 9:00 AM CUTTER PLASTICS ROLLS Sexual Orientation Not on file documented as of this encounter Plan of Treatment Upcoming Encounters Date Type Department Care Team (Late st Contact Info) Description 06/10/2025 10:15 AM CDT Lab [facility] [address] [place] [address] 06/11/2025 12:00 PM CDT Virtual Visit [facility] [address] [place] [address] [place] [address] Tate Salazar MD [address] [place] [address] documented as of this encounter Results * Thyroxine total (03/24/2025 11:57 AM CDT) T4 Total 8.5 4.5 - 11.7 ug/dL 03/24/2025 11:32 PM CDT [facility] Blood BLOOD SPECIMEN / Unknown Venipuncture / Unknown 03/24/2025 11:57 AM CDT 03/24/2025 11:57 AM CDT us Tate Salazar MD LAB - BLOOD ORDERABLES Final Result U LABORATORY [facility] [place] Core Lab [address] [facility], Room [address] [place] [address], [facility] * Thyroxine total (12/30/2024 11:25 AM CDT) T4 Total 9.6 4.5 - 11.7 ug/dL 12/31/2024 3:00 AM CDT [facility] Blood BLOOD SPECIMEN / Unknown Venipuncture / Unknown 12/30/2024 11:25 AM CDT 12/30/2024 11:26 AM CDT us Tate Salazar MD LAB - BLOOD ORDERABLES Final Result [facility] [place] [facility] [address] [facility], Room [address] [place] [address], [facility] * (ABNORMAL) Thyroxine total (12/05/2024 12:51 PM CUTTER PLASTICS ROLLS) T4 Total 12.8(H) 4.5 - 11.7 ug/dL 12/05/2024 7:53 PM CUTTER PLASTICS ROLLS [facility] Blood BLOOD SPECIMEN / Unknown Venipuncture / Unknown 12/05/2024 12:51 PM CUTTER PLAST[employer] ROLLS 12/05/2024 12:54 PM CUTTER PLASTICS ROLLS Tate Salazar MD LAB - BLOOD ORDERABLES Final Result LABORATORY [facility] [place] [facility] [address] [facility], [address] [address], [place] * (ABNORMAL) Thyroxine total (11/12/2024 10:31 AM CUTTER PLASTICS ROLLS) T4 Total 13.2(H) 4.5 - 11.7 ug/dL 11/13/2024 1:07 AM CUTTER PLASTICS ROLLS [facility] Blood BLOOD SPECIMEN / Unknown Venipuncture / Unknown 11/12/2024 10:31 AM CUTTER PLASTICS ROLLS 11/12/2024 10:31 AM CUTTER PLASTICS ROLLS Tate Salazar MD LAB - BLOOD ORDERABLES Final Result LABORATORY [facility] [place] [facility] [address] [facility], [address] [address] * (ABNORMAL) Thyroxine total (09/26/2024 10:01 AM CUTTER PLASTICS ROLLS) T4 Total 14.5(H) 4.5 - 11.7 ug/dL 09/26/2024 7:03 PM CUTTER PLASTICS ROLLS [facility] Blood BLOOD SPECIMEN / Unknown Venipuncture / Unknown 09/26/2024 10:01 AM CUTTER PLASTICS ROLLS 09/26/2024 10:01 AM CUTTER PLASTICS ROLLS us Tate Salazar MD LAB - BLOOD ORDERABLES Final Result U LABORATORY [facility] [place] [facility] [address] [facility], [address] [address] * (ABNORMAL) Thyroxine total (08/28/2024 9:55 AM CUTTER PLASTICS ROLLS) T4 Total 13.9(H) 4.5 - 11.7 ug/dL 08/28/2024 6:05 PM CUTTER PLASTICS ROLLS [facility] Blood BLOOD SPECIMEN / Unknown Venipuncture / Unknown 08/28/2024 9:55 AM CUTTER PLASTICS ROLLS 08/28/2024 9:58 AM CUTTER PLASTICS ROLLS Tate Salazar MD LAB - BLOOD ORDERABLES Final Result LABORATORY [facility] Core Lab [address] [facility], [address] [phone] * (ABNORMAL) Thyroxine total (07/16/2024 9:55 AM CDT) T4 Total 13.4(H) 4.5 - 11.7 ug/dL 07/16/2024 7:01 PM CDT [facility] Blood BLOOD SPECIMEN / Unknown Venipuncture / Unknown 07/16/2024 9:55 AM CDT 07/16/2024 9:55 AM CDT Tate Salazar MD LAB - BLOOD ORDERABLES Final Result U LABORATORY [facility] [place] [facility] [address] [facility], [address] [address] * Thyroxine total (06/11/2024 10:49 AM CDT) T4 Total 9.9 4.5 - 11.7 ug/dL 06/11/2024 7:17 PM CDT [facility] Blood BLOOD SPECIMEN / Unknown Venipuncture / Unknown 06/11/2024 10:49 AM CDT 06/11/2024 10:49 AM CDT Tate Salazar MD LAB - BLOOD ORDERABLES Final Result [facility] [place] [facility] [address] [facility] [address], [address] [place] [address], [facility] documented in this encounter Visit Diagnoses Diagnosis Graves disease- Primary Toxic diffuse goiter without mention of thyrotoxic crisis or storm documented in this encounter Care Teams Qc Scientist Relationship Specialty Start Date End Date No Ref-Primary, Physician PCP - General 10/07/22 Mandeep Guadarrama MD [address] [place] [address] Fellow Endocrinology, Diabetes, and Metabolism 05/09/24 Tate Salazar MD [address] [place] [address] Endocrinology, Diabetes, and Metabolism 05/13/24 Tate Salazar MD [address] [place] [address] Assigned Endocrinology Provider 06/07/24 Priya Theodore APRN [employer] [address] [place] [address] Nurse Practitioner Pediatric Urology 11/19/24 documented as of this encounter
--- OUTSIDE RECORDS SUMMARY | 2025-06-04 10:46 | XMS_ITS | Encounter Summary ---
Author Organization [place] Address [address] [place] [address] Care Team Providers Care Distribution Specialist Name Role Phone No Ref-Primary, Physician Primary Care Provider Mandeep Guadarrama MD Unavailable [phone] Tate Salazar MD Unavailable [phone] Tate Salazar MD Unavailable [phone] Priya Theodore APRN [facility] Unavailable + [phone] Encounter Details Date Type Department Care Team (Late st Contact Info) Description 12/17/2024 [facility] Medical Advice [address] [address] Tate Salazar MD [address] [place] [address] Social History Tobacco Use Types [...] on file Legal Sex Female 3:16 AM TELEPHONE REPAIRER Gender Identity Female 09/24/2021 9:00 AM TELEPHONE REPAIRER Sexual Orientation Not on file documented as of this encounter Plan of Treatment Upcoming Encounters Date Type Department Care Team (Late st Contact Info) Description 06/10/2025 10:15 AM CDT Lab [facility] Laboratory [address] [place] [address] 06/11/2025 12:00 PM CDT Virtual Visit [facility] [address] [place] [address] Tate Salazar MD [address] [place] [address] documented as of this encounter Visit Diagnoses Not on filedocumented in this encounter Care Teams Distribution Specialist Relationship Specialty Start Date End Date No Ref-Primary, Physician PCP - General 10/07/22 Mandeep Guadarrama MD [address] [place] [address] Fellow Endocrinology, Diabetes, and Metabolism 05/09/24 Tate Salazar MD [address] [place] [address] Endocrinology, Diabetes, and Metabolism 05/13/24 Tate Salzaar MD [address] [place] [address] Assigned Endocrinology Provider 06/07/24 Priya Theodore APRN BISQUE PLACER [address] [place] [address] Nurse Practitioner Pediatric Urology 11/19/24 documented as of this encounter
--- OUTSIDE RECORDS SUMMARY | 2025-06-04 10:46 | XMS_ITS | Encounter Summary ---
Author Organization [place] Address [address] [place] [address] Care Team Providers Care Advanced Registered Nurse Name Role Phone No Ref-Primary, Physician Primary Care Provider Mandeep Guadarrama MD Unavailable [phone] Tate Salazar MD Unavailable [phone] Tate Salazar MD Unavailable [phone] Priya Theodore APRN RUBY RAILS DEVELOPER Unavailable + [phone] Encounter Details Date Type Department Care Team (Late st Contact Info) Description 06/03/2024 [facility] Medical Advice [facility] Endocrinology Clinic [address] [address] Tate Salazar MD [address] [place] [address] [phone] Social History Tobacco Use Types Packs/Day Years [...] on file Legal Sex Female 3:16 AM CUSHION PADDER Gender Identity Female 09/24/2021 9:00 AM CUSHION PADDER Sexual Orientation Not on file documented as of this encounter Plan of Treatment Upcoming Encounters Date Type Department Care Team (Late st Contact Info) Description 06/10/2025 10:15 AM CDT Lab [facility] Laboratory [address] [place] [phone] 06/11/2025 12:00 PM CDT Virtual Visit [facility] [address] [place] [address] Tate Salazar MD [address] [place] [address] documented as of this encounter Visit Diagnoses Not on filedocumented in this encounter Care Teams Advanced Registered Nurse Relationship Specialty Start Date End Date No Ref-Primary, Physician PCP - General 10/07/22 Mandeep Guadarrama MD [address] [place] [address] Fellow Endocrinology, Diabetes, and Metabolism 05/09/24 Tate Salazar MD [address] [place] [address] Endocrinology, Diabetes, and Metabolism 05/13/24 Tate Salazar MD [address] [place] [address] Assigned Endocrinology Provider 06/07/24 Priya Theodore APRN RUBY RAILS DEVELOPER [address] [place] [address] Nurse Practitioner Pediatric Urology 11/19/24 documented as of this encounter
--- OUTSIDE RECORDS SUMMARY | 2025-06-04 10:46 | XMS_ITS | Encounter Summary ---
Author Organization [place] Address [address] [place] [address]. [place] [address] Care Team Providers Care Financial Business Analyst Name Role Phone No Ref-Primary, Physician Primary Care Provider Mandeep Guadarrama MD Unavailable [phone] Tate Salazar MD Unavailable [phone] Tate Salazar MD Unavailable [phone] Priya Theodore APRN DRILL PRESS OPERATOR NUMERICAL CONTROL Unavailable + [phone] Encounter Details Date Type Department Care Team (Late st Contact Info) Description 05/13/2024 [facility] [place] Endocrinology Clinic [address] [address] [facility] Social History Tobacco Use Types Packs/Day [...] on file Legal Sex Female 3:16 AM INSULATION BLOWER Gender Identity Female 09/24/2021 9:00 AM INSULATION BLOWER Sexual Orientation Not on file documented as of this encounter Plan of Treatment Upcoming Encounters Date Type Department Care Team (Late Contact Info) Description 06/10/2025 10:15 AM CDT Lab [facility] Laboratory [address] [place] [address] 06/11/2025 12:00 PM CDT Virtual Visit [address] [address] Tate Salazar MD [address] [place] [address] documented as of this encounter Visit Diagnoses Not on filedocumented in this encounter Care Teams Financial Business Analyst Relationship Specialty Start Date End Date No Ref-Primary, Physician PCP - General 10/07/22 Mandeep Guadarrama MD [address] [place] [address] Fellow Endocrinology, Diabetes, and Metabolism 05/09/24 Tate Salazar MD [address] [place] [address] Endocrinology, Diabetes, and Metabolism 05/13/24 Tate Salazar MD [address] [place] [address] Assigned Endocrinology Provider 06/07/24 Priya Theodore APRN [facility] [address] [place] [address] Nurse Practitioner Pediatric Urology 11/19/24 documented as of this encounter
--- OUTSIDE RECORDS SUMMARY | 2025-06-04 10:46 | XMS_ITS | Clinical Summary ---
Author Organization [place] Address [address] [place] [address] Care Team Providers Care Bus Driver/Monitor Name Role Phone No Ref-Primary, Physician Primary Care Provider Mandeep Guadarrama MD Unavailable [phone] Tate Salazar MD Unavailable [phone] Tate Salazar MD Unavailable [phone] Priya Theodore APRN FURNITURE SERVICER Unavailable + [phone] Allergies Active Allergy Reactions Criticality Noted Date [...] Encounters Date Type Department Care Team Description 05/24/2025 [facility] Medical Advice [address] [address] Tate Salazar MD Graves disease (Primary Dx) 04/29/2025 My[facility] Medical Advice [address] [phone] Tate Salazar MD Graves disease (Primary Dx) 03/27/2025 Results Follow-Up [address] [address] Tate Salazar MD Subj: Message about your results 03/24/2025 12:00 PM CDT Lab [facility] [address] [place] [address] Graves disease 03/24/2025 Travel 03/21/2025 MyC Medical Advice [address] [address] Tate Salazar MD from Last 3 Months [...] on file Legal Sex Female 3:16 AM CHAIN MAKER Gender Identity Female 09/24/2021 9:00 AM CHAIN MAKER Sexual Orientation Not on file Last Filed Vital Signs Vital Sign Reading Time Taken Comments Blood Pressure 124/78 10/07/2022 12:08 PM CHAIN MAKER Pulse 95 10/07/2022 1:49 PM CHAIN MAKER Temperature 36.5 C (97.7 F) 10/07/2022 9:21 AM CHAIN MAKER Respiratory Rate 16 10/07/2022 1:49 PM CHAIN MAKER Oxygen Saturation 100% 10/07/2022 12:08 PM CHAIN MAKER Inhaled Oxygen Concentration - - Weight 82.6 kg (182 lb) 05/16/2024 9:20 AM CDT Height 162.6 cm (5' 4) 12/03/2019 1:20 PM CHAIN MAKER Body Mass Index 31.24 12/03/2019 1:20 PM CHAIN MAKER Plan of Treatment Upcoming Encounters Date Type Department Care Team (Late st Contact Info) Description 06/10/2025 10:15 AM CDT Lab [facility] [address] [place] [phone] 06/11/2025 12:00 PM CDT Virtual Visit [facility] [address] [place] [address] Tate Salazar MD [address] [place] [address] [phone] Health Maintenance Due Date Last Done Comments ADVANCE CARE PLANNING 1988 ANNUAL REVIEW OF HM ORDERS 1988 HEPATITIS C SCREENING 2006 PNEUMOCOCCAL VACCINE: PEDIAT RICS (0 to 5 YEARS) AND AT-RISK PATIENTS (6 to 49 YEARS) (1 of 2 - PCV) 2007 YEARLY PREVENTIVE VISIT 12/03/2020 12/03/2019, 09/05 COVID-19 VACCINE ( - 2023-2 5 season) 2024 PHQ-2 (once per calendar year) 2024 1 11/09/2023, 05/16/2024, 12/03/2019, Additional history exists INFLUENZA VACCINE (#1) 2025 0 (Declined), 10/03/2018 (Declined), 08/24/2012, Additional history [...] BASIC METABOLIC PANEL STAT 10/07/2022 9:30 AM CHAIN MAKER HPV HIGH RISK TYPES DNA CERVICAL Routine 12/03/2019 1:30 PM CHAIN MAKER Screening for malignant neoplasm of cervix PAP IMAGED THIN LAYER SCREEN Routine 12/03/2019 1:29 PM CHAIN MAKER Screening for malignant neoplasm of cervix [...] - BLOOD ORDERABLES Final Result [facility] [place] [facility] [address] [facility], [address] * Thyroxine total (03/24/2025 11:57 AM CDT) T4 Total 8.5 4.5 - 11.7 ug/dL 03/24/2025 11:32 PM CDT [facility] Blood BLOOD SPECIMEN / Unknown Venipuncture / Unknown 03/24/2025 11:57 AM CDT 03/24/2025 11:57 AM CDT Tate Salazar MD LAB - BLOOD ORDERABLES Final Result LABORATORY [facility] Core Lab [address] [facility], [address] * T4 free (03/24/2025 11:57 AM CDT) Free T4 1.26 0.90 - 1.70 ng/dL 03/24/2025 11:32 PM CDT [facility] Blood BLOOD SPECIMEN / Unknown Venipuncture / Unknown 03/24/2025 11:57 AM CDT 03/24/2025 11:57 AM CDT us Taet Salazar MD LAB - BLOOD ORDERABLES Final Result LABORATORY [facility] Core Lab [address] [facility], [address] * T3 total (03/24/2025 11:57 AM CDT) T3 Total 101 85 - 202 ng/dL 03/24/2025 11:32 PM CDT [facility] Blood BLOOD SPECIMEN / Unknown Venipuncture / Unknown 03/24/2025 11:57 AM CDT 03/24/2025 11:57 AM CDT us Tate Salazar MD LAB - BLOOD ORDERABLES Final Result [facility] [place] [facility] Lab [address] [facility] [address], [address] [place] [address], [facility] * (ABNORMAL) Basic metabolic panel (10/07/2022 9:30 AM [facility]) Sodium 137 136 - 145 mmol/L 10/07/2022 11:03 AM [facility] Potassium 4.2 3.4 - 5.3 mmol/L 10/07/2022 11:03 AM [facility] Chloride 102 98 - 107 mmol/L 10/07/2022 11:03 AM [facility] Carbon Dioxide (CO2) 22 22 - 29 mmol/L 10/07/2022 11:03 AM [facility] Anion Gap 13 7 - 15 mmol/L 10/07/2022 11:03 AM [facility] Urea Nitrogen 10.9 6.0 - 20.0 mg/dL 10/07/2022 11:03 AM [facility] Creatinine 0.72 0.51 - 0.95 mg/dL 10/07/2022 11:03 AM [facility] Calcium 9.6 8.6 - 10.0 mg/dL 10/07/2022 11:03 AM [facility] Glucose 105(H) 70 - 99 mg/dL 10/07/2022 11:03 AM [facility] GFR Estimate >90 >60 mL/min/1.7 3m2 10/07/2022 11:03 AM [facility] Comment:Effective September 162020 eGFRcr in adults is calculated using the 2020 CKD-EPI creatinine equation which includes age and gender (Arianna et al., NEJM, DOI: 10.1056/ZBCQjc3367473) Blood STRUCTURE OF RIGHT UPPER LIMB / Unknown Venipuncture / Unknown 10/07/2022 9:30 AM CHAIN MAKER 10/07/2022 9:35 AM CHAIN MAKER us Adams Washington MD LAB - BLOOD ORDERABLES F inal Result LABORATORY [facility] Acute Care Lab [address] Lab (1st floor, no room number) [place] [address], [place] [phone] * HPV High Risk Types DNA Cervical (12/03/2019 1:30 PM CHAIN MAKER) HPV Source SurePath 12/03/2019 1:29 PM CHAIN MAKER [facility] HPV 16 DNA Negative NEG^Nega tive 12/09/2019 3:31 PM CHAIN MAKER [facility] HPV 18 DNA Negative NEG^Nega tive 12/09/2019 3:31 PM CHAIN MAKER [facility] Other HR HPV Negative NEG^Nega tive 12/09/2019 3:31 PM CHAIN MAKER [facility] Final Diagnosis This patient's sample is negative for HPV DNA. 12/09/2019 3:31 PM CHAIN MAKER [facility] Comment: This test was developed and its performance characteristics determined by the [facility], Molecular Diagnostics Laboratory. It has not been cleared or approved by the FDA. The laboratory is regulated under CLIA as qualified to perform high-complexity testing. This test is used for clinical purposes. It should not be regarded as investigational or for research. (Note) METHODOLOGY: The Js sergio 4800 system uses automated extraction, simultaneous [...] Specimen Description Cervical Cells 12/03/2019 1:29 PM CHAIN MAKER [facility] Comment:[id number] Cervical Cells 12/03/2019 1: 30 PM CHAIN MAKER 12/03/2019 2:05 PM CHAIN MAKER us Adams Baron MD LAB - BLOOD ORDERABLES Final Result [facility] [address] [place] [address] [facility] [address] [place] [address] * Pap imaged thin layer screen with HPV - recommended age 30 - 65 years (select HPV order below) (12/03/2019 1:29 PM CHAIN MAKER) PAP YULIET Hartmannath Report Patient Name: SHANTELLE RICHARDSON MR#: [id number] Specimen #: [id number] Collected: 12/03/2019 Received: 12/04/2019 Reported: 12/06/2019 07:36 [...] adenocarcinomas or other cancers. COLLECTION SITE: Client: [facility] Location: [facility] (R) The technical component of this testing was completed at the [facility], with the professional component performed at the [facility], [address] [place] [phone] ([phone]) SARATH Cytologic material (specimen) 12/03/2019 1:29 PM CHAIN MAKER 12/04/2019 10:46 AM CHAIN MAKER Adams Baron MD LAB - OPTIME CLINICAL SPECIMEN Final Result [facility] * HIV Antigen Antibody Combo (06/23/2016) HIV Antigen Antibody Combo nonreactive Blood specimen (specimen) us Patient Reported LAB - BLOOD ORDERABLES Final Re sult from Last 3 Months or Most Recently Relevant to Health Maintenance Insurance [facility] Advance Directives For more information, please contact: [phone] * Full Code (Latest Code Status on File) Date Activated Date Inactivated Comments 09/11/2012 8:22 AM 10/07/2022 9:04 AM Care Teams Bus Driver/Monitor Relationship Specialty Start Date End Date No Ref-Primary, Physician PCP - General 10/07/22 Mandeep Guadarrama MD [address] [place] [address] Fellow Endocrinology, Diabetes, and Metabolism 05/09/24 Tate Salazar MD [address] [place] [address] Endocrinology, Diabetes, and Metabolism 05/13/24 Tate Salazar MD [address] [place] [address] Assigned Endocrinology Provider 06/07/24 Priya Theodore APRN FURNITURE SERVICER [address] [place] [address] Nurse Practitioner Pediatric Urology 11/19/24
--- OUTSIDE RECORDS SUMMARY | 2025-06-04 10:46 | XMS_ITS | Encounter Summary ---
Author Organization [place] Address [address] [place] [address] Care Team Providers Care Dairy Processing Supervisor Name Role Phone No Ref-Primary, Physician Primary Care Provider Mandeep Guadarrama MD Unavailable [phone] Tate Salazar MD Unavailable [phone] Tate Salazar MD Unavailable [phone] Priya Theodore APRN [facility] Unavailable + [phone] Encounter Details Date Type Department Care Team (Late st Contact Info) Description 09/27/2024 [facility] [address] [address] Tate Salazar MD [address] [place] [address] Social History Tobacco Use Types [...] on file Legal Sex Female 3:16 AM BRASS ROLLER Gender Identity Female 09/24/2021 9:00 AM BRASS ROLLER Sexual Orientation Not on file documented as of this encounter Plan of Treatment Upcoming Encounters Date Type Department Care Team (Late st Contact Info) Description 06/10/2025 10:15 AM CDT Lab [facility] [address] [place] [phone] 06/11/2025 12:00 PM CDT Virtual Visit [facility] [address] [place] [phone] Tate Salazar MD [address] [place] [address] documented as of this encounter Visit Diagnoses Not on filedocumented in this encounter Care Teams Dairy Processing Supervisor Relationship Specialty Start Date End Date No Ref-Primary, Physician PCP - General 10/07/22 Mandeep Guadarrama MD [address] [place] [address] Fellow Endocrinology, Diabetes, and Metabolism 05/09/24 Tate Salazar MD [address] [place] [address] Endocrinology, Diabetes, and Metabolism 05/13/24 Tate Salazar MD [address] [place] [address] Assigned Endocrinology Provider 06/07/24 Priya Theodore APRN LOADING CHECKER [address] [place] [address] Nurse Practitioner Pediatric Urology 11/19/24 documented as of this encounter
--- OUTSIDE RECORDS SUMMARY | 2025-06-04 10:46 | XMS_ITS | Encounter Summary ---
Author Organization [place] Address [address] [place] [address] Care Team Providers Care Transportation Logistics Internship Name Role Phone Sujata Payne MD Primary Care Provider [phone] Sujata Payne MD Unavailable [phone] Sujata Payne MD Unavailable [phone] Adams Rose MD Unavailable [phone] No Ref-Primary, Physician Primary Care Provider Mandeep Guadarrama MD Unavailable [phone] Tate Salazar MD Unavailable [phone] Tate Salazar MD Unavailable [phone] Priya Theodore APRN RECEPTION CLERK Unavailable + [phone] Encounter Details Date Type Department Care Team (Late st Contact Info) Description 10/04/[address] [facility] [address] [facility] [address] [place] [phone] Adams Rose MD [address] [place] [address] Social History Tobacco Use Types Packs/Day Years Used Date Smoking Tobacco: Former Cigarettes Q uit: 10/06/2008 Smokeless Tobacco: Never Alcohol Use Standard Drinks/Week Comments No 0 (1 standard drink = 0.6 oz pur e alcohol) Comments Yes Sex and Gender Information Value Date Recorded Sex Assigned at Not on file Legal Sex Female 3:16 AM RIVER TESTER Gender Identity Female 09/24/2021 9:00 AM RIVER TESTER Sexual Orientation Not on file documented as of this encounter Miscellaneous Notes * Telephone Encounter - Adams Rose MD - 10/05/2018 1:44 PM RIVER TESTER Spoke with patient. Advised of falling HCG levels. Patient has previously experienced a first trimester loss. Given early timing of loss D&C not likely to be necessary R TESTER * Telephone Encounter - Alisha Costa RN - 10/05/2018 1:05 PM RIVER TESTER Please see the results of the pt's hcg level, and discuss with her. Alisha Costa RN R TESTER documented in this encounter Plan of Treatment Upcoming Encounters Date Type Department Care Team (Late st Contact Info) Description 06/10/2025 10:15 AM CDT Lab [facility] [address] [place] [address] 06/11/2025 12:00 PM CDT Virtual Visit [address] [phone] Tate Salazar MD [address] [place] [address] documented as of this encounter Visit Diagnoses Not on filedocumented in this encounter Care Teams Transportation Logistics Internship Relationship Specialty [place] [address] [place] [address] PCP - General Family Practice 08/21/17 10/06/22 [place] [address] [place] [address] PCP - Assigned PCP 09/17/17 12/18/18 No Ref-Primary, Physician PCP - General 10/07/22 [place] [address] [place] [address] Assigned PCP 09/17/17 09/05/20 Adams Rose MD [address] [place] [address] Assigned OBGYN Provider 08/07/20 Mandeep Guadarrama MD [address] [place] [address] Fellow Endocrinology, Diabetes, and Metabolism 05/09/24 Tate Salazar MD [address] [place] [address] Endocrinology, Diabetes, and Metabolism 05/13/24 Tate Salazar MD [address] [place] [address] Assigned Endocrinology Provider 06/07/24 Priya Theodore APRN RECEPTION CLERK [address] [place] [address] Nurse Practitioner Pediatric Urology 11/19/24 documented as of this encounter
--- OUTSIDE RECORDS SUMMARY | 2025-06-04 10:46 | XMS_ITS | Encounter Summary ---
Author Organization [place] Address [address] [place] [address] Care Team Providers Care Pneumatic Deicer Inspector Name Role Phone No Ref-Primary, Physician Primary Care Provider Mandeep Guadarrama MD Unavailable [phone] Taet Salazar MD Unavailable [phone] Tate Salazar MD Unavailable [phone] Priya Theodore APRN [facility] Unavailable + [phone] Encounter Details Date Type Department Care Team (Late st Contact Info) Description 06/14/2024 [facility] [facility] [address] [address] Tate Salazar MD [address] [place] [phone] Social History Tobacco Use Types Packs/Day Years [...] on file Legal Sex Female 3:16 AM SCROLL SHEAR OPERATOR Gender Identity Female 09/24/2021 9:00 AM SCROLL SHEAR OPERATOR Sexual Orientation Not on file documented as of this encounter Plan of Treatment Upcoming Encounters Date Type Department Care Team (Late st Contact Info) Description 06/10/2025 10:15 AM CDT Lab [facility] [address] [place] [phone] 06/11/2025 12:00 PM CDT Virtual Visit [facility] [address] [place] [phone] aTte Salazar MD [address] [place] [address] documented as of this encounter Visit Diagnoses Not on filedocumented in this encounter Care Teams Pneumatic Deicer Inspector Relationship Specialty Start Date End Date No Ref-Primary, Physician PCP - General 10/07/22 Mandeep Guadarrama MD [address] [place] [address] Fellow Endocrinology, Diabetes, and Metabolism 05/09/24 Tate Salazar MD [address] [place] [address] Endocrinology, Diabetes, and Metabolism 05/13/24 Tate Salazar MD [address] [place] [address] Assigned Endocrinology Provider 06/07/24 Priya Theodore APRN SCROLL SHEAR OPERATOR [address] [place] [address] Nurse Practitioner Pediatric Urology 11/19/24 documented as of this encounter
--- OUTSIDE RECORDS SUMMARY | 2025-06-04 10:46 | XMS_ITS | Encounter Summary ---
Author Organization [place] Address [address] [place] [address] Care Team Providers Care Eating Disorder Psychologist Name Role Phone No Ref-Primary, Physician Primary Care Provider Mandeep Guadarrama MD Unavailable [phone] Tate Salazar MD Unavailable [phone] Tate Salazar MD Unavailable [phone] Priya Theodore APRN [facility] Unavailable + [phone] Encounter Details Date Type Department Care Team (Latest Contact Info) Description 08/26/2024 [facility] [place] [facility] [address] [address] Tate Salazar MD [address] [place] [address] [phone] Graves disease (Primary Dx) Social History Tobacco [...] on file Legal Sex Female 3:16 AM CLAMSHELL ENGINEER Gender Identity Female 09/24/2021 9:00 AM CLAMSHELL ENGINEER Sexual Orientation Not on file documented as of this encounter Plan of Treatment Upcoming Encounters Date Type Department Care Team (Late st Contact Info) Description 06/10/2025 10:15 AM CDT Lab [facility] [address] [place] [address] 06/11/2025 12:00 PM CDT Virtual Visit [facility] [address] [place] [phone] Tate Salazar MD [address] [place] [address] documented as of this encounter Results * (ABNORMAL) Thyrotropin Receptor Antibody (08/28/2024 9:55 AM CLAMSHELL ENGINEER) Thyrotropin Receptor Antibody 2.88(H) 0.00 - 1.75 IU/L 08/30/2024 11:05 AM CLAMSHELL ENGINEER [facility] Comment: ADDITIONAL INFORMATION At a decision limit of 1.75 IU/L, this assay has 97% sensitivity and 99% specificity for detection of Graves' disease. In healthy individuals and in patients with thyroid disease without diagnosis of Graves' disease, the upper limit of anti-TSHR values are 1.22 IU/L and 1.58 IU/L, respectively (97.5th percentiles). Test Performed by: [facility] [address] [place] [address] Skin Carver: Barrington Douglas Ph.D.; CLIA# [id number] Blood BLOOD SPECIMEN / Unknown Venipuncture / Unknown 08/28/2024 9:55 AM CLAMSHELL ENGINEER 08/28/2024 9:59 AM CLAMSHELL ENGINEER Tate Salazar MD LAB - IMMUNOLOGY ORDERABLES F inal Result [facility] [address] [place] [address], [facility] [phone] * [place] [employer]; FFTSI; Thyroid-stimulating Immunoglobulin (TSI) (Laboratory Miscellaneous Order) (08/28/2024 9:55 AM CLAMSHELL ENGINEER) Specimen Status Specimen received. Reordered and sent to performing laboratory. Report to follow upon completion. [facility] 08/28/2024 10:01 AM CLAMSHELL ENGINEER LABORATORY Performing Laboratory [facility] 08/28/2024 10:01 AM CLAMSHELL ENGINEER LABORATORY Test Name Thyroid-stimulati ng Immunoglobulin (TSI) [facility] 08/28/2024 10:01 AM CLAMSHELL ENGINEER LABORATORY Test Code FFTSI [facility] 08/28/2024 10:01 AM CLAMSHELL ENGINEER LABORATORY Blood BLOOD SPECIMEN / Unknown Venipuncture / Unknown 08/28/2024 9:55 AM CLAMSHELL ENGINEER 08/28/2024 9:59 AM CLAMSHELL ENGINEER Tate Salazar MD LAB - BLOOD ORDERABLES Final Result LABORATORY [facility] [address] [facility] Lab (no room number, 1st floor of clinic) [place] [address] documented in this encounter Visit Diagnoses Diagnosis Graves disease- Primary Toxic diffuse goiter without mention of thyrotoxic crisis or storm documented in this encounter Care Teams Eating Disorder Psychologist Relationship Specialty Start Date End Date No Ref-Primary, Physician PCP - General 10/07/22 Mandeep Guadarrama MD [address] [place] [address] 907185 Fellow Endocrinology, Diabetes, and Metabolism 05/09/24 Tate Salazar MD [address] [place] [address] Endocrinology, Diabetes, and Metabolism 05/13/24 Tate Salazar MD [address] [place] [address] Assigned Endocrinology Provider 06/07/24 Priya Theodore APRN AIRCRAFT STRUCTURAL DESIGN ENGINEER [address] [place] [address] Nurse Practitioner Pediatric Urology 11/19/24 documented as of this encounter
--- OUTSIDE RECORDS SUMMARY | 2025-06-04 10:48 | XMS_ITS | Encounter Summary ---
Author Organization [place] Address [address] [place] [address] Care Team Providers Care First Calender Worker Name Role Phone No Ref-Primary, Physician Primary Care Provider Mandeep Guadarrama MD Unavailable [phone] Tate Salazar MD Unavailable [phone] Tate Salazar MD Unavailable [phone] Priya Theodore APRN [facility] Unavailable [phone] Encounter Details Date Type Department Care Team (Late st Contact Info) Description 07/17/2024 [facility] [place] [address] [address] Tate Salazar MD [address] [place] [address] Social History Tobacco Use Types [...] on file Legal Sex Female 3:16 AM SALES AND SUPPORT CENTER AGENT Gender Identity Female 09/24/2021 9:00 AM SALES AND SUPPORT CENTER AGENT Sexual Orientation Not on file documented as of this encounter Plan of Treatment Upcoming Encounters Date Type Department Care Team (Late st Contact Info) Description 06/10/2025 10:15 AM CDT Lab [facility] [address] [place] [phone] 06/11/2025 12:00 PM CDT Virtual Visit [facility] [address] [place] [phone] Tate Salazar MD [address] [place] [address] documented as of this encounter Visit Diagnoses Not on filedocumented in this encounter Care Teams First Calender Worker Relationship Specialty Start Date End Date No Ref-Primary, Physician PCP - General 10/07/22 Mandeep Guadarrama MD [address] [place] [address] Fellow Endocrinology, Diabetes, and Metabolism 05/09/24 Tate Salazar MD [address] [place] [address] Endocrinology, Diabetes, and Metabolism 05/13/24 Tate Salazar MD [address] [place] [address] Assigned Endocrinology Provider 06/07/24 Priya Theodore APRN GRASSLAND CONSERVATIONIST [address] [place] [address] Nurse Practitioner Pediatric Urology 11/19/24 documented as of this encounter
--- NOTE | 2025-06-04 11:24 | ED.ARRPALP ---
HPI - Arrhythmia/Palpitations General Date Seen: 06/04/25 Chief Complaint: Arrhythmia/Palpitations Stated Complaint: heart palpitations Time Seen by Provider: 06/04/25 11:02 Source: patient Mode of arrival: ambulatory Limitations: no limitations History of Present Illness HPI narrative: Patient is a 34-year-old female with a history of Graves disease presenting to the emergency department for palpitations. She states she was 1st diagnosed hyperthyroidism in 2016 after a . She was required to go on medication for it 40 ventrally and went into remission. She gave again 2022 I have some mild hyperthyroidism then but did not need any medications. She is now roughly 6 months today and has been on methimazole and propanolol for her hyperthyroidism. She was recently had her medications increased couple weeks ago due to her persistent palpitations. She states since that her palpitations with a controlled until today when she was walking up some steps and her heart rate jumped up to 164. She states she goes on frequent walks typically her heart rate when walking is 118 with a resting heart rate of 77. She does wear a smart watch. Which she saw it go up that high she took her propanolol and states that did calm down quite a bit he follow-up with her heart rate. She does state that she does have increased anxiety compared to her baseline prior to giving . She is not sure how much of anxiety in her related to her hypothyroidism lateral margin of it is concerned about developing thyroid storm. Denies any chest pain, shortness of breath, fevers and chills, abdominal pain, headache, diarrhea, nausea, tremors, delirium, agitation. 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 Related Data Home Medications ?Medication ?Instructions ?Recorded ?Confirmed methimazole 10 mg tablet mg PO 06/04/25 propranolol 20 mg tablet 20 mg PO DAILY 06/04/25 06/04/25 Previous Rx's ?Medication ?Instructions ?Recorded propranolol 60 mg capsule,24 60 mg PO DAILY #20 caps 06/04/25 hr,extended release Allergies Allergy/AdvReac Type Severity Reaction Status Date / Time Sulfa (Sulfonamide Allergy Unknown Verified 06/04/25 10:53 Antibiotics) Review of Systems Status of ROS: Reports: 10 or more systems reviewed and unremarkable except as noted in History and below [facility] Medical History AMA (advanced maternal age) multigravida 35+ ?O09.529 - Supervision of elderly multigravida, unspecified trimester (ICD-10) ventricular septal defect affecting antepartum care of mother ?O35.BXX0 - Maternal care for other (suspected) abnormality and damage, cardiac anomalies, not applicable or unspecified (ICD-10) Dilation of renal pelvis of fetus thyroiditis ?O90.5 - thyroiditis (ICD-10) NVD (normal vaginal delivery) (06/01/23) ?O80 - Encounter for full-term uncomplicated delivery (ICD-10) History of LEEP (loop electrosurgical excision procedure) of cervix complicating ?O34.40 - Maternal care for other abnormalities of cervix, unspecified trimester (ICD-10) ?Z98.890 - Other specified postprocedural states (ICD-10) Depression ?F32.A - Depression, unspecified (ICD-10) Nephrolithiasis ?N20.0 - Calculus of kidney (ICD-10) 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) Surgical History History of laparoscopy ?Z98.890 - Other specified postprocedural states (ICD-10) History of wisdom tooth extraction ?K08.409 - Partial loss of teeth, unspecified cause, unspecified class (ICD-10) History of elbow surgery ?Z98.890 - Other specified postprocedural states (ICD-10) History of D&C ?Z98.890 - Other specified postprocedural states (ICD-10) History of appendectomy ?Z90.49 - Acquired absence of other specified parts of digestive tract (ICD-10) Family History Father High blood pressure Brother FH: testicular cancer Paternal Grandmother Ovarian cancer Social History Narrative: SOCIAL? ? Education: some college? ? 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 ? Partner: Armando, not , Company Truck Driver? ? Lives with: Armando, kids? ? Pets: 3 dogs, rabbits, gecko, turtle ? ? Abuse: Denies past Unable to assess current, partner present? ? Special Diet: Denies? ? Ok with a blood transfusion: yes? ? Culture or anglican beliefs: denies? RISK FACTORS? ? Exercise Times/wk: walking, daily? ? Depression/Anxiety: denies? ? Previous Treatments NA Therapy NA ROXIE: 0 PHQ 9: 0? ? Seat Belt Use: Routinely ? Smoking: Denies past/present? ? Alcohol/day: Denies while ? ? Caffeine: 1 cup of coffee a day? ? Drug Use: Denies past/present? ? What is your current living situation?: I presently have a place to live Problems where you live: no known problems In the past 12 months, utilities in danger of being shut off: no In past 12 months, lack of transportation kept you from medical appts, meetings, work, or getting things needed for daily living: no In the past 12 mos, have been you worried that your food would run out before you had money to buy more?: never true In the past 12 mos, the food you bought just didn't last and you didn't have money to buy more?: never true Smoking Status: Never smoker Non-prescribed substance use: denies use How often does anyone, including family, friends and others, physically hurt you: never How often does anyone, including family, friends and others, insult or talk down to you: never How often does anyone, including family, friends and others, threaten you with harm: never How often does anyone, including family, friends and others, scream or curse at you: never Exam Narrative: Exam Narrative: Const: Well-nourished, Well-developed, in mild distress Eyes: PERRL, no conjunctival injection, and symmetrical lids HENT: Atraumatic external nose and ears. Moist mucous membranes. Neck: Symmetric, trachea midline, No thyromegaly. CVS: Tachycardic, No murmurs or gallops. Peripheral pulses 2+ and equal in all extremities RESP: Unlabored respiratory effort. Clear to auscultation bilaterally. GI: Nontender/Nondistended, No rebound or guarding. MSK:Extremities w/o deformity, Normal Active ROM Skin: Warm, Dry. No rashes or lesions. Neuro: Normal Muscle tone, No focal neurological deficits. Psych: Awake, Alert, & Oriented x3. Appropriate mood and affect. Const: Vital Signs, click to edit/add: Vital Signs - 24 hr 06/04/25 10:45 06/04/25 11:39 06/04/25 11:45 Temperature 98.5 F Pulse Rate [Pulse Oximeter] 125 H Respiratory Rate 18 25 H 22 Blood Pressure [Le ft Upper Arm] 135/82 Pulse Oximetry 98 Oxygen Delivery Me thod Room Air 06/04/25 12:00 06/04/25 13:00 06/04/25 13:15 Temperature Pulse Rate [Pulse Oximeter] Respiratory Rate 14 13 11 L Blood Pressure [Le ft Upper Arm] Pulse Oximetry Oxygen Delivery Me thod 06/04/25 13:30 06/04/25 13:45 06/04/25 14:00 Temperature Pulse Rate [Pulse Oximeter] Respiratory Rate 13 19 18 Blood Pressure [Le ft Upper Arm] Pulse Oximetry Oxygen Delivery Me thod Course Vital Signs Vital signs: Initial Vital Signs Temperature 98.5 F 06/04/25 10:45 Temperature Source Temporal Artery Scan 06/04/25 10:45 Pulse Rate 125 H 06/04/25 10:45 Respiratory Rate 18 06/04/25 10:45 Blood Pressure 135/82 06/04/25 10:45 Blood Pressure Mean 99 06/04/25 10:45 Blood Pressure Position Sitting 06/04/25 10:45 Pulse Oximetry 98 06/04/25 10:45 Oxygen Delivery Method Room Air 06/04/25 10:45 Vital Signs Temperature 98.5 F 06/04/25 10:45 Pulse Rate 125 H 06/04/25 10:45 Respiratory Rate 18 06/04/25 10:45 Blood Pressure 135/82 06/04/25 10:45 Pulse Oximetry 98 06/04/25 10:45 Oxygen Delivery Method Room Air 06/04/25 10:45 Temperature 98.5 F 06/04/25 10:45 Pulse Rate 125 H 06/04/25 10:45 Respiratory Rate 18 06/04/25 14:00 Blood Pressure 135/82 06/04/25 10:45 Pulse Oximetry 98 06/04/25 10:45 Oxygen Delivery Method Room Air 06/04/25 10:45 MDM - Arrhythmia/Palpitations MDM Narrative Medical decision making narrative: Patient is a 34-year-old female with history of Graves disease presenting for tachycardia. She does not appear to be in thyroid storm at this time. Will check an EKG, CBC, TSH, CMP, magnesium, free T4. Free T3 is a send out lab for us and I am not sure it will be beneficial in today's management. Patient's heart rate has improved to 80s without further intervention. This could be related to her anxiety resolving and the propanolol kicking in. CBC, CMP, magnesium all showed no acute concerning abnormalities. TSH came back less than 0.015. Previously was 0.032. This is a relatively small change but her free T4 has gone from 3.7 to 5.02. Considering the change I am curious if we will need to adjust patient's medications at all. I did have staff page out the patient on-call jewelry internship. P I did speak to the on-call jewelry internship for [facility] who recommends for the breakthrough palpitations to switch her to to 60 mg extended-release propanolol as long as she isn't breast feeding. She states the methimazole is a good dose to keep her at. I spoke to the patient about this and she states she is not breast feeding and feels comfortable with the change in medications. She will be discharged. Lab Data Labs: Lab Results 06/04/25 Range/Units 11:47 WBC 5.42 (4.50-11.00) K/uL RBC 5.20 (4.00-5.20) m/uL Hgb 14.5 (12.0-16.0) gm/dL Hct 42.4 (33.0-51.0) % MCV 82 (80-100) fL MCH 28 (26-34) pg MCHC 34 (32-36) gm/dL RDW Coeff of Krunal 12.7 (11.5-15.5) % Plt Count 251 (140-440) K/uL Neut % (Auto) 70.4 (42.0-72.0) % Lymph % (Auto) 19.4 L (20-44) % [place] % (Auto) 7.7 (0.0-11.0) % Eos % (Auto) 1.7 (0.0-7.0) % Baso % (Auto) 0.6 (0.0-3.0) % Neut # (Auto) 3.82 (1.7-7.0) K/uL Lymph # (Auto) 1.10 (0.90-2.90) K/uL [place] # (Auto) 0.40 (0.00-0.90) K/UL Eos # (Auto) 0.09 (0.00-0.50) K/uL Baso # (Auto) 0.03 (0.00-0.30) K/uL Abs Immat Gran (auto) 0.01 (0.00-0.30) K/uL Imm/Tot Granulo (auto) 0.2 % Sodium 138 (135-149) mmol/L Potassium 4.2 (3.6-5.1) mmol/L Chloride 108 (96-114) mmol/L Carbon Dioxide 22 (20-32) mmol/L Anion Gap 8 (7-15) mEq/L BUN 17 (5-24) mg/dL Creatinine 0.6 (0.5-1.5) mg/dL Estimated Creat Clear 121.35 Estimated GFR 119 ml/min Glucose 145 H (60-115) mg/dL Calcium 10.2 (8.4-10.6) mg/dL Magnesium 2.0 (1.5-2.6) mg/dL Total Bilirubin 0.4 (0.1-1.5) mg/dL AST 27 (12-35) U/L ALT 35 (4-35) U/L Alkaline Phosphatase 94 (40-150) U/L Total Protein 7.7 (6.0-8.3) g/dL Albumin 4.4 (3.3-5.0) g/dL TSH < 0.015 L (0.270-4.20) uIU/mL Free T4 5.02 H (0.70-1.85) ng/dL ECG Data Attestation: I personally reviewed and interpreted this ECG as follows: Prior ECG tracings: not available for review Interpretation: Normal sinus rhythm with a rate 95 beats per minute, intervals, normal axis, no ST or T-wave abnormalities Discharge Plan Discharge Clinical Impression: Graves disease Patient Disposition: Home, Self-Care Condition: Improved Instructions: Hyperthyroidism (ED) Additional Instructions: Starting tomorrow start taking the propanolol 60 mg extended release instead of your previously prescribed 10 mg twice daily short-acting medication. Make sure to have close follow-up with your jewelry internship and PCP. Please return to emergency department for new or worsening symptoms. Prescriptions: New propranolol 60 mg capsule,extended release 24 hr 60 mg PO DAILY Qty: 20 0RF No Action methimazole 10 mg tablet PO propranolol 20 mg tablet 20 mg PO DAILY Follow Up/Referrals: Provider,Not a Local [Primary Care Provider, Family Practice] Stand Alone Forms: [employer] Info Instructions
--- OUTSIDE RECORDS SUMMARY | 2025-06-04 11:30 | XMS_ITS | Clinical Summary ---
Author Organization [facility] Address [address], [place] [address] Care Team Providers Care [employer] Combination Teacher Name Role Phone Sherin Medina MD Primary Care Provider + [phone] Source Comments You are receiving this document as you are listed as the primary care provider,follow-up provider, or the patient has been referred to you for consultation.This is in compliance with the Medicare and[facility] Cent[facility] EHR Incentive Program,which states Providers who transition their patient to another setting of careor provider of care or refers their patient to another provider of care shouldprovide summary care record for each transition of care or referral. [facility] Allergies Active Allergy Reactions Criticality Noted Date Comments Sulfa Antibiotics 06/26/2003 PN: LW Reaction: Rash, Generalized Medications hydrOXYzine HCl (ATARAX) 10 MG tabletIndicati ons:Anxiety (HRC) Take 1-2 Tablets (10-20 mg) by mouth every 8 hours as needed for up to 60 doses. 60 Tablet 1 02/05/20 25 Active propranolol (INDERAL) 20 MG tablet Take 0.5 Tablets (10 mg) by mouth daily. 05/21/20 25 Active methIMAzole (TAPAZOLE) 10 MG tabletIndicati ons:Graves disease (HRC) Take 2 Tablets (20 mg) by mouth daily. 30 Tablet 3 05/26/20 25 Active Cgbglutd-Mhj-V e-FA (/IRON OR) Take by mouth daily (every 24 hours). Indications: 11/07/19 14 025 Discontinued Norethindrone, Contraceptive, (NOR-QD) 0.35 MG tablet Take 1 Tab by mouth daily. 90 Tab 3 03/23/20 17 025 Discontinued drospirenone-e thinyl estradiol (FABIOLA) 3-0.03 MG tablet Take 1 Tab by mouth daily for 83 days. 84 Tab 3 04/14/20 17 025 Discontinued fluconazole (DIFLUCAN) 150 MG tabletIndicati ons:Yeast vaginitis Take one tablet by mouth now, may repeat in 3-5 days if symptoms persist. 2 Tab 06/10/20 17 025 Discontinued Active Problems Problem Noted Date Diagnosed Date Graves disease 10/05/2017 Resolved Problems Problem Noted Date Diagnosed Date Resolved Date Encounter for supervision of other normal 12/12/2013 05/26/2025 Overview (06/07/2017): Supervision of other normal Contraceptive surveillance 01/01/2013 0 11/07/2013 Overview (06/07/2017): Ortho Evra patches ; Contraceptive surveillance, unspecified Labial varicosities 11/13/2012 05/26/20 25 History of nephrolithiasis 10/29/2012 0 10/29/2012 Overview [...] 10/11/2011 S/P LEEP of cervix 08/09/2010 4 HSIL on Pap smear of cervix 02/22/2010 05/26/2025 Overview (06/07/2017): Colposcopy 03/09/2010. LEEP 08/09/2010 ; HSIL (high grade squamous intraepithelial lesion) on Pap smear Major depressive disorder, single episode 10/21/2009 11/07/2013 Overview (06/07/2017): Depression Major NOS Varicella 05/02/2007 11/07/2013 Overview (06/07/2017): LW Onset: [id number] ; Varicella Zoster Encounters Date Type Department Care Team Description 05/27/2025 3:30 PM CDT [facility] [address] [place] [address] Helga oLpez PA-C Chief Comp: Follow-up, NOS 05/27/2025 11:30 AM CDT E-Visit [facility] [address] [place] [address] Helga Lopez PA-C Chief Comp: RESULTS, TEST 05/26/2025 11:30 AM CDT [facility] [address] [place] [address] Helga Lopez PA-C Graves disease (HRC) (Primary Dx); Need for hepatitis C screening test from Last 3 Months Immunizations Immunization Administration Dates Next Due 4vHPV [...] CDT Respiratory Rate 20 10/20/2012 10:40 AM FORGER HELPER Oxygen Saturation 99% 10/20/2012 10:40 AM FORGER HELPER Inhaled Oxygen Concentration - - Weight 79.8 kg (176 lb) 05/26/2025 11:23 AM CDT pt reported Height 163.2 cm (5' 4.25) 06/23/2016 10:17 AM C DT Body Mass Index 29.98 06/23/2016 10:17 AM CDT Plan of Treatment Upcoming Encounters Date Type Department Care Team (Late st Contact Info) Description 06/23/2025 8:00 AM CDT Appointment [facility] [address] [place] [address] Health Maintenance Due Date Last Done Comments [...] PATH LIQUID BASED Routine 10/06/2015 11:30 AM FORGER HELPER from Last 3 Months or Most Recently Relevant to Health Maintenance Results * LAB HIV-1 p24 AND HIV-1/HIV-2 ANTIBODIES (06/23/2016 11:09 AM CDT) HIV-1 p24 Ag and HIV-1/HIV-2 Ab Nonreactive Non-React bradford PN SOFT 06/23/2016 11:0 9 AM CDT 06/23/2016 7:41 PM CDT Narrative PN SOFT - 06/23/2016 8:36 PM CDT Performed at [facility], [address] [place] [id number] CLIA number [id number] us Penny Reyes APRN, DOMINIC LAB_1 Fi nal Result SOFT [address] [place] [id number] * Pap Smear (10/06/2015 11:30 AM FORGER HELPER) 10/06/2015 11:3 0 AM FORGER HELPER Narrative HP CONVERSION - 10/12/2015 11:20 AM FORGER HELPER FINAL GYNECOLOGICAL CYTOLOGY REPORT Pathology #: [id number] Date Obtained: 10/06/2015 Date Received: 10/07/2015 INTERPRETATION/RESULTS: [...] may occur. End of Report Performed at [facility], [address] [place] [address] Transcriptions 11/23/2016 11:21 PM CSTNotes Recorded by Sydney Dasilva, RN on 10/22/2015 at 11:19 Araceli Pepper,I [...] results, callCervical Cancer Screening and Management Team [phone],Gina M Dudley, RN on behalf ofDr. Lucero Sumner, Medical DirectorPark Elizabeth Cervical Cancer Screening and Management us Penny Reyes APRN, PRINCIPAL SECURITY ARCHITECT LAB_1 Fi nal Result HP CONVERSION from Last 3 Months or Most Recently Relevant to Health Maintenance Insurance [facility] Care Teams High School Combination Teacher Relationship Specialty Start Date End Date Sherin Medina MD [address] [place] [address] [facility] - General 01/16/11
--- OUTSIDE RECORDS SUMMARY | 2025-06-04 11:30 | XMS_ITS | Encounter Summary ---
Author Organization [facility] Address [address] [place] [address] Care Team Providers Care Bicycle Subassembler Name Role Phone No Ref-Primary, Physician Primary Care Provider Mandeep Guadarrama MD Unavailable [phone] Tate Salazar MD Unavailable [phone] Tate Salazar MD Unavailable [phone] Priya Theodore APRN [facility] Unavailable + [phone] Encounter Details Date Type Department Care Team (Late st Contact Info) Description 05/24/2025 MyC Medical Advice [address] [address] Tate Salazar MD [address] [place] [address] Graves disease (Primary Dx) Social [...] on file Legal Sex 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 Norma ramirez Complex Rake Operator Orthopedics, Podiatry, Sports Medicine, Ent ,Eye , Audiology, Adult Endocrine & Diabetes, Nutrition & Medication Therapy Management Specialties [facility] Clinics and Surgery [facility] documented in this encounter Plan of Treatment Upcoming Encounters Date Type Department Care Team (Late st Contact Info) Description 06/10/2025 10:15 AM CDT Lab [facility] [address] [place] [address] 06/11/2025 12:00 PM CDT Virtual Visit [facility] [address] [place] [id number] Tate Salazar MD [address] [place] [address] Scheduled Orders Name Type Priority Associated Diagnoses Orde r Schedule Hepatic panel Lab Routine Graves disease Expected: 05/29/2025 (Approximate), Expires: 05/29/2026 TSH Lab Routine Graves disease Expected: 05/29/2025 (Approximate), Expires: 05/29/2026 T4 free Lab Routine Graves disease Expected: 05/29/2025 (Approximate), Expires: 05/29/2026 T3 total Lab Routine Graves disease Expected: 05/29/2025 (Approximate), Expires: 05/29/2026 CBC with platelets Lab Routine Graves disease Expected: 05/29/2025 (Approximate), Expires: 05/29/2026 Thyroid stimulating immunoglobulin Lab Routine Graves disease Expected: 05/29/2025 (Approximate), Expires: 05/29/2026 documented as of this encounter Visit Diagnoses Diagnosis Graves disease- Primary Toxic diffuse goiter without mention of thyrotoxic crisis or storm documented in this encounter Care Teams Bicycle Subassembler Relationship Specialty Start Date End Date No Ref-Primary, Physician PCP - General 10/07/22 Mandeep Guadarrama MD [address] [place] [address] Fellow Endocrinology, Diabetes, and Metabolism 05/09/24 Tate Salazar MD [address] [place] [id number] Endocrinology, Diabetes, and Metabolism 05/13/24 Tate Salazar MD [address] [place] [id number] Assigned Endocrinology Provider 06/07/24 Priya Theodore APRN SAMPLE COLLECTOR [address] [place] [address] Nurse Practitioner Pediatric Urology 11/19/24 documented as of this encounter
[2025-06-04 11:51] LABS: Hematocrit 42.4 % (33.0-51.0); Hemoglobin* 14.5 gm/dL (12.0-16.0); Immature Granulocytes Abs Auto 0.01 K/uL (0.00-0.30); Immature Granulocytes Pct Auto 0.2 %; Mean Corpuscular HGB Conc 34 gm/dL (32-36); Mean Corpuscular Hemoglobin 28 pg (26-34); Mean Corpuscular Volume 82 fL (80-100); RDW Coefficient of Variation % 12.7 % (11.5-15.5); Red Blood Count 5.20 m/uL (4.00-5.20); White Blood Count* 5.42 K/uL (4.50-11.00)
[2025-06-04 11:52] LABS: Lymphocytes Absolute Auto 1.10 K/uL (0.90-2.90); Slide Review Reflex No
[2025-06-04 12:07] LABS: Albumin* 4.4 g/dL (3.3-5.0); Chloride* 108 mmol/L (96-114); Potassium* 4.2 mmol/L (3.6-5.1); Sodium* 138 mmol/L (135-149)
[2025-06-04 12:09] LABS: Alanine Aminotransferase* 35 U/L (4-35); Aspartate Amino Transferase* 27 U/L (12-35); Blood Urea Nitrogen* 17 mg/dL (5-24); Creatinine* 0.6 mg/dL (0.5-1.5); Est. Creatinine Clearance* 121.35; Estimated Glomerular Filt Rate 119 ml/min
[2025-06-04 12:10] LABS: Alkaline Phosphatase* 94 U/L (40-150); Anion Gap 8 mEq/L (7-15); Bilirubin Total* 0.4 mg/dL (0.1-1.5); Calcium* 10.2 mg/dL (8.4-10.6); Carbon Dioxide* 22 mmol/L (20-32); Glucose* 145 mg/dL (60-115); Total Protein* 7.7 g/dL (6.0-8.3)
[2025-06-04 13:06] LABS: Free T4 Free Thyroxine* 5.02 ng/dL (0.70-1.85)
== END 2025-06-04 15:10 | disposition home or self-care (01) ==
PROVIDERS: Emergency Provider Student in an Organized Health Care Education/Training Program
DX: N20.9 Urinary calculus, unspecified (principal); R00.0 Tachycardia, unspecified
CPT/HCPCS: 36415; 80053; 83735; 84439; 84443; 85025; 93005; 99284

== ENCOUNTER 2025-08-05 20:15 | Emergency (ER) | payer MEDICAID, SELFPAY ==
--- OUTSIDE RECORDS SUMMARY | 2025-06-26 11:00 | XMS_ITS | Encounter Summary ---
Author Organization [place] Address [address] [place] [address] Care Team Providers Care Forensic Pathologist Name Role Phone No Ref-Primary, Physician Primary Care Provider Mandeep Guadarrama MD Unavailable [phone] Tate Salazar MD Unavailable [phone] Tate Salazar MD Unavailable [phone] Priya Theodore APRN APPLICATION DEFENSE MANAGER Unavailable + [phone] Encounter Details Date Type Department Care Team (Late st Contact Info) Description 06/26/2025 11:00 AM CDT [facility] [address] [place] [address] Graves disease Social History Tobacco Use [...] on file Legal Sex Female 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 Gender Identity Female 09/24/2021 9:00 AM PLASTICS FABRICATOR AND ASSEMBLER Sexual Orientation Not on file documented as of this encounter Plan of Treatment Upcoming Encounters Date Type Department Care Team (Late Contact Info) Description 08/19/2025 10:15 AM PLASTICS FABRICATOR AND ASSEMBLER Lab [facility] [address] [place] [address] 09/17/2025 9:30 AM PLASTICS FABRICATOR AND ASSEMBLER Virtual Visit [address] [address] Tate Salazar MD [address] [place] [address] documented as of this encounter Procedures Procedure Name Priority Date/Time Associated Diagnosis Comments TSH Routine 06/26/2025 10:28 AM CDT Graves disease T4 FREE Routine 06/26/2025 10:28 AM CDT Graves disease T3 TOTAL Routine 06/26/2025 10:28 AM CDT Graves disease CBC WITH PLATELETS Routine 06/26/2025 10 :28 AM CDT Graves disease documented in this encounter Results * CBC with platelets (06/26/2025 10:28 AM CDT) WBC Count 5.49 4.00 - 11.00 10e3/uL 06/26/2025 10:30 AM CDT [facility] RBC Count 5.19 3.80 - 5.20 10e6/uL 06/26/2025 10:30 AM CDT [facility] Hemoglobin 14.0 11.7 - 15.7 g/dL 06/26/2025 10:30 AM CDT [facility] Hematocrit 42.1 35.0 - 47.0 % 06/26/2025 10:30 AM CDT [facility] MCV 81.1 78.0 - 100.0 fL 06/26/2025 10:30 AM CDT [facility] MCH 27.0 26.5 - 33.0 pg 06/26/2025 10:30 AM CDT [facility] MCHC 33.3 31.5 - 36.5 g/dL 06/26/2025 10:30 AM CDT [facility] RDW 12.3 10.0 - 15.0 % 06/26/2025 10:30 AM CDT [facility] Platelet Count 257 150 - 450 10e3/uL 06/26/2025 10:30 AM CDT [facility] Blood BLOOD SPECIMEN / Unknown Venipuncture / Unknown 06/26/2025 10:28 AM CDT 06/26/2025 10:28 AM CDT Tate Salazar MD LAB - BLOOD ORDERABLES Final Result LABORATORY [facility] [address] [facility] (no room number, 1st floor of clinic) [place] [address], [facility] * T3 total (06/26/2025 10:28 AM CDT) T3 Total 128 85 - 202 ng/dL 06/27/2025 12:54 AM CDT [facility] Blood BLOOD SPECIMEN / Unknown Venipuncture / Unknown 06/26/2025 10:28 AM CDT 06/26/2025 10:28 AM CDT Tate Salazar MD LAB - BLOOD ORDERABLES Final Result [facility] [place] [facility] [address] [facility], Room [address] * T4 free (06/26/2025 10:28 AM CDT) Free T4 1.50 0.90 - 1.70 ng/dL 06/27/2025 12:54 AM CDT [facility] Blood BLOOD SPECIMEN / Unknown Venipuncture / Unknown 06/26/2025 10:28 AM CDT 06/26/2025 10:28 AM CDT Tate Salazar MD LAB - BLOOD ORDERABLES Final Result [facility] [place] [facility] [address] [facility], [address] [id number] * (ABNORMAL) TSH (06/26/2025 10:28 AM CDT) TSH <0.01(L) 0.30 - 4.20 uIU/mL 06/27/2025 1:28 AM CDT [facility] Blood BLOOD SPECIMEN / Unknown Venipuncture / Unknown 06/26/2025 10:28 AM CDT 06/26/2025 10:28 AM CDT Tate Salazar MD LAB - BLOOD ORDERABLES Final Result [facility] [place] [facility] [address] [facility], [address] [place] [address], [facility] documented in this encounter Visit Diagnoses Diagnosis Graves disease Toxic diffuse goiter without mention of thyrotoxic crisis or storm documented in this encounter Care Teams Forensic Pathologist Relationship Specialty Start Date End Date No Ref-Primary, Physician PCP - General 10/07/22 Mandeep Guadarrama MD [address] [place] [address] Fellow Endocrinology, Diabetes, and Metabolism 05/09/24 Tate Salazar MD [address] [place] [address] Endocrinology, Diabetes, and Metabolism 05/13/24 Tate Salazar MD [address] [place] [address] Assigned Endocrinology Provider 06/07/24 Priya Theodore APRN APPLICATION DEFENSE MANAGER [address] [place] [address] Nurse Practitioner Pediatric Urology 11/19/24 documented as of this encounter
--- OUTSIDE RECORDS SUMMARY | 2025-07-02 09:20 | XMS_ITS | Encounter Summary ---
Author Organization [facility], [facility] Address [address], [place] [address] Care Team Providers Care Crew Car Driver Name Role Phone Sherin Medina MD Primary Care Provider + [phone] Reason for Visit * Reason Comments QUESTIONS, GENERAL Entered automaticall y based on patient selection in [employer]. Encounter Details Date Type Department Care Team (Late st Contact Info) Description 07/02/2025 9:20 AM CDT E-Visit [facility] [address] [place], [place] [id number] Helga Lopez PA-C [address] [place] [address] Chief Comp: QUESTIONS, GENERAL Social History Tobacco Use Types Packs/Day Years [...] encounter Nursing Notes * Macarena Garcia - 07/02/2025 9:28 AM CDT Appointments - CFD Request - PCP Request Patient requesting additional assistance/quality time with finding a primary care provider (PCP). Family, Internal Medicine, Pediatrics, Med-Peds only (no specialty department requests). Current PCP: Sherin Mdeina Are there any PCP preferences the patient would like us to be aware of? Someone to help patient to manage their Graves Disease Preferred communication method: Online account documented in this encounter Plan of Treatment Not on file documented as of this encounter Visit Diagnoses Not on filedocumented in this encounter Care Teams Crew Car Driver Relationship Specialty Start Date End Date Sherin Medina MD [address] [place] [address] PCP - General 01/16/11 documented as of this encounter
--- OUTSIDE RECORDS SUMMARY | 2025-08-05 20:17 | XMS_ITS | Encounter Summary ---
Author Organization [facility] Address [address], [place] [address] Care Team Providers Care Appliance Adjuster Name Role Phone Sherin Medina MD Primary Care Provider + [phone] Encounter Details Date Type Department Care Team (Late st Contact Info) Description 07/18/2025 [facility] [place] [address] [place] [address] Social History Tobacco Use Types Packs/Day Years [...] as of this encounter Visit Diagnoses Diagnosis Urinary tract infection, site not specified documented in this encounter Care Teams Appliance Adjuster Relationship Specialty Start Date End Date Sherin Medina MD [address] [place] [address] PCP - General 01/16/11 documented as of this encounter
--- OUTSIDE RECORDS SUMMARY | 2025-08-05 20:17 | XMS_ITS | Encounter Summary ---
Author Organization [place] Address [address] [place] [address] Care Team Providers Care Land Surveying Survey Worker Name Role Phone No Ref-Primary, Physician Primary Care Provider Mandeep Guadarrama MD Unavailable [phone] Tate Salazar MD Unavailable [phone] Tate Salazar MD Unavailable [phone] Priya Theodore APRN [facility] Unavailable + [phone] Encounter Details Date Type Department Care Team (Late st Contact Info) Description 06/18/2025 [facility] Medical Advice [address] [address] Tate Salazar MD [address] [place] [address] Social History Tobacco Use Types [...] on file Legal Sex Female 3:16 AM CAR FERRY CAPTAIN Gender Identity Female 09/24/2021 9:00 AM CAR FERRY CAPTAIN Sexual Orientation Not on file documented as of this encounter Plan of Treatment Upcoming Encounters Date Type Department Care Team (Late st Contact Info) Description 08/19/2025 10:15 AM CAR FERRY CAPTAIN Lab [facility] Laboratory [address] [place] [address] 09/17/2025 9:30 AM CAR FERRY CAPTAIN Virtual Visit [facility] [address] [place] [address] Tate Salazar MD [address] [place] [address] documented as of this encounter Visit Diagnoses Not on filedocumented in this encounter Care Teams Land Surveying Survey Worker Relationship Specialty Start Date End Date No Ref-Primary, Physician PCP - General 10/07/22 Mandeep Guadarrama MD [address] [place] [address] Fellow Endocrinology, Diabetes, and Metabolism 05/09/24 Tate Salazar MD [address] [place] [address] Endocrinology, Diabetes, and Metabolism 05/13/24 Tate Salazar MD [address] [place] [address] Assigned Endocrinology Provider 06/07/24 Priya Theodore APRN PRIVATE BRANCH EXCHANGE SERVICE ADVISOR [address] [place] [address] Nurse Practitioner Pediatric Urology 11/19/24 documented as of this encounter
--- OUTSIDE RECORDS SUMMARY | 2025-08-05 20:17 | XMS_ITS | Encounter Summary ---
Author Organization [place] Address [address] [place] [address]. [place] [address] Care Team Providers Care Communications Operator Name Role Phone No Ref-Primary, Physician Primary Care Provider Mandeep Guadarrama MD Unavailable [phone] Tate Salazar MD Unavailable [phone] Tate Salazar MD Unavailable [phone] Priya Theodore APRN NON DESTRUCTIVE EVALUATION TECHNICIAN Unavailable + [phone] Encounter Details Date Type Department Care Team (Late st Contact Info) Description 04/04/2025 External Order Results [facility] [address] [place] [address] Outside, Provider Social History Tobacco Use Types Packs/Day Years [...] on file Legal Sex Female 3:16 AM CHILD LIFE ASSISTANT Gender Identity Female 09/24/2021 9:00 AM CHILD LIFE ASSISTANT Sexual Orientation Not on file documented as of this encounter Plan of Treatment Upcoming Encounters Date Type Department Care Team (Late st Contact Info) Description 08/19/2025 10:15 AM CHILD LIFE ASSISTANT Lab [facility] [address] [place] [address] 09/17/2025 9:30 AM CHILD LIFE ASSISTANT Virtual Visit [address] [place] [address] Tate Salazar MD [address] [place] [address] documented as of this encounter Visit Diagnoses Not on filedocumented in this encounter Care Teams Communications Operator Relationship Specialty Start Date End Date No Ref-Primary, Physician PCP - General 10/07/22 Mandeep Guadarrama MD [address] [place] [address] Fellow Endocrinology, Diabetes, and Metabolism 05/09/24 Tate Salazar MD [address] [place] [address] Endocrinology, Diabetes, and Metabolism 05/13/24 Tate Salazar MD [address] [place] [address] Assigned Endocrinology Provider 06/07/24 Priya Theodore APRN CNP [address] [place] [address] Nurse Practitioner Pediatric Urology 11/19/24 documented as of this encounter
--- OUTSIDE RECORDS SUMMARY | 2025-08-05 20:17 | XMS_ITS | Encounter Summary ---
Author Organization [place] Address [address] [place] [address] Care Team Providers Care Awning Installer Name Role Phone Sujata Payne MD Primary Care Provider [phone] Sujata Payne MD Unavailable [phone] Adams Rose MD Unavailable + [phone] No Ref-Primary, Physician Primary Care Provider Mandeep Guadarrama MD Unavailable [phone] Tate Salazar MD Unavailable [phone] Tate Salazar MD Unavailable [phone] Priya Theodore APRN INTEGRATED MARKETING MANAGER Unavailable + [phone] Encounter Details Date Type Department Care Team (Late st Contact Info) Description 05/09/2020 [facility] Medical Advice [facility] [address] [place] [address] Adams Rose MD [address] [place] [address] Social History Tobacco Use Types Packs/Day Years Used Date Smoking Tobacco: Former Cigarettes Q uit: 10/06/2008 Smokeless Tobacco: Never Alcohol Use Standard Drinks/Week Comments No 0 (1 standard drink = 0.6 oz pur e alcohol) PHQ-2 Answer Date Recorded PHQ-2 Score 0 12/03/2019 Comments No Sex and Gender Information Value Date Recorded Sex Assigned at Not on file Legal Sex Female 3:16 AM TIEDOWN OPERATOR Gender Identity Female 09/24/2021 9:00 AM TIEDOWN OPERATOR Sexual Orientation Not on file documented as of this encounter Plan of Treatment Upcoming Encounters Date Type Department Care Team (Late st Contact Info) Description 08/19/2025 10:15 AM TIEDOWN OPERATOR Lab [facility] Laboratory [address] [place] [address] 09/17/2025 9:30 AM TIEDOWN OPERATOR Virtual Visit [facility] [address] [place] [address] Tate Salazar MD [address] [place] [address] documented as of this encounter Visit Diagnoses Not on filedocumented in this encounter Care Teams Awning Installer Relationship Specialty [place] [address] [place] [address] PCP - General Family Practice 08/21/17 10/06/22 No Ref-Primary, Physician PCP - General 10/07/22 [place] [address] [place] [address] Assigned PCP 09/17/17 09/05/20 Adams Rose MD [address] [place] [address] Assigned OBGYN Provider 08/07/20 Mandeep Guadarrama MD [address] [place] [address] Fellow Endocrinology, Diabetes, and Metabolism 05/09/24 Tate Salazar MD [address] [place] [address] Endocrinology, Diabetes, and Metabolism 05/13/24 Tate Salazar MD [address] [place] [address] Assigned Endocrinology Provider 06/07/24 Priya Theodore APRN CNP [address] [place] [address] Nurse Practitioner Pediatric Urology 11/19/24 documented as of this encounter
--- OUTSIDE RECORDS SUMMARY | 2025-08-05 20:17 | XMS_ITS | Clinical Summary ---
Author Organization [facility] Address [address], [place] [address] Care Team Providers Care Precipitator Supervisor Name Role Phone Sherin Medina MD Primary Care Provider + [phone] Source Comments You are receiving this document as you are listed as the primary care provider,follow-up provider, or the patient has been referred to you for consultation.This is in compliance with the Medicare andTri[facility] Hospitalcaid EHR Incentive Program,which states Providers who transition their patient to another setting of careor provider of care or refers their patient to another provider of care shouldprovide summary care record for each transition of care or referral. [facility] Allergies Active Allergy Reactions Criticality Noted Date Comments Sulfa Antibiotics 06/26/2003 PN: LW Reaction: Rash, Generalized Medications hydrOXYzine HCl (ATARAX) 10 MG tabletIndicatio ns:Anxiety (HRC) Take 1-2 Tablets (10-20 mg) by mouth every 8 hours as needed for up to 60 doses. 60 Tablet 1 02/04/2025 Active propranolol (INDERAL) 20 MG tablet Take 0.5 Tablets (10 mg) by mouth daily. 05/21/2025 Active methIMAzole (TAPAZOLE) 10 MG tabletIndicatio ns:Graves disease (HRC) Take 2 Tablets (20 mg) by mouth daily. 30 Tablet 3 05/26/2025 Active Active Problems Problem Noted Date Diagnosed [...] Varicella 05/02/2007 11/07/2013 Overview (06/07/2017): LW Onset: [id number] ; Varicella Zoster Encounters Date Type Department Care Team Description 07/18/2025 [facility] [place] [address] [place] [address] 07/18/2025 [facility] [place] [address] [place] [address] 07/02/2025 9:20 AM CDT E-Visit [facility] [address] [place] [address] Helga Lopez PA-C Chief Comp: QUESTIONS, GENERAL 05/27/2025 3:30 PM CDT E-Visit [facility] [address] [place] [address] Helga Lopez PA-C Chief Comp: Follow-up, NOS 05/27/2025 11:30 AM CDT E-Visit [facility] [address] [place] [address] Helga Lopez PA-C Chief Comp: RESULTS, TEST 05/26/2025 11:30 AM CDT Telemedicine [facility] [address] [place] [address] Helga Lopez PA-C Graves disease ([facility]) (Primary Dx); Need for hepatitis C screening [...] CDT Respiratory Rate 20 10/20/2012 10:40 AM RESIDENTIAL CASE MANAGER Oxygen Saturation 99% 10/20/2012 10:40 AM RESIDENTIAL CASE MANAGER Inhaled Oxygen Concentration - - Weight 79.8 [...] Additional history exists COVID-19 Vaccine ( season) 2025 Influenza Vaccine (#1) 2025 2, 07/20/2010, 07/27/2009, [...] PATH LIQUID BASED Routine 10/06/2015 11:30 AM RESIDENTIAL CASE MANAGER from Last 3 Months or Most Recently Relevant to Health Maintenance Results * LAB HIV-1 p24 AND HIV-1/HIV-2 ANTIBODIES (06/23/2016 11:09 AM CDT) HIV-1 p24 Ag and HIV-1/HIV-2 Ab Nonreactive Non-React bradford PN SOFT 06/23/2016 11:0 9 AM CDT 06/23/2016 7:41 PM CDT Narrative MARGY SOFT - 06/23/2016 8:36 PM CDT Performed at [address] [address] CLIA number [id number] us Penny Denny Auglaize AUTOMATED ACCESS SYSTEMS TECHNICIAN, LEAD DATA ENTRY OPERATOR LAB_1 Fi nal Result MARGY SINGH [address] [place] [address] * Pap Smear (10/06/2015 11:30 AM RESIDENTIAL CASE MANAGER) 10/06/2015 11:3 0 AM RESIDENTIAL CASE MANAGER Narrative HP CONVERSION - 10/12/2015 11:20 AM RESIDENTIAL CASE MANAGER FINAL GYNECOLOGICAL CYTOLOGY REPORT Pathology #: [id number] Date Obtained: 10/06/2015 Date Received: 10/07/2015 INTERPRETATION/RESULTS: [...] may occur. End of Report Performed at [facility], [address] [place] [address] Transcriptions 11/23/2016 11:21 PM CSTNotes Recorded by [...] results, callCervical Cancer Screening and Management Team [phone] Lopez, RN on behalf ofDr. Lucero Sumner, Medical DirectorPark Elizabeth Cervical Cancer Screening and Management us Penny Reyes AUTOMATED ACCESS SYSTEMS TECHNICIAN, LEAD DATA ENTRY OPERATOR LAB_1 Fi nal Result HP CONVERSION from Last 3 Months or Most Recently Relevant to Health Maintenance Insurance [facility] Care Teams Precipitator Supervisor Relationship Specialty Start Date End Date Sherin Medina MD [address] [place], [place] [id number] PCP - General 01/16/11
--- OUTSIDE RECORDS SUMMARY | 2025-08-05 20:17 | XMS_ITS | Encounter Summary ---
Author Organization [place] Address [address] [place] [address] Care Team Providers Care Licensed Embalmer Supervisor Name Role Phone No Ref-Primary, Physician Primary Care Provider Mandeep Guadarrama MD Unavailable [phone] Tate Salazar MD Unavailable [phone] Tate Salazar MD Unavailable [phone] Priya Theodore APRN [facility] Unavailable + [phone] Encounter Details Date Type Department Care Team (Late st Contact Info) Description 07/16/2025 [facility] Medical Advice [address] [address] Tate Salazar MD [address] [place] [address] Graves disease (Primary Dx) Social [...] on file Legal Sex Female 3:16 AM FORESTRY AID TECHNICIAN Gender Identity Female 09/24/2021 9:00 AM FORESTRY AID TECHNICIAN Sexual Orientation Not on file documented as of this encounter Plan of Treatment Upcoming Encounters Date Type Department Care Team (Late st Contact Info) Description 08/19/2025 10:15 AM FORESTRY AID TECHNICIAN Lab [facility] Laboratory [address] [place] [address] 09/17/2025 9:30 AM FORESTRY AID TECHNICIAN Virtual Visit [facility] [address] [place] [address] Tate Salazar MD [address] [place] [address] Scheduled Orders Name Type Priority Associated Diagnoses Orde r Schedule Basic metabolic panel Lab Routine Graves disease Expected: 07/16/2025 (Approximate), Expires: 07/16/2026 Routine UA with microscopic - No culture Lab Routine Graves disease Expected: 07/16/2025 (Approximate), Expires: 07/16/2026 TSH Lab Routine Graves disease Expected: 08/23/2025 (Approximate), Expires: 07/23/2026 T4 free Lab Routine Graves disease Expected: 08/23/2025 (Approximate), Expires: 07/23/2026 T3 total Lab Routine Graves disease Expected: 08/23/2025 (Approximate), Expires: 07/23/2026 documented as of this encounter Visit Diagnoses Diagnosis Graves disease- Primary Toxic diffuse goiter without mention of thyrotoxic crisis or storm documented in this encounter Care Teams Licensed Embalmer Supervisor Relationship Specialty Start Date End Date No Ref-Primary, Physician PCP - General 10/07/22 Mandeep Guadarrama MD [address] [place] [address] Fellow Endocrinology, Diabetes, and Metabolism 05/09/24 Tate Salazar MD [address] [place] [address] Endocrinology, Diabetes, and Metabolism 05/13/24 Tate Salazar MD [place] [address] Assigned Endocrinology Provider 06/07/24 Priya Theodore APRN CNP [address] [place] [address] Nurse Practitioner Pediatric Urology 11/19/24 documented as of this encounter
--- OUTSIDE RECORDS SUMMARY | 2025-08-05 20:17 | XMS_ITS | Encounter Summary ---
Author Organization [place] Address [address] [place] [address] Care Team Providers Care Lip Of Shank Cutter Name Role Phone No Ref-Primary, Physician Primary Care Provider Mandeep Guadarrama MD Unavailable [phone] Tate Salazar MD Unavailable [phone] Tate Salazar MD Unavailable [phone] Priya Theodore APRN [facility] Unavailable + [phone] Encounter Details Date Type Department Care Team (Late st Contact Info) Description 06/27/2025 Results Follow-Up [address] [address] Tate Salazar MD [address] [place] [address] Subj: Message about your results [...] on file Legal Sex Female 3:16 AM AUTOMOTIVE PARTS CLERK Gender Identity Female 09/24/2021 9:00 AM AUTOMOTIVE PARTS CLERK Sexual Orientation Not on file documented as of this encounter Plan of Treatment Upcoming Encounters Date Type Department Care Team (Late st Contact Info) Description 08/19/2025 10:15 AM AUTOMOTIVE PARTS CLERK Lab [facility] Laboratory [address] [place] [phone] 09/17/2025 9:30 AM AUTOMOTIVE PARTS CLERK Virtual Visit [facility] [address] [phone] Tate Salazar MD [address] [place] [address] documented as of this encounter Visit Diagnoses Not on filedocumented in this encounter Care Teams Lip Of Shank Cutter Relationship Specialty Start Date End Date No Ref-Primary, Physician PCP - General 10/07/22 Mandeep Guadarrama MD [address] [place] [address] Fellow Endocrinology, Diabetes, and Metabolism 05/09/24 Tate Salazar MD [address] [place] [address] Endocrinology, Diabetes, and Metabolism 05/13/24 Tate Salazar MD [address] [place] [address] Assigned Endocrinology Provider 06/07/24 Priya Theodore APRN LICENSED NURSING ASSISTANT [address] [place] [address] Nurse Practitioner Pediatric Urology 11/19/24 documented as of this encounter
--- OUTSIDE RECORDS SUMMARY | 2025-08-05 20:17 | XMS_ITS | Clinical Summary ---
Author Organization [facility] Address [address] [place] [address] Care Team Providers Care Blockman Name Role Phone Sherin Medina MD Primary [...] Date Supervision of normal first 06/30/2011 06/30/2011 Encounters Date Type Department Care Team Description 07/17/2025 Transcribe Orders [facility] [place] [phone] Deepa Farah NP from Last 3 Months Immunizations Immunization Administration Dates Next Due Influenza [...] on file Legal Sex Female 6:51 AM STRUCTURAL IRON WORKER Gender Identity Not on file Sexual Orientation [...] 7 9 WILLI AMS,[place] GIR[place] Delivery Location:[facility] Last Filed Vital Signs Vital [...] 06/28/2011 2:27 AM CDT Plan of Treatment Upcoming Encounters Date Type Department Care Team (Late st Contact Info) Description 08/26/2025 10:05 AM STRUCTURAL IRON WORKER Office Visit [facility] [address] [facility] [address] [place], [place] [id number] [place] [address] [place], [place] [phone] Health Maintenance Due Date Last Done Comments Tetanus booster 1999 Depression screening for age 12+ 2000 HIV for age 15-65 2003 BMI (ht and wt on same day) for age 18+ 2006 Hepatitis C screening for ag e 18-79 2006 Hepatitis B series for 19+ ( 1 of 3 - 19+ 3-dose series) 2007 HPV series for age 9-45 (1 - 3-dose SCDM series) 2015 COVID-19 vaccine series ( season) 2025 Influenza Vaccine (#1) 2025 Pap test for age 21-65 10/28/2025 , 10/28/2022 RSV vaccine for adults or (1 - 1-dose 75+ series) 2063 Pneumococcal series for age 6-49 Aged Out No longer eligible b ased on patient's age to complete this topic Procedures Procedure Name Priority Date/Time Associated Diagnosis Comments PET TECHNOLOGIST THIN PREP PAP SCREEN IMAGED Routine 10/28/2022 11:50 AM STRUCTURAL IRON WORKER from Last 3 Months or Most Recently Relevant to Health Maintenance Results * PET TECHNOLOGIST THIN PREP PAP SCREEN IMAGED (10/28/2022 11:50 AM STRUCTURAL IRON WORKER) Case Report Gynecologic Cytology Report Case: [id number] Authorizing Provider: Milagro Vegas PA-C Collected: 10/28/2022 1150 Ordering Location: [facility] Received: 11/01/2022 1635 First Screen: Adams Ortiz Specimen: PET TECHNOLOGIST ThinPrep Vial Screening, Cervical 11/11/2022 8:04 AM STRUCTURAL IRON WORKER [facility] INTERPRETATION/ RESULT NEGATIVE FOR INTRAEPITHELIAL LESION OR MALIGNANCY (NIL) (none) 11/11/2022 8:04 AM STRUCTURAL IRON WORKER [facility] at 0804 STRUCTURAL IRON WORKER SPECIMEN ADEQUACY Satisfactory for evaluation Endocervical component present 11/11/2022 8:04 AM STRUCTURAL IRON WORKER [facility] ENTRAL LABORATORY HPV REQUEST HPV and PAP 11/11/2022 8:04 AM STRUCTURAL IRON WORKER [facility] Date of LMP 08/31/2022 11/11/2022 8:04 AM STRUCTURAL IRON WORKER [facility] EN[facility] Last Pap Date 09/13/2021 11/11/2022 8:04 AM STRUCTURAL IRON WORKER [facility] EN[facility] Last Pap Result NIL 8:04 AM STRUCTURAL IRON WORKER [facility] EN[facility] LAB[facility] Abnormal Pap or [place] Bx in last 5 years No 11/11/2022 8:04 AM STRUCTURAL IRON WORKER [facility] Menstrual Status 11/11/2022 8:04 AM STRUCTURAL IRON WORKER [facility] ENTRAL LAB[facility] [place] Bx Done Today No 11/11/2022 8:04 AM STRUCTURAL IRON WORKER [facility] EN[facility] LAB[facility] Additional Information 11/11/2022 8:04 AM STRUCTURAL IRON WORKER [facility] EN[facility] LAB[facility]ORY Comment: Interpreted at [facility] - [address] [place] [address] Automated Review Successful 11/11/2022 8:04 AM STRUCTURAL IRON WORKER [facility] Comment:Specimen processed s uccessfully by automated research statistician device, ThinPrep Imaging System, Practice Management [employer] ANCILLARY TESTING PET TECHNOLOGIST HPV Ordered, Please see separate report 11/11/2022 8:04 AM [facility] ENTRAL LABORATORY Note The pap test is [...] pre-malignant and malignant lesions. 11/11/2022 8:04 AM STRUCTURAL IRON WORKER [facility] ENTRAL LABORATORY Other (Cervical) 10/28/2022 11:50 AM STRUCTURAL IRON WORKER 11/01/2022 4:35 PM STRUCTURAL IRON WORKER january L Shasta [facility]CYTOLOGY Final R esult [facility] LABORATORY-CENTRAL LABORATORY [address] [place] [address], [place] from Last 3 Months or Most Recently Relevant to Health Maintenance Insurance MEDICAID [facility] Advance Directives * Full Code (Latest [...] 6:16 AM 08/09/2010 12:05 PM Care Teams Blockman Relationship Specialty Start Date End Date Sherin Medina MD PCP - General 09/17/06
--- OUTSIDE RECORDS SUMMARY | 2025-08-05 20:17 | XMS_ITS | Encounter Summary ---
Author Organization [facility] Address [address] [place] [address]138 Care Team Providers Care Od Grinder Operator Name Role Phone Sherin Medina MD Primary Care Provider + [phone] Encounter Details Date Type Department Care Team (Late st Contact Info) Description 07/18/2025 keanu Vegas [address] [place] [address] Social History Tobacco Use Types [...] on file documented as of this encounter Progress Notes * FAMILY MEDICINEKEANU PROVIDER - 07/18/2025 5:44 PM CDT Keanu Treatment Plan Diagnosis Urinary Tract Infection Visit Date July 18, 2025 shantelle gomez Date of : 86 Provider Shelia Oliveira, Nurse Practitioner Note From Provider Tiffanie Pepper, I?? sorry to hear that you're having symptoms of a bladder infection.'ve sent a prescription for an antibiotic to your pharmacy. Take the medication with a full meal twice a day and remember to drink lots of fluids. We are here for you for any questions or concerns along the way, just submit a Follow Up Request. Feel better soon! VASQUEZ Bass. Treatment Plan Because you have a bacterial infection, I sent a prescription for an antibiotic to [facility]. I also listed a few ways to soothe your discomfort and additional self-care tips to get you onthe road to feeling better. If your symptoms don't start to improve after 3 days, or if you have questions, please select Help to Request a Follow-up and we'll discuss next steps. Order(s) nitrofurantoin monohyd/m-cryst 100 mg capsule Take 1 capsule by mouth every twelve hours as directed for 5 days Note: Take with food to improve absorption. Refills: None Sent To: [facility] [address] [id number] Treatment Plan Self Care Tip Topics Drink Water Avoid Caffeine Warm Packs What to Expect If you follow the recommendations I made on the Treatment tab, your symptoms should start to improve in about 3 days. If your symptoms don't start to improve after 3 days, or if you have questions, please select Help to Request a Follow- up and we'll help determine next steps. What to Watch Out For Follow-up in clinic if you experience: ??? Fever higher than 99.9 degrees ??? Shaking or chills ??? Vomiting ??? Severe pain in your back, abdomen or pelvis ??? Extreme fatigue My Conditions, Orders, Allergies as of July 18, 2025 Standard condition list Graves??disease Current orders nitrofurantoin monohyd/m-cryst (nitrofurantoin monohyd/m-cryst) methimazole (methimazole) Allergies Sulfa (Sulfonamide Antibiotics) [facility] [employer] Information [facility] We are an online clinic open 08/05. If you have any questions or comments about this visit, please call or email [email or web address] documented in this encounter Plan of Treatment Not on file documented as of this encounter Visit Diagnoses Not on filedocumented in this encounter Care Teams Od Grinder Operator Relationship Specialty Start Date End Date Sherin Medina MD [address] [place] [address] PCP - General 01/16/11 documented as of this encounter
--- OUTSIDE RECORDS SUMMARY | 2025-08-05 20:17 | XMS_ITS | Encounter Summary ---
Author Organization [facility] Address [address] [place] [address] Care Team Providers Care Homoeopath Name Role Phone No Ref-Primary, Physician Primary Care Provider Mandeep Guadarrama MD Unavailable [phone] Tate Salazar MD Unavailable [phone] Tate Salazar MD Unavailable [phone] Priya Theodore APRN [facility] Unavailable + [phone] Encounter Details Date Type Department Care Team (Late st Contact Info) Description 06/26/2025 MyC Medical Advice [address] [address] Tate Salazar MD [address] [place] [address] Graves disease (Primary Dx) Social [...] on file Legal Sex Female 3:16 AM PENSION ADMINISTRATOR Gender Identity Female 09/24/2021 9:00 AM PENSION ADMINISTRATOR Sexual Orientation Not on file documented as of this encounter Plan of Treatment Upcoming Encounters Date Type Department Care Team (Late st Contact Info) Description 08/19/2025 10:15 AM PENSION ADMINISTRATOR Lab M [facility] [address] [place] [address] 09/17/2025 9:30 AM PENSION ADMINISTRATOR Virtual Visit [facility] [address] [place] [address] Tate Salazar MD [address] [place] [address] documented as of this encounter Results * CBC with platelets [...] - BLOOD ORDERABLES Final Result [facility] [address] [facility] Lab (no room number, 1st floor of clinic) [place] [address], [facility] documented in this encounter Visit Diagnoses Diagnosis Graves disease- Primary Toxic diffuse goiter without mention of thyrotoxic crisis or storm documented in this encounter Care Teams Homoeopath Relationship Specialty Start Date End Date No Ref-Primary, Physician PCP - General 10/07/22 Mandeep Guadarrama MD [address] [place] [address] Fellow Endocrinology, Diabetes, and Metabolism 05/09/24 Tate Salazar MD [address] [place] [address] Endocrinology, Diabetes, and Metabolism 05/13/24 Tate Salazar MD [address] [place] [address] Assigned Endocrinology Provider 06/07/24 Priya Theodore APRN WEB COORDINATOR [address] [place] [address] Nurse Practitioner Pediatric Urology 11/19/24 documented as of this encounter
--- OUTSIDE RECORDS SUMMARY | 2025-08-05 20:17 | XMS_ITS | Encounter Summary ---
Author Organization [facility] Address [address] [place] [address] Care Team Providers Care Parcel Post Delivery Name Role Phone No Ref-Primary, Physician Primary Care Provider Mandeep Guadarrama MD Unavailable [phone] Tate Salazar MD Unavailable [phone] Tate Saalzar MD Unavailable [phone] Priya Theodore APRN [facility] Unavailable + [phone] Encounter Details Date Type Department Care Team (Late st Contact Info) Description 12/31/2024 MyC Medical Advice [address] [address] Tate Salazar MD [address] [place] [address] Graves disease (Primary Dx) Social [...] on file Legal Sex Female 3:16 AM LAWYER CRIMINAL Gender Identity Female 09/24/2021 9:00 AM LAWYER CRIMINAL Sexual Orientation Not on file documented as of this encounter Plan of Treatment Upcoming Encounters Date Type Department Care Team (Late st Contact Info) Description 08/19/2025 10:15 AM LAWYER CRIMINAL Lab M [facility] [address] [place] [address] 09/17/2025 9:30 AM LAWYER CRIMINAL Virtual Visit M [facility] [address] [place] [address] [place] [address] Tate Salazar MD [address] [place] [address] documented as of this encounter Results * T3 total (03/24/2025 11:57 AM CDT) T3 Total 101 85 - 202 ng/dL 03/24/2025 11:32 PM CDT [facility] Blood BLOOD SPECIMEN / Unknown Venipuncture / Unknown 03/24/2025 11:57 AM CDT 03/24/2025 11:57 AM CDT us Tate Salazar MD LAB - BLOOD ORDERABLES Final Result [facility]ATORY [facility] [address] [facility], Room [address] [address] * T4 free (03/24/2025 11:57 AM CDT) Free T4 1.26 0.90 - 1.70 ng/dL 03/24/2025 11:32 PM CDT [facility] Blood BLOOD SPECIMEN / Unknown Venipuncture / Unknown 03/24/2025 11:57 AM CDT 03/24/2025 11:57 AM CDT us Tate Salazar MD LAB - BLOOD ORDERABLES Final Result U [facility] [address] [facility], Room [address] [address] * TSH (03/24/2025 11:57 AM CDT) TSH 0.48 0.30 - 4.20 uIU/mL 03/24/2025 11:32 PM CDT [facility] Blood BLOOD SPECIMEN / Unknown Venipuncture / Unknown 03/24/2025 11:57 AM CDT 03/24/2025 11:57 AM CDT Tate Salazar MD LAB - BLOOD ORDERABLES Final Result [facility] [address] [facility], Room [address] [place] [address] documented in this encounter Visit Diagnoses Diagnosis Graves disease- Primary Toxic diffuse goiter without mention of thyrotoxic crisis or storm documented in this encounter Care Teams Parcel Post Delivery Relationship Specialty Start Date End Date No Ref-Primary, Physician PCP - General 10/07/22 Mandeep Guadarrama MD [address] [place] [address] Fellow Endocrinology, Diabetes, and Metabolism 05/09/24 Tate Salazar MD [address] [place] [address] Endocrinology, Diabetes, and Metabolism 05/13/24 Tate Salazar MD [address] [place] [address] Assigned Endocrinology Provider 06/07/24 Priya Theodore APRN CATERERS HELPER [address] [place] [address] Nurse Practitioner Pediatric Urology 11/19/24 documented as of this encounter
--- OUTSIDE RECORDS SUMMARY | 2025-08-05 20:17 | XMS_ITS | Encounter Summary ---
Author Organization [facility] Address [address] [place] [address] Care Team Providers Care Antisqueak Filler Name Role Phone No Ref-Primary, Physician Primary Care Provider Mandeep Guadarrama MD Unavailable [phone] Tate Salazar MD Unavailable [phone] Tate Salazar MD Unavailable [phone] Priya Theodore APRN [facility] Unavailable + [phone] Encounter Details Date Type Department Care Team (Late st Contact Info) Description 07/01/2025 [facility] Medical Advice [address] [address] Tate Salazar MD [address] [place] [address] Social History Tobacco Use Types [...] on file Legal Sex Female 3:16 AM ENTERPRISE ARCHITECT MANAGER Gender Identity Female 09/24/2021 9:00 AM ENTERPRISE ARCHITECT MANAGER Sexual Orientation Not on file documented as of this encounter Plan of Treatment Upcoming Encounters Date Type Department Care Team (Late st Contact Info) Description 08/19/2025 10:15 AM ENTERPRISE ARCHITECT MANAGER Lab [facility] [address] [place] [address] 09/17/2025 9:30 AM ENTERPRISE ARCHITECT MANAGER Virtual Visit [facility] [address] [place] [phone] Tate Salazar MD [address] [place] [address] documented as of this encounter Visit Diagnoses Not on filedocumented in this encounter Care Teams Antisqueak Filler Relationship Specialty Start Date End Date No Ref-Primary, Physician PCP - General 10/07/22 Mandeep Guadarrama MD [address] [place] [address] Fellow Endocrinology, Diabetes, and Metabolism 05/09/24 Tate Salazar MD [address] [place] [address] Endocrinology, Diabetes, and Metabolism 05/13/24 Tate Salazar MD [address] [place] [address] Assigned Endocrinology Provider 06/07/24 Priya Theodore APRN APPLICATION TRAINER [address] [place] [address] Nurse Practitioner Pediatric Urology 11/19/24 documented as of this encounter
--- OUTSIDE RECORDS SUMMARY | 2025-08-05 20:17 | XMS_ITS | Encounter Summary ---
Author Organization [facility] Address [address] [place] [address] Care Team Providers Care Call Center Dispatcher Name Role Phone No Ref-Primary, Physician Primary Care Provider Mandeep Guadarrama MD Unavailable [phone] Tate Salazar MD Unavailable [phone] Tate Salazar MD Unavailable [phone] Priya Theodore APRN RETURN CHECKER Unavailable + [phone] Encounter Details Date Type Department Care Team (Latest Contact Info) Description 06/26/2025 Travel Social History Tobacco Use Types Packs/Day [...] on file Legal Sex Female 3:16 AM SUGAR REFINERY SUPERVISOR Gender Identity Female 09/24/2021 9:00 AM SUGAR REFINERY SUPERVISOR Sexual Orientation Not on file documented as of this encounter Plan of Treatment Upcoming Encounters Date Type Department Care Team (Late st Contact Info) Description 08/19/2025 10:15 AM SUGAR REFINERY SUPERVISOR Lab [facility] [address] [place] [address] 09/17/2025 9:30 AM SUGAR REFINERY SUPERVISOR Virtual Visit [address] [place] [address] Tate Salazar MD [address] [place] [address] documented as of this encounter Visit Diagnoses Not on filedocumented in this encounter Care Teams Call Center Dispatcher Relationship Specialty Start Date End Date No Ref-Primary, Physician PCP - General 10/07/22 Mandeep Guadarrama MD [address] [place] [address] Fellow Endocrinology, Diabetes, and Metabolism 05/09/24 aTte Salazar MD [address] [place] [address] Endocrinology, Diabetes, and Metabolism 05/13/24 Tate Salazar MD [address] [place] [address] Assigned Endocrinology Provider 06/07/24 Priya Theodore APRN RETURN CHECKER [address] [place], [place] [address] Nurse Practitioner Pediatric Urology 11/19/24 documented as of this encounter
--- OUTSIDE RECORDS SUMMARY | 2025-08-05 20:17 | XMS_ITS | Encounter Summary ---
Author Organization [facility] Address [address] [place] [address] Care Team Providers Care Inspector Fibrous Wallboard Name Role Phone Sujata Payne MD Primary Care Provider [phone] Sujata Payne MD Unavailable [phone] Sujata Payne MD Unavailable [phone] Adams Rose MD Unavailable [phone] No Ref-Primary, Physician Primary Care Provider Mandeep Guadarrama MD Unavailable [phone] Tate Salazar MD Unavailable [phone] Tate Salazar MD Unavailable [phone] Priya Theodore APRN GLOBAL MARKETING COORDINATOR Unavailable + [phone] Encounter Details Date Type Department Care Team (Late st Contact Info) Description 10/04/2018 MyC Medical Advice [facility] [address] [facility] [address] [place] [phone] Adams Rose MD [address] [place] [address] Social History Tobacco Use Types Packs/Day Years Used Date Smoking Tobacco: Former Cigarettes Q uit: 10/06/2008 Smokeless Tobacco: Never Alcohol Use Standard Drinks/Week Comments No 0 (1 standard drink = 0.6 oz pur e alcohol) Comments Yes Sex and Gender Information Value Date Recorded Sex Assigned at Not on file Legal Sex Female 3:16 AM PASTE UP WORKER Gender Identity Female 09/24/2021 9:00 AM PASTE UP WORKER Sexual Orientation Not on file documented as of this encounter Miscellaneous Notes * Telephone Encounter - Adams Rose MD - 10/05/2018 1:44 PM PASTE UP WORKER Spoke with patient. Advised of falling HCG levels. Patient has previously experienced a first trimester loss. Given early timing of loss D&C not likely to be necessary E UP WORKER * Telephone Encounter - Alisha Costa RN - 10/05/2018 1:05 PM PASTE UP WORKER Please see the results of the pt's hcg level, and discuss with her. Alisha Costa RN E UP WORKER documented in this encounter Plan of Treatment Upcoming Encounters Date Type Department Care Team (Late st Contact Info) Description 08/19/2025 10:15 AM PASTE UP WORKER Lab [facility] [address] [place] [address] 09/17/2025 9:30 AM PASTE UP WORKER Virtual Visit [address] [phone] Tate Salazar MD [address] [place] [address] documented as of this encounter Visit Diagnoses Not on filedocumented in this encounter Care Teams Inspector Fibrous Wallboard Relationship Specialty [place] [address] [place] [address] PCP - General Family Practice 08/21/17 10/06/22 [place] [address] [place] [address] PCP - Assigned PCP 09/17/17 12/18/18 No Ref-Primary, Physician PCP - General 10/07/22 [place] [address] [place] [address] Assigned PCP 09/17/17 09/05/20 Adams Rose MD [address] [place] [address] Assigned OBGYN Provider 08/07/20 Mandeep Guadarrama MD [address] [place] [address] Fellow Endocrinology, Diabetes, and Metabolism 05/09/24 Tate Salazar MD [address] [place] [address] Endocrinology, Diabetes, and Metabolism 05/13/24 Tate Salazar MD [address] [place] [address] Assigned Endocrinology Provider 06/07/24 Priya Theodore APRN GLOBAL MARKETING COORDINATOR [address] [place] [address] Nurse Practitioner Pediatric Urology 11/19/24 documented as of this encounter
--- OUTSIDE RECORDS SUMMARY | 2025-08-05 20:17 | XMS_ITS | Encounter Summary ---
Author Organization [facility] Address [address] [place] [address]. [place] [address] Care Team Providers Care Stencil Typist Name Role Phone Sujata Payne MD Primary Care Provider [phone] Sujata Payne MD Unavailable [phone] Sujata Payne MD Unavailable [phone] Adams Rose MD Unavailable + [phone] Ref-Primary, Physician Primary Care Provider Mandeep Guadarrama MD Unavailable [phone] Tate Salazar MD Unavailable [phone] Tate Salazar MD Unavailable [phone] Priya Theodore APRN SUBSTANCE ABUSE RN Unavailable + [phone] Reason for Visit * Reason Onset Date Comments MyChart Communication 05/30/2018 Encounter Details Date Type Department Care Team (Late st Contact Info) Description 05/30/2018 MyC Medical Advice [facility] [address] [place] [phone] [place] [id number] [place] [address] MyChart Communication Social History Tobacco Use Types Packs/Day Years Used Date Smoking Tobacco: Former Cigarettes Q uit: 10/06/2008 Smokeless Tobacco: Never Alcohol Use Standard Drinks/Week Comments No 0 (1 standard drink = 0.6 oz pur e alcohol) Comments No Sex and Gender Information Value Date Recorded Sex Assigned at Not on file Legal Sex Female 3:16 AM NURSE PRACTITIONER PHYSICIANS ASSISTANT Gender Identity Female 09/24/2021 9:00 AM NURSE PRACTITIONER PHYSICIANS ASSISTANT Sexual Orientation Not on file documented as of this encounter Miscellaneous Notes * Telephone Encounter - Sujata Payne MD - 05/30/2018 4:14 PM CDT Can give Timothy's info if she feels comfortable seeing a man. If not, can check into [employer] [facility] J[facility] * Telephone Encounter - Roxanna Aguilera RN - 05/30/2018 3:43 PM CDT PCP: Please see below. BRODIE was 09/05/17. Roxanna Aguilera RN -- [facility] documented in this encounter Plan of Treatment Upcoming Encounters Date Type Department Care Team (Late st Contact Info) Description 08/19/2025 10:15 AM NURSE PRACTITIONER PHYSICIANS ASSISTANT Lab [facility] [address] [place] [address] 09/17/2025 9:30 AM NURSE PRACTITIONER PHYSICIANS ASSISTANT Virtual Visit M [address] [address] Tate Salazar MD [address] [place] [address] documented as of this encounter Visit Diagnoses Not on filedocumented in this encounter Care Teams Stencil Typist Relationship Specialty [place] [address] [place] [address] PCP - General Family Practice 08/21/17 10/06/22 [place] [address] [place] [address] PCP - Assigned PCP 09/17/17 12/18/18 No Ref-Primary, Physician PCP - General 10/07/22 [place] [address] [place] [address] Assigned PCP 09/17/17 09/05/20 Adams Rose MD [address] [place] [address] Assigned OBGYN Provider 08/07/20 Mandeep Guadarrama MD [address] [place] [address] Fellow Endocrinology, Diabetes, and Metabolism 05/09/24 Tate Salazar MD [address] [place] [address] Endocrinology, Diabetes, and Metabolism 05/13/24 Tate Salazar MD [address] [place] [address] Assigned Endocrinology Provider 06/07/24 Priya Theodore APRN CNP [address] [place] [address] Nurse Practitioner Pediatric Urology 11/19/24 documented as of this encounter
--- OUTSIDE RECORDS SUMMARY | 2025-08-05 20:17 | XMS_ITS | Encounter Summary ---
Author Organization [facility] Address [address] [place] [address] Care Team Providers Care Eyewear Consultant Name Role Phone No Ref-Primary, Physician Primary Care Provider Mandeep Guadarrama MD Unavailable [phone] Tate Salazar MD Unavailable [phone] Tate Salazar MD Unavailable [phone] Priya Theodore APRN [facility] Unavailable + [phone] Encounter Details Date Type Department Care Team (Late st Contact Info) Description 01/16/2025 [facility] Medical Advice [address] [address] Tate Salazar MD [address] [place] [address] Social History Tobacco Use Types [...] on file Legal Sex Female 3:16 AM BRAKE ADJUSTER Gender Identity Female 09/24/2021 9:00 AM BRAKE ADJUSTER Sexual Orientation Not on file documented as of this encounter Plan of Treatment Upcoming Encounters Date Type Department Care Team (Late st Contact Info) Description 08/19/2025 10:15 AM BRAKE ADJUSTER Lab [facility] [address] [place] [address] 09/17/2025 9:30 AM BRAKE ADJUSTER Virtual Visit [facility] [address] [place] [address] Tate Salazar MD [address] [place] [address] documented as of this encounter Visit Diagnoses Not on filedocumented in this encounter Care Teams Eyewear Consultant Relationship Specialty Start Date End Date No Ref-Primary, Physician PCP - General 10/07/22 Mandeep Guadarrama MD [address] [place] [address] Fellow Endocrinology, Diabetes, and Metabolism 05/09/24 Tate Salazar MD [address] [place] [address] Endocrinology, Diabetes, and Metabolism 05/13/24 Tate Salazar MD [address] [place] [address] Assigned Endocrinology Provider 06/07/24 Priya Theodore APRN FIREFIGHTER MARINE [address] [place] [address] Nurse Practitioner Pediatric Urology 11/19/24 documented as of this encounter
--- OUTSIDE RECORDS SUMMARY | 2025-08-05 20:17 | XMS_ITS | Encounter Summary ---
Author Organization [place] Address [address] [place] [address] Care Team Providers Care Sole Rougher Name Role Phone No Ref-Primary, Physician Primary Care Provider Mandeep Guadarrama MD Unavailable [phone] Tate Salazar MD Unavailable [phone] Tate Salazar MD Unavailable [phone] Priya Theodore APRN [facility] Unavailable + [phone] Encounter Details Date Type Department Care Team (Late st Contact Info) Description 04/29/2025 [facility] Medical Advice [address] [address] Tate Salazar MD [address] [place] [address] Graves disease (Primary Dx) Social [...] on file Legal Sex Female 3:16 AM CENTER ADMINISTRATOR Gender Identity Female 09/24/2021 9:00 AM CENTER ADMINISTRATOR Sexual Orientation Not on file documented as of this encounter Plan of Treatment Upcoming Encounters Date Type Department Care Team (Late st Contact Info) Description 08/19/2025 10:15 AM CENTER ADMINISTRATOR Lab [facility] [address] [place] [phone] 09/17/2025 9:30 AM CENTER ADMINISTRATOR Virtual Visit [facility] [address] [place] [address] Tate Salazar MD [address] [place] [address] Scheduled Orders Name Type Priority Associated Diagnoses Orde r Schedule TSH with free T4 reflex Lab Routine Graves disease 4m for 3 Occurrences starting 05/02/2025 until 05/02/2026 documented as of this encounter Visit Diagnoses Diagnosis Graves disease- Primary Toxic diffuse goiter without mention of thyrotoxic crisis or storm documented in this encounter Care Teams Sole Rougher Relationship Specialty Start Date End Date No Ref-Primary, Physician PCP - General 10/07/22 Mandeep Guadarrama MD [address] [place] [address] Fellow Endocrinology, Diabetes, and Metabolism 05/09/24 Tate Salazar MD [address] [place] [address] Endocrinology, Diabetes, and Metabolism 05/13/24 Tate Salazar MD [address] [place] [address] Assigned Endocrinology Provider 06/07/24 Priya Theodore APRN TECHNICAL SALES REPRESENTATIVE [address] [place] [address] Nurse Practitioner Pediatric Urology 11/19/24 documented as of this encounter
--- OUTSIDE RECORDS SUMMARY | 2025-08-05 20:17 | XMS_ITS | Encounter Summary ---
Author Organization [facility] Address [address] [place] [address] Care Team Providers Care Medical Coder Name Role Phone No Ref-Primary, Physician Primary Care Provider Mandeep Guadarrama MD Unavailable [phone] Tate Salazar MD Unavailable [phone] Tate Salazar MD Unavailable [phone] Priya Theodore APRN [facility] Unavailable + [phone] Encounter Details Date Type Department Care Team (Late st Contact Info) Description 06/24/2025 [facility] Medical Advice [address] [address] Tate Salazar MD [address] [place] [address] Social History Tobacco Use Types [...] on file Legal Sex Female 3:16 AM CAREER AND TECHNOLOGY EDUCATION TEACHER Gender Identity Female 09/24/2021 9:00 AM CAREER AND TECHNOLOGY EDUCATION TEACHER Sexual Orientation Not on file documented as of this encounter Plan of Treatment Upcoming Encounters Date Type Department Care Team (Late st Contact Info) Description 08/19/2025 10:15 AM CAREER AND TECHNOLOGY EDUCATION TEACHER Lab [facility] [address] [place] [address] 09/17/2025 9:30 AM CAREER AND TECHNOLOGY EDUCATION TEACHER Virtual Visit [facility] [address] [place] [address] Tate Salazar MD [address] [place] [address] documented as of this encounter Visit Diagnoses Not on filedocumented in this encounter Care Teams Medical Coder Relationship Specialty Start Date End Date No Ref-Primary, Physician PCP - General 10/07/22 Mandeep Guadarrama MD [address] [place] [address] Fellow Endocrinology, Diabetes, and Metabolism 05/09/24 Tate Salazar MD [address] [place] [address] Endocrinology, Diabetes, and Metabolism 05/13/24 Tate Salazar MD [address] [place] [address] Assigned Endocrinology Provider 06/07/24 Priya Theodore APRN CHIEF SCIENCE OFFICER [address] [place] [address] Nurse Practitioner Pediatric Urology 11/19/24 documented as of this encounter
--- OUTSIDE RECORDS SUMMARY | 2025-08-05 20:17 | XMS_ITS | Encounter Summary ---
Author Organization [facility] Address [address] [place] [address] Care Team Providers Care Cookie Mixer Helper Name Role Phone Sujata Payne MD Primary Care Provider [phone] Sujata Payne MD Unavailable [phone] Adams Rose MD Unavailable + [phone] No Ref-Primary, Physician Primary Care Provider Mandeep Guadarrama MD Unavailable [phone] Tate Salazar MD Unavailable [phone] Tate Salazar MD Unavailable [phone] Priya Theodore APRN [facility] Unavailable + [phone] Encounter Details Date Type Department Care Team (Late st Contact Info) Description 12/09/2019 MyC Medical Advice [facility] [address] [place] [address] Adams Rose MD [address] [place] [address] Social History Tobacco Use Types Packs/Day Years Used Date Smoking Tobacco: Former Cigarettes Q uit: 10/06/2008 Smokeless Tobacco: Never Alcohol Use Standard Drinks/Week Comments No 0 (1 standard drink = 0.6 oz pur e alcohol) PHQ-2 Answer Date Recorded PHQ-2 Score 0 12/03/2019 Comments No Sex and Gender Information Value Date Recorded Sex Assigned at Not on file Legal Sex Female 3:16 AM COLLAR SETTER Gender Identity Female 09/24/2021 9:00 AM COLLAR SETTER Sexual Orientation Not on file documented as of this encounter Plan of Treatment Upcoming Encounters Date Type Department Care Team (Late st Contact Info) Description 08/19/2025 10:15 AM COLLAR SETTER Lab [facility] [address] [place] [address] 09/17/2025 9:30 AM COLLAR SETTER Virtual Visit [facility] [address] [address] [place] [phone] Tate Salazar MD [address] [place] [id number] documented as of this encounter Visit Diagnoses Not on filedocumented in this encounter Care Teams Cookie Mixer Helper Relationship Specialty [place] [address] [place] [address] PCP - General Family Practice 08/21/17 10/06/22 No Ref-Primary, Physician PCP - General 10/07/22 [place] [address] [place] [address] Assigned PCP 09/17/17 09/05/20 Adams Rose MD [address] [place] [address] Assigned OBGYN Provider 08/07/20 Mandeep Guadarrama MD [address] [place] [address] Fellow Endocrinology, Diabetes, and Metabolism 05/09/24 Tate Salazar MD 909 [place] [address] Endocrinology, Diabetes, and Metabolism 05/13/24 Tate Salazar MD [address] [place] [address] Assigned Endocrinology Provider 06/07/24 Priya Theodore APRN CNP [address] [place] [address] Nurse Practitioner Pediatric Urology 11/19/24 documented as of this encounter
--- OUTSIDE RECORDS SUMMARY | 2025-08-05 20:17 | XMS_ITS | Encounter Summary ---
Author Organization [facility] Address [address] [place] [address] Care Team Providers Care Sample Collector Name Role Phone Sujata Payne MD Primary Care Provider [phone] Sujata Payne MD Unavailable [phone] Sujata Payne MD Unavailable [phone] Adams Rose MD Unavailable [phone] No Ref-Primary, Physician Primary Care Provider Mandeep Guadarrama MD Unavailable [phone] Tate Salazar MD Unavailable [phone] Tate Salazar MD Unavailable [phone] Priya Theodore APRN VIDEO INTERN Unavailable + [phone] Encounter Details Date Type Department Care Team (Late st Contact Info) Description 10/08/[address] [facility] Women's [facility] [address] [facility] [address] [place] [phone] Adams Rose MD [address] [place] [address] Social History Tobacco Use Types Packs/Day Years Used Date Smoking Tobacco: Former Cigarettes Q uit: 10/06/2008 Smokeless Tobacco: Never Alcohol Use Standard Drinks/Week Comments No 0 (1 standard drink = 0.6 oz pur e alcohol) Comments Yes Sex and Gender Information Value Date Recorded Sex Assigned at Not on file Legal Sex Female 3:16 AM SALES ACCOUNT ASSOCIATE Gender Identity Female 09/24/2021 9:00 AM SALES ACCOUNT ASSOCIATE Sexual Orientation Not on file documented as of this encounter Miscellaneous Notes * Telephone Encounter - Adams Rose MD - 10/10/2018 9:50 AM SALES ACCOUNT ASSOCIATE Spoke with patient. I am much better now. S ACCOUNT ASSOCIATE * Telephone Encounter - Alisha Costa, MILLICENT - 10/10/2018 8:07 AM SALES ACCOUNT ASSOCIATE Please see the [employer] message and advise. Pt had miscarriage last week. Alisha Costa, RN S ACCOUNT ASSOCIATE documented in this encounter Plan of Treatment Upcoming Encounters Date Type Department Care Team (Late st Contact Info) Description 08/19/2025 10:15 AM SALES ACCOUNT ASSOCIATE Lab [facility] [address] [place] [address] 09/17/2025 9:30 AM SALES ACCOUNT ASSOCIATE Virtual Visit [address] [phone] Tate Salazar MD [address] [place] [address] documented as of this encounter Visit Diagnoses Not on filedocumented in this encounter Care Teams Sample Collector Relationship Specialty [place] [address] [place] [address] PCP - General Family Practice 08/21/17 10/06/22 [place] [address] [place] [address] PCP - Assigned PCP 09/17/17 12/18/18 No Ref-Primary, Physician PCP - General 10/07/22 [place] [address] [place] [address] Assigned PCP 09/17/17 09/05/20 Adams Rose MD [address] [place] [address] Assigned OBGYN Provider 08/07/20 Mandeep Guadarrama MD [address] [place] [address] Fellow Endocrinology, Diabetes, and Metabolism 05/09/24 Tate Salazar MD [address] [place] [address] Endocrinology, Diabetes, and Metabolism 05/13/24 Tate Salazar MD [address] [place] [address] Assigned Endocrinology Provider 06/07/24 Priya Theodore APRN VIDEO INTERN [address] [place] [address] Nurse Practitioner Pediatric Urology 11/19/24 documented as of this encounter
--- OUTSIDE RECORDS SUMMARY | 2025-08-05 20:17 | XMS_ITS | Encounter Summary ---
Author Organization [facility] Address [address] [place] [address] Care Team Providers Care Drill Operator Name Role Phone No Ref-Primary, Physician Primary Care Provider Mandeep Guadarrama MD Unavailable [phone] Tate Salazar MD Unavailable [phone] Tate Salazar MD Unavailable [phone] Priya Theodore APRN [facility] Unavailable + [phone] Encounter Details Date Type Department Care Team (Late st Contact Info) Description 07/13/2025 My[facility] Medical Advice [address] [address] Tate Salazar MD [address] [place] [address] Social History Tobacco Use Types [...] on file Legal Sex Female 3:16 AM VEHICLE OPERATOR TECHNICIAN Gender Identity Female 09/24/2021 9:00 AM VEHICLE OPERATOR TECHNICIAN Sexual Orientation Not on file documented as of this encounter Miscellaneous Notes * Telephone Encounter - Karuna Heard RN - 07/14/2025 1:53 PM CDT Called pt to triage, call not answered. Will route initial message to provider. Karuna Ortiz RN [facility] documented in this encounter Plan of Treatment Upcoming Encounters Date Type Department Care Team (Late st Contact Info) Description 08/19/2025 10:15 AM VEHICLE OPERATOR TECHNICIAN Lab [facility] [address] [place] [address] 09/17/2025 9:30 AM VEHICLE OPERATOR TECHNICIAN Virtual Visit [facility] [address] [place] [phone] Tate Salazar MD [address] [place] [address] documented as of this encounter Visit Diagnoses Not on filedocumented in this encounter Care Teams Drill Operator Relationship Specialty Start Date End Date No Ref-Primary, Physician PCP - General 10/07/22 Mandeep Guadarrama MD [address] [place] [address] Fellow Endocrinology, Diabetes, and Metabolism 05/09/24 Tate Salazar MD [address] [place] [address] Endocrinology, Diabetes, and Metabolism 05/13/24 Tate Salazar MD [address] [place] [address] Assigned Endocrinology Provider 06/07/24 Priya Theodore APRN MOTORCYCLE FABRICATOR [address] [place] [address] Nurse Practitioner Pediatric Urology 11/19/24 documented as of this encounter
--- OUTSIDE RECORDS SUMMARY | 2025-08-05 20:17 | XMS_ITS | Encounter Summary ---
Author Organization [facility] Address [address] [place] [address] Care Team Providers Care Entry Level Marketing Representative Name Role Phone No Ref-Primary, Physician Primary Care Provider Mandeep Guadarrama MD Unavailable [phone] Tate Salazar MD Unavailable [phone] Tate Salazar MD Unavailable [phone] Priya Theodore APRN [facility] Unavailable + [phone] Encounter Details Date Type Department Care Team (Late st Contact Info) Description 06/18/2025 [facility] Medical Advice [address] [address] Tate Salazar MD [address] [place] [address] Social History Tobacco Use Types [...] on file Legal Sex Female 3:16 AM GAMING MANAGER Gender Identity Female 09/24/2021 9:00 AM GAMING MANAGER Sexual Orientation Not on file documented as of this encounter Plan of Treatment Upcoming Encounters Date Type Department Care Team (Late st Contact Info) Description 08/19/2025 10:15 AM GAMING MANAGER Lab [facility] [address] [place] [address] 09/17/2025 9:30 AM GAMING MANAGER Virtual Visit [facility] [address] [place] [phone] Tate Salazar MD [address] [place] [address] documented as of this encounter Visit Diagnoses Not on filedocumented in this encounter Care Teams Entry Level Marketing Representative Relationship Specialty Start Date End Date No Ref-Primary, Physician PCP - General 10/07/22 Mandeep Guadarrama MD [address] [place] [address] Fellow Endocrinology, Diabetes, and Metabolism 05/09/24 Tate Salazar MD [address] [place] [address] Endocrinology, Diabetes, and Metabolism 05/13/24 Tate Salazar MD [address] [place] [address] Assigned Endocrinology Provider 06/07/24 Priya Theodore APRN CASK MAKER [address] [place] [address] Nurse Practitioner Pediatric Urology 11/19/24 documented as of this encounter
--- OUTSIDE RECORDS SUMMARY | 2025-08-05 20:18 | XMS_ITS | Encounter Summary ---
Author Organization [place] Address [address] [place] [address] Care Team Providers Care Matcher Leather Parts Name Role Phone No Ref-Primary, Physician Primary Care Provider Mandeep Guadarrama MD Unavailable [phone] Tate Salazar MD Unavailable [phone] Tate Salazar MD Unavailable [phone] Priya Theodore APRN [facility] Unavailable + [phone] Encounter Details Date Type Department Care Team (Late st Contact Info) Description 12/17/2024 [facility] Medical Advice [address] [address] Tate Salazar MD [address] [place] [address] Social History Tobacco Use Types [...] on file Legal Sex Female 3:16 AM FRAME TENDER Gender Identity Female 09/24/2021 9:00 AM FRAME TENDER Sexual Orientation Not on file documented as of this encounter Plan of Treatment Upcoming Encounters Date Type Department Care Team (Late st Contact Info) Description 08/19/2025 10:15 AM FRAME TENDER Lab [facility] [address] [place] [address] 09/17/2025 9:30 AM FRAME TENDER Virtual Visit [facility] [address] [place] [phone] Tate Salazar MD [address] [place] [address] documented as of this encounter Visit Diagnoses Not on filedocumented in this encounter Care Teams Matcher Leather Parts Relationship Specialty Start Date End Date No Ref-Primary, Physician PCP - General 10/07/22 Mandeep Guadarrama MD [address] [place] [address] Fellow Endocrinology, Diabetes, and Metabolism 05/09/24 Tate Salazar MD [address] [place] [address] Endocrinology, Diabetes, and Metabolism 05/13/24 Tate Salazar MD [address] [place] [address] Assigned Endocrinology Provider 06/07/24 Priya Theodore APRN SAP TECHNICAL DEVELOPER [address] [place] [address] Nurse Practitioner Pediatric Urology 11/19/24 documented as of this encounter
--- OUTSIDE RECORDS SUMMARY | 2025-08-05 20:18 | XMS_ITS | Encounter Summary ---
Author Organization [facility] Address [address] [place] [address] Care Team Providers Care Logistics Research Engineer Name Role Phone No Ref-Primary, Physician Primary Care Provider Mandeep Guadarrama MD Unavailable [phone] Tate Salazar MD Unavailable [phone] Tate Salazar MD Unavailable [phone] Priya Theodore APRN POPPED CORN OVEN ATTENDANT Unavailable + [phone] Encounter Details Date Type Department Care Team (Late st Contact Info) Description 06/03/2024 [facility] Medical Advice [facility] Endocrinology Clinic [address] [address] Tate Salazar MD [address] [place] [id number] Social History Tobacco Use Types Packs/Day Years [...] on file Legal Sex Female 3:16 AM SOCIAL AND POLITICAL STUDIES PROFESSOR Gender Identity Female 09/24/2021 9:00 AM SOCIAL AND POLITICAL STUDIES PROFESSOR Sexual Orientation Not on file documented as of this encounter Plan of Treatment Upcoming Encounters Date Type Department Care Team (Late st Contact Info) Description 08/19/2025 10:15 AM SOCIAL AND POLITICAL STUDIES PROFESSOR Lab [facility] [address] [place] [phone] 09/17/2025 9:30 AM SOCIAL AND POLITICAL STUDIES PROFESSOR Virtual Visit [facility] [address] [place] [phone] Tate Salazar MD [address] [place] [address] documented as of this encounter Visit Diagnoses Not on filedocumented in this encounter Care Teams Logistics Research Engineer Relationship Specialty Start Date End Date No Ref-Primary, Physician PCP - General 10/07/22 Mandeep Guadarrama MD [address] [place] [address] Fellow Endocrinology, Diabetes, and Metabolism 05/09/24 Tate Salazar MD [address] [place] [address] Endocrinology, Diabetes, and Metabolism 05/13/24 Tate Salazar MD [address] [place] [address] Assigned Endocrinology Provider 06/07/24 Priya Theodore APRN POPPED CORN OVEN ATTENDANT [address] [place] [address] Nurse Practitioner Pediatric Urology 11/19/24 documented as of this encounter
--- OUTSIDE RECORDS SUMMARY | 2025-08-05 20:18 | XMS_ITS | Encounter Summary ---
Author Organization [place] Address [address] [place] [address] Care Team Providers Care Automatic Presser Name Role Phone No Ref-Primary, Physician Primary Care Provider Mandeep Guadarrama MD Unavailable [phone] Tate Salazar MD Unavailable [phone] Tate Salazar MD Unavailable [phone] Priya Theodore APRN [facility] Unavailable + [phone] Encounter Details Date Type Department Care Team (Late st Contact Info) Description 07/17/2024 [facility] Advice [address] [address] Tate Salazar MD [address] [place] [address] Social History Tobacco Use Types [...] on file Legal Sex Female 3:16 AM HAY FARMER Gender Identity Female 09/24/2021 9:00 AM HAY FARMER Sexual Orientation Not on file documented as of this encounter Plan of Treatment Upcoming Encounters Date Type Department Care Team (Late st Contact Info) Description 08/19/2025 10:15 AM HAY FARMER Lab [facility] [address] [place] [address] 09/17/2025 9:30 AM HAY FARMER Virtual Visit [facility] [address] [place] [phone] Tate Salazar MD [address] [place] [address] documented as of this encounter Visit Diagnoses Not on filedocumented in this encounter Care Teams Automatic Presser Relationship Specialty Start Date End Date No Ref-Primary, Physician PCP - General 10/07/22 Mandeep Guadarrama MD [address] [place] [address] Fellow Endocrinology, Diabetes, and Metabolism 05/09/24 Tate Salazar MD [address] [place] [address] Endocrinology, Diabetes, and Metabolism 05/13/24 Tate Salazar MD [address] [place] [address] Assigned Endocrinology Provider 06/07/24 Priya Theodore APRN RN [employer] [address] [place] [address] Nurse Practitioner Pediatric Urology 11/19/24 documented as of this encounter
--- OUTSIDE RECORDS SUMMARY | 2025-08-05 20:18 | XMS_ITS | Encounter Summary ---
Author Organization [place] Address [address] [place] [address] Care Team Providers Care Assistant Property Manager Name Role Phone No Ref-Primary, Physician Primary Care Provider Mandeep Guadarrama MD Unavailable [phone] Tate Salazar MD Unavailable [phone] Ttae Salazar MD Unavailable [phone] Priya Theodore APRN [facility] Unavailable + [phone] Encounter Details Date Type Department Care Team (Latest Contact Info) Description 05/21/2024 [facility] Endocrinology Clinic [address] [address] Tate Salazar MD [address] [place] [address] [phone] Graves disease (Primary Dx) Social History Tobacco [...] on file Legal Sex Female 3:16 AM CARPENTER SHIP Gender Identity Female 09/24/2021 9:00 AM CARPENTER SHIP Sexual Orientation Not on file documented as of this encounter Plan of Treatment Upcoming Encounters Date Type Department Care Team (Late st Contact Info) Description 08/19/2025 10:15 AM CARPENTER SHIP Lab [facility] Laboratory [address] [place] [address] 09/17/2025 9:30 AM CARPENTER SHIP Virtual Visit [facility] [address] [place] [address] [place] [address] Tate Salazar MD [address] [place] [address] documented as of this encounter Results * Thyroxine total (03/24/2025 11:57 AM CDT) T4 Total 8.5 4.5 - 11.7 ug/dL 03/24/2025 11:32 PM CDT [facility] Blood BLOOD SPECIMEN / Unknown Venipuncture / Unknown 03/24/2025 11:57 AM CDT 03/24/2025 11:57 AM CDT us Tate Salazar MD LAB - BLOOD ORDERABLES Final Result [facility] [place] [facility] [address] [facility], Room [address] [place] [phone] * Thyroxine total (12/30/2024 11:25 AM CDT) T4 Total 9.6 4.5 - 11.7 ug/dL 12/31/2024 3:00 AM CDT [facility] Blood BLOOD SPECIMEN / Unknown Venipuncture / Unknown 12/30/2024 11:25 AM CDT 12/30/2024 11:26 AM CDT us Tate Salazar MD LAB - BLOOD ORDERABLES Final Result [facility] [place] [facility] [address] [facility], Room [address] [place] [phone] * (ABNORMAL) Thyroxine total (12/05/2024 12:51 PM CARPENTER SHIP) T4 Total 12.8(H) 4.5 - 11.7 ug/dL 12/05/2024 7:53 PM CARPENTER SHIP [facility] Blood BLOOD SPECIMEN / Unknown Venipuncture / Unknown 12/05/2024 12:51 PM CARPENTER SHIP 12/05/2024 12:54 PM CARPENTER SHIP Tate Salazar MD LAB - BLOOD ORDERABLES Final Result [facility] [place] [facility] [address] [facility], Room [address] [phone] * (ABNORMAL) Thyroxine total (11/12/2024 10:31 AM CARPENTER SHIP) T4 Total 13.2(H) 4.5 - 11.7 ug/dL 11/13/2024 1:07 AM CARPENTER SHIP [facility] Blood BLOOD SPECIMEN / Unknown Venipuncture / Unknown 11/12/2024 10:31 AM CARPENTER SHIP 11/12/2024 10:31 AM CARPENTER SHIP Tate Salazar MD LAB - BLOOD ORDERABLES Final Result U LABORATORY [facility] Core Lab [address] [facility], Room [address] [phone] * (ABNORMAL) Thyroxine total (09/26/2024 10:01 AM CARPENTER SHIP) T4 Total 14.5(H) 4.5 - 11.7 ug/dL 09/26/2024 7:03 PM CARPENTER SHIP [facility] Blood BLOOD SPECIMEN / Unknown Venipuncture / Unknown 09/26/2024 10:01 AM CARPENTER SHIP 09/26/2024 10:01 AM CARPENTER SHIP us Tate Salazar MD LAB - BLOOD ORDERABLES Final Result U LABORATORY [facility] [place] [facility] [address] [facility], Room [address] [phone] * (ABNORMAL) Thyroxine total (08/28/2024 9:55 AM CARPENTER SHIP) T4 Total 13.9(H) 4.5 - 11.7 ug/dL 08/28/2024 6:05 PM CARPENTER SHIP [facility] Blood BLOOD SPECIMEN / Unknown Venipuncture / Unknown 08/28/2024 9:55 AM CARPENTER SHIP 08/28/2024 9:58 AM CARPENTER SHIP Tate Salazar MD LAB - BLOOD ORDERABLES Final Result [facility] LABORAT[facility] Core Lab [address] [facility], [address] [phone] * (ABNORMAL) Thyroxine total (07/16/2024 9:55 AM CDT) T4 Total 13.4(H) 4.5 - 11.7 ug/dL 07/16/2024 7:01 PM CDT [facility] Blood BLOOD SPECIMEN / Unknown Venipuncture / Unknown 07/16/2024 9:55 AM CDT 07/16/2024 9:55 AM CDT Tate Salazar MD LAB - BLOOD ORDERABLES Final Result [facility] [place] [facility] [address] [facility], [address] [phone] * Thyroxine total (06/11/2024 10:49 AM CDT) T4 Total 9.9 4.5 - 11.7 ug/dL 06/11/2024 7:17 PM CDT [facility] Blood BLOOD SPECIMEN / Unknown Venipuncture / Unknown 06/11/2024 10:49 AM CDT 06/11/2024 10:49 AM CDT Tate Salazar MD LAB - BLOOD ORDERABLES Final Result [facility] [place] [facility] [address] [facility] [address], Room [address] [place] [address], [facility] documented in this encounter Visit Diagnoses Diagnosis Graves disease- Primary Toxic diffuse goiter without mention of thyrotoxic crisis or storm documented in this encounter Care Teams Assistant Property Manager Relationship Specialty Start Date End Date No Ref-Primary, Physician PCP - General 10/07/22 Mandeep Guadarrama MD [address] [place] [address] 079805 Fellow Endocrinology, Diabetes, and Metabolism 05/09/24 Tate Salazar MD [address] [place] [address] Endocrinology, Diabetes, and Metabolism 05/13/24 Tate Salazar MD [address] [place] [address] Assigned Endocrinology Provider 06/07/24 Priya Theodore APRN WIRE MESH FILTER FABRICATOR [address] [place] [address] Nurse Practitioner Pediatric Urology 11/19/24 documented as of this encounter
--- OUTSIDE RECORDS SUMMARY | 2025-08-05 20:18 | XMS_ITS | Encounter Summary ---
Author Organization [facility] Address [address] [place] [address] Care Team Providers Care Gaming Worker Name Role Phone No Ref-Primary, Physician Primary Care Provider Mandeep Guadarrama MD Unavailable [phone] Tate Salazar MD Unavailable [phone] Tate Salazar MD Unavailable [phone] Priya Theodore APRN [facility] Unavailable + [phone] Encounter Details Date Type Department Care Team (Late st Contact Info) Description 09/27/2024 [facility] [place] [address] [address] Tate Salazar MD 9[address] [place] [address] Social History Tobacco Use Types [...] on file Legal Sex Female 3:16 AM RESEARCH DIETITIAN Gender Identity Female 09/24/2021 9:00 AM RESEARCH DIETITIAN Sexual Orientation Not on file documented as of this encounter Plan of Treatment Upcoming Encounters Date Type Department Care Team (Late st Contact Info) Description 08/19/2025 10:15 AM RESEARCH DIETITIAN Lab [facility] Laboratory [address] [place] [address] 09/17/2025 9:30 AM RESEARCH DIETITIAN Virtual Visit [facility] [address] [place] [phone] Tate Salazar MD [address] [place] [address] documented as of this encounter Visit Diagnoses Not on filedocumented in this encounter Care Teams Gaming Worker Relationship Specialty Start Date End Date No Ref-Primary, Physician PCP - General 10/07/22 Mandeep Guadarrama MD [address] [place] [address] Fellow Endocrinology, Diabetes, and Metabolism 05/09/24 Tate Salazar MD [address] [place] [address] Endocrinology, Diabetes, and Metabolism 05/13/24 Tate Salazar MD [address] [place] [address] Assigned Endocrinology Provider 06/07/24 Priya Theodore APRN NP [address] [place] [address] Nurse Practitioner Pediatric Urology 11/19/24 documented as of this encounter
--- OUTSIDE RECORDS SUMMARY | 2025-08-05 20:18 | XMS_ITS | Encounter Summary ---
Author Organization [place] Address [address] [place] [address]. [place] [address] Care Team Providers Care Senior Project Manager Engineering Name Role Phone No Ref-Primary, Physician Primary Care Provider Mandeep Guadarrama MD Unavailable [phone] Tate Salazar MD Unavailable [phone] Tate Salazar MD Unavailable [phone] Priya Theodore APRN CHARGE MACHINE OPERATOR Unavailable + [phone] Encounter Details Date Type Department Care Team (Late st Contact Info) Description 05/13/2024 [facility] Medical [facility] Endocrinology Clinic [address] [address] [facility] Social History Tobacco Use Types Packs/Day Years [...] on file Legal Sex Female 3:16 AM BENDING PRESS OPERATOR Gender Identity Female 09/24/2021 9:00 AM BENDING PRESS OPERATOR Sexual Orientation Not on file documented as of this encounter Plan of Treatment Upcoming Encounters Date Type Department Care Team (Late Contact Info) Description 08/19/2025 10:15 AM [facility] Lab [facility] Laboratory [address] [place], [place] [address] 09/17/2025 9:30 AM BENDING PRESS OPERATOR Virtual Visit [address] [phone] Tate Salazar MD [address] [place] [address] documented as of this encounter Visit Diagnoses Not on filedocumented in this encounter Care Teams Senior Project Manager Engineering Relationship Specialty Start Date End Date No Ref-Primary, Physician PCP - General 10/07/22 Mandeep Guadarrama MD [address] [place] [address] Fellow Endocrinology, Diabetes, and Metabolism 05/09/24 Tate Salazar MD [address] [place] [address] Endocrinology, Diabetes, and Metabolism 05/13/24 Tate Salazar MD [address] [place] [address] Assigned Endocrinology Provider 06/07/24 Priya Theodore APRN [facility] [address] [place] [address] Nurse Practitioner Pediatric Urology 11/19/24 documented as of this encounter
--- OUTSIDE RECORDS SUMMARY | 2025-08-05 20:18 | XMS_ITS | Encounter Summary ---
Author Organization [facility] Address [address] [place] [address] Care Team Providers Care Mash Filter Press Operator Name Role Phone No Ref-Primary, Physician Primary Care Provider Mandeep Guadarrama MD Unavailable [phone] Tate Salazar MD Unavailable [phone] Tate Salazar MD Unavailable [phone] Priya Theodore APRN [facility] Unavailable + [phone] Encounter Details Date Type Department Care Team (Latest Contact Info) Description 08/26/2024 [facility] Medical Advice [facility] Endocrinology Clinic [address] [address] Tate Salazar MD [address] [place] [address]305 Graves disease (Primary Dx) Social History Tobacco [...] on file Legal Sex Female 3:16 AM CENTRIFUGAL SPINNER Gender Identity Female 09/24/2021 9:00 AM CENTRIFUGAL SPINNER Sexual Orientation Not on file documented as of this encounter Plan of Treatment Upcoming Encounters Date Type Department Care Team (Late st Contact Info) Description 08/19/2025 10:15 AM CENTRIFUGAL SPINNER Lab [facility] Laboratory [address] [place] [address] 09/17/2025 9:30 AM CENTRIFUGAL SPINNER Virtual Visit [facility] [address] [address], [place] [address] Tate Salazar MD [address] [place] [address]805 documented as of this encounter Results * (ABNORMAL) Thyrotropin Receptor Antibody (08/28/2024 9:55 AM CENTRIFUGAL SPINNER) Thyrotropin Receptor Antibody 2.88(H) 0.00 - 1.75 IU/L 08/30/2024 11:05 AM CENTRIFUGAL SPINNER [facility] Comment: ADDITIONAL INFORMATION At a decision limit of 1.75 IU/L, this assay has 97% sensitivity and 99% specificity for detection of Graves' disease. In healthy individuals and in patients with thyroid disease without diagnosis of Graves' disease, the upper limit of anti-TSHR values are 1.22 IU/L and 1.58 IU/L, respectively (97.5th percentiles). Test Performed by: [facility] [address] [place] [address] Fan Blade Aligner: Barrington Douglas Ph.D.; CLIA# [id number] Blood BLOOD SPECIMEN / Unknown Venipuncture / Unknown 08/28/2024 9:55 AM CENTRIFUGAL SPINNER 08/28/2024 9:59 AM CENTRIFUGAL SPINNER Tate Salazar MD LAB - IMMUNOLOGY ORDERABLES F inal Result [facility] [address] [place] [address], [facility] [phone] * Jimenez mInfo; FFTSI; Thyroid-stimulating Immunoglobulin (TSI) (Laboratory Miscellaneous Order) (08/28/2024 9:55 AM CENTRIFUGAL SPINNER) Specimen Status Specimen received. Reordered and sent to performing laboratory. Report to follow upon completion. [facility] 08/28/2024 10:01 AM CENTRIFUGAL SPINNER LABORATORY Performing Laboratory [facility] Laboratories [facility] 08/28/2024 10:01 AM CENTRIFUGAL SPINNER LABORATORY Test Name Thyroid-stimulati ng Immunoglobulin (TSI) [facility] 08/28/2024 10:01 AM CENTRIFUGAL SPINNER LABORATORY Test Code FFTSI [facility] 08/28/2024 10:01 AM CENTRIFUGAL SPINNER LABORATORY Blood BLOOD SPECIMEN / Unknown Venipuncture / Unknown 08/28/2024 9:55 AM CENTRIFUGAL SPINNER 08/28/2024 9:59 AM CENTRIFUGAL SPINNER Tate Salazar MD LAB - BLOOD ORDERABLES Final Result LABORATORY [facility] [address] [facility] System Lab (no room number, 1st floor of clinic) [place] [address] documented in this encounter Visit Diagnoses Diagnosis Graves disease- Primary Toxic diffuse goiter without mention of thyrotoxic crisis or storm documented in this encounter Care Teams Mash Filter Press Operator Relationship Specialty Start Date End Date No Ref-Primary, Physician PCP - General 10/07/22 Mandeep Guadarrama MD [address] [place] [address] [phone] Fellow Endocrinology, Diabetes, and Metabolism 05/09/24 Tate Salazar MD [address] [place] [address] Endocrinology, Diabetes, and Metabolism 05/13/24 Tate Salazar MD [address] [place] [address] Assigned Endocrinology Provider 06/07/24 Priya Theodore APRN BODYWORK THERAPIST [address] [place] [address] Nurse Practitioner Pediatric Urology 11/19/24 documented as of this encounter
--- OUTSIDE RECORDS SUMMARY | 2025-08-05 20:18 | XMS_ITS | Encounter Summary ---
Author Organization [place] Address [address] [place] [address] Care Team Providers Care Reserve Officer Name Role Phone No Ref-Primary, Physician Primary Care Provider Mandeep Guadarrama MD Unavailable [phone] Tate Salazar MD Unavailable [phone] Tate Salazar MD Unavailable [phone] Priya Theodore APRN [facility] Unavailable [phone] Encounter Details Date Type Department Care Team (Late st Contact Info) Description 05/24/2025 [facility] Medical Advice [address] [address] Tate Salazar MD [address] [place] [address] Graves disease (Primary Dx) Social [...] on file Legal Sex Female 3:16 AM DIRECTOR OF PUBLICATIONS Gender Identity Female 09/24/2021 9:00 AM DIRECTOR OF PUBLICATIONS Sexual Orientation Not on file documented as of this encounter Miscellaneous Notes * Telephone Encounter - Fadia Manrique CMA - 06/04/2025 3:40 PM CDT Images from the original note were not included. Labs results from [facility] Fadia Manrique CMA Adult Endocrinology [facility] * Telephone Encounter - Norma Blood - 06/02/2025 9:16 AM CDT 06/02 Called and spoke to patient, appointments are currently scheduled. Norma ramirez Complex [employer] Member Orthopedics, Podiatry, Sports Medicine, Ent ,Eye , Audiology, Adult Endocrine & Diabetes, Nutrition & Medication Therapy Management Specialties [facility] documented in this encounter Plan of Treatment Upcoming Encounters Date Type Department Care Team (Late st Contact Info) Description 08/19/2025 10:15 AM DIRECTOR OF PUBLICATIONS Lab [facility] Laboratory [address] [place] [address] 09/17/2025 9:30 AM DIRECTOR OF PUBLICATIONS Virtual Visit [facility] [address] [place] [address] Tate Salazar MD [address] [place] [address] documented as of this encounter Results * (ABNORMAL) Thyroid stimulating immunoglobulin (06/09/2025 10:09 AM CDT) Thyroid Stim Immunog 3.2(H) <=1.3 TSI index 06/18/2025 9:33 PM CDT [facility] Comment: Test Performed by: [facility] [address] [place] [address] Intelligence Clerk: Barrington Douglas Ph.D.; CLIA# [id number] Blood STRUCTURE OF LEFT UPPER LIMB / Unknown Venipuncture / Unknown 06/09/2025 10:09 AM CDT 06/09/2025 10:09 AM CDT Tate Salazar MD LAB - BLOOD ORDERABLES Final Result [facility] [address] [place] [address], [facility] [phone] * CBC with platelets (06/09/2025 10:09 AM CDT) [facility] WBC Count 4.65 4.00 - 11.00 10e3/uL 06/09/2025 2:53 PM CDT [facility] RBC Count 5.16 3.80 - 5.20 10e6/uL 06/09/2025 2:53 PM CDT [facility] Hemoglobin 14.4 11.7 - 15.7 g/dL 06/09/2025 2:53 PM CDT [facility] Hematocrit 42.5 35.0 - 47.0 % 06/09/2025 2:53 PM CDT [facility] MCV 82.4 78.0 - 100.0 fL 06/09/2025 2:53 PM CDT [facility] MCH 27.9 26.5 - 33.0 pg 06/09/2025 2:53 PM CDT [facility] MCHC 33.9 31.5 - 36.5 g/dL 06/09/2025 2:53 PM CDT [facility] RDW 12.3 10.0 - 15.0 % 06/09/2025 2:53 PM CDT [facility] Platelet Count 274 150 - 450 10e3/uL 06/09/2025 2:53 PM CDT [facility] Blood STRUCTURE OF LEFT UPPER LIMB / Unknown Venipuncture / Unknown 06/09/2025 10:09 AM CDT 06/09/2025 10:09 AM CDT Tate Salazar MD LAB - BLOOD ORDERABLES Final Result [facility] [address] [facility] Lab (no room number, 1st floor of clinic) [place] [address], [facility] * (ABNORMAL) T3 total (06/09/2025 10:09 AM CDT) T3 Total 218(H) 85 - 202 ng/dL 06/09/2025 10:02 PM CDT [facility] Blood STRUCTURE OF LEFT UPPER LIMB / Unknown Venipuncture / Unknown 06/09/2025 10:09 AM CDT 06/09/2025 10:09 AM CDT Tate Salazar MD LAB - BLOOD ORDERABLES Final Result [facility] [place] [facility] [address] [facility], Room [address] * (ABNORMAL) T4 free (06/09/2025 10:09 AM CDT) Free T4 3.98(H) 0.90 - 1.70 ng/dL 06/09/2025 10:02 PM CDT [facility] Blood STRUCTURE OF LEFT UPPER LIMB / Unknown Venipuncture / Unknown 06/09/2025 10:09 AM CDT 06/09/2025 10:09 AM CDT Tate Salazar MD LAB - BLOOD ORDERABLES Final Result [facility] [place] [facility] [address] [facility], Room [address] [place] [id number] * (ABNORMAL) TSH (06/09/2025 10:09 AM CDT) TSH <0.01(L) 0.30 - 4.20 uIU/mL 06/09/2025 10:37 PM CDT [facility] Blood STRUCTURE OF LEFT UPPER LIMB / Unknown Venipuncture / Unknown 06/09/2025 10:09 AM CDT 06/09/2025 10:09 AM CDT Tate Salazar MD LAB - BLOOD ORDERABLES Final Result [facility] [place] [facility] [address] [facility], [address] [place] [phone], [facility] * Hepatic panel (06/09/2025 10:09 AM CDT) Protein Total 7.4 6.4 - 8.3 g/dL 06/09/2025 10:02 PM CDT [facility] Albumin 4.3 3.5 - 5.2 g/dL 06/09/2025 10:02 PM CDT [facility] Bilirubin Total 0.4 <=1.2 mg/dL 06/09/2025 10:02 PM CDT [facility] Alkaline Phosphatase 106 40 - 150 U/L 06/09/2025 10:02 PM CDT [facility] AST 23 0 - 45 U/L 06/09/2025 10:02 PM CDT [facility] ALT 37 0 - 50 U/L 06/09/2025 10:02 PM CDT [facility] Bilirubin Direct 0.21 0.00 - 0.45 mg/dL 06/09/2025 10:02 PM CDT [facility] Comment:As of 25, refer ence ranges and trending lines may vary depending on the testing location. Blood STRUCTURE OF LEFT UPPER LIMB / Unknown Venipuncture / Unknown 06/09/2025 10:09 AM CDT 06/09/2025 10:09 AM CDT Tate Salazar MD LAB - BLOOD ORDERABLES Final Result [facility] [place] [facility] [address] [facility], [address] [place] [phone], [facility] documented in this encounter Visit Diagnoses Diagnosis Graves disease- Primary Toxic diffuse goiter without mention of thyrotoxic crisis or storm documented in this encounter Care Teams Reserve Officer Relationship Specialty Start Date End Date No Ref-Primary, Physician PCP - General 10/07/22 Mandeep Guadarrama MD [address] [place] [address] Fellow Endocrinology, Diabetes, and Metabolism 05/09/24 Tate Salazar MD [address] [place] [address] Endocrinology, Diabetes, and Metabolism 05/13/24 Tate Salazar MD [address] [place] [address] 845195 Assigned Endocrinology Provider 06/07/24 Priya Theodore APRN [facility] [address] [place], [place] [id number] Nurse Practitioner Pediatric Urology 11/19/24 documented as of this encounter
--- OUTSIDE RECORDS SUMMARY | 2025-08-05 20:18 | XMS_ITS | Clinical Summary ---
Author Organization [facility] Address [address] [place] [address]. [place] [address] Care Team Providers Care Medical Assistant Float Name Role Phone No Ref-Primary, Physician Primary Care Provider Mandeep Guadarrama MD Unavailable [phone] AlaTate shaw MD Unavailable [phone] Tate Salazar MD Unavailable [phone] Priya Theodore APRN MODERN LANGUAGES PROFESSOR Unavailable [phone] Allergies Active Allergy Reactions Criticality Noted Date Comments Sulfa Antibiotics Hives 12/20/2011 LW Reaction: Rash, Generalized Medications Multiple Vitamins-Minera ls (MULTIVITAMIN WOMEN PO) Active magnesium 250 MG tablet Take by mouth. 4 Active propranolol (INDERAL) 20 MG tabletIndicatio ns:Graves disease Take 2 tablets (40 mg) by mouth daily. 180 tablet 1 5 Active methimazole (TAPAZOLE) 10 MG tabletIndicatio ns:Graves disease Take 1 tablet (10 mg) by mouth 2 times daily. 180 tablet 1 5 Active methimazole (TAPAZOLE) 10 MG tabletIndicatio ns:Graves disease Take 1.5 tablets (15 mg) by mouth 2 times daily. 270 tablet 1 5 07/23/20 25 Discontinu ed(Reorder (No AVS)) Active Problems Problem Noted Date Diagnosed Date [...] Encounters Date Type Department Care Team Description 07/16/2025 MyC Medical Advice [address] [place] [phone] Tate Salazar MD Graves disease (Primary Dx) 07/13/2025 MyC Medical Advice [address] [place] [phone] Tate Salazar MD 07/01/2025 MyC Medical Advice [address] [place] [phone] Tate Salazar MD 06/27/2025 Results Follow-Up [address] [place] [phone] Tate Salazar MD Subj: Message about your results 06/26/2025 11:00 AM CDT Lab [facility] [address] [place] [phone] Graves disease 06/26/2025 Travel 06/26/2025 MyC Medical Advice [address] [place] [phone] Tate Salazar MD Graves disease (Primary Dx) 06/24/2025 MyC Medical Advice [address] [place] [address] Tate Salazar MD 06/18/2025 MyC Medical Advice [facility] [address] [place] [phone] Tate Salazar MD 06/18/2025 MyC Medical Advice [facility] [address] [place] [phone] Tate Salazar MD 06/11/2025 12:00 PM CDT Virtual Visit [facility] [address] [place] [phone] Tate Salazar MD Graves disease (Primary Dx) 06/09/2025 10:45 AM CDT Lab [facility] [address] [place] [address] Graves disease 06/09/2025 Travel 06/04/2025 External Order Results [facility] [address] [place] [address] Lab, De Interface 06/04/2025 External Order Results [facility] [address] [place] [address] Lab, De Interface 06/04/2025 External Order Results [facility] [address] [place] [address] Lab, De Interface 06/04/2025 External Order Results [facility] [address] [place] [address] Lab, De Interface 06/04/2025 External Order Results [facility] [address] [place] [address] Lab, De Interface 06/04/2025 External Order Results [facility] [address] [place] [address] Lab, De Interface 06/04/2025 External Order Results [facility] [address] [place] [address] Lab, De Interface 05/24/2025 MyC Medical Advice [facility] [address] [place] [phone] Tate Salazar MD Graves disease (Primary Dx) from Last 3 Months Immunizations Immunization Administration [...] on file Legal Sex Female 3:16 AM MD OPHTHALMOLOGIST Gender Identity Female 09/24/2021 9:00 AM MD OPHTHALMOLOGIST Sexual Orientation Not on file Last Filed Vital Signs Vital Sign Reading Time Taken Comments Blood Pressure 124/78 10/07/2022 12:08 PM MD OPHTHALMOLOGIST Pulse 95 10/07/2022 1:49 PM MD OPHTHALMOLOGIST Temperature 36.5 C (97.7 F) 10/07/2022 9:21 AM MD OPHTHALMOLOGIST Respiratory Rate 16 10/07/2022 1:49 PM MD OPHTHALMOLOGIST Oxygen Saturation 100% 10/07/2022 12:08 PM MD OPHTHALMOLOGIST Inhaled Oxygen Concentration - - Weight 78 kg (172 lb) 06/11/2025 11:45 AM CDT Height 167.6 cm (5' 6) 06/11/2025 11:45 AM CDT Body Mass Index 27.76 06/11/2025 11:45 AM CDT Plan of Treatment Upcoming Encounters Date Type Department Care Team (Late st Contact Info) Description 08/19/2025 10:15 AM MD OPHTHALMOLOGIST Lab [facility] [address] [place] [address] 09/17/2025 9:30 AM MD OPHTHALMOLOGIST Virtual Visit [address] [phone] Tate Salazar MD [address] [place] [phone] Health Maintenance Due Date Last Done Comments ADVANCE CARE PLANNING 1988 ANNUAL REVIEW OF HM ORDERS 1988 HEPATITIS C SCREENING 2006 PNEUMOCOCCAL VACCINE: PEDIAT RICS (0 to 5 YEARS) AND AT-RISK PATIENTS (6 to 49 YEARS) (1 of 2 - PCV) 2007 YEARLY PREVENTIVE VISIT 12/03/2020 12/03/2019, 09/05 PHQ-2 (once per calendar year) 2024 1 11/09/2023, 05/16/2024, 12/03/2019, Additional history exists COVID-19 VACCINE (1 - 2024-2 6 season) 2025 INFLUENZA VACCINE (#1) 2025 0 (Declined), 10/03/2018 [...] Procedure Name Priority Date/Time Associated Diagnosis Comments CBC WITH PLATELETS Routine 06/26/2025 10 :28 AM CDT Graves disease T3 TOTAL Routine 06/26/2025 10:28 AM CDT Graves disease T4 FREE Routine 06/26/2025 10:28 AM CDT Graves disease TSH Routine 06/26/2025 10:28 AM CDT Graves disease THYROID STIMULATING IMMUNOGLOBULIN Routine 06/09/2025 10:09 AM CDT Graves disease CBC WITH PLATELETS Routine 06/09/2025 10 :09 AM CDT Graves disease T3 TOTAL Routine 06/09/2025 10:09 AM CDT Graves disease T4 FREE Routine 06/09/2025 10:09 AM CDT Graves disease TSH Routine 06/09/2025 10:09 AM CDT Graves disease HEPATIC FUNCTION PANEL Routine 10:09 AM CDT Graves disease T4 FREE Routine 06/04/2025 11:47 AM CDT TSH Routine 06/04/2025 11:47 AM CDT MAGNESIUM Routine 06/04/2025 11:47 AM CDT HEPATIC FUNCTION PANEL Routine 11:47 AM CDT BASIC METABOLIC PANEL Routine 06/04/2025 11:47 AM CDT DIFFERENTIAL Routine 06/04/2025 11:47 AM CDT CBC WITH PLATELETS Routine 06/04/2025 11 :47 AM CDT BASIC METABOLIC PANEL STAT 10/07/2022 9:30 AM MD OPHTHALMOLOGIST HPV HIGH RISK TYPES DNA CERVICAL Routine 12/03/2019 1:30 PM MD OPHTHALMOLOGIST Screening for malignant neoplasm of cervix PAP IMAGED THIN LAYER SCREEN Routine 12/03/2019 1:29 PM MD OPHTHALMOLOGIST Screening for malignant neoplasm of cervix HIV ANTIGEN ANTIBODY COMBO Routine 06/23/2016 from Last 3 Months or Most Recently Relevant to Health Maintenance Results * (ABNORMAL) TSH (06/26/2025 10:28 AM CDT) Only the most recent of3 resultswithin the time period is included. TSH <0.01(L) 0.30 - 4.20 uIU/mL 06/27/2025 1:28 AM CDT [facility] Blood BLOOD SPECIMEN / Unknown Venipuncture / Unknown 06/26/2025 10:28 AM CDT 06/26/2025 10:28 AM CDT Tate Salazar MD LAB - BLOOD ORDERABLES Final Result Performing Organization Address City/[facility]/ZIP Co de Phone Number LABORATORY [facility] Core Lab [address] [facility], [address] * T4 free (06/26/2025 10:28 AM CDT) Only the most recent of3 resultswithin the time period is included. Free T4 1.50 0.90 - 1.70 ng/dL 06/27/2025 12:54 AM CDT U LABORATORY Blood BLOOD SPECIMEN / Unknown Venipuncture / Unknown 06/26/2025 10:28 AM CDT 06/26/2025 10:28 AM CDT Tate Salazar MD LAB - BLOOD ORDERABLES Final Result Performing Organization Address [facility] de Phone Number LABORATORY [facility] [address] [facility], [address] * T3 total (06/26/2025 10:28 AM CDT) Only the most recent of2 resultswithin the time period is included. T3 Total 128 85 - 202 ng/dL 06/27/2025 12:54 AM CDT U LABORATORY Blood BLOOD SPECIMEN / Unknown Venipuncture / Unknown 06/26/2025 10:28 AM CDT 06/26/2025 10:28 AM CDT us Tate Salazar MD LAB - BLOOD ORDERABLES Final Result [facility] LABORATORY [facility] Core Lab [address] [facility], [address] [place] [address], [facility] * CBC with platelets (06/26/2025 10:28 AM CDT) Only the most recent of3 resultswithin the time period is included. WBC Count 5.49 4.00 - 11.00 10e3/uL [...] 10:28 AM CDT 06/26/2025 10:28 AM CDT [facility] Martin DAWSON LAB - BLOOD ORDERABLES Final Result LV LABORATORY [facility] [address] [facility] Lab (no room number, 1st floor of clinic) [place] [address], [facility] * (ABNORMAL) Thyroid stimulating immunoglobulin (06/09/2025 10:09 AM CDT) Thyroid Stim Immunog 3.2(H) <=1.3 TSI index 06/18/2025 9:33 PM CDT [facility] Comment: Test Performed by: [facility] [address] [id number] Technical Sales Support Specialist: Barrington Douglas Ph.D.; CLIA# [id number] Blood STRUCTURE OF LEFT UPPER LIMB / Unknown Venipuncture / Unknown 06/09/2025 10:09 AM CDT 06/09/2025 10:09 AM CDT us Tate Salazar MD LAB - BLOOD ORDERABLES Final Result [facility] [address] [place] [address], [facility] [phone] * Hepatic panel (06/09/2025 10:09 AM CDT) Only the most recent of2 resultswithin the time period is included. Protein Total 7.4 6.4 - 8.3 g/dL [...] 10:09 AM CDT 06/09/2025 10:09 AM CDT us Tate Salazar MD LAB - BLOOD ORDERABLES Final Result U LABORATORY [facility] Lab [address] [facility], [address] [place] [address], [facility] * Magnesium (06/04/2025 11:47 AM CDT) Magnesium (External) 2.0 1.5 - 2.6 mg/dl NON-INTERFACED (ONBASE SCANS) 06/04/2025 11:4 7 AM CDT Narrative BREEZE PFT - 06/05/2025 2:23 PM CDT Verified by Bridget Nicole on 06/05/2025. De Interface Lab LAB - BLOOD ORDERABLES Edited R esult - Final GABY PFT NON-INTERFACED (ONBASE SCANS) * (ABNORMAL) Manual Differential (06/04/2025 11:47 AM CDT) % Neutrophils (External) 70.4 42.0 - 72.0 % NON-INTERFACE D (ONBASE SCANS) % Lymphocytes (External) 19.4(L) 20 - 44 % NON-INTERFACE D (ONBASE SCANS) % Monocytes (External) 7.7 0.0 - 11.0 % NON-INTERFACE D (ONBASE SCANS) % Eosinophils (External) 1.7 0.0 - 7.0 % NON-INTERFACE D (ONBASE SCANS) % Basophils (External) 0.6 0.0 - 3.0 % NON-INTERFACE D (ONBASE SCANS) % Immature Granulocytes (External) 0.2 % NON-INTERFACE D (ONBASE SCANS) Absolute Neutrophils (External) 3.02 1.7 - 7.0 K/uL NON-INTERFACE D (ONBASE SCANS) Absolute Lymphocytes (External) 1.10 0.90 - 2.90 K/uL NON-INTERFACE D (ONBASE SCANS) Absolute Monocytes (External) 0.40 0.00 - 0.90 K/UL NON-INTERFACE D (ONBASE SCANS) Absolute Eosinophils (External) 0.09 0.00 - 0.50 K/uL NON-INTERFACE D (ONBASE SCANS) Absolute Basophils (External) 0.03 0.00 - 0.30 K/uL NON-INTERFACE D (ONBASE SCANS) Absolute Immature Granulocytes (External) 0.01 0.00 - 0.30 K/uL NON-INTERFACE D (ONBASE SCANS) 06/04/2025 11:4 7 AM CDT Narrative GABY PFT - 06/05/2025 2:23 PM CDT Verified by Bridget Nicole on 06/05/2025. us De Interface Lab LAB - BLOOD ORDERABLES Edited R esult - Final GABY GUTIERREZ NON-INTERFACED (ONBASE SCANS) * (ABNORMAL) Basic metabolic panel (06/04/2025 11:47 AM CDT) Only the most recent of2 resultswithin the time period is included. Sodium (External) 138 135 - 149 mmol/L NON-INTERFACED (ONBASE SCANS) Potassium (External) 4.2 3.6 - 5.1 mmol/L NON-INTERFACED (ONBASE SCANS) Chloride (External) 108 96 - 114 mmol/L NON-INTERFACED (ONBASE SCANS) CO2 (External) 22 20 - 32 mmol/L NON-INTERFACED (ONBASE SCANS) Anion Gap (External) 8 7 - 15 mEq/L NON-INTERFACED (ONBASE SCANS) Urea Nitrogen (External) 17 5 - 24 mg/dl NON-INTERFACED (ONBASE SCANS) Creatinine (External) 0.6 0.5 - 1.5 mg/dl NON-INTERFACED (ONBASE SCANS) GFR Estimated (External) 119 ml/min/1.7 3m2 NON-INTERFACED (ONBASE SCANS) Calcium (External) 10.2 8.4 - 10.6 mg/dl NON-INTERFACED (ONBASE SCANS) Glucose (External) 145(H) 60 - 115 g/dL NON-INTERFACED (ONBASE SCANS) 06/04/2025 11:4 7 AM CDT Narrative GABY PFT - 06/05/2025 2:23 PM CDT Verified by Bridget Nicole on 06/05/2025. us De Interface Lab LAB - BLOOD ORDERABLES Edited R esult - Final GABY PFT NON-INTERFACED (ONBASE SCANS) * HPV High Risk Types DNA Cervical (12/03/2019 1:30 PM MD OPHTHALMOLOGIST) HPV Source [facility] 12/03/2019 1:29 PM MD OPHTHALMOLOGIST [facility] HPV 16 DNA Negative NEG^Nega tive 12/09/2019 3:[address] [facility] HPV 18 DNA Negative NEG^Nega tive 12/09/2019 3:[address] [facility] Other HR HPV Negative NEG^Nega tive 12/09/2019 3:[address] [facility] Final Diagnosis This patient's sample is negative for HPV DNA. 12/09/2019 3:[address] [facility] Comment: This test was developed and its performance characteristics determined by the [facility], Molecular Diagnostics Laboratory. It has [...] Specimen Description Cervical Cells 12/03/2019 1:[address] [facility] Comment:[id number] Cervical Cells 12/03/2019 1: 30 PM MD OPHTHALMOLOGIST 12/03/2019 2:05 PM MD OPHTHALMOLOGIST Medardo Baron MD LAB - BLOOD ORDERABLES Final Result [facility] [address] [place] [address] [facility] [address] [place] [address] * Pap imaged thin layer screen with HPV - recommended age 30 - 65 years (select HPV order below) (12/03/2019 1:29 PM MD OPHTHALMOLOGIST) PAP NIL SARATH Sanchez Report Patient Name: TELLY RICHARDSON MR#: [id number] Specimen #: [id number] Collected: 12/03/2019 Received: 12/04/2019 Reported: 12/06/2019 07:36 [...] adenocarcinomas or other cancers. COLLECTION SITE: Client: [facility] Location: [facility] () [facility], with the professional component performed at the [facility], [address] [place] [phone] ([phone]) [facility] Cytologic material (specimen) 12/03/2019 1:29 PM MD OPHTHALMOLOGIST 12/04/2019 10:46 AM MD OPHTHALMOLOGIST us Medardo Baron MD LAB - OPTIME CLINICAL SPECIMEN Final Result [facility] * HIV Antigen Antibody Combo (06/23/2016) HIV Antigen Antibody Combo nonreactive Blood specimen (specimen) us Patient Reported LAB - BLOOD ORDERABLES Final Re sult from Last 3 Months or Most Recently Relevant to Health Maintenance Insurance [facility] Advance Directives For more information, please contact: [phone] * Full Code (Latest Code Status on File) Date Activated Date Inactivated Comments 09/11/2012 8:22 AM 10/07/2022 9:04 AM Care Teams Medical Assistant Float Relationship Specialty Start Date End Date No Ref-Primary, Physician PCP - General 10/07/22 Mandeep Guadarrama MD [address] [place] [address] Fellow Endocrinology, Diabetes, and Metabolism 05/09/24 Tate Salazar MD [address] [place] [address] Endocrinology, Diabetes, and Metabolism 05/13/24 Tate Salazar MD [address] [place] [address] Assigned Endocrinology Provider 06/07/24 Priya Theodore APRN MODERN LANGUAGES PROFESSOR [address] [place] [address] Nurse Practitioner Pediatric Urology 11/19/24
--- OUTSIDE RECORDS SUMMARY | 2025-08-05 20:18 | XMS_ITS | Encounter Summary ---
Author Organization [facility] Address [address] [place] [address] Care Team Providers Care Manager [employer] Name Role Phone No Ref-Primary, Physician Primary Care Provider Mandeep Guadarrama MD Unavailable [phone] Tate Salazar MD Unavailable [phone] Tate Salazar MD Unavailable [phone] Priya Theodore APRN 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 Gender Identity Female 09/24/2021 9:00 AM RUG RECEIVING CLERK Sexual Orientation Not on file documented as of this encounter Plan of Treatment Upcoming Encounters Date Type Department Care Team (Late st Contact Info) Description 08/19/2025 10:15 AM RUG RECEIVING CLERK Lab [facility] [address] [place] [phone] 09/17/2025 9:30 AM RUG RECEIVING CLERK Virtual Visit [facility] [address] [place] [phone] Tate Salazar MD [address] [place] [address] documented as of this encounter Visit Diagnoses Not on filedocumented in this encounter Care Teams Manager [employer] Retail Relationship Specialty Start Date End Date No Ref-Primary, Physician PCP - General 10/07/22 Mandeep Guadarrama MD [address] [place] [address] Fellow Endocrinology, Diabetes, and Metabolism 05/09/24 Tate Salazar MD [address] [place] [address] Endocrinology, Diabetes, and Metabolism 05/13/24 Tate Salazar MD [address] [place] [phone] Assigned Endocrinology Provider 06/07/24 Priya Theodore APRN [employer]ING [employer]IMMER [address] [place] [address] Nurse Practitioner Pediatric Urology 11/19/24 documented as of this encounter
[2025-08-05 20:24] VITALS: BP 149/96; PULSE 87; RESP 18; TEMP 36.8; O2SAT 100; BMI 30.9
== END 2025-08-05 21:41 | disposition left against medical advice (07) ==
LOC: ED 21:40
PROVIDERS: Emergency Provider Emergency Medicine
DX: Z53.21 Procedure and treatment not carried out due to patient leaving prior to being seen by health care provider (principal)